=== PATIENT | male | born 1960 | race Caucasian/White ===

== ENCOUNTER → 2019-11-23 10:16 | Outpatient (BNVA) | payer MEDICAID, SELFPAY | PROVIDERS: Family Provider Family Medicine; PCP Family Medicine; Referring Provider Family Medicine; Visit Provider Anesthesiology Pain Medicine | DX: M51.36 Other intervertebral disc degeneration, lumbar region (principal); M47.816 Spondylosis without myelopathy or radiculopathy, lumbar region; M54.16 Radiculopathy, lumbar region; F17.210 Nicotine dependence, cigarettes, uncomplicated | CPT/HCPCS: 99203; 99999 ==

== ENCOUNTER → 2019-12-01 13:32 | Outpatient (BNVA) | payer MEDICAID, SELFPAY | PROVIDERS: Family Provider Family Medicine; PCP Family Medicine; Visit Provider Anesthesiology Pain Medicine | DX: M51.36 Other intervertebral disc degeneration, lumbar region (principal); M54.16 Radiculopathy, lumbar region | CPT/HCPCS: 64483; 64484; J1040; J2001; J3490 ==

== ENCOUNTER → 2020-01-31 10:15 | Outpatient (BNVA) | payer MEDICAID, SELFPAY | PROVIDERS: Family Provider Family Medicine; PCP Family Medicine; Visit Provider Specialist | DX: G40.909 Epilepsy, unspecified, not intractable, without status epilepticus (principal); F25.0 Schizoaffective disorder, bipolar type; F17.210 Nicotine dependence, cigarettes, uncomplicated | CPT/HCPCS: 99204 ==

== ENCOUNTER → 2020-02-03 08:58 | Outpatient (BNVA) | payer MEDICAID, SELFPAY | PROVIDERS: Family Provider Family Medicine; PCP Family Medicine; Visit Provider Anesthesiology Pain Medicine | DX: M47.816 Spondylosis without myelopathy or radiculopathy, lumbar region (principal); M51.36 Other intervertebral disc degeneration, lumbar region; M54.16 Radiculopathy, lumbar region; M54.9 Dorsalgia, unspecified; M62.830 Muscle spasm of back; F17.210 Nicotine dependence, cigarettes, uncomplicated; Z79.891 Long term (current) use of opiate analgesic | CPT/HCPCS: 99213 ==

== ENCOUNTER → 2020-02-08 12:38 | Outpatient (BNVA) | payer MEDICAID, SELFPAY | PROVIDERS: Family Provider Family Medicine; PCP Family Medicine; Visit Provider Specialist | DX: R56.9 Unspecified convulsions (principal); F17.210 Nicotine dependence, cigarettes, uncomplicated | CPT/HCPCS: 95816 ==

== ENCOUNTER → 2020-02-17 07:44 | Outpatient (BNVA) | payer MEDICAID, SELFPAY | PROVIDERS: Family Provider Family Medicine; PCP Family Medicine; Visit Provider Nurse Practitioner Psychiatric/Mental Health | DX: F25.1 Schizoaffective disorder, depressive type (principal); G47.33 Obstructive sleep apnea (adult) (pediatric) | CPT/HCPCS: 99213 ==

== ENCOUNTER → 2020-03-16 13:09 | Outpatient (BNVA) | payer MEDICAID, SELFPAY | PROVIDERS: Family Provider Family Medicine; PCP Family Medicine; Visit Provider Nurse Practitioner Psychiatric/Mental Health | DX: F25.1 Schizoaffective disorder, depressive type (principal); Z79.899 Other long term (current) drug therapy | CPT/HCPCS: 99212 ==

== ENCOUNTER → 2020-04-12 13:56 | Outpatient (BNVA) | payer OTHER, SELFPAY | PROVIDERS: Family Provider Family Medicine; PCP Family Medicine; Visit Provider Dermatology | DX: F25.0 Schizoaffective disorder, bipolar type (principal); Z79.899 Other long term (current) drug therapy | CPT/HCPCS: 80061; 83036 ==

== ENCOUNTER 2020-04-17 11:03 | Inpatient (IN) | payer MEDICAID, SELFPAY ==
[2020-04-13 10:55] VITALS: BP 156/100; BMI 27.5
[2020-04-17] VITALS (34 sets, daily range): BP systolic 77–193; BP diastolic 49–103; PULSE 75–111; RESP 12–23; TEMP 36.5–36.8; O2SAT 87–99; BMI 25.0
--- NOTE | 2020-04-17 11:18 | ECG_ITS ---
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 Measurements Intervals [place] Rate: 81 P: 68 CA: 169 QRS: 41 QRSD: 94 T: 75 QT: 373 QTc: 435 Interpretive Statements SINUS RHYTHM Compared to ECG 02/20/2019 03:24:19 T-wave abnormality no longer present Electronically Signed On 04-17-2020 21:21:09 CDT by Annia Rolle M.D. [email or web address] | [facility].Gravity/store/OM/[id number]"
[2020-04-17] MEDS: haloperidol inj 5 mg/mL INJ 1 mL IM (11:28)
[2020-04-17 11:58] LABS: Basophils # 0.1 10^3/uL (0.0-0.1); Basophils % 0.7 %; Eosinophils # 0.3 10^3/uL (0.0-0.8); Eosinophils % 3.7 %; Hematocrit 42.3 % (42.0-52.0); Lymphocytes # 2.3 10^3/uL (0.8-4.8); Lymphocytes % 34.1 %; Mean Corpuscular HGB Conc 33.1 g/dL (30.0-36.0); Mean Corpuscular Hemoglobin 31.5 pg (28.0-34.0); Mean Corpuscular Volume 95.1 fL (80-94); Mean Platelet Volume 9.1 fL (7.4-10.4); Monocytes # 0.9 10^3/uL (0.2-0.9); Monocytes % 13.4 %; Neutrophils % 47.8 %; Nucleated Red Blood Cells % 0 %; Platelet Count 344 10^3/cmm (130-400); Red Blood Count 4.45 10^6/uL (4.1-5.3); Red Cell Distribution Width 15.4 % (12.1-15.1); White Blood Count 6.7 10^3/uL (4.0-10.0)
[2020-04-17 12:11] LABS: INR 0.79 (0.8-1.2)
--- NOTE | 2020-04-17 12:21 | W.ED.PSYCH ---
HPI - Psych General: Chief Complaint: Psychiatric Symptoms Stated Complaint: ANXIETY/etoh Time Seen by Provider: 04/17/20 11:09 Source: patient and EMS Mode of arrival: EMS Limitations: altered mental status History of Present Illness: HPI Narrative: Costa is a 59-year-old male who comes in hallucinating. He appears to have been drinking today as well. He is having what appears to be auditory and visual hallucinations. The patient is cooperative at times that also becomes agitated and combative that necessitates redirection but he is easily redirected. Patient states he is depressed and wants to get help. He acknowledges his hallucinations. Per review of the chart the patient has schizoaffective disorder but sounds like he is noncompliant. Further history cannot be obtained psych to the patient's uncooperation. Review of Systems General: Reports: Other (Patient will not cooperate for review of systems.) [facility] ED PFSH: Medical History Alcohol use disorder See subjective information below. 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 Sleep apnea, obstructive Urinary urgency Vitamin B12 deficiency Surgical History No pertinent past surgical history Family History Other Cancer Diabetes Hypertension Social History Smoking and tobacco status: current every day smoker cigarettes Packs smoked per day: 2 Years cigarettes smoked: 40 Second hand smoke exposure: No Alcohol intake: current Alcohol intake frequency: 3 or more drinks per day Alcohol type: beer Desire information about alcohol rehabilitation?: No Desire information about substance/drug rehabilitation?: No Adopted: No Caregiver/support person: No Lives independently: Yes Household members: none Housing: House Marital status: Number of children: 2 Number of grandchildren: 6 Highest education level completed: 11th Grade service: No Current occupational status: disabled Current occupational exposures/hazards: No Pets and animals: Yes Pets & animals: dog(s) History of recent travel: No Current gender identity: Male Maricarmen/Confucianist: Orthodoxy Special maricarmen needs: No Agree to transfusion: Yes Financial difficulty paying for basics: Hard Physical Exam Const: COMMON NORMALS: no acute distress, patient oriented x3, no limitations, healthy appearing and well nourished GENERAL APPEARANCE: cooperative, well kempt and well developed HENMT: COMMON NORMALS: normocephalic, atraumatic, external ears normal, EAC's normal and Normal external nose present HEAD & SCALP: normal to inspection, normocephalic and atraumatic FACE & SINUS: normal facial exam and face symmetric NOSE: Normal external nose present and Normal nares present EXTERNAL EAR: Yes external ears normal EXTERNAL AUDITORY CANAL: EAC's normal MOUTH: Normal oral and palatal mucosa present, lip normal and tongue normal Eye: COMMON NORMALS: Equal, round and reactive pupils present and conjunctivae normal GENERAL EYE: appearance normal, both eyes and all related structures ALIGNMENT: Yes alignment normal PERIORBITAL: periorbital findings normal EYELID: eyelids normal CONJUNCTIVA: Yes conjunctivae normal SCLERA: sclerae normal PUPIL: Yes Equal, round and reactive pupils present Neck/C-Spine: COMMON NORMALS: full ROM, no lymphadenopathy, supple, no meningeal signs and no JVD GENERAL: Yes normal visual inspection and Yes trachea midline Chest: COMMONS NORMALS: normal inspection of the chest and normal palpation of entire chest wall Resp: COMMON NORMALS: normal respiratory effort, No retractions and No use of accessory muscles EFFORT & INSPECTION: Yes able to speak in complete sentences and Yes symmetric chest movement AUSCULTATION: no crackles, no rales, no rhonchi and no wheezes Cardio: COMMON NORMALS: no JVD, regular rate, regular rhythm, S1 normal heart sound present and S2 normal heart sound present RATE: regular rate RHYTHM: regular rhythm HEART SOUNDS: S1 normal heart sound present, S2 normal heart sound present, no click, no gallops, no murmurs, no rubs and abnormal split S2 GI: COMMON NORMALS: Soft to palpation and No hepatosplenomegaly present PALPATION: Yes Soft to palpation, No Tenderness to palpation present (GI), No Guarding due to palpation present (GI), No Rigid due to palpation, Yes No hepatosplenomegaly present, No Hernia present, No Palpable mass present and No Pulsatile mass present : COMMON NORMALS: Yes no CVA tenderness BLADDER/KIDNEY EXAM: Yes no CVA tenderness Back/Pelvis: COMMON NORMALS: no CVA tenderness, thoracic and lumbar spine normal to inspection, no thoracic nor lumbar tenderness and thoraco-lumbar ROM normal Extremity: COMMON NORMALS: normal to inspection, full ROM, capillary refill normal, no joint enlargement, no clubbing, cyanosis or edema and no calf tenderness Neuro: COMMON NORMALS: patient oriented x3, CN's II-XII intact bilaterally, moves all extremities, no focal motor deficits and no sensory deficits noted MENINGEAL SIGNS: Yes no meningeal signs SPEECH: speech normal Psych: APPEARANCE: Yes well kempt Skin: COMMON NORMALS: no rashes or lesions noted, turgor normal, no jaundice, no petechiae and no mottling GENERAL SKIN EXAM: no rashes or lesions noted and turgor normal MDM - Psych MDM Narrative: Medical decision making narrative: The case was reviewed with Dr. Costello, he agrees to go ahead and admit the patient for acute psychosis. Lab Data: Attestation: I reviewed the patient's lab results. Labs: Lab Results 04/17/20 04/17/20 04/17/20 Range/Units 11:35 11:50 11:50 WBC 6.7 (4.0-10.0) 10^3/ uL RBC 4.45 (4.1-5.3) 10^6/u L Hgb 14.0 (11.7-16.6) g/dL Hct 42.3 (42.0-52.0) % MCV 95.1 H (80-94) fL MCH 31.5 (28.0-34.0) pg MCHC 33.1 (30.0-36.0) g/dL RDW 15.4 H (12.1-15.1) % Plt Count 344 (130-400) 10^3/c mm MPV 9.1 (7.4-10.4) fL Neut % (Auto) 47.8 % Lymph % (Auto) 34.1 % [place] % (Auto) 13.4 % Eos % (Auto) 3.7 % Baso % (Auto) 0.7 % Neut # (Auto) 3.20 (1.8-7.7) 10^3/u L Lymph # (Auto) 2.3 (0.8-4.8) 10^3/u L [place] # (Auto) 0.9 (0.2-0.9) 10^3/u L Eos # (Auto) 0.3 (0.0-0.8) 10^3/u L Baso # (Auto) 0.1 (0.0-0.1) 10^3/u L Nucleated RBC % (a uto) 0 % Nucleated RBCs # 0.0 /100WBC PT 11.20 (10.5-13.3) SECO NDS INR 0.79 L (0.8-1.2) Sodium (136-145) mmol/L Potassium (3.5-5.1) mmol/L Chloride (98-107) mmol/L Carbon Dioxide (22-29) mmol/L Anion Gap (5-19) BUN (6-20) mg/dL Creatinine (0.7-1.2) mg/dL GFR Calculation (90-130) mL/min Glucose (65-115) mg/dL Calculated Osmolal ity (285-295) mOsm/k g Calcium (8.5-10.5) mg/dL Total Bilirubin (0.15-1.2) mg/dL AST (0-40) U/L ALT (0-41) U/L Alkaline Phosphata se (40-130) IU/L Total Protein (6.6-8.7) g/dL Albumin (3.5-5.2) g/dL Globulin (1.3-4.6) g/dL TSH (0.27-4.20) uIU/ mL Salicylates (3-10) mg/dL Urine Opiates Scre en Negative (Negative) ng/mL Acetaminophen (10-30) ug/mL Ur Barbiturates Sc reen Negative (Negative) ng/mL Phenytoin (10-20) ug/mL Valproic Acid (50-100) ug/mL Carbamazepine (4.0-12.0) ug/mL Ur Phencyclidine S crn Negative (Negative) ng/mL Ur Amphetamines Sc reen Negative (Negative) ng/mL U Benzodiazepines Scrn Negative (Negative) ng/mL Nordic (0.6-1.2) mmol/L Urine Cocaine Scre en Negative (Negative) ng/mL U Marijuana (THC) Screen Negative (Negative) ng/mL Ethyl Alcohol (0-10) mg/dL 04/17/20 04/17/20 Range/Units 11:50 11:50 WBC (4.0-10.0) 10^3/ uL RBC (4.1-5.3) 10^6/u L Hgb (11.7-16.6) g/dL Hct (42.0-52.0) % MCV (80-94) fL MCH (28.0-34.0) pg MCHC (30.0-36.0) g/dL RDW (12.1-15.1) % Plt Count (130-400) 10^3/c mm MPV (7.4-10.4) fL Neut % (Auto) % Lymph % (Auto) % [place] % (Auto) % Eos % (Auto) % Baso % (Auto) % Neut # (Auto) (1.8-7.7) 10^3/u L Lymph # (Auto) (0.8-4.8) 10^3/u L [place] # (Auto) (0.2-0.9) 10^3/u L Eos # (Auto) (0.0-0.8) 10^3/u L Baso # (Auto) (0.0-0.1) 10^3/u L Nucleated RBC % (a uto) % Nucleated RBCs # /100WBC PT (10.5-13.3) SECO NDS INR (0.8-1.2) Sodium 140 (136-145) mmol/L Potassium 4.6 (3.5-5.1) mmol/L Chloride 105 (98-107) mmol/L Carbon Dioxide 24 (22-29) mmol/L Anion Gap 15.6 (5-19) BUN 10 (6-20) mg/dL Creatinine 0.7 (0.7-1.2) mg/dL GFR Calculation 115.4 (90-130) mL/min Glucose 90 (65-115) mg/dL Calculated Osmolal ity 286 (285-295) mOsm/k g Calcium 8.2 L (8.5-10.5) mg/dL Total Bilirubin 0.2 (0.15-1.2) mg/dL AST 26 (0-40) U/L ALT 34 (0-41) U/L Alkaline Phosphata se 57 (40-130) IU/L Total Protein 6.8 (6.6-8.7) g/dL Albumin 4.6 (3.5-5.2) g/dL Globulin 2.2 (1.3-4.6) g/dL TSH 1.03 (0.27-4.20) uIU/ mL Salicylates < 0.3 L (3-10) mg/dL Urine Opiates Scre en (Negative) ng/mL Acetaminophen < 5.0 L (10-30) ug/mL Ur Barbiturates Sc reen (Negative) ng/mL Phenytoin 0.8 L (10-20) ug/mL Valproic Acid 2.8 L (50-100) ug/mL Carbamazepine 2.0 L (4.0-12.0) ug/mL Ur Phencyclidine S crn (Negative) ng/mL Ur Amphetamines Sc reen (Negative) ng/mL U Benzodiazepines Scrn (Negative) ng/mL Nordic 0.1 L (0.6-1.2) mmol/L Urine Cocaine Scre en (Negative) ng/mL U Marijuana (THC) Screen (Negative) ng/mL Ethyl Alcohol 297 H (0-10) mg/dL EKG Data^: EKG 1: Attestation: I personally reviewed and interpreted this EKG as follows: EKG interpretation date: 04/17/20 EKG interpretation time: 12:37 Interpretation: Normal sinus rhythm at 81 beats a minute, no acute ST or T wave changes. No blocks, normal intervals. Discharge Plan Discharge Patient Disposition: Placed in Observation Admit Provider: Diogenes Costello Clinical Impression: Acute psychosis Discharge Date/Time: 04/17/20 15:13 Coding Level of Care Code ED Pattern Room Attendant for Chg Fwd Exam Comprehensive
[2020-04-17 12:25] LABS: Amphetamines Screen Urine Negative (Negative); Barbiturates Screen Urine Negative (Negative); Benzodiazepines Screen Urine Negative (Negative); Cocaine Screen Urine Negative (Negative); Opiate Screen Urine Negative (Negative); PCP Screen Urine Negative (Negative); THC Screen Urine Negative (Negative)
[2020-04-17 12:26] LABS: Alanine Aminotransferase 34 U/L (0-41); Albumin Level 4.6 g/dL (3.5-5.2); Alcohol Level 297 mg/dL (0-10); Alkaline Phosphatase 57 IU/L (40-130); Anion Gap 15.6 (5-19); Aspartate Amino Transferase 26 U/L (0-40); Blood Urea Nitrogen 10 mg/dL (6-20); Calcium 8.2 mg/dL (8.5-10.5); Carbon Dioxide 24 mmol/L (22-29); Chloride 105 mmol/L (98-107); Globulin 2.2 g/dL (1.3-4.6); Glomerular Filtration Rate 115.4 mL/min (90-130); Glucose 90 mg/dL (65-115); Osmolality Calculated 286 mOsm/kg (285-295); Potassium 4.6 mmol/L (3.5-5.1); Sodium 140 mmol/L (136-145); Thyroid Stimulating Hormone 1.03 uIU/mL (0.27-4.20); Total Bilirubin 0.2 mg/dL (0.15-1.2); Total Protein 6.8 g/dL (6.6-8.7)
[2020-04-17 12:31] LABS: Acetaminophen < 5.0 ug/mL (10-30); Salicylate < 0.3 mg/dL (3-10)
[2020-04-17 13:13] LABS: Phenytoin Dilantin 0.8 ug/mL (10-20); Valproic Acid Level 2.8 ug/mL (50-100)
[2020-04-17 13:33] LABS: Lithium 0.1 mmol/L (0.6-1.2)
--- NOTE | 2020-04-17 14:42 | PC.NURSE ---
Patient unable to ambulate with normal gait
--- NOTE | 2020-04-17 15:15 | PC.NURSE ---
Ambulation trial perform by digital camera technician. I repeated the ambulation trial. The patient was able to ambulate with a steady gait. He requested a sandwich.
--- NOTE | 2020-04-17 16:04 | CTR_ITS ---
PROCEDURE INFORMATION: Exam: CT Head Without Contrast Exam date and time: 04/17/2020 4:05 PM Age: 59 years old Clinical indication: Pain; Headache; Additional info: Severe head pain sudden onset, S/P multi seizures TECHNIQUE: Imaging protocol: Computed tomography of the head without contrast. Radiation optimization: All CT scans at this facility use at least one of these dose optimization techniques: automated exposure control; mA and/or kV adjustment per patient size (includes targeted exams where dose is matched to clinical indication); or iterative reconstruction. COMPARISON: CT head wo con* [id number] 02/20/2019 3:29 AM RADIATION DOSE METRICS: Total DLP (mGy-cm): 669.41 FINDINGS: Brain: There is volume loss and periventricular low density compatible with chronic small vessel disease changes. There is no acute hemorrhage, edema or mass effect. Ventricles: Normal. No ventriculomegaly. Bones/joints: Unremarkable. No acute fracture. Sinuses: There is trace mucosal thickening in the sinuses. No air-fluid levels. Mastoid air cells: Visualized mastoid air cells are well aerated. Soft tissues: Unremarkable. CT/CT head wo con* [id number] IMPRESSION: No acute intracranial abnormality. Radiation Dose CTDIVOL = (mGy): DLP = 669.41 (mGy-cm)
[2020-04-17] MEDS: LORazepam 2 mg/mL INJ 1 mL IM ×2 (16:06→16:09)
--- NOTE | 2020-04-17 16:06 | PC.NURSE ---
Addendum entered by Damaris Montero 04/17/20 16:21: 'at this time' being 1517. Original Note: after several successful ambulations, pt transported to NPU at this time.pt awake, alert, and oriented; pt walked self to wheelchair. Viktor Rosario, along with this tech, took paper work and pt to unit. Pt was alert, awake, and oriented to person, place, and activity. Pt. was placed on NPU intake bench. at this time pt yawned,and then asked this tech for the 'sandwich he never got'. this tech stated he would receive his food shortly once they got him to a room, and his intake was done. this tech apologized for the sandwich never coming. pt stated 'thank you' this tech left pt at this time.
--- NOTE | 2020-04-17 16:20 | PC.NURSE ---
Pt arrives to ICU from CT and NPU. Pt very drowsy, able to follow commands. IV noted in right AC. Seizure and aspiration precautions started. Awaiting orders.
--- NOTE | 2020-04-17 16:40 | PC.NURSE ---
Awaiting orders, NPU and Dr Costello notified that orders are needed.
--- NOTE | 2020-04-17 17:38 | XRR_ITS ---
PROCEDURE INFORMATION: Exam: XR Chest, 1 View Exam date and time: 04/17/2020 6:57 PM Age: 59 years old Clinical indication: Other: altered mental status; Anxiety, hypoxia; Patient HX: AMS, hypoxia, anxiety TECHNIQUE: Imaging protocol: XR of the chest Views: Frontal portable semiupright view of the chest. COMPARISON: CR Chest 2 views* [id number] 04/29/2018 10:09 AM FINDINGS: Lungs: Mild left basilar pulmonary subsegmental atelectasis. The pulmonary vasculature is normal. Pleural space: No pleural effusion. No pneumothorax. Heart/Mediastinum: The heart is normal in size and contour. Mediastinum: Stable. Bones/joints: Healed right posterior 8th and 9th rib fractures redemonstrated. XR/XR chest 1V portable [id number] IMPRESSION: Mild left basilar pulmonary subsegmental atelectasis.
--- NOTE | 2020-04-17 17:38 | PM.HP ---
Providers/Chief Complaint Admitting Physician: Diogenes Costello MD Primary Care Provider: Silvia Wilson DO Chief Complaint: ANXIETY History of Present Illness Costa Alba is a 59 year old gentleman with history of schizoaffective disorder, COPD, CVA, PUD, KIEL, other medical conditions, was transferred to intensive care unit after several episodes of apparent seizure, witnessed on neuropsychiatric unit where he was admitted earlier today due to presenting with visual and auditory seizures, found with positive blood alcohol level. First episode was witnessed after he walks to the bathroom, and return to sit down on a bench. He was noted tensing up, and with some shaking movements, and after the episode lay down on the bench. Reportedly when asked him he fingers he was seeing and shown to replied 8. Subsequently had another episode lasting less than a minute witnessed by the rep response team. He first received 2 mg IM and later 2mg IV. Subsequent he was complaining of severe headache. Plain CT was obtained. He was transferred to intensive care unit for additional evaluation. Denies chest pain or pressure. Initial blood pressure noted decreased from nearly 193/103, down to 97/60 after doses of Ativan. To the nurse will be earlier still reporting hallucinations. Currently he is somnolent, but does wake up if she can shoulder, but briefly, and falls back to sleep. Currently denies headache. Review of Systems General: Reports: ROS unobtainable due to medical condition Medications/Allergies Home Medications Medication Instructions Recorded Confirmed Last Taken Type budesonide-formoterol HFA 160 1 puff INHALATION BID 10/08/19 04/17/20 Unknown History mcg-4.5 mcg/actuation aerosol inhaler tiotropium bromide 18 mcg capsule 1 cap INHALATION DAILY 10/08/19 04/17/20 Unknown History with inhalation device cyanocobalamin (vitamin B-12) 1,000 mcg IM Q30D ml 10/12/19 04/17/20 Unknown History 1,000 mcg/mL injection solution albuterol sulfate 90 mcg/actuation 2 puff INHALATION Q6H PRN 11/23/19 04/17/20 Unknown History aerosol inhaler primidone 50 mg tablet 25 mg PO BID #30 tab 01/31/20 04/17/20 Unknown Rx baclofen 10 mg tablet 10 mg PO BID #60 tab 05/14/20 07/27/20 Unknown Rx citalopram 20 mg tablet 20 mg PO QAM #30 tab 02/17/20 04/17/20 Unknown Rx losartan 25 mg tablet 50 mg PO DAILY #60 tab 03/14/20 04/17/20 Unknown Rx fesoterodine 8 mg tablet,extended 8 mg PO QDAY #30 tab 03/17/20 04/17/20 Unknown Rx release 24 hr omeprazole 40 mg capsule,delayed 40 mg PO BID #60 cap 03/27/20 04/17/20 Unknown Rx release Zocor 20 mg PO BEDTIME 04/17/20 04/17/20 Unknown History Allergies Allergy/AdvReac Type Severity Reaction Status Date / Time No Known Allergies Allergy Verified 02/08/20 12:49 PFSH Acute PFSH: Medical History Alcohol use disorder See subjective information below. 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 Sleep apnea, obstructive Urinary urgency Vitamin B12 deficiency Surgical History No pertinent past surgical history Family History Other Cancer Diabetes Hypertension Social History Smoking and tobacco status: current every day smoker cigarettes Packs smoked per day: 2 Years cigarettes smoked: 40 Second hand smoke exposure: No Alcohol intake: current Alcohol intake frequency: 3 or more drinks per day Alcohol type: beer Desire information about alcohol rehabilitation?: No Desire information about substance/drug rehabilitation?: No Adopted: No Caregiver/support person: No Lives independently: Yes Household members: none Housing: House Marital status: Number of children: 2 Number of grandchildren: 6 Highest education level completed: 11th Grade service: No Current occupational status: disabled Current occupational exposures/hazards: No Pets and animals: Yes Pets & animals: dog(s) History of recent travel: No Current gender identity: Male Maricarmen/Muslim: Hoahaoism Special maricarmen needs: No Agree to transfusion: Yes Financial difficulty paying for basics: Hard Vitals/I&O/Wt Last Vital Signs Temp 97.7 F 04/17/20 16:45 Pulse 82 04/17/20 17:00 Resp 18 04/17/20 17:00 BP 77/50 04/17/20 17:00 Pulse Ox 89 L 04/17/20 17:00 Weight last 48 hrs Weight 90.718 kg Physical Exam Const: COMMON NORMALS: no acute distress; negative for patient oriented x3 HENMT: COMMON NORMALS: oropharynx normal Neck/C-Spine: COMMON NORMALS: no JVD Resp: COMMON NORMALS: normal respiratory effort and clear to auscultation bilaterally AUSCULTATION: clear to auscultation bilaterally Cardio: COMMON NORMALS: no JVD, regular rhythm, S1 normal heart sound present, S2 normal heart sound present and No murmurs present (Cardio) RHYTHM: regular rhythm HEART SOUNDS: S1 normal heart sound present and S2 normal heart sound present GI: COMMON NORMALS: Normal to inspection, nondistended, normoactive bowel sounds present, Soft to palpation and non-tender PALPATION: Yes Soft to palpation Extremity: COMMON NORMALS: no joint enlargement and no pedal edema Neuro: COMMON NORMALS: moves all extremities SENSORIUM/ORIENTATION: Yes lethargic OTHER: Appears to be moving all extremities, however, difficult to examine due to mental status. Does not appear to have rigidity or clonus. Skin: OTHER: Few scattered excoriations noted on lower extremities. No rash noted. Data : 04/17/20 11:50 04/17/20 11:50 A&P Assessment and plan (1) Seizure: Several episodes of seizure-like activity noticed in MPU. Received 4 mg total of Ativan. Blood alcohol level very elevated at 300. Suspected alcohol withdrawal seizure. Unknown is has prior history. He cannot provide much history currently, does answer a few basic questions, but is very lethargic. Reportedly has been hallucinating previously, and reporting loose Nations to the nurse as well. At this time given alcohol intoxication, withdrawal, will continue Ativan per [facility] protocol. CT of the head without contrast is unremarkable. EEG Status: Acute (2) Acute psychosis: This may be secondary to delirium tremens, although does have history of schizoaffective disorder. Currently is under 96-hour hold. Continue supportive care for severe alcohol drawl, delirium tremens, with additional psychiatric assessment will be needed once his mental status/condition improved somewhat. Status: Acute (3) Alcohol use disorder: Unknown how much he drinks at baseline. Blood alcohol level 300 noted in ER. Acutely delirious on presentation with visual and auditory hallucinations. Currently with local withdrawal seizure as well. Supportive care through alcohol withdrawal with Ativan per [facility] protocol. Thiamine, folic acid. One-to-one sitter. Symptomatic management of episodes of agitation. Status: Chronic Additional A&P Information Hypotension: Blood pressure decreased after seizure, and after receiving Ativan, initially hypertensive, at this time appears stabilized, 111/68. Will hold antihypertensives for now. Monitor blood pressures. Smoking addiction: Encouraged smoking cessation. History of CVA reported History of COPD, denies using oxygen at baseline, continue home medicines. Saturations 89%, unclear baseline. Otherwise at this time does not have wheezing. Does not appear to be in exacerbation. Will check chest x-ray given altered mental status, seizure. Monitor oxygenation and for signs of aspiration. PUD: PPI Schizoaffective disorder Reported right kidney mass KIEL Attestations Medical Necessity Statement*: Admission of over 2 midnights is going to needed for assessment management of severe alcohol withdrawal, withdrawal seizure, acute encephalopathy, acute psychosis. Coding Level of Care Code Acute Forestry Adviser for Ayana Bustillos Diagnoses Seizure R56.9 Acute psychosis F23 Alcohol use disorder
[2020-04-17] MEDS: primidone 50 mg Tablet 25 MG PO (19:03)
[2020-04-17] MEDS: pantoprazole DR 40 mg Tablet PO (19:03)
[2020-04-17] MEDS: baclofen 10 mg Tablet PO (19:03)
--- NOTE | 2020-04-17 19:17 | PC.NURSE ---
Report given to CHELSI Thomason. He is from NPU today, witnessed seizures. Pt has been drowsy since coming to ICU around 1630. Pt stated he hears people and them tell him he can't run. He had a head CT, no acute findings. Chest xray ordered to check for aspiratin. Pt does follow commands. O2 sats dropped a little to 87% while pt sleeping, Nasal cannula applied at 3lpm. Pt has not urinated yet.
[2020-04-17] MEDS: atorvastatin 40 mg Tablet 20 MG PO (20:31)
[2020-04-17] MEDS: LORazepam 2 mg/mL INJ 1 mL IVP (20:58)
[2020-04-18] VITALS (45 sets, daily range): BP systolic 115–159; BP diastolic 78–110; PULSE 69–104; RESP 8–28; TEMP 36.7–37.1; O2SAT 84–98
[2020-04-18] MEDS: LORazepam 2 mg/mL INJ 1 mL IVP ×9 (00:51→20:22)
[2020-04-18 04:42] LABS: Basophils # 0.1 10^3/uL (0.0-0.1); Basophils % 0.8 %; Eosinophils # 0.2 10^3/uL (0.0-0.8); Eosinophils % 2.9 %; Hematocrit 40.6 % (42.0-52.0); Hemoglobin 13.2 g/dL (11.7-16.6); Lymphocytes # 1.6 10^3/uL (0.8-4.8); Lymphocytes % 22.2 %; Mean Corpuscular HGB Conc 32.5 g/dL (30.0-36.0); Mean Corpuscular Hemoglobin 31.1 pg (28.0-34.0); Mean Corpuscular Volume 95.8 fL (80-94); Mean Platelet Volume 9.8 fL (7.4-10.4); Monocytes # 0.7 10^3/uL (0.2-0.9); Monocytes % 9.6 %; Neutrophils # 4.66 10^3/uL (1.8-7.7); Neutrophils % 64.2 %; Nucleated Red Blood Cells % 0 %; Platelet Count 353 10^3/cmm (130-400); Red Blood Count 4.24 10^6/uL (4.1-5.3); Red Cell Distribution Width 15.4 % (12.1-15.1); White Blood Count 7.3 10^3/uL (4.0-10.0)
[2020-04-18 04:48] LABS: INR 0.88 (0.8-1.2)
[2020-04-18 05:02] LABS: Alanine Aminotransferase 30 U/L (0-41); Alkaline Phosphatase 53 IU/L (40-130); Anion Gap 13.4 (5-19); Aspartate Amino Transferase 30 U/L (0-40); Blood Urea Nitrogen 14 mg/dL (6-20); Calcium 8.6 mg/dL (8.5-10.5); Carbon Dioxide 25 mmol/L (22-29); Chloride 103 mmol/L (98-107); Globulin 2.7 g/dL (1.3-4.6); Glomerular Filtration Rate 115.4 mL/min (90-130); Glucose 86 mg/dL (65-115); Magnesium 1.9 mg/dL (1.7-2.3); Osmolality Calculated 280 mOsm/kg (285-295); Potassium 4.4 mmol/L (3.5-5.1); Sodium 137 mmol/L (136-145); Total Bilirubin 0.5 mg/dL (0.15-1.2); Total Protein 6.7 g/dL (6.6-8.7)
--- NOTE | 2020-04-18 08:10 | P.PN_ITS ---
Subjective Subjective: Interval history: Discussion with his nurse he is still reported overnight with tremors, anxious, restless. He himself is more alert today. Knows he is in the hospital. Reports his breathing currently is comfortable. Reports feeling achy all over. Reports that he has had recurrent withdrawal episodes over the last year. Says that he drinks alcohol, sometimes uses marijuana to help him come down . Denies other drug use. Says is drinking 8-9 beers per day. Vitals/I&O/Wt Last Vital Signs Temp 97.7 F 04/17/20 16:45 Pulse 76 04/18/20 06:00 Resp 16 04/18/20 06:00 BP 145/85 04/18/20 06:00 Pulse Ox 96 04/18/20 06:00 04/17/20 04/18/20 04/18/20 22:59 06:59 14:59 Intake Total 250 / 250 Output Total 250 / 250 0 / 250 Balance 0 / 0 0 / 0 Weight last 48 hrs Weight 90.718 kg Physical Exam Const: COMMON NORMALS: no acute distress and patient oriented x3 GENERAL APPEARANCE: cooperative OTHER: He is somnolent/groggy, but wakes up much more easily than yesterday. HENMT: COMMON NORMALS: oropharynx normal Neck/C-Spine: COMMON NORMALS: no JVD Resp: COMMON NORMALS: normal respiratory effort and clear to auscultation bilaterally AUSCULTATION: clear to auscultation bilaterally Cardio: COMMON NORMALS: no JVD, regular rhythm, S1 normal heart sound present, S2 normal heart sound present and No murmurs present (Cardio) RHYTHM: regular rhythm HEART SOUNDS: S1 normal heart sound present and S2 normal heart sound present GI: COMMON NORMALS: Normal to inspection, nondistended, normoactive bowel sounds present, Soft to palpation and non-tender PALPATION: Yes Soft to palpation Extremity: COMMON NORMALS: no joint enlargement and no pedal edema OTHER: Tremor Neuro: COMMON NORMALS: patient oriented x3 and moves all extremities OTHER: Moving all extremities. No rigidity or clonus. Skin: COMMON NORMALS: no rashes or lesions noted GENERAL SKIN EXAM: no rashes or lesions noted OTHER: Few scattered excoriations noted on lower extremities. No rash noted. Data : 04/18/20 03:42 04/18/20 03:42 A&P Assessment and plan (1) Seizure: No recurrence overnight. Several episodes of seizure-like activity noticed in NPU. Received 4 mg total of Ativan. BAL 300 on admit. Suspected alcohol withdrawal seizure. At this time given alcohol intoxication, withdrawal, will continue Ativan per [facility] protocol. CT of the head without contrast is unremarkable. EEG Status: Acute (2) Acute psychosis: This may be secondary to delirium tremens, although does have history of schizoaffective disorder. Currently is under 96-hour hold. Continue supportive care for severe alcohol drawl, delirium tremens, with a dditional psychiatric assessment will be needed once his mental status/condition improved somewhat. Status: Acute (3) Alcohol use disorder: Tremor this morning. Overnight CIWA still elevated. Will add low dose librium. Reports drinks 8-9 beers. Occasional marijuana use. Denies other drug use. Blood alcohol level 300 noted in ER. On presentation with visual and auditory hallucinations. 2 episodes of seizure on 11/18. Supportive care through alcohol withdrawal with Ativan per [facility] protocol. Thiamine, folic acid. One-to-one sitter. Symptomatic management of episodes of agitation. Status: Chronic Additional A&P Information Hypotension: Resolved. Hold antihypertensives for now. Monitor blood pressures. Smoking addiction: Encourage smoking cessation. History of CVA reported History of COPD, denies using oxygen at baseline, continue home medicines. Saturations in low 90s on 2L, unclear baseline. Otherwise at this time does not have wheezing. Does not appear to be in exacerbation. CXR appears similar to prior per my read. Pending official interpretation. Monitor oxygenation and for signs of aspiration. Afebrile. PUD: PPI Schizoaffective disorder Reported right kidney mass KIEL Attestations Medical Necessity Statement*: Continue assessment and management of severe alcohol withdrawal. Critical Care Time: 35 minutes spent on addressing life-threatening conditions with severe alcohol withdrawal. Coding Level of Care Code Acute Reporting Coordinator for Ayana Bustillos Diagnoses Seizure R56.9 Acute psychosis F23 Alcohol use disorder
[2020-04-18] MEDS: primidone 50 mg Tablet 25 MG PO ×2 (08:32→18:00)
[2020-04-18] MEDS: baclofen 10 mg Tablet PO ×2 (08:33→17:59)
[2020-04-18] MEDS: thiamine 100 mg Tablet PO (08:33)
[2020-04-18] MEDS: pantoprazole DR 40 mg Tablet PO ×2 (08:33→18:00)
[2020-04-18] MEDS: folic acid 1 mg Tablet PO (08:33)
[2020-04-18] MEDS: multivitamin therapeutic Tablet 1 TAB PO (08:33)
[2020-04-18] MEDS: chlordiazePOXIDE 25 mg Capsule PO (08:33)
[2020-04-18] MEDS: citalopram 20 mg Tablet PO (08:35)
[2020-04-18] MEDS: LORazepam 2 mg/mL INJ 1 mL IM (09:39)
[2020-04-18] MEDS: chlordiazePOXIDE 25 mg Capsule 50 MG PO ×2 (11:54→17:59)
[2020-04-18] MEDS: LORazepam 2 mg Tablet PO (13:22)
--- NOTE | 2020-04-18 13:40 | PC.NURSE ---
Pt aspirated on coffee. He has a strong cough reflex. He coughed until he was able to clear. He had been sipping the coffee with difficulty earlier.
[2020-04-18] MEDS: OLANZapine 5 mg ODT PO (14:06)
--- NOTE | 2020-04-18 14:30 | PC.NURSE ---
Dr Morley notified of pt's progress. CIWA scores consistently over 15. Pt has had at least 12mg of Ativan in addition to to Librium. He started getting agitated, he received Zyprexa and Haldol , and Vistiril. He has ambulated twice around the unit. His heart rate had decreased, his in now is sinus rhythm. He has held conversations now. He did choked on coffee earlier, but he coughed severally enough to turn red and get it back up.
[2020-04-18] MEDS: nicotine 21 mg Patch 1 PATCH TRANSDERMA (14:45)
[2020-04-18] MEDS: hyDROXYzine 25 mg Capsule 50 MG PO (14:54)
[2020-04-18] MEDS: haloperidol 5 mg Tablet PO (14:55)
--- NOTE | 2020-04-18 18:53 | PC.NURSE ---
Shift summary: Beatriz improving, last scored 14 at 1600. Pt has required Haldol, Zyprexa, Vistaril and several doses of Ativan to reduce withdrawal symptoms plus the scheduled Librium. He has a good appetite and ate most of every meal. He uses urinal, he needs to stand, to pee. He needs stand-by assist as he is a little unsteady. He walked 2 times around the unit with a walker. His hallucinations consist of Scott , he's bad. He is trying to kill her He does say he sees shadow people.
[2020-04-18] MEDS: atorvastatin 40 mg Tablet 20 MG PO (20:22)
[2020-04-19] VITALS (14 sets, daily range): BP systolic 124–166; BP diastolic 80–111; PULSE 63–105; RESP 15–22; TEMP 36.4–36.5; O2SAT 92–98; BMI 25.0
[2020-04-19] MEDS: chlordiazePOXIDE 25 mg Capsule 50 MG PO ×5 (00:49→21:45)
[2020-04-19] MEDS: LORazepam 2 mg/mL INJ 1 mL IVP (00:49)
[2020-04-19 04:27] LABS: Basophils % 0.6 %; Eosinophils # 0.2 10^3/uL (0.0-0.8); Eosinophils % 3.2 %; Hematocrit 39.6 % (42.0-52.0); Hemoglobin 12.8 g/dL (11.7-16.6); Lymphocytes # 1.8 10^3/uL (0.8-4.8); Lymphocytes % 27.2 %; Mean Corpuscular HGB Conc 32.3 g/dL (30.0-36.0); Mean Corpuscular Hemoglobin 30.8 pg (28.0-34.0); Mean Corpuscular Volume 95.2 fL (80-94); Mean Platelet Volume 9.9 fL (7.4-10.4); Monocytes # 0.6 10^3/uL (0.2-0.9); Monocytes % 8.8 %; Neutrophils # 3.88 10^3/uL (1.8-7.7); Neutrophils % 59.9 %; Nucleated Red Blood Cells % 0 %; Platelet Count 311 10^3/cmm (130-400); Red Blood Count 4.16 10^6/uL (4.1-5.3); Red Cell Distribution Width 14.8 % (12.1-15.1); White Blood Count 6.5 10^3/uL (4.0-10.0)
[2020-04-19 04:44] LABS: Magnesium 1.9 mg/dL (1.7-2.3)
[2020-04-19 04:52] LABS: Alanine Aminotransferase 28 U/L (0-41); Albumin Level 4.1 g/dL (3.5-5.2); Alkaline Phosphatase 55 IU/L (40-130); Anion Gap 13.8 (5-19); Aspartate Amino Transferase 31 U/L (0-40); Blood Urea Nitrogen 12 mg/dL (6-20); Calcium 9.2 mg/dL (8.5-10.5); Carbon Dioxide 26 mmol/L (22-29); Chloride 103 mmol/L (98-107); Globulin 2.2 g/dL (1.3-4.6); Glomerular Filtration Rate 98.9 mL/min (90-130); Glucose 91 mg/dL (65-115); Osmolality Calculated 284 mOsm/kg (285-295); Potassium 3.8 mmol/L (3.5-5.1); Sodium 139 mmol/L (136-145); Total Bilirubin 0.6 mg/dL (0.15-1.2); Total Protein 6.3 g/dL (6.6-8.7)
[2020-04-19] MEDS: citalopram 20 mg Tablet PO (06:11)
--- NOTE | 2020-04-19 07:40 | PC.NURSE ---
states he is hearing voices. states noemi is in trouble . states she is in [place].
[2020-04-19] MEDS: primidone 50 mg Tablet 25 MG PO ×2 (08:17→17:15)
[2020-04-19] MEDS: multivitamin therapeutic Tablet 1 TAB PO (08:17)
[2020-04-19] MEDS: baclofen 10 mg Tablet PO ×2 (08:17→17:15)
[2020-04-19] MEDS: thiamine 100 mg Tablet PO (08:17)
[2020-04-19] MEDS: folic acid 1 mg Tablet PO (08:18)
[2020-04-19] MEDS: pantoprazole DR 40 mg Tablet PO ×2 (08:18→17:15)
--- NOTE | 2020-04-19 08:46 | P.PN_ITS ---
Subjective Subjective: Interval history: States today look familiar , does not remember events of last several days. When asked if he remembers anything that is been happening, reports just that Scott has been looking for Martha . Does seem to be aware that he has had a seizure while in the hospital. Reported still hallucinating as well as by his nurse. He himself somewhat dismisses this with brushing away motion with his hand, and says it is been going on since have been 5 years old . Discussed with him that he has been confused last several days, has been going through withdrawal. He states he drinks about a sixpack before going to sleep. Says occasionally smokes marijuana. States I am just about ready to get out of here . Vitals/I&O/Wt Last Vital Signs Temp 97.7 F 04/19/20 04:00 Pulse 81 04/19/20 07:49 Resp 20 H 04/19/20 07:49 BP 135/90 04/19/20 06:00 Pulse Ox 95 04/19/20 07:49 04/18/20 04/19/20 04/19/20 22:59 06:59 14:59 Intake Total 850 / 1550 Output Total 1250 / 2050 1150 / 3200 Balance -400 / -500 -1150 / -1650 Weight last 48 hrs Weight 90.718 kg Physical Exam Const: COMMON NORMALS: no acute distress and patient oriented x3 GENERAL APPEARANCE: cooperative OTHER: He is more awake, and able to provide some historical information about his PMH, although not entirely clear how reliable that information is. HENMT: COMMON NORMALS: oropharynx normal Neck/C-Spine: COMMON NORMALS: no JVD Resp: COMMON NORMALS: normal respiratory effort and clear to auscultation bilaterally (Minimal wheeze) AUSCULTATION: clear to auscultation bilaterally (Minimal wheeze) Cardio: COMMON NORMALS: no JVD, regular rhythm, S1 normal heart sound present, S2 normal heart sound present and No murmurs present (Cardio) RHYTHM: regular rhythm HEART SOUNDS: S1 normal heart sound present and S2 normal heart sound present GI: COMMON NORMALS: Normal to inspection, nondistended, normoactive bowel sounds present, Soft to palpation and non-tender PALPATION: Yes Soft to palpation Extremity: COMMON NORMALS: no joint enlargement and no pedal edema OTHER: Tremor Neuro: COMMON NORMALS: patient oriented x3 and moves all extremities OTHER: Moving all extremities. No rigidity or clonus. Skin: COMMON NORMALS: no rashes or lesions noted GENERAL SKIN EXAM: no rashes or lesions noted OTHER: Few scattered excoriations noted on lower extremities. No rash noted. Data : 04/19/20 03:55 04/19/20 03:55 A&P Assessment and plan (1) Seizure: No recurrence. Several episodes of seizure-like activity noticed in NPU. Received 4 mg total of Ativan. BAL 300 on admit. Suspected alcohol withdrawal seizure. Reports has had some episodes of falls, possible seizures in the past, for which he had seen a neurologist, but has never had a confirmed seizure. CT of the head without contrast is unremarkable. EEG not available. Ongoing seizure not suspected at this time. Will need additional outpatient follow-up with neurology. Seizure during this hospitalization most likely secondary to alcohol withdrawal given his clinical condition, otherwise not much information is available about his prior episodes which he reports were more like falls. Brain MRI from March 06 with central and peripheral vein parenchymal volume loss minimal degree of chronic small vessel ischemic changes. Status: Acute (2) Acute psychosis: He is DT/severe alcohol withdrawal appears to be resolving. CIWA score down to 6. Still hallucinating, and this appears to be more related psych to schizoaffective disorder. He requires additional psychiatric evaluation. At this time we are not have a one-to-one sitter available to monitoring ICU, and as he has had no recurrent seizure, with stable vital signs, and other medical condition, per discussion with psychiatry attending will transfer over to neuropsychiatric unit for additional assessment and care. Secondary to severe alcohol withdrawal, schizoaffective disorder. Currently is under 96-hour hold. Status: Acute (3) Alcohol use disorder: Tremor this morning. He is more alert. Provides more details about his past medical history, although not clear how reliable this is. He has no recollection from the past several days, and does not yet have very good insight into what has caused his condition/confusion the last several days. When asked about his recollection retired stating that Scott has been looking for Martha . Discussed with him the risks of continued alcohol consumption including withdraw all, and would benefit from cessation. He verbalized understanding. At this time he still continues on scheduled Librium which may need to be tapered down. Continue to monitor CIWA scale, with Ativan available as needed. Reports drinks 8-9 beers, today states 6-pack. Occasional marijuana use. Denies other drug use. Blood alcohol level 300 noted in ER. On presentation with visual and auditory hallucinations. 2 episodes of seizure on 11/18. Supportive care through alcohol withdrawal with Ativan per CIWA protocol. Thiamine, folic acid. One-to-one sitter currently unavailable. Continue care on NPU given severe withdrawal is resolving. Symptomatic management of episodes of agitation. Status: Chronic Additional A&P Information Hypotension: Resolved. Monitor blood pressures. Smoking addiction: Encourage smoking cessation. History of CVA reported History of COPD, with mild wheeze. Not SOB. Doing well on room air. Continue inhalers. Will add neb treatments as needed. PUD: PPI Schizoaffective disorder Reported right kidney mass KIEL Attestations Medical Necessity Statement*: Continue admission for assessment and management of episode of acute psychosis, alcohol withdrawal. Coding Level of Care Code Acute Milk Delivery Driver for Ayana Bustillos Diagnoses Seizure R56.9 Acute psychosis F23 Alcohol use disorder
[2020-04-19] MEDS: nicotine 21 mg Patch 1 PATCH TRANSDERMA (08:55)
--- NOTE | 2020-04-19 09:04 | PC.NURSE ---
no seizure activity noted. wanting to go outside and smoke. new patch applied. old one removed
--- NOTE | 2020-04-19 09:54 | PC.NURSE ---
transferred to npu with secutity assist. 2 bags clothing transferred with pt.
[2020-04-19] MEDS: LORazepam 2 mg Tablet PO (10:22)
--- NOTE | 2020-04-19 10:23 | PC.NURSE ---
Addendum entered by Vanesa Yarbrough LPN 04/19/20 10:56: CIWA SCORE NOW A 6, PT ESCORTED TO BED BY TWO STAFF MEMBERS, RESTING QUIETLY AT CURRENT TIME. Original Note: CIWA SCORE 16--ATIVAN 2 MG GIVEN PO PER PROTOCOL. SEVERE TREMORS NOTED TO BILATERAL UPPER EXTREMITIES, MODERATELY ANXIOUS. TOOK MED WITHOUT INCIDENT.
--- NOTE | 2020-04-19 10:23 | PC.NURSE ---
piid removed from right ac prior to transfer to npu.
--- NOTE | 2020-04-19 12:45 | PC.NURSE ---
Addendum entered by Vanesa Yarbrough LPN 04/19/20 13:30: CIWA SCORE NOW A 6 Original Note: CIWA SCORE 14--ATIVAN 2 MG GIVEN PO PER PROTOCOL
--- NOTE | 2020-04-19 14:06 | P.CONIM_ITS ---
Providers/Reason for Consult Consulting Physican/Specialty*: Diogenes Costello MD, Psychiatry. Reason for Consult*: Evaluation for ongoin psychiatric care. Attending Physician: Jensen Morley Primary Care Provider: Silvia Wilson, Psych Consult HPI History of Present Illness Costa Alba is a 59 year old male who Costa presented to the emergency room hallucinating and having been drinking, having notable hallucinations, cooperative at times, agitated and combative at others, needing significant redirection, but was reportedly easily redirected. He endorsed depression and wanting to get help. He has a history reportedly of schizoaffective disorder, but reportedly non-compliant with medications and no further history was obtained. After allowing his blood alcohol level to drop, he was transferred to the neuropsychiatric unit for definitive treatment of those issues. On the unit however, he was very unstable and ultimately had a seizure in view of this narrative writer and ultimately a rapid response team was called, he was given 2 mg IM of Ativan along with an IV being started and 2 mg of Ativan was started. He then abruptly started complaining of intense pain in his head which prompted an emergent non-contrast CT which was unremarkable for an acute bleed, but notable for atrophy but is far more prominent than his age would portend and not a good sign, but not a sign of any acute bleed. He was transferred to the ICU where he has been managed for a day and a half or so. I see on the consult that he is still fairly out of it, could not answer questions that were not so dysarthric that they were not understandable but as he was on the unit a couple days ago, he continued to want to get up even though he was very unstable. The employee in the ICU and myself worked fairly hard to get him to not stand up and just use a urinal. He was very shaky and not responsive to any questions in a way that advanced our understanding of his circumstance. He is being seen by mental health, pain management and neurology, all with notes in the system. He has been seen at [facility] for inpatient hospitalization mostly for suicidal ideation, depression and issues surrounding his alcohol use dating back to 2013 that I can see in the system may predate that. An excerpt from the most recent inpatient hospitalization was included given his limited assistance in the interview and the presentation was fairly reflective of this presentation, only he was more cogent at that time. Per last [facility] evaluation March 10, 2019: Date of service: March 10, 2019 CHIEF COMPLAINT: ?I don?t know why I came in. My friends were over last night having fun and I walked across the street and just got real. If you could find the right antidepressant for me, I could stop drinking.? The patient is a 58 year old male with a history of schizoaffective disorder, post-traumatic stress disorder, traumatic brain injury, and alcohol dependence who was admitted on a 96-hour hold reporting suicidal ideation. He does not report that today. However, he reports that he has heard auditory hallucinations since he was a child. He says there is no medication given to him to help with the hallucinations. He states the hallucinations is why he is here. He denies command nature to the hallucinations. He admits that he was drinking last night. His blood alcohol level on admission was 230. No urine drug screen was performed. The patient is not a reliable informant with regard to discussing his current problems or the problems which lead to his hospitalization. He perseverates on medications that he has been given in the past and his anger towards doctors who have not gwen able to fix his problem. He says that he has been on quite a number of antidepressants but cannot spontaneously call one. He says he has been on a number of medications for hallucinations. None have provided benefit. The only thing that he can remember is the two which made him so confused that he ended up in the hospital and he did not know what he was doing. He states that he has no active intent to suicide now because he has hope that he will find the medication that will relieve him of depression, and he will stop drinking. He has been through residential rehabilitation programs before. He does not feel th at one is needed at this point and does not want to rehabilitate. He has gone to the local AA group, but no longer attends because it is not his idea of what an AA group should be. He plans on participating in no treatment program for his alcohol dependence. He will not estimate how much he has been drinking lately, but just says that he has been doing well up until yesterday. He does report increasing depression over the past several months and a long history of nightmares. He reports persistent passive suicidal ideation without intent or plan at this time. He confirms that he feels helpless, fatigue, and anhedonia. PAST PSYCHIATRIC HISTORY: The patient sees Dr. 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 The patient?s outpatient diagnosis of schizoaffective disorder, depressed type, chronic post- traumatic stress disorder, antisocial personality disorder, major neurocognitive disorder due to traumatic brain injury, obstructive sleep apnea with noncompliance of CPAP. His medication history continues to be confusing because he cannot seem to remember the names of any medications he has been on. PAST MEDICAL HISTORY: Chronic obstructive pulmonary disease, chronic pain, obstructive sleep apnea, noncompliant with CPAP, chronic tremor, traumatic brain injury with memory loss, history of chronically broken ribs, chronic neck, back, hip pain, arthritis, hypothyroidism, GRED, hypertension and dyslipidemia. FAMILY HISTORY: None reported. Meds Current Medications: Current Medications Generic Name Dose Route Start Last Admin Trade Name Freq PRN Reason Stop Dose Admin PFSH NPU PFSH: Medical History Alcohol use disorder See subjective information below. 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 Sleep apnea, obstructive Urinary urgency Vitamin B12 deficiency Surgical History No pertinent past surgical history Family History Other Cancer Diabetes Hypertension Social History Smoking and tobacco status: current every day smoker cigarettes Packs smoked per day: 2 Years cigarettes smoked: 40 Second hand smoke exposure: No Alcohol intake: current Alcohol intake frequency: 3 or more drinks per day Alcohol type: beer Desire information about alcohol rehabilitation?: No Desire information about substance/drug rehabilitation?: No Adopted: No Caregiver/support person: No Lives independently: Yes Household members: none Housing: House Marital status: Number of children: 2 Number of grandchildren: 6 Highest education level completed: 11th Grade service: No Current occupational status: disabled Current occupational exposures/hazards: No Pets and animals: Yes Pets & animals: dog(s) History of recent travel: No Current gender identity: Male Maricarmen/Amish: Rastafarian Special maricarmen needs: No Agree to transfusion: Yes Financial difficulty paying for basics: Hard Mental Status Exam MSE Comments: This is a well-nourished, well-developed, white male, in a hospital gown, with limited grooming and eye contact, looking rather disheveled, with no abnormal movements except for clear tremor and tremulousness as he attempts to walk; semi-cooperative with exam, in mild distress. Speech was dysarthric and limited rate, and volume. Mood described as depressed, affect subdued. Thought process linear; thought content ? patient denied suicidal or homicidal ideation, there were no delusions reported however he did have confusion about this narrative writer that we knew each other before and this could reflect some Wernicke kind of presentation. He continues to have reported hallucinations of auditory and visual type. Attention and concentration are impaired. Memory is unreliable bit none were formally tested. He is semi-alert and oriented to self, even at one time asking me if we were in the hospital which he has been in the hospital for three or four days. Insight and judgment a re impaired. Impulse control is impaired. Vitals/I&O/Wt Last Vital Signs Temp 97.7 F 04/19/20 14:00 Pulse 75 04/20/20 01:41 Resp 22 H 04/20/20 01:41 BP 134/87 04/20/20 01:41 Pulse Ox 90 04/20/20 01:41 Intake Total Output Total Balance Weight last 48 hrs Weight 90.718 kg A&P Assessment and plan (1) Seizure: Status: Acute (2) Acute psychosis: Status: Acute (3) Alcohol use disorder: Status: Chronic (4) Schizoaffective disorder, depressive type: Status: Chronic Additional A&P Information This is a 59 year old, white male, with reported history of post-traumatic stress disorder and schizoaffective disorder, but active alcohol use disorder, severe, with question of a Wernicke-Korsakoff type syndrome, who is unable to really give a clear history and clearly the drinking has greatly impaired his functioning and he is struggling with basic functioning. Continue current medication. We will try to find from his notes the appropriate antipsychotic to start but will continue Thiamine and folic acid and hopefully figure out how to help him stop drinking, because if he does not stop drinking, issues of any other mental health are going to be rendered irrelevant. Encourage individual, group, and milieu therapy. Continue q 15-mintue checks for safety. Recommend sober living treatment at the highest level of care, to which the patient is willing to commit. Involuntary Hold Information 96 Hour Hold: 96 Hour Involuntary Admission: Yes 96 Hour Hold Ending Date: 04/21/20 96 Hour Hold Ending Time: 12:15 Attestations NPU Medical Necessity Statement*: Inpatient hospitalization is medically necessary and the clinically appropriate intervention at this time. We will monitor medication and make adjustment as indicated. He will be in the hospital for over two midnights. Likely length of stay five to seven days. Coding Level of Care Code Acute Operations Vocational Instructor for Ayana Bustillos Diagnoses Seizure R56.9 Acute psychosis F23 Alcohol use disorder Schizoaffective disorder, depressive type F25.1
[2020-04-19] MEDS: metoprolol tartrate 25 mg Tablet PO (16:01)
[2020-04-19] MEDS: LORazepam 2 mg/mL INJ 1 mL IM (18:01)
[2020-04-19] MEDS: haloperidol inj 5 mg/mL INJ 1 mL IM (18:01)
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
--- NOTE | 2020-04-19 19:30 | PC.NURSE ---
moisés 20mg given per RN request.
--- NOTE | 2020-04-19 19:30 | PC.NURSE ---
The patient has been agitated and combative. The patient had Haldol 5 mg IM at 1800. Called Dr. Costello to ask if patient can have Geodon IM at this time, within 1 1/2 hour of receiving the Haldol. Dr. Costello said the patient can have the Geodom IM now. Dr. Costello said the Haldol IM can be given again later, if needed. The IM Geodon was given to right deltoid. The patient was cooperative with the injection.
[2020-04-19] MEDS: atorvastatin 40 mg Tablet 20 MG PO (21:45)
--- NOTE | 2020-04-19 23:53 | PC.NURSE ---
pt given scheduled lipitor and librium at HS without difficulty.
[2020-04-19] MEDS: ziprasidone 20 mg/mL SDV (23:55)
[2020-04-20] MEDS: LORazepam 2 mg/mL INJ 1 mL IM (01:08)
[2020-04-20] MEDS: haloperidol inj 5 mg/mL INJ 1 mL IM (01:09)
[2020-04-20] MEDS: diphenhydrAMINE 50 mg/mL SDV 1mL IM (01:09)
--- NOTE | 2020-04-20 01:13 | PC.NURSE ---
The following medications given to pt at this time per RN request, diphenhydramine 50mg IM, ativan 2mg IM, and haldol 5mg IM.
--- NOTE | 2020-04-20 01:34 | PC.NURSE ---
The patient was given Haldol 5 mg IM, Benadryl 50 mg IM, and Ativan 2 mg IM at 0110. The patient was agitated and not following instructions. After the IM meds the patient drank 6 ounces water. He was up to the bathroom with assist of 2 staff members. The patient voided yellow urine. The patient returned to the bed with standby assist of 2 staff members. The patient continued to be restless. He had mucous in his throat which he cleared with a cough. Somewhat calmer at this time. BP 134/87, pulse 75, respirations 20, oximetry 90% on room air.
[2020-04-20 01:41] VITALS: BP 134/87; PULSE 75; RESP 22; O2SAT 90
[2020-04-20 06:00] VITALS: RESP 19
[2020-04-20 07:45] LABS: Basophils # 0.1 10^3/uL (0.0-0.1); Basophils % 0.5 %; Eosinophils # 0.2 10^3/uL (0.0-0.8); Eosinophils % 1.9 %; Hematocrit 43.3 % (42.0-52.0); Hemoglobin 13.7 g/dL (11.7-16.6); Lymphocytes # 1.7 10^3/uL (0.8-4.8); Lymphocytes % 15.6 %; Mean Corpuscular HGB Conc 31.6 g/dL (30.0-36.0); Mean Corpuscular Hemoglobin 31.2 pg (28.0-34.0); Mean Corpuscular Volume 98.6 fL (80-94); Mean Platelet Volume 9.4 fL (7.4-10.4); Monocytes # 0.8 10^3/uL (0.2-0.9); Monocytes % 7.7 %; Neutrophils # 7.88 10^3/uL (1.8-7.7); Neutrophils % 73.9 %; Nucleated Red Blood Cells % 0 %; Platelet Count 335 10^3/cmm (130-400); Red Blood Count 4.39 10^6/uL (4.1-5.3); Red Cell Distribution Width 14.7 % (12.1-15.1); White Blood Count 10.7 10^3/uL (4.0-10.0)
[2020-04-20 07:54] LABS: Alanine Aminotransferase 35 U/L (0-41); Albumin Level 4.3 g/dL (3.5-5.2); Alkaline Phosphatase 58 IU/L (40-130); Anion Gap 16.3 (5-19); Aspartate Amino Transferase 33 U/L (0-40); Blood Urea Nitrogen 12 mg/dL (6-20); Calcium 8.7 mg/dL (8.5-10.5); Carbon Dioxide 24 mmol/L (22-29); Chloride 101 mmol/L (98-107); Globulin 2.9 g/dL (1.3-4.6); Glomerular Filtration Rate 98.9 mL/min (90-130); Glucose 100 mg/dL (65-115); Osmolality Calculated 280 mOsm/kg (285-295); Potassium 4.3 mmol/L (3.5-5.1); Sodium 137 mmol/L (136-145); Total Bilirubin 0.6 mg/dL (0.15-1.2); Total Protein 7.2 g/dL (6.6-8.7)
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
[2020-04-20] MEDS: chlordiazePOXIDE 25 mg Capsule 50 MG PO ×2 (12:23→17:22)
--- NOTE | 2020-04-20 12:23 | PC.RESP ---
SMOKING CESSATION AND PULMONARY REHAB INFORMATION SENT TO PATIENT.
[2020-04-20 14:00] VITALS: BP 127/87; PULSE 82; RESP 20; TEMP 37.1; O2SAT 95
[2020-04-20] MEDS: pantoprazole DR 40 mg Tablet PO (17:20)
[2020-04-20] MEDS: primidone 50 mg Tablet 25 MG PO (17:20)
[2020-04-20] MEDS: baclofen 10 mg Tablet PO (17:20)
[2020-04-20] MEDS: metoprolol tartrate 25 mg Tablet PO (17:20)
[2020-04-20] MEDS: atorvastatin 40 mg Tablet 20 MG PO (20:21)
[2020-04-20 22:00] VITALS: RESP 18
[2020-04-20] MEDS: LORazepam 2 mg Tablet PO (22:30)
[2020-04-20] MEDS: acetaminophen 325 mg Tablet 650 MG PO (22:30)
--- NOTE | 2020-04-20 22:34 | PC.NURSE ---
PRN ATIVAN ATIVAN 2 MG PO GIVEN PER CIWA PROTOCOL. WILL MONITOR FOR MEDICATION EFFECTIVENESS.
[2020-04-21] MEDS: chlordiazePOXIDE 25 mg Capsule 50 MG PO ×4 (00:56→16:56)
--- NOTE | 2020-04-21 05:35 | P.PN_ITS ---
Vitals/I&O/Wt Last Vital Signs Temp 98.8 F 04/20/20 14:00 Pulse 82 04/20/20 14:00 Resp 18 04/20/20 22:00 BP 127/87 04/20/20 14:00 Pulse Ox 95 04/20/20 14:00 Weight last 48 hrs Weight 90.718 kg Data NPU : 04/20/20 07:31 04/20/20 07:31 Involuntary Hold Information 96 Hour Hold: 96 Hour Involuntary Admission: Yes 96 Hour Hold Ending Date: 04/21/20 96 Hour Hold Ending Time: 12:15 Coding Level of Care Code Acute Chairman & Chief Executive Officer for Ayana Bustillos
[2020-04-21 06:00] VITALS: BP 140/104; PULSE 72; RESP 18; TEMP 36.5; O2SAT 95
[2020-04-21] MEDS: citalopram 20 mg Tablet PO (06:07)
[2020-04-21 06:32] LABS: Basophils # 0.1 10^3/uL (0.0-0.1); Basophils % 0.9 %; Eosinophils # 0.3 10^3/uL (0.0-0.8); Eosinophils % 4.6 %; Hematocrit 43.1 % (42.0-52.0); Hemoglobin 13.8 g/dL (11.7-16.6); Lymphocytes # 2.1 10^3/uL (0.8-4.8); Lymphocytes % 33.2 %; Mean Platelet Volume 9.6 fL (7.4-10.4); Monocytes # 0.5 10^3/uL (0.2-0.9); Monocytes % 7.3 %; Neutrophils # 3.36 10^3/uL (1.8-7.7); Neutrophils % 53.2 %; Nucleated Red Blood Cells % 0 %; Platelet Count 319 10^3/cmm (130-400); Red Blood Count 4.31 10^6/uL (4.1-5.3); Red Cell Distribution Width 14.5 % (12.1-15.1); White Blood Count 6.3 10^3/uL (4.0-10.0)
[2020-04-21 06:46] LABS: Alanine Aminotransferase 33 U/L (0-41); Alkaline Phosphatase 62 IU/L (40-130); Blood Urea Nitrogen 14 mg/dL (6-20); Calcium 9.4 mg/dL (8.5-10.5); Carbon Dioxide 21 mmol/L (22-29); Chloride 105 mmol/L (98-107); Globulin 2.7 g/dL (1.3-4.6); Glomerular Filtration Rate 98.9 mL/min (90-130); Glucose 99 mg/dL (65-115); Osmolality Calculated 280 mOsm/kg (285-295); Sodium 137 mmol/L (136-145); Total Bilirubin 0.4 mg/dL (0.15-1.2); Total Protein 6.7 g/dL (6.6-8.7)
[2020-04-21 07:00] LABS: Anion Gap 15.2 (5-19); Aspartate Amino Transferase 29 U/L (0-40); Potassium 4.2 mmol/L (3.5-5.1)
[2020-04-21] MEDS: multivitamin therapeutic Tablet 1 TAB PO (07:54)
[2020-04-21] MEDS: thiamine 100 mg Tablet PO (07:54)
[2020-04-21] MEDS: folic acid 1 mg Tablet PO (07:54)
[2020-04-21] MEDS: pantoprazole DR 40 mg Tablet PO ×2 (07:54→16:57)
[2020-04-21] MEDS: metoprolol tartrate 25 mg Tablet PO ×2 (07:55→16:57)
[2020-04-21] MEDS: baclofen 10 mg Tablet PO ×2 (07:55→16:56)
[2020-04-21] MEDS: primidone 50 mg Tablet 25 MG PO ×2 (07:55→16:57)
--- NOTE | 2020-04-21 08:01 | P.PN_ITS ---
Subjective Subjective: Interval history: Seen and examined on 04/20. He had a rough morning, with multiple behavioral issues, agitation, requiring calling of code 10, medical sedation. She subsequently woke up with better disposition. During my visit she was calm, comfortable. Wakes up easily. Denies pain or discomfort. Denies any trouble breathing. Denies cough. No chest pain or pressure. Allows himself to be examined. Vitals/I&O/Wt Last Vital Signs Temp 97.7 F 04/21/20 06:00 Pulse 72 04/21/20 06:00 Resp 18 04/21/20 06:00 BP 140/104 04/21/20 06:00 Pulse Ox 95 04/21/20 06:00 Weight last 48 hrs Weight 90.718 kg Physical Exam Const: COMMON NORMALS: no acute distress GENERAL APPEARANCE: cooperative and lethargic ORIENTATION/CONSCIOUSNESS: Yes lethargic HENMT: COMMON NORMALS: oropharynx normal Neck/C-Spine: COMMON NORMALS: no JVD Resp: COMMON NORMALS: normal respiratory effort and clear to auscultation b ilaterally AUSCULTATION: clear to auscultation bilaterally Cardio: COMMON NORMALS: no JVD, regular rhythm, S1 normal heart sound present, S2 normal heart sound present and No murmurs present (Cardio) RHYTHM: regular rhythm HEART SOUNDS: S1 normal heart sound present and S2 normal heart sound present GI: COMMON NORMALS: Normal to inspection, nondistended, normoactive bowel sounds present, Soft to palpation and non-tender PALPATION: Yes Soft to palpation Extremity: COMMON NORMALS: no joint enlargement and no pedal edema OTHER: Tremor Neuro: COMMON NORMALS: moves all extremities SENSORIUM/ORIENTATION: Yes lethargic OTHER: Moving all extremities. No rigidity or clonus. Skin: COMMON NORMALS: no rashes or lesions noted GENERAL SKIN EXAM: no rashes or lesions noted OTHER: Few scattered excoriations noted on lower extremities. No rash noted. Data : 04/21/20 06:22 04/21/20 06:22 A&P Assessment and plan (1) COPD (chronic obstructive pulmonary disease): Mild wheeze he had previously had completely resolved. He denies any trouble breathing. Denies any cough. He is saturating well on room air. Previously was some concern perhaps for some aspiration, however, respiratory status remained stable, and so if any aspiration was present likely resolved. At this time will sign off, if there are any further questions, do not hesitate to contact. He should continue follow-up with his primary care provider after discharge. Continue to encourage smoking cessation. Status: Acute (2) Seizure: There has been so far no recurrence. He should follow-up again with Dr. Rascon who he appears as seen previously in office with regards to some falls/possibly syncopal episodes, which previously were considered whether or not may be seizure activity. May consider EEG after discharge. Continue to encourage alcohol cessation is during this admission seizures were most likely related to alcohol withdrawal. BAL 300 on admit. Reports has had some episodes of falls, possible seizures in the past, for which he had seen a neurologist, but has never had a confirmed seizure. CT of the head without contrast is unremarkable. Brain MRI from March 06 with central and peripheral vein parenchymal volume loss minimal degree of chronic small vessel ischemic changes. Status: Acute (3) Acute psychosis: With behavioral disturbances. Continue assessment of management on neuropsychiatric unit. Status: Acute (4) Alcohol use disorder: Continue to encourage cessation. Encourage rehabilitation if he is willing/able. Status: Chronic Additional A&P Information Hypotension: Resolved. Smoking addiction: Encourage smoking cessation. History of CVA reported PUD: PPI Schizoaffective disorder Reported right kidney mass: Continue follow-up with PCP when acute issues resolve. KIEL Attestations Medical Necessity Statement*: Continue admission on neuropsychiatric unit for assessment management of psychosis. Coding Level of Care Code Acute Compliance Technician for [facility] Fwd Diagnoses COPD (chronic obstructive pulmonary disease) J44.9 Seizure R56.9 Acute psychosis F23 Alcohol use disorder
[2020-04-21 09:10] VITALS: BP 119/78; PULSE 69; RESP 20; O2SAT 97
--- NOTE | 2020-04-21 09:20 | PC.NURSE ---
Addendum entered by Vanesa Yarbrough LPN 04/21/20 10:19: ciwa score now 5, pt took shower, is currently sitting on bed in room, no s/s of anxiety noted. minimal tremors noted to bilateral upper extremities when arms extended. Addendum entered by Lili Dumont RN 04/21/20 09:24: aided to new room placement by Nurse Vanesa, and GAMAL dougherty. Original Note: CIWA Ativan Pt received Ativan 2 mg PO per CIWA score of 11. Vital signs obtained BP 119/78, RR 20, HR 68, 97%on RA. Observed near fainting behavior. Changed patient room to [facility] for observation because he became increasingly weak while ambulating with his walker in the hallway near the nursing station.
[2020-04-21] MEDS: LORazepam 2 mg Tablet PO ×2 (09:22→21:27)
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
--- NOTE | 2020-04-21 10:53 | PC.NURSE ---
Patient is sitting up on his bed. He is no longer visibly shaking. States that he feels better now that the medication (Ativan) has started working for him.
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
[2020-04-21 11:13] LABS: Glucose Point of Care 100 mg/dL (70-110)
[2020-04-21 14:19] VITALS: BP 121/79; PULSE 66; RESP 18; TEMP 36.4; O2SAT 96
[2020-04-21] MEDS: cetylpyridinium Lozenge 1 EACH PO ×2 (18:34→21:28)
--- NOTE | 2020-04-21 18:34 | PC.NURSE ---
prn CEPACOL LOZENGE 1 GIVEN PO PER PT C/O COUGH
[2020-04-21] MEDS: atorvastatin 40 mg Tablet 20 MG PO (21:27)
--- NOTE | 2020-04-21 21:29 | PC.NURSE ---
PRN ATIVAN ATIVAN 2 MG PO GIVEN PER CIWA PROTOCOL. WILL MONITOR FOR MEDICATION EFFECTIVENESS.
[2020-04-21 21:51] VITALS: BP 123/84; PULSE 64; RESP 19; TEMP 36.9; O2SAT 98
[2020-04-22] VITALS (11 sets, daily range): BP systolic 108–162; BP diastolic 74–107; PULSE 61–75; RESP 16–23; TEMP 36.5–37; O2SAT 95–100
--- NOTE | 2020-04-22 00:14 | PC.NURSE ---
Addendum entered by Manoj Trevizo LPN 04/22/20 01:58: PT REQUESTED SCHEDULED LIBRIUM. Original Note: LIBRIUM PT REFUSED 0000 LIBRIUM. PT STATED HE WAS SLEEPING AND WANTED TO LEFT ALONE.
[2020-04-22] MEDS: chlordiazePOXIDE 25 mg Capsule 50 MG PO ×5 (01:56→23:09)
[2020-04-22] MEDS: cetylpyridinium Lozenge 1 EACH PO (01:56)
[2020-04-22 02:39] LABS: Glucose Point of Care 94 mg/dL (70-110)
--- NOTE | 2020-04-22 02:50 | CTR_ITS ---
PROCEDURE INFORMATION: Exam: CT Head Without Contrast Exam date and time: 04/22/2020 2:56 AM Age: 59 years old Clinical indication: Injury or trauma; Fall; Initial encounter; Blunt trauma (contusions or hematomas); Consciousness not specified TECHNIQUE: Imaging protocol: Computed tomography of the head without contrast. Radiation optimization: All CT scans at this facility use at least one of these dose optimization techniques: automated exposure control; mA and/or kV adjustment per patient size (includes targeted exams where dose is matched to clinical indication); or iterative reconstruction. COMPARISON: CT head wo con* [id number] 04/17/2020 4:08 PM RADIATION DOSE METRICS: Total DLP (mGy-cm): 883.75 FINDINGS: Brain: No acute intracranial hemorrhage or mass effect. There is very mild decreased attenuation in the periventricular white matter, likely from microvascular disease. No definite acute infarct by CT. Ventricles: Ventricle size is normal for age. Bones/joints: No definite acute skull fracture. Old nasal bone fractures. Sinuses: Mild mucosal thickening/fluid in the ethmoid sinuses. Included paranasal sinuses otherwise appear essentially clear. Mastoid air cells: No significant acute finding. CT/CT head wo con* [id number] IMPRESSION: 1. No acute intracranial hemorrhage or mass effect. 2. Other findings discussed above. Radiation Dose CTDIVOL = (mGy): DLP = 883.75 (mGy-cm)
--- NOTE | 2020-04-22 02:50 | CTR_ITS ---
PROCEDURE INFORMATION: Exam: CT Chest Without Contrast Exam date and time: 04/22/2020 2:56 AM Age: 59 years old Clinical indication: Injury or trauma; Fall; Initial encounter; Blunt trauma (contusions or hematomas); Additional info: Fall and right sided pain TECHNIQUE: Imaging protocol: Computed tomography of the chest without contrast. Radiation optimization: All CT scans at this facility use at least one of these dose optimization techniques: automated exposure control; mA and/or kV adjustment per patient size (includes targeted exams where dose is matched to clinical indication); or iterative reconstruction. COMPARISON: CT chest con [id number] 09/10/2016 12:39 PM RADIATION DOSE METRICS: Total DLP (mGy-cm): 994.61 FINDINGS: Lungs: Stable minimal paraseptal blebs in the lung apices. Still no consolidation. Calcified granuloma in the lingula again evident. Pleural space: Still no pleural fluid or pneumothorax. Heart: Still no cardiomegaly or pericardial effusion. Aorta: Still no aortic aneurysm. Lymph nodes: Stable slight enlargement of an AP window node. Two calcified nodes in the left hilum again evident. Interval decrease in size of a slightly prominent periportal node. Bones/joints: Old right clavicle fracture again evident. Interval appearance of 2 old nonunited right rib fractures and a healed right rib fracture. Old mild compression fractures again evident. Soft tissues: Interval haziness in the left upper mesentery. CT/CT chest [facility] [id number] IMPRESSION: 1. No acute injury. Interval appearance of 2 nonunited right rib fractures and a healed right rib fracture. 2. Interval left upper mesenteric haziness, significance unclear. 3. Minimal emphysematous blebs in the lung apices again evident. Other findings detailed above. Radiation Dose CTDIVOL = (mGy): DLP = 994.61 (mGy-cm)
--- NOTE | 2020-04-22 03:05 | PC.NURSE ---
Addendum entered by Manoj Trevizo LPN 04/22/20 04:54: PT SEEMS TO BE DOING MUCH BETTER. HE IS SITTING UP IN BED LAUGHING AND JOKING WITH THIS NURSE AND 1:1 SITTER. PT STATES HE IS FEELING MUCH BETTER. WILL CONTINUE TO MONITOR. Original Note: FALL AT APPROX 0220 WE HEARD A LOUD BANG AND FOUND PATIENT LYING FACE DOWN ON THE FLOOR. PT STATED HE STOOD UP AND FELL. PT WAS DISORIENTED. LEGAL CLERK DEEPAK WAS CALLED. PT WAS UNABLE TO VERIFY FULL AND THOUGHT HE WAS AT HOME. PT WAS THEN ROLLED OVER ON HIS LEFT SIDE AND BEGAN COMPLAINING OF HEAD AND RIGHT SIDED RIB PAIN. PT'S PUPILS WERE PINPOINT. AT APPROX. 0234 DEEPAK WILLIAMLEGAL CLERK REQUESTED A RAPID RESPONSE BE CALLED. DR. PERKINS ORDERED A HEAD & CHEST CT. AT APPROX 0255 PT WAS ESCORTED TO CT BY DEEPAK WILLIAMLEGAL CLERK AND NAZANIN GAGNON. PT RETURNED TO FLOOR AT APPROX 0318. ADMINISTERED MORPHINE 15 MG [address] PAIN [address] PERKINS. PT WAS PLACED ON 1:1 SUPERVISION BY DEEPAK LINTONOR. WILL CONTINUE TO MONITOR PATIENT.
--- NOTE | 2020-04-22 03:06 | PC.NURSE ---
AT APPROXIMATELY 0220 STAFF HEARD THE PATIENT FALL, STAFF RAN TO THE PATIENTS ROOM WHERE HE LAID FACE DOWN. HANDS TREMBLING. PATIENT STATED HE GOT UP FROM BED AND FELL. PATIENT ROLLED OVER AND VITALS TAKEN. BP 148/92, HR 64, RR 21, SPO2 96. RECORD CENTER SPECIALIST, DEEPAK CALLED. PT GROANING THAT HIS HEAD WELL HIS RIBS ON HIS RIGHT SIDE HURT. PT HAD PINPOINT PUPILS. THIS RN CALLED DR. WINDY TO WHO GAVE ORDERS FOR A HEAD CT AND X-RAY AND STATED WE COULD DO A RAPID RESPONSE. PATIENT DISORIENTED THINKING HE IS AT HOME AND NOT ABLE TO RECALL HIS . DEEPAK REQUESTED A RAPID RESPONSE AT APPROX 0234. DR. PERKINS CHECKED PATIENT OVER, PATIENT'S ORIENTATION HAS IMPROVED. ORTHO VITALS WERE TAKEN, LAYING BP 155/96, 99 SPO2, 65 HR, SITTING BP 162/107, STANDING BP 158/107 AND PATIENT WAS TAKEN FOR CT AND X-RAY AT 0255. PATIENT RETURNED AT 0318, RECIEVED MORPHINE PO, RESTING IN BED. PT HAS A SITTER. THIS RN ATTEMPTED TO NOTIFY PT SISTER TO INFORM HER OF THE FALL, PER MONTEZUMA SUP. PT DID NOT ANSWER THIS RN WILL CONTINUE TO ATTEMPT TO MAKE CONTACT.
[2020-04-22] MEDS: morphine IR 15 mg Tablet PO (03:25)
[2020-04-22 03:29] LABS: Alanine Aminotransferase 33 U/L (0-41); Albumin Level 4.3 g/dL (3.5-5.2); Alkaline Phosphatase 69 IU/L (40-130); Anion Gap 14.6 (5-19); Aspartate Amino Transferase 26 U/L (0-40); Blood Urea Nitrogen 17 mg/dL (6-20); Calcium 9.3 mg/dL (8.5-10.5); Carbon Dioxide 26 mmol/L (22-29); Chloride 103 mmol/L (98-107); Globulin 2.3 g/dL (1.3-4.6); Glomerular Filtration Rate 76.5 mL/min (90-130); Glucose 92 mg/dL (65-115); Magnesium 1.8 mg/dL (1.7-2.3); Osmolality Calculated 284 mOsm/kg (285-295); Potassium 4.6 mmol/L (3.5-5.1); Sodium 139 mmol/L (136-145); Total Bilirubin 0.2 mg/dL (0.15-1.2); Total Protein 6.6 g/dL (6.6-8.7)
[2020-04-22 03:31] LABS: Troponin T (5th) Once 20 ng/L (0-15)
--- NOTE | 2020-04-22 03:49 | PM.EVENT ---
Event Note Event Note: Rapid response was called Report was given to me that patient has required Ativan for his CIWA today and was confused, nurse heard the noise and when checked he was laying on the floor Patient was laying on his left side, When I entered the room blood sugar was being taken which was 94, Alert oriented x3 GCS 15, bilateral pupils symmetrical, reactive to light Neurologically nonfocal exam Was able to follow commands appropriately, Coarse tremors noticed S1, S2 No signs of orthostasis Abdomen distended bowel sound present Bilateral breath sounds Assessment and plan I believe patient had somnolent episode after he woke up and fell on the ground without any seizure or syncopal event For his low normal sugar he was given orange juice, Requested CMP, troponin and magnesium level, CT head and chest CIWA score 2-4
[2020-04-22] MEDS: citalopram 20 mg Tablet PO (06:17)
[2020-04-22 06:35] LABS: Basophils # 0.1 10^3/uL (0.0-0.1); Eosinophils # 0.3 10^3/uL (0.0-0.8); Hematocrit 42.5 % (42.0-52.0); Hemoglobin 13.6 g/dL (11.7-16.6); Lymphocytes # 1.9 10^3/uL (0.8-4.8); Lymphocytes % 30.6 %; Mean Corpuscular Hemoglobin 30.8 pg (28.0-34.0); Mean Corpuscular Volume 96.4 fL (80-94); Mean Platelet Volume 9.2 fL (7.4-10.4); Monocytes # 0.4 10^3/uL (0.2-0.9); Monocytes % 5.8 %; Neutrophils # 3.52 10^3/uL (1.8-7.7); Neutrophils % 56.2 %; Nucleated Red Blood Cells % 0 %; Platelet Count 338 10^3/cmm (130-400); Red Blood Count 4.41 10^6/uL (4.1-5.3); Red Cell Distribution Width 14.4 % (12.1-15.1); White Blood Count 6.3 10^3/uL (4.0-10.0)
[2020-04-22 06:56] LABS: Alanine Aminotransferase 33 U/L (0-41); Albumin Level 4.5 g/dL (3.5-5.2); Alkaline Phosphatase 65 IU/L (40-130); Aspartate Amino Transferase 24 U/L (0-40); Blood Urea Nitrogen 16 mg/dL (6-20); Calcium 9.7 mg/dL (8.5-10.5); Carbon Dioxide 27 mmol/L (22-29); Chloride 103 mmol/L (98-107); Globulin 2.6 g/dL (1.3-4.6); Glomerular Filtration Rate 86.4 mL/min (90-130); Glucose 104 mg/dL (65-115); Osmolality Calculated 283 mOsm/kg (285-295); Sodium 138 mmol/L (136-145); Total Bilirubin 0.3 mg/dL (0.15-1.2); Total Protein 7.1 g/dL (6.6-8.7)
[2020-04-22] MEDS: albuterol 8 gm MDI 2 PUFF INHALATION ×2 (09:01→20:51)
[2020-04-22] MEDS: thiamine 100 mg Tablet PO (09:11)
[2020-04-22] MEDS: multivitamin therapeutic Tablet 1 TAB PO (09:11)
[2020-04-22] MEDS: baclofen 10 mg Tablet PO ×2 (09:11→17:29)
[2020-04-22] MEDS: metoprolol tartrate 25 mg Tablet PO ×2 (09:11→17:28)
[2020-04-22] MEDS: folic acid 1 mg Tablet PO (09:11)
[2020-04-22] MEDS: pantoprazole DR 40 mg Tablet PO ×2 (09:12→17:29)
[2020-04-22] MEDS: nicotine 21 mg Patch 1 PATCH TRANSDERMA (09:50)
[2020-04-22] MEDS: primidone 50 mg Tablet 25 MG PO ×2 (10:03→17:29)
--- NOTE | 2020-04-22 13:40 | P.PN_ITS ---
Subjective NPU Subjective: Interval history: Costa presented today having fell last night . However a conversation about him falling and how that is an argument for needing him to be here longer and making sure that there is a stable plan for discharge. That ensures his safety and oversight based on how he's currently functioning. He disagrees. He did not even recall that he was on a 96 hour hold with a 21 day filing. I reviewed when his hearing would be in that he has the right to attend and argue against this entry writer and the hospital?s opinion.He was resistant to conversation about medications. Mental Status Exam MSE Comments: This is a well-nourished, well-developed, white male, in a hospital gown, with limited grooming and eye contact, looking rather disheveled, with no abnormal movements except for clear tremor and tremulousness as he attempts to walk; semi-cooperative with exam, in mild distress. Speech was dysarthric and limited rate, and volume. Mood described as I'm ready to go, I can come back, affect subdued. Thought process linear; thought content ? patient denied suicidal or homicidal ideation, there were no delusions reported or noted. He continues to have reported hallucinations of auditory and visual type. Attention and concentration are impaired. Memory is unreliable but none were formally tested. He is semi-alert and oriented to self. Insight and judgment are impaired. Impulse control is impaired. Vitals/I&O/Wt Last Vital Signs Temp 97.7 F 04/22/20 14:00 Pulse 61 04/22/20 14:00 Resp 18 04/22/20 14:00 BP 108/74 04/22/20 14:00 Pulse Ox 97 04/22/20 09:07 Weight last 48 hrs Weight 101.605 kg Data NPU : 04/23/20 07:07 04/23/20 07:07 A&P Additional A&P Information (1) Seizure: (2) Acute psychosis: (3) Alcohol use disorder: (4) Schizoaffective disorder, depressive type: This is a 59 year old, white male, with reported history of post-traumatic stress disorder and schizoaffective disorder, but active alcohol use disorder, severe, with question of a Wernicke-Korsakoff type syndrome, who is unable to really give a clear history and clearly the drinking has greatly impaired his functioning and he is struggling with basic functioning and he fell last night with no notable sequelae.. Continue current medication. We will try to find from his notes the appropriate antipsychotic to start but will continue Thiamine and folic acid and hopefully figure out how to help him stop drinking, because if he does not stop drinking, issues of any other mental health are going to be rendered irrelevant. Encourage individual, group, and milieu therapy. Continue q 15-mintue checks for safety. Recommend sober living treatment at the highest level of care, to which the patient is willing to commit. Filed 21 day hold paperwork. Involuntary Hold Information 96 Hour Hold: 96 Hour Involuntary Admission: Yes 96 Hour Hold Ending Date: 04/21/20 96 Hour Hold Ending Time: 12:15 Attestations NPU Medical Necessity Statement*: Inpatient hospitalization is medically necessary and the clinically appropriate intervention at this time. We will monitor medication and make adjustment as indicated. Likely length of stay 6-8 days. 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
[2020-04-22] MEDS: atorvastatin 40 mg Tablet 20 MG PO (20:40)
[2020-04-22] MEDS: trazodone 50 mg Tablet PO ×2 (22:24→23:17)
--- NOTE | 2020-04-22 22:24 | PC.NURSE ---
Addendum entered by Manoj Trevizo LPN 04/22/20 23:19: PRN TRAZODONE TRAZODONE NOT EFFECTIVE. PT REQUESTING ADDITIONAL DOSE FOR INSOMNIA. ADMINISTERED TRAZODONE 50 MG PO. WILL MONITOR FOR MEDICATION EFFECTIVENESS. Original Note: PRN TRAZODONE PT REQUESTING SLEEP AID. ADMINISTERED TRAZODONE 50 MG PO. WILL MONITOR FOR MEDICATION EFFECTIVENESS.
--- NOTE | 2020-04-23 00:07 | PC.NURSE ---
BEHAVIOR AFTER GIVING PT SCHEDULED LIBRIUM PT STATED HE WAS NOT FEELING WELL AND HIS WORDS BECAME SLURRED. PT'S TREMORS SEEM TO BECOME WORSE. BP 147/95 RR 21 PULSE 61 02 100% THIS NURSE WALKED WITH PT SEVERAL TIMES DOWN THE BADILLO WHILE PUSHING HIM IN HIS WHEELCHAIR. PT CONTINUED TO HAVE SLURRED SPEECH AND STATES HE WAS SEEING COLORFUL SNAKES AND SAEED. AFTER SEVERAL ATTEMPTS PT AGREED TO GO TO BED. 1:1 SITTER AT BEDSIDE. WILL CONTINUE TO MONITOR PT.
[2020-04-23] MEDS: acetaminophen 325 mg Tablet 650 MG PO ×4 (00:37→23:17)
[2020-04-23 06:00] VITALS: BP 119/77; PULSE 60; RESP 17; TEMP 36.7; O2SAT 97
[2020-04-23] MEDS: citalopram 20 mg Tablet PO (06:08)
[2020-04-23] MEDS: chlordiazePOXIDE 25 mg Capsule 50 MG PO ×4 (06:08→20:12)
[2020-04-23 07:23] LABS: Basophils # 0.1 10^3/uL (0.0-0.1); Basophils % 1.2 %; Eosinophils # 0.3 10^3/uL (0.0-0.8); Eosinophils % 4.4 %; Hematocrit 42.5 % (42.0-52.0); Hemoglobin 13.6 g/dL (11.7-16.6); Lymphocytes # 2.4 10^3/uL (0.8-4.8); Lymphocytes % 39.8 %; Mean Corpuscular Hemoglobin 31.3 pg (28.0-34.0); Mean Corpuscular Volume 97.9 fL (80-94); Mean Platelet Volume 9.8 fL (7.4-10.4); Monocytes # 0.5 10^3/uL (0.2-0.9); Monocytes % 8.5 %; Neutrophils # 2.59 10^3/uL (1.8-7.7); Neutrophils % 43.7 %; Nucleated Red Blood Cells % 0 %; Platelet Count 359 10^3/cmm (130-400); Red Blood Count 4.34 10^6/uL (4.1-5.3); Red Cell Distribution Width 14.4 % (12.1-15.1); White Blood Count 5.9 10^3/uL (4.0-10.0)
[2020-04-23 07:40] LABS: Alanine Aminotransferase 34 U/L (0-41); Albumin Level 4.4 g/dL (3.5-5.2); Alkaline Phosphatase 59 IU/L (40-130); Anion Gap 13.4 (5-19); Aspartate Amino Transferase 22 U/L (0-40); Blood Urea Nitrogen 15 mg/dL (6-20); Calcium 9.8 mg/dL (8.5-10.5); Carbon Dioxide 27 mmol/L (22-29); Chloride 103 mmol/L (98-107); Globulin 2.6 g/dL (1.3-4.6); Glomerular Filtration Rate 76.5 mL/min (90-130); Glucose 100 mg/dL (65-115); Osmolality Calculated 284 mOsm/kg (285-295); Potassium 4.4 mmol/L (3.5-5.1); Sodium 139 mmol/L (136-145); Total Bilirubin 0.2 mg/dL (0.15-1.2)
[2020-04-23] MEDS: multivitamin therapeutic Tablet 1 TAB PO (07:50)
[2020-04-23] MEDS: metoprolol tartrate 25 mg Tablet PO ×2 (07:50→17:01)
[2020-04-23] MEDS: folic acid 1 mg Tablet PO (07:50)
[2020-04-23] MEDS: thiamine 100 mg Tablet PO (07:50)
[2020-04-23] MEDS: pantoprazole DR 40 mg Tablet PO ×2 (07:51→17:01)
[2020-04-23] MEDS: primidone 50 mg Tablet 25 MG PO ×2 (07:51→17:01)
[2020-04-23] MEDS: baclofen 10 mg Tablet PO ×2 (07:51→17:01)
[2020-04-23 10:20] VITALS: PULSE 76; RESP 17; O2SAT 97
[2020-04-23] MEDS: albuterol 8 gm MDI 2 PUFF INHALATION ×2 (10:30→21:02)
[2020-04-23 14:00] VITALS: BP 113/78; PULSE 64; RESP 20; TEMP 37; O2SAT 98
[2020-04-23] MEDS: LORazepam 2 mg/mL INJ 1 mL IM (14:32)
--- NOTE | 2020-04-23 14:32 | PC.NURSE ---
PT SEIZURE ACTIVITY; CLIENT HAD A WITNESSED SEIZURE WHILE SITTING IN HIS WHEELCHAIR IN FRONT OD THE NURSES STATION. CLIENT WAS ASSISTED BACK INTO HIS ROOM. CLIENTS SEIZURE LASTED 3 MINUTES WITH CLONIC TONIC MOVEMENTS IN BOTH ARMS. STAFF ADMINISTERED 2MG OF ATIVAN IM AND STAYED WITH CLIENT UNTIL SEIZURE ACTIVITY SUBSIDED. CLIENT REMAINS ON 1;[address] ROOM[address] TO WAS NOTIFIED OF CLIENTS SEIZURE ACTIVITY.
--- NOTE | 2020-04-23 16:41 | P.PN_ITS ---
Subjective NPU Subjective: Interval history: Costa presented today having reportedly had a seizure last night. He was much more contrite in our conversation and was endorsing and acceptance that we need to fully identify what is driving his current dysfunctional circumstances to ensure his safety. He reports that he doesn?t want to go home but wants to work with his doctor and other doctors here to figure out how to best serve him.We discussed the possibility of getting a hospitalist to oversee the situation As it does not appear that dot doctor Abiodun is available currently. Otherwise he reports that he is hopeful that we can figure this situation out. Mental Status Exam MSE Comments: This is a well-nourished, well-developed, white male, in a hospital gown, with limited grooming and eye contact, looking disheveled, with no abnormal movements except for clear tremor and tremulousness as he attempts to walk; semi-cooperative with exam, in mild distress. Speech was dysarthric and limited rate, and volume. Mood described as shaky, affect subdued. Thought process linear; thought content ? patient denied suicidal or homicidal ideation, there were no delusions reported or noted. He continues to have reported hallucinations of auditory and visual type. Attention and concentration are impaired. Memory is unreliable but none were formally tested. He is semi-alert and oriented to self. Insight and judgment are impaired. Impulse control is impaired. Vitals/I&O/Wt Last Vital Signs Temp 98.6 F 04/23/20 14:00 Pulse 64 04/23/20 14:00 Resp 20 H 04/23/20 14:00 BP 113/78 04/23/20 14:00 Pulse Ox 98 04/23/20 14:00 Weight last 48 hrs Weight 101.605 kg Data NPU : 04/23/20 07:07 04/23/20 07:07 A&P Additional A&P Information (1) Seizure: (2) Acute psychosis: (3) Alcohol use disorder: (4) Schizoaffective disorder, depressive type: This is a 59 year old, white male, with reported history of post-traumatic stress disorder and schizoaffective disorder, but active alcohol use disorder, severe, with question of a Wernicke-Korsakoff type syndrome, who is unable to really give a clear history and clearly the drinking has greatly impaired his functioning and he is struggling with basic functioning and he fell two nights ago with no notable sequelae, ant reportedly had a seizure last nigh. Continue current medication. Encourage individual, group, and milieu therapy. Continue q 15-mintue checks for safety. Recommend sober living treatment at the highest level of care, to which the patient is willing to commit. Involuntary Hold Information 96 Hour Hold: 96 Hour Involuntary Admission: Yes 96 Hour Hold Ending Date: 04/21/20 96 Hour Hold Ending Time: 12:15 Attestations NPU Medical Necessity Statement*: Inpatient hospitalization is medically necessary and the clinically appropriate intervention at this time. We will monitor medi cation and make adjustment as indicated. Likely length of stay 5-7 days. 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
[2020-04-23] MEDS: atorvastatin 40 mg Tablet 20 MG PO (20:11)
[2020-04-23] MEDS: hyDROXYzine 25 mg Capsule 50 MG PO (20:12)
[2020-04-23] MEDS: trazodone 50 mg Tablet PO (20:13)
--- NOTE | 2020-04-23 20:45 | PC.NURSE ---
pt given scheduled HS meds and PRN trazodone and vistaril per request.
[2020-04-23 21:00] VITALS: PULSE 63; RESP 16; O2SAT 97
[2020-04-23 21:54] VITALS: BP 121/79; PULSE 59; RESP 17; TEMP 36.8; O2SAT 99
[2020-04-23] MEDS: nicotine 2 mg Gum BUCCAL (22:21)
[2020-04-23] MEDS: haloperidol 5 mg Tablet PO (23:17)
[2020-04-24 06:00] VITALS: BP 124/76; PULSE 67; RESP 17; TEMP 36.9; O2SAT 97
[2020-04-24] MEDS: chlordiazePOXIDE 25 mg Capsule 50 MG PO (06:24)
[2020-04-24] MEDS: citalopram 20 mg Tablet PO (06:24)
[2020-04-24] MEDS: nicotine 2 mg Gum BUCCAL (06:47)
[2020-04-24] MEDS: metoprolol tartrate 25 mg Tablet PO (11:02)
[2020-04-24] MEDS: primidone 50 mg Tablet 25 MG PO ×2 (11:03→17:29)
[2020-04-24] MEDS: folic acid 1 mg Tablet PO (11:03)
[2020-04-24] MEDS: pantoprazole DR 40 mg Tablet PO ×2 (11:03→17:29)
[2020-04-24] MEDS: baclofen 10 mg Tablet PO ×2 (11:03→17:29)
[2020-04-24] MEDS: multivitamin therapeutic Tablet 1 TAB PO (11:03)
[2020-04-24] MEDS: thiamine 100 mg Tablet PO (11:03)
[2020-04-24] MEDS: chlordiazePOXIDE 25 mg Capsule PO ×3 (11:52→20:50)
[2020-04-24] MEDS: acetaminophen 325 mg Tablet 650 MG PO ×2 (11:53→17:31)
[2020-04-24 12:45] VITALS: BP 106/70; PULSE 63; RESP 20; TEMP 36.4; O2SAT 93
--- NOTE | 2020-04-24 16:25 | PM.NPN ---
Subjective NPU Subjective: Interval history: Patient voices frustration that he feels as though he is doing poorly. He acknowledges that he cannot get around without a wheelchair. He has difficulty standing up. Prior to us coming to the hospital he had been walking with a cane. He claims that that typically he will drink about 8 beers per day but if somebody comes over to visit, they will drink some of his beers as well. He cannot estimate how much beer he drinks in a week. When his recent alcohol history is explored, he is quite vague. He is aware that drinking is a problem for him and causes him difficulty. He claims that he has been told that it is destroying his liver. In fact, his liver enzymes are within normal limits and would be an argument against excessive chronic alcohol use. He complains that he is feeling weak and occasionally when he stands up he feels dizzy. He reports that neither of these were present prior to hospitalization. He states that he was not having auditory or visual hallucinations prior to the night that he presented to the hospital. He cannot explain their occurrence. He reports having had seizures since the age of 10. However they have not been frequent or severe. He has never been on medication for seizures. He cannot say specifically what doctor made a diagnosis of seizures. They tell me I have seizures. He cannot describe what of his seizures. Mental Status Exam MSE Comments: Mental Status Exam: The patient is wheeled into the interview room in a wheelchair. He appears sedated. Information he provides is loosely consistent with that in his chart but there are many notable contradictions and he is quite guarded regarding his actual degree of alcohol use. He is not felt to be a reliable informant. Appearance: hygiene is fair; no gross neurological deficits., AIMS=0 Speech: Speech is of slow rate and rhythm and slurred but easily understood. Thought processes: Thought processes are abstract. Judgment is not adequate for safety. His attention is impaired as he has difficulty giving significant consideration to questions that are asked of him. Psychotic processes: There is no indication of guarding or paranoia. There is no attention to the internal stimuli. Auditory and visual hallucinations are denied. Judgment: Insight is fair. Problem solving skills are not adequate for safety. Orientation: The patient is oriented to person, place time and situation. Memory: no deficits noted in immediate, intermediate, or remote spheres. Attention: The patient is alert and interpersonally engaged. Language: Verbalizations are coherent. Fund of knowledge: Fund of knowledge is poor Affect/Mood: Affect is consistent with a depressed mood. He denied suicidal ideation Affective range is flat Psychosis: perception impaired primarily through inattention; reality testing intact. Cognition: Patient Appearance: Appears Older than Age Level of Consciousness: Awake Patient Cognition Impaired: Yes Ability to Follow Directions: Excellent Patient Orientation (long list): Person Comprehension Ability: Mild Impairment Hallucination Type: None Delusion Description: Not Present Thought Process: Confused and Disorganized Vitals/I&O/Wt Last Vital Signs Temp 97.6 F 04/24/20 12:45 Pulse 63 04/24/20 12:45 Resp 20 H 04/24/20 12:45 BP 106/70 04/24/20 12:45 Pulse Ox 93 04/24/20 12:45 Weight last 48 hrs Weight 101.605 kg Data NPU : 04/23/20 07:07 04/23/20 07:07 A&P Assessment and plan (1) Seizure: The presence of a seizure disorder continues to be in question. To his knowledge she has never been treated with medication for seizures. Though the episodes that were witnessed in the hospital last week have been deemed seizures, he is not on medication for seizures at this time. He was seen by Dr. Rascon prior to admission. A summary of her assessment follows:02/08/2020 Assessment & Plan (1) Seizure disorder: Assessment & Plan - Rosy Rascon MD: ORDERING PHYSICIAN: Dr. Rascon. REASON FOR STUDY: Frequent falls consider seizures. IMPRESSION: This was a normal routine EEG, awake and drowsy, with no behavioral or electrographic epileptiform activity. Diffuse low voltage seen in this tracing can be a consequence of alcohol use, previous head trauma or a nonspecific variant. A sleep deprived tracing is recommended if seizures are strongly suspected. Home Medications Home Medications - Last Reconciled 02/08/20 by Elise Anderson, MARYSOL albuterol sulfate 90 mcg/actuation 2 puffs inhalation Q6H PRN baclofen 10 mg PO BID budesonide-formoterol 160-4.5 mcg/actuation (Symbicort) 2 puffs inhalation BID cyanocobalamin (vitamin B-12) 1,000 mcg IM .ONCE MONTHLY fesoterodine ER (Toviaz) 8 mg PO QDAY losartan 50 mg (2 x 25 mg) PO DAILY omeprazole 40 mg PO BID primidone 25 mg (1/2 x 50 mg) PO BID simvastatin (Zocor) 20 mg PO .at bedtime tiotropium bromide (Spiriva with HandiHaler) 1 cap inhalation QDAY Status: Acute (2) Acute psychosis: Status: Resolved (3) Alcohol use disorder: Status: Chronic (4) Schizoaffective disorder, depressive type: Though the patient has a historic diagnosis of schizoaffective disorder, there is no place in his chart where he is recorded as being psychotic other than secondary to alcohol withdrawal. He has not tolerated treatment with antipsychotic medication. He has not remained on it long enough to assess efficacy. Review of his records indicates that the presence of auditory hallucinations is not a prominent or consistent problem. It is possible that this diagnosis is an accurate. Status: Chronic Additional A&P Information (1) Seizure: Most likely due to alcohol withdrawal and a premorbid predisposition to such (2) Acute psychosis: Most likely due to delirium tremens (3) Alcohol use disorder: (4) Schizoaffective disorder, depressive type: Diagnosis unconfirmed The patient currently appears quite sedated from his administration of 200 mg of Librium per day. There are no signs of alcohol withdrawal on the [facility] protocol. The dosage of librium can probably be reduced as tolerated. If her remains free of seizures and is less sedated, he mental status is expected to imrove. Will defer initiation of seizure medication to his neurologist with an outpatient appointment pending on 05/10/2020. New medication regimen for Librium will be 25 mg twice daily and 50 mg at bedtime. There is also concern regarding his complaint of weakness and a history of falls. It is noted that his blood pressures are significantly reduced from that of his baseline since admission. Even though these are considered within normal limits, reduction from baseline in the initial. May result in hypoperfusion and orthostatic dizziness. Metoprolol tartrate will be reduced from 50 mg daily to 25 mg extended release and will continue to monitor. Will continue Thiamine and folic acid and hopefully figure out how to help him stop drinking, because if he does not stop drinking, issues of any other mental health are going to be rendered irrelevant. Encourage individual, group, and milieu therapy. Continue q 15-mintue checks for safety. Recommend sober living treatment at the highest level of care, to which the patient is willing to commit. Filed 21 day hold pending Involuntary Hold Information 96 Hour Hold: 96 Hour Involuntary Admission: Yes 96 Hour Hold Ending Date: 04/21/20 96 Hour Hold Ending Time: 12:15 Attestations NPU Medical Necessity Statement*: Patient will remain in the hospital another 4-5 nights for establishment of medication efficacy and tolerance. Coding Level of Care Code Acute Operator Vacuum for Ayana Bustillos Diagnoses Seizure R56.9 Acute psychosis F23 Alcohol use disorder Schizoaffective disorder, depressive type F25.1
[2020-04-24 20:07] VITALS: PULSE 65; RESP 18; O2SAT 97
[2020-04-24] MEDS: albuterol 8 gm MDI 2 PUFF INHALATION (20:07)
[2020-04-24] MEDS: trazodone 50 mg Tablet PO (20:49)
[2020-04-24] MEDS: hyDROXYzine 25 mg Capsule 50 MG PO (20:49)
[2020-04-24] MEDS: haloperidol 5 mg Tablet PO (20:49)
[2020-04-24] MEDS: atorvastatin 40 mg Tablet 20 MG PO (20:49)
[2020-04-24 22:00] VITALS: BP 133/89; PULSE 59; RESP 17; TEMP 36.7; O2SAT 97
--- NOTE | 2020-04-24 23:57 | PC.NURSE ---
pt given scheduled lipitor and librium, as well as prn haldol, vistaril and trazodone per request.
[2020-04-25] MEDS: citalopram 20 mg Tablet PO (05:47)
[2020-04-25] MEDS: chlordiazePOXIDE 25 mg Capsule PO ×3 (05:47→20:15)
[2020-04-25 06:00] VITALS: BP 114/75; PULSE 73; RESP 18; TEMP 36.6; O2SAT 93
[2020-04-25] MEDS: acetaminophen 325 mg Tablet 650 MG PO ×4 (06:08→20:51)
--- NOTE | 2020-04-25 08:09 | PM.NPN ---
Subjective NPU Subjective: Interval history: He reports that he slept very well last night. He is very happy about that. Nursing notes confirm that. It is unclear why he was given Haldol and Vistaril on request last night. He was much more forthcoming with regard to his experience of auditory hallucinations today. He states that he hears to specific people. Both of them were murdered in the past. He did not know them personally. The woman tells him to come save her. The man tells him that he is going to come and get him. He says this is a persistent problem both at night and during the day. He says that he is experienced auditory hallucinations off and on since he was a child. We discussed the fact that he has never remained on medication for hallucinations and he states that he cannot recall any medication that was effective for that. It is encouraging that he took the Haldol last night with positive benefit. He also reports that he is more alert today. His greatest concern is his fatigue and tiredness. However these predate his recent hospitalization and says that they go back for 2 years. Mental Status Exam MSE Comments: Mental Status Exam: The patient is now ambulating with a walker and is steady without ambulation. He still appears somewhat sedated. Information he provides is firmly consistent with that in his chart. His historic information is internally consistent and consistent with his old records. He is now believed to be a reliable informant. Appearance: hygiene is fair; no gross neurological deficits., AIMS=0 Speech: Speech is of slow rate and rhythm and slurred but easily understood. Thought processes: Thought processes are abstract. Judgment is adequate for safety. His attention is improved. Psychotic processes: There is no indication of guarding or paranoia. There is no attention to the internal stimuli. Auditory hallucinations are reported as above. There is no command nature. However they are ego dystonic and disturbing. visual hallucinations are denied. Judgment: Insight is fair. Problem solving skills are for safety. Orientation: The patient is oriented to person, place time and situation. Memory: no deficits noted in immediate, intermediate, or remote spheres. Attention: The patient is alert and interpersonally engaged. Language: Verbalizations are coherent. Fund of knowledge: Fund of knowledge is poor Affect/Mood: Affect is consistent with a depressed mood. He denied suicidal ideation Affective range is flat Psychosis: perception is improved; reality testing intact. Cognition: Patient Appearance: Appears Older than Age Level of Consciousness: Awake Patient Cognition Impaired: Yes Ability to Follow Directions: Excellent Patient Orientation (long list): Person Comprehension Ability: Mild Impairment Hallucination Type: None Delusion Description: Not Present Thought Process: Disorganized, Flight of Ideas and Indecisive Affect: Affect Description: Calm Behavior: Patient Behavior: Cooperative Speech Pattern: Clear Vitals/I&O/Wt Last Vital Signs Temp 97.9 F 04/25/20 06:00 Pulse 73 04/25/20 06:00 Resp 18 04/25/20 06:00 BP 114/75 04/25/20 06:00 Pulse Ox 93 04/25/20 06:00 Data NPU : 04/23/20 07:07 04/23/20 07:07 A&P Assessment and plan (1) Seizure: The presence of a seizure disorder continues to be in question. To his knowledge she has never been treated with medication for seizures. Though the episodes that were witnessed in the hospital last week have been deemed seizures, he is not on medication for seizures at this time. He was seen by Dr. Rascon prior to admission. A summary of her assessment follows:02/08/2020 Assessment & Plan (1) Seizure disorder: Assessment & Plan - Rosy Rascon MD: ORDERING PHYSICIAN: Dr. Rascon. REASON FOR STUDY: Frequent falls consider seizures. IMPRESSION: This was a normal routine EEG, awake and drowsy, with no behavioral or electrographic epileptiform activity. Diffuse low voltage seen in this tracing can be a consequence of alcohol use, previous head trauma or a nonspecific variant. A sleep deprived tracing is recommended if seizures are strongly suspected. Home Medications Home Medications - Last Reconciled 02/08/20 by MARYSOL Bear albuterol sulfate 90 mcg/actuation 2 puffs inhalation Q6H PRN baclofen 10 mg PO BID budesonide-formoterol 160-4.5 mcg/actuation (Symbicort) 2 puffs inhalation BID cyanocobalamin (vitamin B-12) 1,000 mcg IM .ONCE MONTHLY fesoterodine ER (Toviaz) 8 mg PO QDAY losartan 50 mg (2 x 25 mg) PO DAILY omeprazole 40 mg PO BID primidone 25 mg (1/2 x 50 mg) PO BID simvastatin (Zocor) 20 mg PO .at bedtime tiotropium bromide (Spiriva with HandiHaler) 1 cap inhalation QDAY Status: Acute (2) Acute psychosis: Status: Resolved (3) Alcohol use disorder: Status: Chronic (4) Schizoaffective disorder, depressive type: Though the patient has a historic diagnosis of schizoaffective disorder, there is no place in his chart where he is recorded as being psychotic other than secondary to alcohol withdrawal. He has not tolerated treatment with antipsychotic medication. He has not remained on it long enough to assess efficacy. Review of his records indicates that the presence of auditory hallucinations is not a prominent or consistent problem. It is possible that this diagnosis is an accurate. Status: Chronic Additional A&P Information (1) Seizure: (2) Acute psychosis: (3) Alcohol use disorder: (4) Schizoaffective disorder, depressive type: Hospital day #8:Interval history: Patient voices frustration that he feels as though he is doing poorly. He acknowledges that he cannot get around without a wheelchair. He has difficulty standing up. Prior to us coming to the hospital he had been walking with a cane. He claims that that typically he will drink about 8 beers per day but if somebody comes over to visit, they will drink some of his beers as well. He cannot estimate how much beer he drinks in a week. When his recent alcohol history is explored, he is quite vague. He is aware that drinking is a problem for him and causes him difficulty. He claims that he has been told that it is destroying his liver. In fact, his liver enzymes are within normal limits and would be an argument against excessive chronic alcohol use. He complains that he is feeling weak and occasionally when he stands up he feels dizzy. He reports that neither of these were present prior to hospitalization. He states that he was not having auditory or visual hallucinations prior to the night that he presented to the hospital. He cannot explain their occurrence. He reports having had seizures since the age of 10. However they have not been frequent or severe. He has never been on medication for seizures. He cannot say specifically what doctor made a diagnosis of seizures. They tell me I have seizures. He cannot describe what of his seizures. The patient currently appears quite sedated from his administration of 200 mg of Librium per day. There are no signs of alcohol withdrawal on the [facility] protocol. The dosage of librium can probably be reduced as tolerated. If her remains free of seizures and is less sedated, he mental status is expected to imrove. Will defer initiation of seizure medication to his neurologist with an outpatient appointment pending on 05/10/2020/. New medication regimen for Librium will be 25 mg twice daily and 50 mg at bedtime. There is also concern regarding his complaint of weakness and a history of falls. It is noted that his blood pressures are significantly reduced from that of his baseline since admission. Even though these are considered within normal limits, reduction from baseline in the initial. May result in hypoperfusion and orthostatic dizziness. Metoprolol tartrate will be reduced from 50 mg daily to 25 mg extended release and will continue to monitor. Hospital day #9:He reports that he slept very well last night. He is very happy about that. Nursing notes confirm that. It is unclear why he was given Haldol and Vistaril on request last night. He was much more forthcoming with regard to his experience of auditory hallucinations today. He states that he hears to specific people. Both of them were murdered in the past. He did not know them personally. The woman tells him to come save her. The man tells him that he is going to come and get him. He says this is a persistent problem both at night and during the day. He says that he is experienced auditory hallucinations off and on since he was a child. We discussed the fact that he has never remained on medication for hallucinations and he states that he cannot recall any medication that was effective for that. It is encouraging that he took the Haldol last night with positive benefit. He also reports that he is more alert today. His greatest concern is his fatigue and tiredness. However these predate his recent hospitalization and says that they go back for 2 years. Plan: We will reduce the total Librium dosage to 75 mg daily. Patient agrees to sign in and 21-day commitment has been discontinued. We will schedule Haldol 5 mg at bedtime. He seems to be tolerating this medication and if it provides him good sleep, may be a reasonable initiation for medication for his complaint of auditory hallucinations. It does appear that he needs the criteria for schizophrenia after all. We will continue to assess the diagnosis of schizoaffective disorder. Continue current medication. Encourage individual, group, and milieu therapy. Continue q 15-mintue checks for safety. Recommend sober living treatment at the highest level of care, to which the patient is willing to commit. Involuntary Hold Information 96 Hour Hold: 96 Hour Involuntary Admission: Yes 96 Hour Hold Ending Date: 04/21/20 96 Hour Hold Ending Time: 12:15 Attestations NPU Medical Necessity Statement*: Patient remained in the hospital another 4-5 nights to assess efficacy and tolerance of the current medication regimen. Coding Level of Care Code Acute Credit Control Manager for Ayana Bustillos Diagnoses Seizure R56.9 Acute psychosis F23 Alcohol use disorder Schizoaffective disorder, depressive type F25.1
[2020-04-25 08:40] VITALS: PULSE 66; RESP 18; O2SAT 96
[2020-04-25] MEDS: albuterol 8 gm MDI 2 PUFF INHALATION (08:42)
[2020-04-25 08:47] VITALS: PULSE 68
[2020-04-25] MEDS: thiamine 100 mg Tablet PO (08:47)
[2020-04-25] MEDS: metoprolol succinate ER (24 HR) 25 mg Tablet PO (08:47)
[2020-04-25] MEDS: pantoprazole DR 40 mg Tablet PO ×2 (08:47→17:43)
[2020-04-25] MEDS: folic acid 1 mg Tablet PO (08:47)
[2020-04-25] MEDS: baclofen 10 mg Tablet PO ×2 (08:47→17:43)
[2020-04-25] MEDS: primidone 50 mg Tablet 25 MG PO ×2 (08:47→17:43)
[2020-04-25] MEDS: multivitamin therapeutic Tablet 1 TAB PO (08:47)
[2020-04-25] MEDS: nicotine 21 mg Patch 1 PATCH TRANSDERMA (10:00)
[2020-04-25 14:00] VITALS: BP 146/88; PULSE 74; RESP 20; TEMP 37; O2SAT 96
[2020-04-25 20:13] VITALS: BP 109/71; PULSE 70; RESP 16; TEMP 36.5; O2SAT 100
[2020-04-25] MEDS: hyDROXYzine 25 mg Capsule 50 MG PO (20:15)
[2020-04-25] MEDS: atorvastatin 40 mg Tablet 20 MG PO (20:15)
[2020-04-25] MEDS: haloperidol 5 mg Tablet PO (20:15)
[2020-04-25] MEDS: trazodone 50 mg Tablet PO (20:15)
[2020-04-25 21:51] VITALS: PULSE 68; RESP 18; O2SAT 97
--- NOTE | 2020-04-25 21:53 | PC.NURSE ---
PT WAS GIVEN SCHEDULED MEDS LIPITOR,LIBRIUM AND HALDOL AT HS. PT WAS OFFERED PRN SLEEP AND ANXIETY MEDS, PT ACCEPTED.
--- NOTE | 2020-04-25 21:55 | PC.NURSE ---
PT REQUESTED PAIN MED WHEN IT WAS AVAILABLE. TYLENOL GIVEN FOR COMPLAINT OF BACK PAIN.
[2020-04-26] MEDS: acetaminophen 325 mg Tablet 650 MG PO ×3 (04:49→17:46)
[2020-04-26] MEDS: citalopram 20 mg Tablet PO (04:49)
[2020-04-26] MEDS: chlordiazePOXIDE 25 mg Capsule PO ×2 (04:59→20:44)
--- NOTE | 2020-04-26 05:30 | PC.NURSE ---
The patient was up at 4 am. He is reporting having double vision. Fairly steady on his feet. Stated he refuses to use the walker. Took a shower this morning. Some difficulty with swallowing. He was drinking tea and evidently aspirated a small amount. Coughed vigorously several times.
[2020-04-26 06:00] VITALS: BP 91/63; PULSE 79; RESP 15; TEMP 36.4; O2SAT 95
[2020-04-26] MEDS: nicotine 21 mg Patch 1 PATCH TRANSDERMA (06:29)
[2020-04-26] MEDS: multivitamin therapeutic Tablet 1 TAB PO (08:49)
[2020-04-26] MEDS: folic acid 1 mg Tablet PO (08:49)
[2020-04-26] MEDS: baclofen 10 mg Tablet PO ×2 (08:50→17:46)
[2020-04-26] MEDS: metoprolol succinate ER (24 HR) 25 mg Tablet PO (08:50)
[2020-04-26] MEDS: primidone 50 mg Tablet 25 MG PO ×2 (08:51→17:48)
[2020-04-26] MEDS: pantoprazole DR 40 mg Tablet PO ×2 (08:51→17:46)
[2020-04-26] MEDS: thiamine 100 mg Tablet PO (08:52)
--- NOTE | 2020-04-26 09:41 | PM.NPN ---
Subjective NPU Subjective: Interval history: He reports that he slept very well last night. He is very happy about that. Nursing notes confirm that. I think I am ready to go home. I want to go home. Mental Status Exam MSE Comments: Mental Status Exam: The patient is now ambulating without a walker and is steady . He still appears mildly sedated but much less so. Appearance: hygiene is fair; no gross neurological deficits., AIMS=0 Speech: Speech is of slow rate and rhythm and slurred but easily understood. Thought processes: Thought processes are abstract. Judgment is adequate for safety. His attention is improved. Psychotic processes: There is no indication of guarding or paranoia. There is no attention to the internal stimuli. Auditory hallucinations are reported as above. There is no command nature. However they are ego dystonic and disturbing. visual hallucinations are denied. Judgment: Insight is fair. Problem solving skills are for safety. Orientation: The patient is oriented to person, place time and situation. Memory: no deficits noted in immediate, intermediate, or remote spheres. Attention: The patient is alert and interpersonally engaged. Language: Verbalizations are coherent. Fund of knowledge: Fund of knowledge is poor Affect/Mood: Affect is consistent with a euthymic mood. He denied suicidal ideation Affective range is good Psychosis: perception is improved; reality testing intact. Vitals/I&O/Wt Last Vital Signs Temp 97.5 F L 04/26/20 06:00 Pulse 79 04/26/20 06:00 Resp 15 04/26/20 06:00 BP 91/63 04/26/20 06:00 Pulse Ox 95 04/26/20 06:00 Data NPU : 04/23/20 07:07 04/23/20 07:07 A&P Assessment and plan (1) Seizure: The presence of a seizure disorder continues to be in question. To his knowledge she has never been treated with medication for seizures. Though the episodes that were witnessed in the hospital last week have been deemed seizures, he is not on medication for seizures at this time. He was seen by Dr. Rascon prior to admission. A summary of her assessment follows:02/08/2020 Assessment & Plan (1) Seizure disorder: Assessment & Plan - Rosy Rascon MD: ORDERING PHYSICIAN: Dr. Rascon. REASON FOR STUDY: Frequent falls consider seizures. IMPRESSION: This was a normal routine EEG, awake and drowsy, with no behavioral or electrographic epileptiform activity. Diffuse low voltage seen in this tracing can be a consequence of alcohol use, previous head trauma or a nonspecific variant. A sleep deprived tracing is recommended if seizures are strongly suspected. Home Medications Home Medications - Last Reconciled 02/08/20 by MARYSOL Bear albuterol sulfate 90 mcg/actuation 2 puffs inhalation Q6H PRN baclofen 10 mg PO BID budesonide-formoterol 160-4.5 mcg/actuation (Symbicort) 2 puffs inhalation BID cyanocobalamin (vitamin B-12) 1,000 mcg IM .ONCE MONTHLY fesoterodine ER (Toviaz) 8 mg PO QDAY losartan 50 mg (2 x 25 mg) PO DAILY omeprazole 40 mg PO BID primidone 25 mg (1/2 x 50 mg) PO BID simvastatin (Zocor) 20 mg PO .at bedtime tiotropium bromide (Spiriva with HandiHaler) 1 cap inhalation QDAY Status: Acute (2) Acute psychosis: Status: Resolved (3) Alcohol use disorder: Status: Chronic (4) Schizoaffective disorder, depressive type: Though the patient has a historic diagnosis of schizoaffective disorder, there is no place in his chart where he is recorded as being psychotic other than secondary to alcohol withdrawal. He has not tolerated treatment with antipsychotic medication. He has not remained on it long enough to assess efficacy. Review of his records indicates that the presence of auditory hallucinations is not a prominent or consistent problem. It is possible that this diagnosis is an accurate. Status: Chronic Additional A&P Information (1) Seizure: (2) Acute psychosis: (3) Alcohol use disorder: (4) Schizoaffective disorder, depressive type: Hospital day #8:Interval history: Patient voices frustration that he feels as though he is doing poorly. He acknowledges that he cannot get around without a wheelchair. He has difficulty standing up. Prior to us coming to the hospital he had been walking with a cane. He claims that that typically he will drink about 8 beers per day but if somebody comes over to visit, they will drink some of his beers as well. He cannot estimate how much beer he drinks in a week. When his recent alcohol history is explored, he is quite vague. He is aware that drinking is a problem for him and causes him difficulty. He claims that he has been told that it is destroying his liver. In fact, his liver enzymes are within normal limits and would be an argument against excessive chronic alcohol use. He complains that he is feeling weak and occasionally when he stands up he feels dizzy. He reports that neither of these were present prior to hospitalization. He states that he was not having auditory or visual hallucinations prior to the night that he presented to the hospital. He cannot explain their occurrence. He reports having had seizures since the age of 10. However they have not been frequent or severe. He has never been on medication for seizures. He cannot say specifically what doctor made a diagnosis of seizures. They tell me I have seizures. He cannot describe what of his seizures. The patient currently appears quite sedated from his administration of 200 mg of Librium per day. There are no signs of alcohol withdrawal on the [facility] protocol. The dosage of librium can probably be reduced as tolerated. If her remains free of seizures and is less sedated, he mental status is expected to imrove. Will defer initiation of seizure medication to his neurologist with an outpatient appointment pending on 05/10/2020. New medication regimen for Librium will be 25 mg twice daily and 50 mg at bedtime. There is also concern regarding his complaint of weakness and a history of falls. It is noted that his blood pressures are significantly reduced from that of his baseline since admission. Even though these are considered within normal limits, reduction from baseline in the initial. May result in hypoperfusion and orthostatic dizziness. Metoprolol tartrate will be reduced from 50 mg daily to 25 mg extended release and will continue to monitor. Hospital day #9:He reports that he slept very well last night. He is very happy about that. Nursing notes confirm that. It is unclear why he was given Haldol and Vistaril on request last night. He was much more forthcoming with regard to his experience of auditory hallucinations today. He states that he hears to specific people. Both of them were murdered in the past. He did not know them personally. The woman tells him to come save her. The man tells him that he is going to come and get him. He says this is a persistent problem both at night and during the day. He says that he is experienced auditory hallucinations off and on since he was a child. We discussed the fact that he has never remained on medication for hallucinations and he states that he cannot recall any medication that was effective for that. It is encouraging that he took the Haldol last night with positive benefit. He also reports that he is more alert today. His greatest concern is his fatigue and tiredness. However these predate his recent hospitalization and says that they go back for 2 years. Plan: We will reduce the total Librium dosage to 75 mg daily. Patient agrees to sign in and 21-day commitment has been discontinued. We will schedule Haldol 5 mg at bedtime. He seems to be tolerating this medication and if it provides him good sleep, may be a reasonable initiation for medication for his complaint of auditory hallucinations. It does appear that he needs the criteria for schizophrenia after all. We will continue to assess the diagnosis of schizoaffective disorder. Hospital day #10: Patient is ambulating without difficulty. He continues to complain of some mild weakness and feeling tired. However he denies any symptoms of depression. He feels cognitively he is ready to go home and is engaged and planning his discharge with assistance from his friends. He denied the presence of auditory and visual hallucinations after the initiation of Haldol. He was strongly advised not to sign out AGAINST MEDICAL ADVICE due to concerns about the rapid withdrawal of Librium. He was agreeable to stay 1 or 2 more days to try and get Librium down into a more reasonable level and then discharge to home with a short trial of Librium for continued weaning there. Plan: Decrease Librium to 25 mg twice daily. Encourage individual, group, and milieu therapy. Continue q 15-mintue checks for safety. Recommend sober living treatment at the highest level of care, to which the patient is willing to commit. However he states he has no intention of complying with that recommendation and will return home to be supported by friends. Involuntary Hold Information 96 Hour Hold: 96 Hour Involuntary Admission: Yes 96 Hour Hold Ending Date: 04/21/20 96 Hour Hold Ending Time: 12:15 Attestations NPU Medical Necessity Statement*: Patient will remain in the hospital another 1-2 nights to titrate his seizure medication. Coding Level of Care Code Acute [employer] for Ayana Bustillos Diagnoses Seizure R56.9 Acute psychosis F23 Alcohol use disorder Schizoaffective disorder, depressive type F25.1
[2020-04-26 09:46] VITALS: PULSE 72; RESP 18; O2SAT 98
[2020-04-26] MEDS: albuterol 8 gm MDI 2 PUFF INHALATION ×2 (09:49→20:50)
[2020-04-26 13:27] VITALS: BP 117/82; PULSE 72; RESP 18; TEMP 36.4; O2SAT 96
[2020-04-26] MEDS: haloperidol 5 mg Tablet PO (20:45)
[2020-04-26] MEDS: hyDROXYzine 25 mg Capsule 50 MG PO (20:45)
[2020-04-26] MEDS: atorvastatin 40 mg Tablet 20 MG PO (20:45)
[2020-04-26 20:52] VITALS: PULSE 78; RESP 18; O2SAT 96
[2020-04-26 20:54] VITALS: BP 121/91; PULSE 69; RESP 16; TEMP 36.4; O2SAT 98
[2020-04-27] MEDS: citalopram 20 mg Tablet PO (05:33)
[2020-04-27] MEDS: chlordiazePOXIDE 25 mg Capsule PO (05:33)
[2020-04-27 06:00] VITALS: BP 104/72; PULSE 62; RESP 18; TEMP 36.4; O2SAT 95
[2020-04-27] MEDS: multivitamin therapeutic Tablet 1 TAB PO (09:26)
[2020-04-27] MEDS: baclofen 10 mg Tablet PO (09:26)
[2020-04-27] MEDS: folic acid 1 mg Tablet PO (09:26)
[2020-04-27] MEDS: pantoprazole DR 40 mg Tablet PO (09:26)
[2020-04-27] MEDS: metoprolol succinate ER (24 HR) 25 mg Tablet PO (09:26)
[2020-04-27] MEDS: thiamine 100 mg Tablet PO (09:26)
[2020-04-27] MEDS: primidone 50 mg Tablet 25 MG PO (09:26)
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
[2020-04-27 09:50] VITALS: BP 104/72; PULSE 62; RESP 18; TEMP 36.4; O2SAT 95
[2020-04-27 09:51] VITALS: PULSE 74; RESP 18; O2SAT 96
--- NOTE | 2020-04-27 10:01 | PC.SOCIAL ---
Medicaid ride called, trip ID#[id number]. Should arrive between [id number]
== END 2020-04-27 10:21 | disposition home or self-care (01) | DRG 885 ==
LOC: ER 12:36 → NP 12:40 → ICU 16:22 → NP 04-19 09:46
PROVIDERS: Emergency Medicine; Internal Medicine; Admitting Provider Psychiatry & Neurology Psychiatry; Family Provider Family Medicine; PCP Family Medicine; Visit Provider Psychiatry & Neurology Psychiatry
DX: F23 Brief psychotic disorder (principal); R56.9 Unspecified convulsions; F25.1 Schizoaffective disorder, depressive type; F10.20 Alcohol dependence, uncomplicated; J44.9 Chronic obstructive pulmonary disease, unspecified; G47.33 Obstructive sleep apnea (adult) (pediatric); Z87.11 Personal history of peptic ulcer disease; Z86.73 Personal history of transient ischemic attack (TIA), and cerebral infarction without residual deficits; G89.29 Other chronic pain; Z87.820 Personal history of traumatic brain injury; K21.9 Gastro-esophageal reflux disease without esophagitis; E03.9 Hypothyroidism, unspecified; E78.5 Hyperlipidemia, unspecified; F17.210 Nicotine dependence, cigarettes, uncomplicated
CPT/HCPCS: 12345; 36415; 36416; 70450; 71045; 71250; 80053; 80156; 80164; 80178; 80185; 80306; 80307; 82962; 83735; 84443; 84484; 85025; 85610; 93005; 94640; 96372; 96375; 97110; 97161; 99284; 99285; J1200; J1630; J2060; J3411; J3486; J3535

== ENCOUNTER 2020-05-01 15:14 | Inpatient (IN) | payer MEDICAID, SELFPAY ==
[2020-04-13 10:55] VITALS: BP 156/100; BMI 27.5
[2020-05-01] VITALS (13 sets, daily range): BP systolic 85–131; BP diastolic 47–95; PULSE 87–95; RESP 14–42; TEMP 36.6–37.1; O2SAT 91–99; BMI 28.2
--- NOTE | 2020-05-01 15:35 | W.ED.PSYCH ---
HPI - Psych General: Chief Complaint: Psychiatric Symptoms Stated Complaint: VISUAL AND AUDITORY HALLUCINATIONS Time Seen by Provider: 05/01/20 15:16 Source: patient and EMS Mode of arrival: EMS Limitations: no limitations History of Present Illness: HPI Narrative: 59-year-old male who was admitted our psych unit week ago and was released 4 days ago. Patient states that he has not filled his medicines and has been self-medicating with alcohol all weekend. Patient is quite intoxicated and states he is drank 40 beers in the last 24 hours. He states he is still depressed. He is unsure if he is suicidal or homicidal at this time. Hard to get many answers from him due to his level of intoxication. Associated symptoms: Reports depression Review of Systems Const: Denies: fever(s), chills, body aches or change in appetite Eyes: Denies: blurry vision or eye discomfort ENMT: Denies: throat pain or dental pain Card: Denies: chest pain Resp: Denies: dyspnea GI: Denies: abdominal pain, nausea, vomiting or diarrhea : Denies: dysuria Musc: Denies: neck pain or back pain Skin/Breast: Denies: rash Neuro: Denies: headache(s) Psych: Reports: depression Shaun/Lymph: Denies: easy bruising All/Imm: Denies: urticaria PFSH ED PFSH: Medical History Alcohol use disorder Alcohol use disorder continues to be the primary clinical problem. If in fact he was using alcohol on a greater volume than indicated prior to coming to the hospital, both seizures and his psychosis may be attributed to results of alcohol withdrawal. Records indicate a prior history of delirium tremens in the presence of auditory hallucinations in the alcohol withdrawal period. 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 Sleep apnea, obstructive Urinary urgency Vitamin B12 deficiency Surgical History No pertinent past surgical history Family History Other Cancer Diabetes Hypertension Social History Smoking and tobacco status: current every day smoker cigarettes Packs smoked per day: 2 Years cigarettes smoked: 40 Second hand smoke exposure: No Alcohol intake: current Alcohol intake frequency: 3 or more drinks per day Alcohol type: beer Desire information about alcohol rehabilitation?: No Desire information about substance/drug rehabilitation?: No Adopted: No Caregiver/support person: No Lives independently: Yes Household members: none Housing: House Marital status: Number of children: 2 Number of grandchildren: 6 Highest education level completed: 11th Grade service: No Current occupational status: disabled Current occupational exposures/hazards: No Pets and animals: Yes Pets & animals: dog(s) History of recent travel: No Current gender identity: Male Maricarmen/Samaritan: Quaker Special maricarmen needs: No Agree to transfusion: Yes Financial difficulty paying for basics: Hard Physical Exam Const: COMMON NORMALS: patient oriented x3 OTHER: intoxicated HENMT: COMMON NORMALS: normocephalic and atraumatic HEAD & SCALP: normocephalic and atraumatic Eye: COMMON NORMALS: Equal, round and reactive pupils present and EOMs intact bilaterally PUPIL: Yes Equal, round and reactive pupils present Neck/C-Spine: COMMON NORMALS: full ROM and supple Chest: COMMONS NORMALS: normal inspection of the chest and normal palpation of entire chest wall Resp: COMMON NORMALS: normal respiratory effort, No retractions, No use of accessory muscles and clear to auscultation bilaterally AUSCULTATION: clear to auscultation bilaterally Cardio: COMMON NORMALS: regular rate, regular rhythm and No murmurs present (Cardio) RATE: regular rate RHYTHM: regular rhythm GI: COMMON NORMALS: Normal to inspection, nondistended, normoactive bowel sounds present, Soft to palpation, non-tender and no masses PALPATION: Yes Soft to palpation Extremity: COMMON NORMALS: normal to inspection and full ROM Neuro: COMMON NORMALS: patient oriented x3, moves all extremities and no focal motor deficits Psych: APPEARANCE: Yes unkempt and Yes disheveled ATTENTION/CONCENTRATION: Yes attention grossly impaired Skin: COMMON NORMALS: no rashes or lesions noted and no wounds GENERAL SKIN EXAM: no rashes or lesions noted MDM - Psych MDM Narrative: Medical decision making narrative: Patient presents here with alcohol intoxication along with suicidal ideation. Patient's alcohol level now to 220 I feel he is stable for admission to the psychiatric unit. Patient is well-appearing here. Spoke to psychiatrist will admit for observation for his depression. Lab Data: Labs: Lab Results 05/01/20 05/01/20 05/01/20 Range/Units 15:50 15:50 16:31 WBC 6.3 (4.0-10.0) 10^3/ uL RBC 4.55 (4.1-5.3) 10^6/u L Hgb 14.4 (11.7-16.6) g/dL Hct 43.6 (42.0-52.0) % MCV 95.8 H (80-94) fL MCH 31.6 (28.0-34.0) pg MCHC 33.0 (30.0-36.0) g/dL RDW 14.6 (12.1-15.1) % Plt Count 484 H (130-400) 10^3/c mm MPV 8.9 (7.4-10.4) fL Neut % (Auto) 45.5 % Lymph % (Auto) 41.1 % Cataño % (Auto) 6.3 % Eos % (Auto) 4.9 % Baso % (Auto) 1.6 % Neut # (Auto) 2.88 (1.8-7.7) 10^3/u L Lymph # (Auto) 2.6 (0.8-4.8) 10^3/u L Cataño # (Auto) 0.4 (0.2-0.9) 10^3/u L Eos # (Auto) 0.3 (0.0-0.8) 10^3/u L Baso # (Auto) 0.1 (0.0-0.1) 10^3/u L Nucleated RBC % (a uto) 0 % Nucleated RBCs # 0.0 /100WBC Sodium 140 (136-145) mmol/L Potassium 4.3 (3.5-5.1) mmol/L Chloride 105 (98-107) mmol/L Carbon Dioxide 25 (22-29) mmol/L Anion Gap 14.3 (5-19) BUN 11 (6-20) mg/dL Creatinine 1.0 (0.7-1.2) mg/dL GFR Calculation 76.5 L (90-130) mL/min Glucose 95 (65-115) mg/dL Calculated Osmolal ity 286 (285-295) mOsm/k g Calcium 8.9 (8.5-10.5) mg/dL Total Bilirubin 0.2 (0.15-1.2) mg/dL AST 43 H (0-40) U/L ALT 88 H (0-41) U/L Alkaline Phosphata se 74 (40-130) IU/L Total Protein 7.2 (6.6-8.7) g/dL Albumin 4.9 (3.5-5.2) g/dL Globulin 2.3 (1.3-4.6) g/dL Salicylates 0.8 L (3-10) mg/dL Urine Opiates Scre en Negative (Negative) ng/mL Acetaminophen < 5.0 L (10-30) ug/mL Ur Barbiturates Sc reen Negative (Negative) ng/mL Ur Phencyclidine S crn Negative (Negative) ng/mL Ur Amphetamines Sc reen Negative (Negative) ng/mL U Benzodiazepines Scrn Positive H (Negative) ng/mL Urine Cocaine Scre en Negative (Negative) ng/mL U Marijuana (THC) Screen Positive H (Negative) ng/mL Ethyl Alcohol 292 H (0-10) mg/dL Discharge Plan Discharge Patient Disposition: Admitted As Inpatient Admit Provider: Chaz Ware Clinical Impression: Alcohol use disorder, Suicidal ideation Condition: Stable Coding Level of Care Code ED Machine Operator Slitter Technician for Aimeg Fwd Exam Comprehensive
[2020-05-01 16:10] LABS: Basophils # 0.1 10^3/uL (0.0-0.1); Basophils % 1.6 %; Eosinophils # 0.3 10^3/uL (0.0-0.8); Eosinophils % 4.9 %; Hematocrit 43.6 % (42.0-52.0); Hemoglobin 14.4 g/dL (11.7-16.6); Lymphocytes # 2.6 10^3/uL (0.8-4.8); Lymphocytes % 41.1 %; Mean Corpuscular Hemoglobin 31.6 pg (28.0-34.0); Mean Corpuscular Volume 95.8 fL (80-94); Mean Platelet Volume 8.9 fL (7.4-10.4); Monocytes # 0.4 10^3/uL (0.2-0.9); Monocytes % 6.3 %; Neutrophils # 2.88 10^3/uL (1.8-7.7); Neutrophils % 45.5 %; Nucleated Red Blood Cells % 0 %; Platelet Count 484 10^3/cmm (130-400); Red Blood Count 4.55 10^6/uL (4.1-5.3); Red Cell Distribution Width 14.6 % (12.1-15.1); White Blood Count 6.3 10^3/uL (4.0-10.0)
[2020-05-01 16:27] LABS: Alanine Aminotransferase 88 U/L (0-41); Albumin Level 4.9 g/dL (3.5-5.2); Alcohol Level 292 mg/dL (0-10); Alkaline Phosphatase 74 IU/L (40-130); Anion Gap 14.3 (5-19); Aspartate Amino Transferase 43 U/L (0-40); Blood Urea Nitrogen 11 mg/dL (6-20); Calcium 8.9 mg/dL (8.5-10.5); Carbon Dioxide 25 mmol/L (22-29); Chloride 105 mmol/L (98-107); Creatinine Clr Calc Pharmacy 100.3905; Globulin 2.3 g/dL (1.3-4.6); Glomerular Filtration Rate 76.5 mL/min (90-130); Glucose 95 mg/dL (65-115); Osmolality Calculated 286 mOsm/kg (285-295); Potassium 4.3 mmol/L (3.5-5.1); Salicylate 0.8 mg/dL (3-10); Sodium 140 mmol/L (136-145); Total Bilirubin 0.2 mg/dL (0.15-1.2); Total Protein 7.2 g/dL (6.6-8.7)
[2020-05-01 16:51] LABS: Acetaminophen < 5.0 ug/mL (10-30)
[2020-05-01 17:15] LABS: Amphetamines Screen Urine Negative (Negative); Barbiturates Screen Urine Negative (Negative); Benzodiazepines Screen Urine Positive (Negative); Cocaine Screen Urine Negative (Negative); Opiate Screen Urine Negative (Negative); PCP Screen Urine Negative (Negative); THC Screen Urine Positive (Negative)
[2020-05-01 17:58] LABS: Alcohol Level 223 mg/dL (0-10)
--- NOTE | 2020-05-01 19:00 | PC.NURSE ---
report received from Kassie, Boardmarker and care transferred to CHELSI Woods
--- NOTE | 2020-05-01 20:28 | PC.NURSE ---
called ICU for report, ICU will call back when able to take report on patient.
[2020-05-01] MEDS: LORazepam 2 mg/mL INJ 1 mL IM (21:13)
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
[2020-05-02] VITALS (26 sets, daily range): BP systolic 111–161; BP diastolic 59–115; PULSE 59–94; RESP 13–24; TEMP 36.6–36.9; O2SAT 94–99
[2020-05-02] MEDS: LORazepam 2 mg/mL INJ 1 mL IVP ×3 (00:52→20:35)
[2020-05-02] MEDS: D5-NS 0.45% + KCL 20 mEq 20 MEQ/1,000 ML BAG 100 MEQ IV ×2 (00:54→09:58)
[2020-05-02] MEDS: enoxaparin 40 mg/0.4 mL Syringe SUBCUT (00:54)
[2020-05-02 05:34] LABS: Alanine Aminotransferase 72 U/L (0-41); Albumin Level 3.7 g/dL (3.5-5.2); Alkaline Phosphatase 70 IU/L (40-130); Anion Gap 12.1 (5-19); Aspartate Amino Transferase 37 U/L (0-40); Blood Urea Nitrogen 15 mg/dL (6-20); Calcium 8.3 mg/dL (8.5-10.5); Carbon Dioxide 24 mmol/L (22-29); Chloride 106 mmol/L (98-107); Globulin 2.3 g/dL (1.3-4.6); Glomerular Filtration Rate 98.9 mL/min (90-130); Glucose 98 mg/dL (65-115); Magnesium 1.7 mg/dL (1.7-2.3); Osmolality Calculated 282 mOsm/kg (285-295); Potassium 4.1 mmol/L (3.5-5.1); Sodium 138 mmol/L (136-145); Total Bilirubin 0.2 mg/dL (0.15-1.2)
--- NOTE | 2020-05-02 06:00 | ECG_ITS ---
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 Measurements Intervals [place] Rate: 61 P: 56 HI: 168 QRS: 48 QRSD: 97 T: 74 QT: 411 QTc: 415 Interpretive Statements SINUS RHYTHM WARNING: DATA QUALITY MAY AFFECT INTERPRETATION INTERPRETATION BASED ON A DEFAULT AGE OF 40 YEARS Compared to ECG 04/17/2020 12:37:52 No significant changes Electronically Signed On 05-03-2020 0:34:03 CDT by Louie Garcia M.D. [id number]
[2020-05-02] MEDS: multivitamin therapeutic Tablet 1 TAB PO (08:19)
[2020-05-02] MEDS: folic acid 1 mg Tablet PO (08:19)
[2020-05-02] MEDS: thiamine 100 mg Tablet PO (08:19)
[2020-05-02] MEDS: magnesium oxide 400 mg tablet PO ×2 (08:19→17:14)
[2020-05-02] MEDS: acetaminophen 325 mg Tablet 650 MG PO (08:23)
--- NOTE | 2020-05-02 09:13 | P.CONIM_ITS ---
Providers/Reason for Consult Consulting Physican/Specialty*: Chaz Ware M.D./Psychiatry Reason for Consult*: Delirium tremens Attending Physician: Camden Anderson MD Primary Care Provider: Silvia Wilson DO Psych Consult HPI History of Present Illness Costa Alba is a 59 year old gentleman with history of schizoaffective disorder, COPD, CVA, PUD, KIEL, other medical conditions, was transferred to intensive care unit after consultation with the ED physician, who had originally proposed to send him to us directly. His original alcohol blood level was 292 and had dropped to 223 at the time of our conversation. When the nurses got wind of this they came to me and indicated that the last time he had been admitted with a BAL of 297 he was sent to the NPU and entered into status epilepticus. I called Dr. Alston and reviewed the case with him. He agreed that the patient should first be treated in the intensive care unit, where I visited him today. The patient is barely arousable for about 30 seconds, during which time he opined, I left too soon. Dr. Barr dictated his discharge summary from his last admission on the sixth of this month. Review of Systems Narrative: Unavailable at this time due to patient's obtunded state. Dr. Doris Brennan's ROS is included herein: Const: Reports: chills, change in appetite, fatigue, malaise, night sweats and change in sleep pattern; Denies: fever(s) Eyes: Reports: change in vision ENMT: Reports: dry mouth, disequilibrium and nasal congestion; Denies: throat pain or oral sores Card: Reports: chest pain, palpitations and edema Resp: Reports: dyspnea; Denies: productive cough, non-productive cough or hemoptysis GI: Reports: abdominal pain, nausea, diarrhea and constipation; Denies: vomiting : Reports: difficulty urinating, urinary frequency and urinary hesitancy Musc: Reports: neck pain, back pain, extremity pain, joint pain, muscle cramps and muscle weakness Skin/Breast: Reports: rash and pruritus Neuro: Reports: headache(s), numbness in extremities, weakness in extremities, lack of coordination, difficulty walking, frequent falls, dizziness, confusion, difficulty communicating thoughts, seizure-like activity and involuntary movements Psych: Reports: anxiety, depression, sleeping less, hopelessness, change in appetite, paranoia, visual hallucinations, auditory hallucinations and suicidal ideation Shaun/Lymph: Denies: easy bruising or easy bleeding Meds Current Medications: Current Medications Generic Name Dose Route Start Last Admin Trade Name Freq PRN Reason Stop Dose Admin Acetaminophen 650 mg 05/01/20 20:55 05/02/20 08:23 Tylenol PO 650 mg Q4H PRN Administration MILD PAIN Enoxaparin Sodium 40 mg 05/01/20 23:30 05/02/20 00:54 Lovenox SUBCUT 40 mg Q24H FARAZ Administration Folic Acid 1 mg 05/02/20 09:00 05/02/20 08:19 Folic Acid PO 1 mg DAILY FARAZ Administration Potassium Chloride /Dextrose/Sod Cl 20 meq in 1,000 m ls @ 100 mls/hr 05/01/20 23:30 05/02/20 05:21 D5-Ns 0.45% + Sandoval l 20 Meq IV 05/02/20 19:29 100 mls/hr .Q10H FARAZ Infusion Lorazepam 2 mg 05/01/20 23:22 05/02/20 00:52 Ativan IVP 2 mg PRN PRN Administration WITHDRAWAL Protocol Magnesium Oxide 400 mg 05/02/20 09:00 05/02/20 08:19 Magox PO 400 mg BID FARAZ Administration Multivitamins Ther apeutic 1 tab 05/02/20 09:00 05/02/20 08:19 Multivitamin Tab PO 1 tab DAILY FARAZ Administration Thiamine Mononitra te 100 mg 05/02/20 09:00 05/02/20 08:19 Vitamin B-1 PO 100 mg DAILY FARAZ Administration PFSH NPU PFSH: Medical History (Updated 05/02/20 @ 00:26 by Doris Brennan MD) Alcohol use disorder Alcohol use disorder continues to be the primary clinical problem. If in fact he was using alcohol on a greater volume than indicated prior to coming to the hospital, both seizures and his psychosis may be attributed to results of alcohol withdrawal. Records indicate a prior history of delirium tremens in the presence of auditory hallucinations in the alcohol withdrawal period. 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 Sleep apnea, obstructive Vitamin B12 deficiency Surgical History No pertinent past surgical history Family History Other Cancer Diabetes Hypertension Social History Smoking and tobacco status: current every day smoker cigarettes Packs smoked per day: 2 Years cigarettes smoked: 40 Second hand smoke exposure: No Alcohol intake: current Alcohol intake frequency: 3 or more drinks per day Alcohol type: beer Desire information about alcohol rehabilitation?: No Desire information about substance/drug rehabilitation?: No Adopted: No Caregiver/support person: No Lives independently: Yes Household members: none Housing: House Marital status: Number of children: 2 Number of grandchildren: 6 Highest education level completed: 11th Grade service: No Current occupational status: disabled Current occupational exposures/hazards: No Pets and animals: Yes Pets & animals: dog(s) History of recent travel: No Current gender identity: Male Maricarmen/Lutheran: Jain Special maricarmen needs: No Agree to transfusion: Yes Financial difficulty paying for basics: Hard Other Psychiatric History: Other Psychiatric History: The patient sees Dr. 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 The patient?s outpatient diagnosis of schizoaffective disorder, depressed type, chronic post-traumatic stress disorder, antisocial personality disorder, major neurocognitive disorder due to traumatic brain injury, obstructive sleep apnea with noncompliance of CPAP. His medication history continues to be confusing because he cannot seem to remember the names of any medications he has been on. Mental Status Exam MSE Comments: The patient is a 59-year-old male who was found in ICU 11. He is difficult to arouse and lapses into obtundation and about 30 seconds. He understands who I am and where he is. More definitive assessment of other parameters will have to await his recovery. Vitals/I&O/Wt Last Vital Signs Temp 97.9 F 05/02/20 04:00 Pulse 75 05/02/20 09:02 Resp 18 05/02/20 09:02 BP 157/115 05/02/20 08:00 Pulse Ox 98 05/02/20 09:02 05/01/20 05/02/20 05/02/20 23:59 07:59 15:59 Intake Total 240 445 360 Output Total 450 500 Balance 240 -5 -140 Weight last 48 hrs Weight 220 lb Physical Exam Narrative: EXAM NARRATIVE: From Doctor Gretchense: Const: OTHER: Asleep, easily aroused, oriented to person place and situation, cooperative HENMT: OTHER: Patient with a 1 cm healing laceration with dried blood over the lateral supraorbital area on the right but otherwise normocephalic. Nasopharynx with some clear rhinorrhea, he smells of alcohol quite significantly, has a bulbous nose, mucous membranes are moist Eye: OTHER: Pupils equally round and reactive to light, lateral nystagmus noted, mild conjunctival injection Neck/C-Spine: Supple Resp: OTHER: Clear to auscultation bilaterally no rales rhonchi or wheezes noted, no accessory muscle use noted Cardio: OTHER: Regular rate and rhythm, no murmurs gallops or rubs. Pulses 2+ and equal at both feet. GI: OTHER: Abdomen soft, nontender, nondistended, positive bowel sounds : OTHER: Normal external genitalia Extremity: NARRATIVE EXTREMITY EXAM: Patient with some puffy upper and lower extremities but no pitting edema noted Neuro: OTHER: Face symmetric, speech clear, handgrip equal, strength equal both feet. When I first walked in the room he had no obvious tremor noted. As I grabbed his right arm to palpate his pulse, he developed a significant shaking in that arm but it was not noted at the same time in the left arm. The more he talked to me the less the tremor was noted. Skin: NARRATIVE SKIN EXAM: Patient with various abrasions and ecchymoses. No acute rashes are noted. He does have a general redness to him however. A&P Assessment and plan (1) Tetrahydrocannabinol (THC) use disorder, mild, abuse: Patient education and counseling. Status: Chronic (2) Schizoaffective disorder, depressive type: Pharmacotherapy and referral back to behavioral health care. Status: Chronic (3) Acute alcohol intoxication: Currently in ICU on CIWA Status: Acute Qualifiers: Complication of substance-induced condition: with delirium Qualified Code(s): F10.921 - Alcohol use, unspecified with intoxication delirium (4) Suicidal ideation: Status: Acute (5) Alcohol use disorder: Patient has stated to Dr. Barr that he is not interested in sobriety. Status: Chronic (6) Seizure disorder: Very possibly, as posited above, driven by alcohol withdrawal Status: Chronic (7) Vitamin B12 deficiency: Patient education regarding supplementation. Status: Chronic Involuntary Hold Information 96 Hour Hold: 96 Hour Involuntary Admission: Yes 96 Hour Hold Ending Date: 04/21/20 96 Hour Hold Ending Time: 12:15 Attestations NPU Medical Necessity Statement*: I anticipate 10-12 midnights Time Spent in Patient Care: Greater than 35 minutes Coding Level of Care Code Acute Last Sorter for [facility] Fwd Diagnoses Tetrahydrocannabinol (THC) use disorder, mild, abuse F12.10 Schizoaffective disorder, depressive type F25.1 Acute alcohol intoxication F10.921 Complication of substance-induced condition: with delirium Suicidal ideation R45.851 Alcohol use disorder Seizure disorder G40.909 Vitamin B12 deficiency E53.8
[2020-05-02] MEDS: pantoprazole DR 40 mg Tablet PO (09:57)
--- NOTE | 2020-05-02 14:09 | P.PN_ITS ---
Subjective Subjective: Interval history: This morning patient was examined in the ICU, states that his last drink was a few days ago, had 8-9 beers, states that he has been having tremors, seeing and hearing things that are not there, no nausea, no vomiting, no abdominal pain, no headache, no blurry vision no nausea, no vomiting Patient tells me that he lives here [place], he is , he has 2 children [place], no local family members, he has friends that check up on him Vitals/I&O/Wt Last Vital Signs Temp 97.9 F 05/02/20 04:00 Pulse 59 L 05/02/20 12:00 Resp 17 05/02/20 12:00 BP 136/82 05/02/20 12:00 Pulse Ox 94 05/02/20 12:00 05/01/20 05/02/20 05/02/20 22:59 06:59 14:59 Intake Total 240 / 240 445 / 685 821.667 / 821.667 Output Total 450 / 450 1500 / 1500 Balance 240 / 240 -5 / 235 -678.333 / -678.333 Weight last 48 hrs Weight 99.79 kg Physical Exam Narrative: EXAM NARRATIVE: Has bilateral tremors present, poor eye contact, Const: COMMON NORMALS: patient oriented x3 HENMT: COMMON NORMALS: normocephalic HEAD & SCALP: normocephalic Neck/C-Spine: COMMON NORMALS: no JVD Resp: COMMON NORMALS: normal respiratory effort, No retractions, No use of accessory muscles and clear to auscultation bilaterally AUSCULTATION: clear to auscultation bilaterally Cardio: COMMON NORMALS: no JVD, regular rate, regular rhythm, S1 normal heart sound present and S2 normal heart sound present RATE: regular rate RHYTHM: regular rhythm HEART SOUNDS: S1 normal heart sound present and S2 normal heart sound present GI: COMMON NORMALS: Normal to inspection, nondistended, normoactive bowel sounds present, Soft to palpation, non-tender, No hepatosplenomegaly present, no masses and no bruits PALPATION: Yes Soft to palpation and Yes No hepatospl enomegaly present Extremity: COMMON NORMALS: capillary refill normal, no clubbing, cyanosis or edema, no calf tenderness and no pedal edema Neuro: COMMON NORMALS: patient oriented x3 Data : 05/01/20 15:50 05/02/20 04:32 A&P Assessment and plan (1) Acute alcohol intoxication: -ciwa protocol, B12, thiamine seizure precautions, continue IV fluids Status: Acute Qualifiers: Complication of substance-induced condition: with delirium Qualified Code(s): F10.921 - Alcohol use, unspecified with intoxication delirium (2) Suicidal ideation: With 96-hour hold paperwork completed in the emergency room, psychiatry has been consulted Status: Acute (3) Alcohol use disorder: With a history of what sounds like alcohol withdrawal seizures Status: Chronic (4) Schizoaffective disorder, depressive type: Status: Chronic (5) Benign essential hypertension: Status: Chronic (6) COPD (chronic obstructive pulmonary disease): Status: Chronic Qualifiers: COPD type: unspecified COPD Qualified Code(s): J44.9 - Chronic obstructive pulmonary disease, unspecified (7) Hyperlipidemia: Status: Chronic Qualifiers: Hyperlipidemia type: unspecified Qualified Code(s): E78.5 - Hyperlipidemia, unspecified (8) Nicotine dependence, cigarettes, with unspecified nicotine-induced disorders: Status: Chronic (9) Tetrahydrocannabinol (THC) use disorder, mild, abuse: Status: Chronic Additional A&P Information Trazodone for sleep if needed Breathing treatments if needed Nicotine patch if needed Lovenox for DVT prophylaxis Plans were discussed with patient Full code Attestations Medical Necessity Statement*: Patient requires hospitalization, ICU admission, for suicidal ideation 96-hour hold, alcohol withdrawal Coding Level of Care Code Acute Director Of Volunteer Services for [facility] Fwd Diagnoses Acute alcohol intoxication F10.921 Complication of substance-induced condition: with delirium Suicidal ideation R45.851 Alcohol use disorder Schizoaffective disorder, depressive type F25.1 Benign essential hypertension I10 COPD (chronic obstructive pulmonary disease) J44.9 COPD type: unspecified COPD Hyperlipidemia E78.5 Hyperlipidemia type: unspecified Nicotine dependence, cigarettes, with unspecified nicotine-induced disorders F17.219 Tetrahydrocannabinol (THC) use disorder, mild, abuse F12.10
[2020-05-02] MEDS: LORazepam 2 mg Tablet PO (15:53)
[2020-05-02] MEDS: atorvastatin 40 mg Tablet 20 MG PO (20:35)
[2020-05-02] MEDS: trazodone 50 mg Tablet PO (20:35)
[2020-05-03] VITALS (25 sets, daily range): BP systolic 111–157; BP diastolic 62–112; PULSE 57–97; RESP 12–24; TEMP 36.5–37; O2SAT 89–98
[2020-05-03] MEDS: enoxaparin 40 mg/0.4 mL Syringe SUBCUT ×2 (01:30→23:22)
[2020-05-03] MEDS: nicotine 21 mg Patch 1 PATCH TRANSDERMA (03:48)
[2020-05-03 05:27] LABS: Basophils # 0.1 10^3/uL (0.0-0.1); Basophils % 0.9 %; Eosinophils # 0.3 10^3/uL (0.0-0.8); Eosinophils % 4.8 %; Hematocrit 37.7 % (42.0-52.0); Hemoglobin 12.4 g/dL (11.7-16.6); Lymphocytes # 2.5 10^3/uL (0.8-4.8); Lymphocytes % 44.3 %; Mean Corpuscular HGB Conc 32.9 g/dL (30.0-36.0); Mean Corpuscular Volume 97.2 fL (80-94); Mean Platelet Volume 9.8 fL (7.4-10.4); Monocytes # 0.4 10^3/uL (0.2-0.9); Monocytes % 6.2 %; Neutrophils # 2.46 10^3/uL (1.8-7.7); Neutrophils % 43.3 %; Nucleated Red Blood Cells % 0 %; Platelet Count 384 10^3/cmm (130-400); Red Blood Count 3.88 10^6/uL (4.1-5.3); Red Cell Distribution Width 14.5 % (12.1-15.1); White Blood Count 5.7 10^3/uL (4.0-10.0)
[2020-05-03 05:49] LABS: Alanine Aminotransferase 78 U/L (0-41); Albumin Level 3.8 g/dL (3.5-5.2); Alkaline Phosphatase 63 IU/L (40-130); Aspartate Amino Transferase 44 U/L (0-40); Blood Urea Nitrogen 9 mg/dL (6-20); Calcium 8.7 mg/dL (8.5-10.5); Carbon Dioxide 25 mmol/L (22-29); Chloride 104 mmol/L (98-107); Globulin 2.5 g/dL (1.3-4.6); Glomerular Filtration Rate 98.9 mL/min (90-130); Glucose 142 mg/dL (65-115); Magnesium 1.7 mg/dL (1.7-2.3); Osmolality Calculated 282 mOsm/kg (285-295); Sodium 137 mmol/L (136-145); Total Bilirubin 0.3 mg/dL (0.15-1.2); Total Protein 6.3 g/dL (6.6-8.7)
--- NOTE | 2020-05-03 06:20 | PC.NURSE ---
Shift Summary Patient received 1 dose of Ativan 2 mg IVP for a >10 CIWA score at 1999. Patient did not require Ativan the rest of the night. Patient was calm and cooperative. Oriented x4 and no anxiety/agitation. Output was 3000ml. Standby assist with urinal.
[2020-05-03] MEDS: thiamine 100 mg Tablet PO (08:13)
[2020-05-03] MEDS: magnesium oxide 400 mg tablet PO ×2 (08:13→17:24)
[2020-05-03] MEDS: pantoprazole DR 40 mg Tablet PO (08:13)
[2020-05-03] MEDS: folic acid 1 mg Tablet PO (08:13)
[2020-05-03] MEDS: multivitamin therapeutic Tablet 1 TAB PO (08:13)
[2020-05-03] MEDS: acetaminophen 325 mg Tablet 650 MG PO ×3 (08:13→20:06)
[2020-05-03] MEDS: LORazepam 2 mg/mL INJ 1 mL IVP ×2 (08:14→11:55)
--- NOTE | 2020-05-03 08:16 | P.PN_ITS ---
Subjective NPU Subjective: Interval history: I visited the patient in the ICU today. He is now able to sit up and has completely conscious and oriented. He is still physically impaired and at risk of falls. That the latter risk may not recede. In any case, when considered medically clear I have informed the staff that we will accept him for continuing psychiatric care. Medications: Reviewed: Yes Medication Review Details: Current Medications Acetaminophen (Tylenol) 650 mg PO Q4H PRN PRN Reason: MILD PAIN Last Admin: 05/03/20 08:13 Dose: 650 mg Documented by: Albuterol/Ipratropium (Duoneb) 3 ml INHALATION Q6H PRN PRN Reason: SHORTNESS OF BREATH Atorvastatin Calcium (Lipitor) 20 mg PO BEDTIME [facility] Last Admin: 05/02/20 20:35 Dose: 20 mg Documented by: Enoxaparin Sodium (Lovenox) 40 mg SUBCUT Q24H [facility] Last Admin: 05/03/20 01:30 Dose: 40 mg Documented by: Folic Acid (Folic Acid) 1 mg PO DAILY [facility] Last Admin: 05/03/20 08:13 Dose: 1 mg Documented by: Lorazepam (Ativan) 2 mg IM Q4H PRN; Protocol PRN Reason: ALCOWD Lorazepam (Ativan) 2 mg IVP PRN PRN; Protocol PRN Reason: WITHDRAWAL Last Admin: 05/03/20 08:14 Dose: 2 mg Documented by: Lorazepam (Ativan) 2 mg PO Q4H PRN; Protocol PRN Reason: WITHDRAWAL Last Admin: 05/02/20 15:53 Dose: 2 mg Documented by: Magnesium Oxide (Magox) 400 mg PO BID [facility] Last Admin: 05/03/20 08:13 Dose: 400 mg Documented by: Multivitamins Therapeutic (Multivitamin Tab) 1 tab PO DAILY [facility] Last Admin: 05/03/20 08:13 Dose: 1 tab Documented by: Nicotine (Nicoderm 21 Mg Patch) 1 patch TRANSDERMA DAILY PRN PRN Reason: NICOTINE WITHDRAWAL Last Admin: 05/03/20 03:48 Dose: 1 patch Documented by: Nicotine Polacrilex (Nicorette) 2 mg BUCCAL Q2H PRN PRN Reason: NICOTINE WITHDRAWAL Ondansetron HCl (Zofran) 4 mg PO Q6H PRN PRN Reason: NAUSEA AND VOMITING Pantoprazole Sodium (Protonix) 40 mg PO DAILY [facility] Last Admin: 05/03/20 08:13 Dose: 40 mg Documented by: Thiamine Mononitrate (Vitamin B-1) 100 mg PO DAILY [facility] Last Admin: 05/03/20 08:13 Dose: 100 mg Documented by: Trazodone HCl (Desyrel) 50 mg PO BEDTIME PRN PRN Reason: SLEEP Last Admin: 05/02/20 20:35 Dose: 50 mg Documented by: Mental Status Exam MSE Comments: The patient is a 59-year-old male in ICU 11. He is now fully oriented and mood is dysphoric but affect is appropriate. Thought processes are integrated and free of any racing, blocking or looseness of association. There is no evidence of psychosis, such as (psychotic) hallucinations, delusions or ideas of reference. He does have some evidence of delirium, with well-formed delusions and sensitivity to the noises of the ICU. Even so we are able to hold a rational conversation. He denies suicidal or homicidal ideation, plan or intent. I have told him we will bring him back for treatment when he has sufficiently improved. Likewise to the nursing staff. Vitals/I&O/Wt Last Vital Signs Temp 98.3 F 05/03/20 04:00 Pulse 63 05/03/20 06:00 Resp 16 05/03/20 06:00 BP 132/90 05/03/20 06:00 Pulse Ox 98 05/03/20 06:00 05/02/20 05/03/20 05/03/20 23:59 07:59 15:59 Intake Total 840 Output Total 2950 1999 Balance -2109 Weight last 48 hrs Weight 220 lb Physical Exam Narrative: EXAM NARRATIVE: See hospitalist progress note, which I have review ed. Data NPU : 05/03/20 04:38 05/03/20 04:38 A&P Assessment and plan (1) Schizoaffective disorder, depressive type: Status: Chronic (2) Acute alcohol intoxication: Status: Acute Qualifiers: Complication of substance-induced condition: with delirium Qualified Code(s): F10.921 - Alcohol use, unspecified with intoxication delirium (3) Alcohol use disorder: Status: Chronic (4) Seizure disorder: Status: Chronic Involuntary Hold Information 96 Hour Hold: 96 Hour Involuntary Admission: Yes 96 Hour Hold Start Date: 05/01/20 96 Hour Hold Start Time: 19:00 96 Hour Hold Ending Date: 05/05/20 96 Hour Hold Ending Time: 19:00 Attestations NPU Medical Necessity Statement*: The patient is not currently in the NPU. However, I anticipate 5 to 7 additional midnights once he gets here. Time Spent in Patient Care: 16 - 35 minutes 30 minutes Coding Level of Care Code Acute Chef French for [facility] Diagnoses Schizoaffective disorder, depressive type F25.1 Acute alcohol intoxication F10.921 Complication of substance-induced condition: with delirium Alcohol use disorder Seizure disorder G40.909
--- NOTE | 2020-05-03 13:03 | PM.PN ---
Subjective Subjective: Interval history: This morning, patient sitting up at the edge of the bed, states that his visual hallucinations stopped last night, last night, would like some coffee this morning, unfortunately patient was not able to sleep last nightdenies chest pain, shortness of breath, nausea, vomiting, still has tremors bilaterally Medications: Reviewed: Yes Vitals/I&O/Wt Last Vital Signs Temp 97.7 F 05/03/20 08:00 Pulse 85 05/03/20 13:00 Resp 22 H 05/03/20 13:00 BP 145/98 05/03/20 13:00 Pulse Ox 95 05/03/20 13:00 05/02/20 05/03/20 05/03/20 22:59 06:59 14:59 Intake Total 840 / 1661.667 720 / 720 Output Total 2950 / 4450 1999 / 6450 1350 / 1350 Balance -2110 / -2788.333 -2000 / -4788.333 -630 / -630 Weight last 48 hrs Weight 99.79 kg Physical Exam Narrative: EXAM NARRATIVE: Bilateral tremors present, patient seems anxious Const: COMMON NORMALS: no acute distress and patient oriented x3 HENMT: COMMON NORMALS: normocephalic HEAD & SCALP: normocephalic Neck/C-Spine: COMMON NORMALS: no JVD Resp: COMMON NORMALS: normal respiratory effort, No retractions, No use of accessory muscles and clear to auscultation bilaterally AUSCULTATION: clear to auscultation bilaterally Cardio: COMMON NORMALS: no JVD, regular rate, regular rhythm, S1 normal heart sound present and S2 normal heart sound present RATE: regular rate RHYTHM: regular rhythm HEART SOUNDS: S1 normal heart sound present and S2 normal heart sound present GI: COMMON NORMALS: Normal to inspection, nondistended, normoactive bowel sounds present, Soft to palpation, non-tender, No hepatosplenomegaly present, no masses and no bruits PALPATION: Yes Soft to palpation and Yes No hepatosplenomegaly present Extremity: COMMON NORMALS: capillary refill normal, no clubbing, cyanosis or edema, no calf tenderness and no pedal edema Neuro: COMMON NORMALS: patient oriented x3 Data : 05/03/20 04:38 05/03/20 04:38 A&P Assessment and plan (1) Acute alcohol intoxication: -ciwa protocol, B12, thiamine seizure precaution Status: Acute Qualifiers: Complication of substance-induced condition: with delirium Qualified Code(s): F10.921 - Alcohol use, unspecified with intoxication delirium (2) Suicidal ideation: With 96-hour hold paperwork completed in the emergency room, psychiatry has been consulted Status: Acute (3) Alcohol use disorder: With a history of what sounds like alcohol withdrawal seizures Status: Chronic (4) Schizoaffective disorder, depressive type: Status: Chronic (5) Benign essential hypertension: Status: Chronic (6) COPD (chronic obstructive pulmonary disease): Status: Chronic Qualifiers: COPD type: unspecified COPD Qualified Code(s): J44.9 - Chronic obstructive pulmonary disease, unspecified (7) Hyperlipidemia: Status: Chronic Qualifiers: Hyperlipidemia type: unspecified Qualified Code(s): E78.5 - Hyperlipidemia, unspecified (8) Nicotine dependence, cigarettes, with unspecified nicotine-induced disorders: Status: Chronic (9) Tetrahydrocannabinol (THC) use disorder, mild, abuse: Status: Chronic Additional A&P Information Trazodone for sleep if needed Breathing treatments if needed Nicotine patch if needed Lovenox for DVT prophylaxis Plans were discussed with patient Full code Attestations Medical Necessity Statement*: Patient requires acute hospitalization due to alcohol withdrawal Coding Level of Care Code Acute Coding Validator for [facility] Diagnoses Acute alcohol intoxication F10.921 Complication of substance-induced condition: with delirium Suicidal ideation R45.851 Alcohol use disorder Schizoaffective disorder, depressive type F25.1 Benign essential hypertension I10 COPD (chronic obstructive pulmonary disease) J44.9 COPD type: unspecified COPD Hyperlipidemia E78.5 Hyperlipidemia type: unspecified Nicotine dependence, cigarettes, with unspecified nicotine-induced disorders F17.219 Tetrahydrocannabinol (THC) use disorder, mild, abuse F12.10
--- NOTE | 2020-05-03 14:15 | PC.RESP ---
Smoking Cessation and Pulmonary Rehab information sent to patient.
[2020-05-03] MEDS: TRAMadol 50 mg Tablet 25 MG PO ×2 (17:24→23:21)
[2020-05-03] MEDS: atorvastatin 40 mg Tablet 20 MG PO (20:05)
[2020-05-03] MEDS: trazodone 50 mg Tablet PO (22:47)
[2020-05-04] VITALS (16 sets, daily range): BP systolic 126–162; BP diastolic 83–112; PULSE 61–101; RESP 5–22; TEMP 36.3–36.9; O2SAT 95–99
[2020-05-04] MEDS: acetaminophen 325 mg Tablet 650 MG PO ×2 (03:19→14:28)
[2020-05-04 04:54] LABS: Basophils # 0.1 10^3/uL (0.0-0.1); Basophils % 1.2 %; Eosinophils # 0.3 10^3/uL (0.0-0.8); Eosinophils % 5.3 %; Hematocrit 39.3 % (42.0-52.0); Hemoglobin 12.8 g/dL (11.7-16.6); Lymphocytes # 2.7 10^3/uL (0.8-4.8); Lymphocytes % 45.8 %; Mean Corpuscular HGB Conc 32.6 g/dL (30.0-36.0); Mean Corpuscular Hemoglobin 31.3 pg (28.0-34.0); Mean Corpuscular Volume 96.1 fL (80-94); Mean Platelet Volume 9.4 fL (7.4-10.4); Monocytes # 0.5 10^3/uL (0.2-0.9); Neutrophils # 2.32 10^3/uL (1.8-7.7); Neutrophils % 39.4 %; Nucleated Red Blood Cells % 0 %; Platelet Count 363 10^3/cmm (130-400); Red Blood Count 4.09 10^6/uL (4.1-5.3); Red Cell Distribution Width 14.2 % (12.1-15.1); White Blood Count 5.9 10^3/uL (4.0-10.0)
[2020-05-04 05:24] LABS: Alanine Aminotransferase 77 U/L (0-41); Albumin Level 4.5 g/dL (3.5-5.2); Alkaline Phosphatase 64 IU/L (40-130); Anion Gap 11.9 (5-19); Aspartate Amino Transferase 41 U/L (0-40); Blood Urea Nitrogen 10 mg/dL (6-20); Calcium 9.6 mg/dL (8.5-10.5); Carbon Dioxide 26 mmol/L (22-29); Chloride 102 mmol/L (98-107); Globulin 2.3 g/dL (1.3-4.6); Glomerular Filtration Rate 86.4 mL/min (90-130); Glucose 100 mg/dL (65-115); Magnesium 1.8 mg/dL (1.7-2.3); Osmolality Calculated 278 mOsm/kg (285-295); Potassium 3.9 mmol/L (3.5-5.1); Sodium 136 mmol/L (136-145); Total Bilirubin 0.4 mg/dL (0.15-1.2); Total Protein 6.8 g/dL (6.6-8.7)
[2020-05-04] MEDS: TRAMadol 50 mg Tablet 25 MG PO (05:30)
--- NOTE | 2020-05-04 06:55 | PC.NURSE ---
Report given to day shift RN.
[2020-05-04] MEDS: folic acid 1 mg Tablet PO (08:50)
[2020-05-04] MEDS: magnesium oxide 400 mg tablet PO ×2 (08:50→17:10)
[2020-05-04] MEDS: multivitamin therapeutic Tablet 1 TAB PO (08:50)
[2020-05-04] MEDS: LORazepam 2 mg Tablet PO ×3 (08:51→14:45)
[2020-05-04] MEDS: pantoprazole DR 40 mg Tablet PO (08:51)
[2020-05-04] MEDS: thiamine 100 mg Tablet PO (08:51)
--- NOTE | 2020-05-04 11:07 | PM.PN ---
Subjective Subjective: Interval history: Overnight patient states that he was not able to get any sleep, which is nothing new for him, CIWA scores have been minimal, has not required any Ativan, minimal tremor this morning, no nausea, no vomiting, no chest pain, denies hearing or seeing things that are not there, no chest pain, no palpitations, no lightheadedness, no dizziness Vitals/I&O/Wt Last Vital Signs Temp 97.4 F L 05/04/20 08:54 Pulse 87 05/04/20 08:54 Resp 18 05/04/20 08:54 BP 131/90 05/04/20 08:54 Pulse Ox 97 05/04/20 08:00 05/03/20 05/04/20 05/04/20 22:59 06:59 14:59 Intake Total 1840 / 2560 2400 / 4960 Output Total 2770 / 5120 2350 / 7470 Balance -930 / -2560 50 / -2510 Physical Exam Narrative: EXAM NARRATIVE: Good eye contact, minimal tremor Const: COMMON NORMALS: no acute distress and patient oriented x3 HENMT: COMMON NORMALS: normocephalic HEAD & SCALP: normocephalic Neck/C-Spine: COMMON NORMALS: no JVD Resp: COMMON NORMALS: normal respiratory effort, No retractions, No use of accessory muscles and clear to auscultation bilaterally AUSCULTATION: clear to auscultation bilaterally Cardio: COMMON NORMALS: no JVD, regular rate, regular rhythm, S1 normal heart sound present and S2 normal heart sound present RATE: regular rate RHYTHM: regular rhythm HEART SOUNDS: S1 normal heart sound present and S2 normal heart sound present GI: COMMON NORMALS: Normal to inspection, nondistended, normoactive bowel sounds present, Soft to palpation, non-tender, No hepatosplenomegaly present, no masses and no bruits PALPATION: Yes Soft to palpation and Yes No hepatosplenomegaly present Extremity: COMMON NORMALS: capillary refill normal, no clubbing, cyanosis or edema, no calf tenderness and no pedal edema Neuro: COMMON NORMALS: patient oriented x3 Psych: COMMON NORMALS: mental status grossly normal Data : 05/04/20 04:38 05/04/20 04:38 A&P Assessment and plan (1) Acute alcohol intoxication: -Out of 72-hour window -Okay to move to neuropsychiatric unit -Continue B12, folate, thiamine -We will continue to peripherally follow Status: Acute Qualifiers: Complication of substance-induced condition: with delirium Qualified Code(s): F10.921 - Alcohol use, unspecified with intoxication delirium (2) Suicidal ideation: With 96-hour hold paperwork completed in the emergency room, psychiatry has been consulted, okay to move to the neuropsychiatric unit today Status: Acute (3) Alcohol use disorder: With a history of what sounds like alcohol withdrawal seizures Status: Chronic (4) Schizoaffective disorder, depressive type: Status: Chronic (5) Benign essential hypertension: Status: Chronic (6) COPD (chronic obstructive pulmonary disease): Status: Chronic Qualifiers: COPD type: unspecified COPD Qualified Code(s): J44.9 - Chronic obstructive pulmonary disease, unspecified (7) Hyperlipidemia: Status: Chronic Qualifiers: Hyperlipidemia type: unspecified Qualified Code(s): E78.5 - Hyperlipidemia, unspecified (8) Nicotine dependence, cigarettes, with unspecified nicotine-induced disorders: Status: Chronic (9) Tetrahydrocannabinol (THC) use disorder, mild, abuse: Status: Chronic Additional A&P Information Trazodone for sleep if needed Breathing treatments if needed Nicotine patch if needed Lovenox for DVT prophylaxis Plans were discussed with patient Full code Attestations Medical Necessity Statement*: Patient will be transferred to the neuropsychiatric unit for suicidal ideation, he is out of the window for alcohol withdrawal Coding Level of Care Code Acute Cracking Unit Operator for [facility] Diagnoses Acute alcohol intoxication F10.921 Complication of substance-induced condition: with delirium Suicidal ideation R45.851 Alcohol use disorder Schizoaffective disorder, depressive type F25.1 Benign essential hypertension I10 COPD (chronic obstructive pulmonary disease) J44.9 COPD type: unspecified COPD Hyperlipidemia E78.5 Hyperlipidemia type: unspecified Nicotine dependence, cigarettes, with unspecified nicotine-induced disorders F17.219 Tetrahydrocannabinol (THC) use disorder, mild, abuse F12.10
[2020-05-04] MEDS: diphenhydrAMINE 50 mg Capsule PO (14:45)
--- NOTE | 2020-05-04 14:51 | PC.NURSE ---
PRN'S GIVEN BENEDRYL 50 MG PO FOR ITCHING D/T REACTION ATIVAN 2MG PO GIVEN FOR WITHDRAWL AND ANXIETY.
[2020-05-04] MEDS: hyDROXYzine 25 mg Capsule 50 MG PO (21:17)
[2020-05-04] MEDS: atorvastatin 40 mg Tablet 20 MG PO (21:18)
[2020-05-04] MEDS: trazodone 50 mg Tablet PO (21:18)
[2020-05-05] VITALS (10 sets, daily range): BP systolic 107–143; BP diastolic 56–97; PULSE 75–101; RESP 18–22; TEMP 36.6–37; O2SAT 95–100
[2020-05-05] MEDS: multivitamin therapeutic Tablet 1 TAB PO (08:54)
[2020-05-05] MEDS: pantoprazole DR 40 mg Tablet PO (08:54)
[2020-05-05] MEDS: magnesium oxide 400 mg tablet PO ×2 (08:54→17:22)
[2020-05-05] MEDS: folic acid 1 mg Tablet PO (08:54)
[2020-05-05] MEDS: losartan 50 mg Tablet PO (08:54)
[2020-05-05] MEDS: thiamine 100 mg Tablet PO (08:54)
[2020-05-05] MEDS: albuterol 8 gm MDI 2 PUFF INHALATION (10:42)
[2020-05-05] MEDS: acetaminophen 325 mg Tablet 650 MG PO ×3 (11:48→21:02)
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
--- NOTE | 2020-05-05 13:10 | NPU.GN ---
Costa presents with a friendly mood, although expresses negative emotion about having to be back in here . He shares his desire to work on myself . He offers support to other group members but identifies he may have done too much of this his last hospitalization and needs to focus on his health as priority.
[2020-05-05] MEDS: TRAMadol 50 mg Tablet 25 MG PO (14:03)
[2020-05-05] MEDS: atorvastatin 40 mg Tablet 20 MG PO (21:01)
[2020-05-06] MEDS: TRAMadol 50 mg Tablet 25 MG PO ×3 (02:55→21:08)
[2020-05-06] MEDS: acetaminophen 325 mg Tablet 650 MG PO ×4 (05:14→22:05)
[2020-05-06 06:00] VITALS: BP 134/86; PULSE 92; RESP 21; TEMP 37.1; O2SAT 96
[2020-05-06 08:32] VITALS: BP 134/86
[2020-05-06] MEDS: losartan 50 mg Tablet PO (08:32)
[2020-05-06] MEDS: folic acid 1 mg Tablet PO (08:32)
[2020-05-06] MEDS: pantoprazole DR 40 mg Tablet PO (08:32)
[2020-05-06] MEDS: thiamine 100 mg Tablet PO (08:32)
[2020-05-06] MEDS: magnesium oxide 400 mg tablet PO ×2 (08:33→17:27)
[2020-05-06] MEDS: multivitamin therapeutic Tablet 1 TAB PO (08:33)
[2020-05-06 09:09] VITALS: PULSE 86; RESP 18; O2SAT 96
--- NOTE | 2020-05-06 12:28 | P.PN_ITS ---
Subjective NPU Subjective: Interval history: Costa presents today appearing as interactive and communicative as I have personally seen him. He presents reporting that outside of pain he feels significantly better. The feels some cognitive clarity that he hasn't felt in some time. I advised him that we do not manages pain in general outside of the recommendations from hospitalist then treated individuals or other outpatient provider. We discussed the fact that we don't initiate treatments without guidance from people with expertise given concerns for addiction in general. We agreed to review medication allergies made it through the withdrawal that he had been in again. We discussed the risks benefits and alternatives of restarting those once we get them appropriately vetted, and he understood and agreed to proceed as documented in his note. Mental Status Exam MSE Comments: This is a overweight white male with limited progress, grooming and eye contact. No abnormal movements except for mild psychomotor retardation and limited gait instability. Cooperative with exam in no acute distress. Speech was less dysarthric, more appropriate rate and volume. Mood described as a little better, affect congruent. Thought process organized. Thought content: Patient denied any suicidal or homicidal ideations, there are no delusions reported noted, he denied any auditory or visual hallucinations. Attention and concentration are improving, and memory is still unreliable but improving but none were formally tested. He is alert and oriented ?3. Insight and judgment improving. Impulse control is impaired. Vitals/I&O/Wt Last Vital Signs Temp 98.7 F 05/06/20 06:00 Pulse 86 05/06/20 09:09 Resp 18 05/06/20 09:09 BP 134/86 05/06/20 08:32 Pulse Ox 96 05/06/20 09:09 Data NPU : 05/04/20 04:38 05/04/20 04:38 A&P Additional A&P Information (1) Tetrahydrocannabinol (THC) use disorder, mild, abuse: (2) Schizoaffective disorder, depressive type: (3) Alcohol use disorder: (4) Cognitive dysfunction, alcohol-related: (5) Seizure disorder: (6) Nicotine dependence, cigarettes, with unspecified nicotine-induced diso rders: This is a 59-year-old white male with a long history of alcohol use disorder and other cognitive difficulties as well as limited supports presents from the ICU after his second or third ICU visit in the past few weeks who had presented in the past with significant resistance to treatment who reports that he is open to figuring out what is going on and how to make some real changes. 1. Continue current medications including the CIWA protocol. Restart Celexa. 2. Encourage individual, group and milieu therapy. 3. Continue every 15 minute checks for safety. 4. Encourage sober living treatments after discharge at the highest level of care to which he is willing to commit. Involuntary Hold Information 96 Hour Hold: 96 Hour Involuntary Admission: No 96 Hour Hold Start Date: 05/01/20 96 Hour Hold Start Time: 19:00 96 Hour Hold Ending Date: 05/05/20 96 Hour Hold Ending Time: 19:00 Attestations NPU Medical Necessity Statement*: Inpatient hospitalization is medically necessary and the clinically appropriate intervention at this time. Will monitor medications and make changes as indicated. We will work to obtain a safe option for discharge. Likely length of stay 4-6 days. 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
[2020-05-06] MEDS: citalopram 20 mg Tablet PO (13:19)
[2020-05-06 14:00] VITALS: BP 148/82; PULSE 86; RESP 18; TEMP 36.6; O2SAT 97
[2020-05-06 19:41] VITALS: PULSE 80; RESP 16; O2SAT 98
[2020-05-06] MEDS: albuterol 8 gm MDI 2 PUFF INHALATION (19:41)
[2020-05-06 19:46] VITALS: BP 123/83; PULSE 72; RESP 16; TEMP 36.8; O2SAT 98
[2020-05-06] MEDS: atorvastatin 40 mg Tablet 20 MG PO (21:07)
[2020-05-06] MEDS: trazodone 50 mg Tablet PO (21:08)
[2020-05-06] MEDS: OLANZapine 5 mg ODT PO (22:06)
--- NOTE | 2020-05-06 22:07 | PC.NURSE ---
PRN ZYPREXA ZYDIS PT REQUESTING SOMETHING TO HELP THE VOICES IN HIS HEAD. ADMINISTERED ZYPREXA ZYDIS 5MG SUBLINGUAL. WILL MONITOR FOR MEDICATION EFFECTIVENESS.
[2020-05-07] MEDS: TRAMadol 50 mg Tablet 25 MG PO ×3 (05:17→20:59)
[2020-05-07 06:00] VITALS: BP 124/88; PULSE 81; RESP 18; TEMP 36.6; O2SAT 98
[2020-05-07] MEDS: pantoprazole DR 40 mg Tablet PO (08:39)
[2020-05-07] MEDS: citalopram 20 mg Tablet PO (08:39)
[2020-05-07] MEDS: thiamine 100 mg Tablet PO (08:39)
[2020-05-07] MEDS: losartan 50 mg Tablet PO (08:39)
[2020-05-07] MEDS: magnesium oxide 400 mg tablet PO ×2 (08:39→17:32)
[2020-05-07] MEDS: multivitamin therapeutic Tablet 1 TAB PO (08:39)
[2020-05-07] MEDS: folic acid 1 mg Tablet PO (08:39)
[2020-05-07] MEDS: acetaminophen 325 mg Tablet 650 MG PO (08:48)
[2020-05-07 09:30] VITALS: PULSE 75; RESP 18; O2SAT 97
[2020-05-07] MEDS: albuterol 8 gm MDI 2 PUFF INHALATION ×2 (09:55→19:36)
--- NOTE | 2020-05-07 13:36 | P.PN_ITS ---
Subjective NPU Subjective: Interval history: Costa presents today reporting that he is feeling a little foggy compared to yesterday. The only difference was the addition of the Celexa, which we agreed was certainly possible. Otherwise, there were no other changes. We discussed that if it was the Celexa it would likely just take two or three days before he would reacclimate to it. We also discussed the hearing for his hold, and he continues to report that his plan is to stick around and allow us to figure out how to avoid this rut that he has gotten into, with frequent hospitalizations and discharges without outpatient success. He reports that he is eating okay and sleeping fine, in general, but last night he did not sleep that well. Mental Status Exam MSE Comments: This is a overweight white male with limited progress, grooming and eye contact. No abnormal movements except for mild psychomotor retardation and limited gait instability. Cooperative with exam in no acute distress. Spe ech wasdysarthric, more appropriate rate and volume. Mood described as a little foggy, affect congruent. Thought process organized. Thought content: Patient denied any suicidal or homicidal ideations, there are no delusions reported noted, he denied any auditory or visual hallucinations. Attention and concentration are improving, and memory is still unreliable but improving but none were formally tested. He is alert and oriented ?3. Insight and judgment improving. Impulse control is impaired. Vitals/I&O/Wt Last Vital Signs Temp 97.8 F 05/07/20 06:00 Pulse 75 05/07/20 09:30 Resp 18 05/07/20 09:30 BP 124/88 05/07/20 06:00 Pulse Ox 97 05/07/20 09:30 05/06/20 05/07/20 05/07/20 22:59 06:59 14:59 Intake Total 720 / 720 Balance 720 / 720 Data NPU : 05/04/20 04:38 05/04/20 04:38 A&P Additional A&P Information (1) Tetrahydrocannabinol (THC) use disorder, mild, abuse: (2) Schizoaffective disorder, depressive type: (3) Alcohol use disorder: (4) Cognitive dysfunction, alcohol-related: (5) Seizure disorder: (6) Nicotine dependence, cigarettes, with unspecified nicotine-induced disorders: This is a 59-year-old white male with a long history of alcohol use disorder and other cognitive difficulties as well as limited supports presents from the ICU after his second or third ICU visit in the past few weeks who had presented in the past with significant resistance to treatment who reports that he is open to figuring out what is going on and how to make some real changes. 1. Continue current medications. 2. Encourage individual, group and milieu therapy. 3. Continue every 15 minute checks for safety. 4. Encourage sober living treatments after discharge at the highest level of care to which he is willing to commit. 5. Hearing on Friday. Involuntary Hold Information 96 Hour Hold: 96 Hour Involuntary Admission: No 96 Hour Hold Start Date: 05/01/20 96 Hour Hold Start Time: 19:00 96 Hour Hold Ending Date: 05/05/20 96 Hour Hold Ending Time: 19:00 Attestations NPU Medical Necessity Statement*: Inpatient hospitalization is medically necessary and the clinically appropriate intervention at this time. Will monitor medications and make changes as indicated. We will work to obtain a safe option for discharge. Likely length of stay 4-6 days. Coding Level of Care Code Acute Field Administrative Assistant for Ayana Bustillos
[2020-05-07 14:00] VITALS: BP 120/80; PULSE 99; RESP 17; TEMP 36.9; O2SAT 98
[2020-05-07] MEDS: LORazepam 2 mg Tablet PO (18:31)
--- NOTE | 2020-05-07 18:31 | PC.NURSE ---
CIWA SCORE 10--ATIVAN 2 MG GIVEN PO PER PROTOCOL. PT C/O FEELING LIKE HE'S ABOUT TO HAVE A SEIZURE. VS OBTAINED, BP ELEVATED TO 169/102. WILL CONT TO MONITOR
[2020-05-07 19:37] VITALS: PULSE 80; RESP 16; O2SAT 97
[2020-05-07] MEDS: atorvastatin 40 mg Tablet 20 MG PO (20:57)
[2020-05-07] MEDS: hyDROXYzine 25 mg Capsule 50 MG PO (21:01)
[2020-05-07 21:27] VITALS: BP 169/101; PULSE 66; RESP 21; TEMP 36.7; O2SAT 96
[2020-05-08] MEDS: TRAMadol 50 mg Tablet 25 MG PO ×3 (04:50→20:33)
[2020-05-08 06:00] VITALS: BP 138/92; PULSE 96; RESP 18; TEMP 36.6; O2SAT 100
[2020-05-08] MEDS: albuterol 8 gm MDI 2 PUFF INHALATION ×2 (07:49→20:32)
[2020-05-08 07:51] VITALS: PULSE 87; RESP 18; O2SAT 99
[2020-05-08] MEDS: multivitamin therapeutic Tablet 1 TAB PO (08:10)
[2020-05-08] MEDS: magnesium oxide 400 mg tablet PO ×2 (08:11→17:13)
[2020-05-08] MEDS: pantoprazole DR 40 mg Tablet PO (08:11)
[2020-05-08] MEDS: folic acid 1 mg Tablet PO (08:11)
[2020-05-08] MEDS: losartan 50 mg Tablet PO (08:11)
[2020-05-08] MEDS: thiamine 100 mg Tablet PO (08:11)
[2020-05-08] MEDS: citalopram 20 mg Tablet PO (08:11)
[2020-05-08 14:00] VITALS: BP 120/82; PULSE 97; RESP 20; TEMP 37.1; O2SAT 98
--- NOTE | 2020-05-08 14:32 | P.PN_ITS ---
Subjective NPU Subjective: Interval history: Costa presented today accepting of the 21-day hold that was instituted, but frustrated with management of his pain, etc. He was asking for his pain medication to be increased and we discussed the fact that that is not what we do here, and that we would get him to his pain management appointment to consult with his pain management doctors and if they discuss some kind of increase we would be open to supporting that and bridging him to getting back to his appointment with them, but as far as us changing something that is outside of our expertise like that, given his concerns for addiction would not happen. He was very frustrated with that but did not go back on his position that he would stay here and allow the team to be helpful. He is endorsing that he slept a little better last night and is eating fine, but reports that he is very focused on someone finding out what is really wrong with him, which was fairly vague and he was somewhat irritable in this pattern chart writer?s attempt to get at what he was meaning or expecting. Mental Status Exam MSE Comments: This is a overweight white male with limited progress, grooming and eye contact. No abnormal movements except for mild psychomotor retardation and limited gait instability. Cooperative with exam in no acute distress. Speech slightly decreased rate and volume. Mood described as a okay, affect congruent. Thought process a little more organized. Thought content: Patient denied any suicidal or homicidal ideations, there are no delusions reported noted, he denied any auditory or visual hallucinations. Attention and concentration are improving, and memory is still unreliable but improving but none were formally tested. He is alert and oriented ?3. Insight and judgment improving. Impulse control is impaired, but improving. Vitals/I&O/Wt Last Vital Signs Temp 98.2 F 05/08/20 20:14 Pulse 84 05/08/20 20:33 Resp 16 05/08/20 20:33 BP 142/81 05/08/20 20:14 Pulse Ox 99 05/08/20 20:33 Data NPU : 05/04/20 04:38 05/04/20 04:38 A&P Additional A&P Information (1) Tetrahydrocannabinol (THC) use disorder, mild, abuse: (2) Schizoaffective disorder, depressive type: (3) Alcohol use disorder: (4) Cognitive dysfunction, alcohol-related: (5) Seizure disorder: (6) Nicotine dependence, cigarettes, with unspecified nicotine-induced disorders: This is a 59-year-old white male with a long history of alcohol use disorder and other cognitive difficulties as well as limited supports presents from the ICU after his second or third ICU visit in the past few weeks who had presented in the past with significant resistance to treatment who reports that he is open to figuring out what is going on and how to make some real changes. 1. Continue current medications. 2. Encourage individual, group and milieu therapy. 3. Continue every 15 minute checks for safety. 4. Encourage sober living treatments after discharge at the highest level of care to which he is willing to commit. 5. 21-day-old granted. Involuntary Hold Information 96 Hour Hold: 96 Hour Involuntary Admission: No 96 Hour Hold Start Date: 05/01/20 96 Hour Hold Start Time: 19:00 96 Hour Hold Ending Date: 05/05/20 96 Hour Hold Ending Time: 19:00 Attestations NPU Medical Necessity Statement*: Inpatient hospitalization is medically necessary and the clinically appropriate intervention at this time. Will monitor medications and make changes as indicated. We will work to obtain a safe option for discharge. Likely length of stay 4-6 days. Coding Level of Care Code Acute Protection Analyst for Ayana Bustillos
[2020-05-08 20:14] VITALS: BP 142/81; PULSE 80; RESP 17; TEMP 36.8; O2SAT 97
[2020-05-08] MEDS: OLANZapine 5 mg ODT PO (20:32)
[2020-05-08] MEDS: hyDROXYzine 25 mg Capsule 50 MG PO (20:32)
[2020-05-08 20:33] VITALS: PULSE 84; RESP 16; O2SAT 99
[2020-05-08] MEDS: atorvastatin 40 mg Tablet 20 MG PO (20:34)
[2020-05-09] MEDS: TRAMadol 50 mg Tablet 25 MG PO ×3 (05:26→20:37)
[2020-05-09 06:00] VITALS: BP 119/73; PULSE 79; RESP 14; TEMP 36.3; O2SAT 95
[2020-05-09] MEDS: magnesium oxide 400 mg tablet PO ×2 (07:57→16:55)
[2020-05-09] MEDS: multivitamin therapeutic Tablet 1 TAB PO (07:58)
[2020-05-09] MEDS: losartan 50 mg Tablet PO (07:58)
[2020-05-09] MEDS: pantoprazole DR 40 mg Tablet PO (07:58)
[2020-05-09] MEDS: citalopram 20 mg Tablet PO (07:58)
[2020-05-09] MEDS: folic acid 1 mg Tablet PO (07:58)
[2020-05-09] MEDS: thiamine 100 mg Tablet PO (07:59)
[2020-05-09] MEDS: albuterol 8 gm MDI 2 PUFF INHALATION ×2 (09:16→22:45)
[2020-05-09 09:28] VITALS: PULSE 92; RESP 18; O2SAT 99
[2020-05-09 13:42] VITALS: BP 101/58; PULSE 96; RESP 18; TEMP 37.1; O2SAT 97
--- NOTE | 2020-05-09 15:54 | PM.NPN ---
Subjective NPU Subjective: Interval history: The patient presents today reporting that he is focused on a neurology appointment that is scheduled for tomorrow; however, I explained to him that I had a fairly robust conversation with Dr. Rascon who has seen him before and was seeing him again for this appointment. In reviewing her charts, she reports that the EEG she obtained had no signs of epileptiform discharges and her suspicion of seizure is low to non-existent. She reports that in reviewing his information that she did not see any critical interventions or evaluations to take place in the appointment tomorrow like Costa?s expectation for some block buster reveal. She reported that with changes in her office, she is able to get people in a lot sooner and that the social work team could just reschedule him and she did not see any medical concerns that would arise from that. Costa was very angry when he heard this and basically reported that nobody is doing anything for him. He reports that for nine or ten years he has been trying to figure out what is wrong with him and no one wants to give him an answer, and the doctors have all been evasive and kind of against him. He argued that the pain medicine doctors do not respect how serious his pain is and no longer give him medication and that he was on all these intensive medications, Oxycontin, etc. and that he never abused it. When we discussed the fact that there are concerns secondary to the alcohol use or abuse, he very angrily replied that he only drinks to ?self-medicate.? I acknowledged to him that I have seen seizures with him, but those have all been against the backdrop of significant alcohol intake in the process of withdrawal and that made him very angry because he was very clear that he knows that it is not the alcohol that is causing problems because he reports that there were problems that he has had when he was not drinking. He ended the interview abruptly with expletives and angry statements towards this content writer. Mental Status Exam MSE Comments: This is a overweight white male with limited progress, grooming and eye contact. No abnormal movements except for mild psychomotor agitation and some improvement in gait instability. Cooperative with exam in moderate to severe distress. Speech increased rate and volume. Mood described as pissed, affect angry and irritable. Thought process a little more organized. Thought content: Patient denied any suicidal or homicidal ideations, there are no delusions reported noted, he denied any auditory or visual hallucinations. Attention and concentration are improving, and memory is still unreliable, but none were formally tested. He is alert and oriented ?3. Insight and judgment limited. Impulse control is impaired, but improving. Vitals/I&O/Wt Last Vital Signs Temp 98.8 F 05/09/20 21:18 Pulse 84 05/09/20 22:50 Resp 17 05/09/20 22:45 BP 114/75 05/09/20 21:18 Pulse Ox 98 05/09/20 22:45 Data NPU : 05/04/20 04:38 05/04/20 04:38 A&P Additional A&P Information (1) Tetrahydrocannabinol (THC) use disorder, mild, abuse: (2) Schizoaffective disorder, depressive type: (3) Alcohol use disorder: (4) Cognitive dysfunction, alcohol-related: (5) Seizure disorder: (6) Nicotine dependence, cigarettes, with unspecified nicotine-induced disorders: This is a 59-year-old white male with a long history of alcohol use disorder and other cognitive difficulties as well as limited supports presents from the ICU after his second or third ICU visit in the past few weeks who had presented in the past with significant resistance to treatment who reports that he is open to figuring out what is going on and how to make some real changes, currently struggling with frustration about his overall health. 1. Continue current medications. 2. Encourage individual, group and milieu therapy. 3. Continue every 15 minute checks for safety. 4. Encourage sober living treatments after discharge at the highest level of care to which he is willing to commit. Involuntary Hold Information 96 Hour Hold: 96 Hour Involuntary Admission: No 96 Hour Hold Start Date: 05/01/20 96 Hour Hold Start Time: 19:00 96 Hour Hold Ending Date: 05/05/20 96 Hour Hold Ending Time: 19:00 Attestations NPU Medical Necessity Statement*: Inpatient hospitalization is medically necessary and the clinically appropriate intervention at this time. Will monitor medications and make changes as indicated. We will work to obtain a safe option for discharge. Likely length of stay 4-6 days. Coding Level of Care Code Acute Hydrodynamics Teacher for Ayana Bustillos
[2020-05-09] MEDS: hyDROXYzine 25 mg Capsule 50 MG PO (20:37)
[2020-05-09] MEDS: OLANZapine 5 mg ODT PO (20:39)
[2020-05-09] MEDS: atorvastatin 40 mg Tablet 20 MG PO (20:39)
[2020-05-09 21:18] VITALS: BP 114/75; PULSE 71; RESP 15; TEMP 37.1; O2SAT 96
[2020-05-09 22:45] VITALS: PULSE 86; RESP 17; O2SAT 98
[2020-05-09 22:50] VITALS: PULSE 84
[2020-05-10] VITALS (8 sets, daily range): BP systolic 125–146; BP diastolic 81–95; PULSE 68–119; RESP 16–20; TEMP 36.5–37.1; O2SAT 94–100
[2020-05-10] MEDS: TRAMadol 50 mg Tablet 25 MG PO ×3 (05:56→19:36)
[2020-05-10] MEDS: losartan 50 mg Tablet PO (08:50)
[2020-05-10] MEDS: pantoprazole DR 40 mg Tablet PO (08:50)
[2020-05-10] MEDS: magnesium oxide 400 mg tablet PO ×2 (08:50→16:53)
[2020-05-10] MEDS: folic acid 1 mg Tablet PO (08:51)
[2020-05-10] MEDS: multivitamin therapeutic Tablet 1 TAB PO (08:52)
[2020-05-10] MEDS: thiamine 100 mg Tablet PO (08:52)
[2020-05-10] MEDS: citalopram 20 mg Tablet PO (08:52)
[2020-05-10] MEDS: albuterol 8 gm MDI 2 PUFF INHALATION ×2 (09:00→20:00)
--- NOTE | 2020-05-10 14:42 | PM.NPN ---
Subjective NPU Subjective: Interval history: Costa presents today again very frustrated. He said that no one has ever done anything for him. He confronted this financial writer saying that I did not do any of the things that he requested that I do. When I asked what he was speaking of, he started talking about x-rays of his back and things of that nature. We discussed the fact that is not what we do here, that he has had multiple consults and has had actual MRI?s and things of that nature, and none of the treatment team recommendations involved the x-rays and such that he is speaking of. He had been going to pain management at a pain management doctor and they have not or were not discussing these types of things and so we discussed the fact that this is something he needs to take up with those specialists. Then he went on to say that I had not increased his pain medication, which again we discussed the fact that it was not my area of expertise. Given his addiction maintaining what has been prescribed for him would be reasonable, but making adjustments higher in the face of the addiction as well as the fact that he already has someone who has determined that this is the appropriate level of medication would be problematic. Additionally, he continued to be angry about the fact that alcohol use is even being considered in the equation reporting that alcohol has nothing to do with this. He once again ended the interview abruptly. Mental Status Exam MSE Comments: This is a overweight white male with limited progress, grooming and eye contact. No abnormal movements except for mild psychomotor agitation and some improvement in gait instability. Cooperative with exam in moderate to severe distress. Speech increased rate and volume. Mood described as done with you guys, affect angry and irritable. Thought process a little more organized. Thought content: Patient denied any suicidal or homicidal ideations, there are no delusions reported noted, he denied any auditory or visual hallucinations. Attention and concentration are improving, and memory is still unreliable, but none were formally tested. He is alert and oriented ?3. Insight and judgment limited. Impulse control is impaired. Vitals/I&O/Wt Last Vital Signs Temp 97.6 F 05/10/20 06:00 Pulse 81 05/10/20 06:00 Resp 18 05/10/20 06:00 BP 143/90 05/10/20 06:00 Pulse Ox 96 05/10/20 06:00 Data NPU : 05/04/20 04:38 05/04/20 04:38 A&P Additional A&P Information (1) Tetrahydrocannabinol (THC) use disorder, mild, abuse: (2) Schizoaffective disorder, depressive type: (3) Alcohol use disorder: (4) Cognitive dysfunction, alcohol-related: (5) Seizure disorder: (6) Nicotine dependence, cigarettes, with unspecified nicotine-induced disorders: This is a 59-year-old white male with a long history of alcohol use disorder and other cognitive difficulties as well as limited supports presents from the ICU after his second or third ICU visit in the past few weeks who had presented in the past with significant resistance to treatment who reports that he is open to figuring out what is going on and how to make some real changes, currently struggling with frustration about his overall health. 1. Continue current medications. 2. Encourage individual, group and milieu therapy. 3. Continue every 15 minute checks for safety. 4. Encourage sober living treatments after discharge at the highest level of care to which he is willing to commit. Involuntary Hold Information 96 Hour Hold: 96 Hour Involuntary Admission: No 96 Hour Hold Start Date: 05/01/20 96 Hour Hold Start Time: 19:00 96 Hour Hold Ending Date: 05/05/20 96 Hour Hold Ending Time: 19:00 Attestations NPU Medical Necessity Statement*: Inpatient hospitalization is medically necessary and the clinically appropriate intervention at this time. Will monitor medications and make changes as indicated. We will work to obtain a safe option for discharge. Likely length of stay 3-5 days. Coding Level of Care Code Acute Bobbin Coil Winder for Ayana Bustillos
[2020-05-10] MEDS: hyDROXYzine 25 mg Capsule 50 MG PO (20:06)
[2020-05-10] MEDS: OLANZapine 5 mg ODT PO (20:06)
[2020-05-10] MEDS: atorvastatin 40 mg Tablet 20 MG PO (20:07)
--- NOTE | 2020-05-10 21:28 | PC.NURSE ---
During HS med pass I had a conversation with the patient. The patient reported he is angry with his psychiatrist, saying, he had me overmedicated when I was here a few weeks ago. Another doctor took me off all those meds. I would like to wrap him up in barbed wire and drag him behind my motorcycle for about 10 miles.
[2020-05-10] MEDS: haloperidol 5 mg Tablet PO (22:53)
--- NOTE | 2020-05-10 22:54 | PC.NURSE ---
The patient came to the desk to report he has not been able to sleep. He said, I need something to calm me down. Haldol 5 mg po given. Also provided the patient with a snack.
[2020-05-11] VITALS (7 sets, daily range): BP systolic 142–145; BP diastolic 90–93; PULSE 75–97; RESP 18–20; TEMP 36.4–36.7; O2SAT 96–99
[2020-05-11] MEDS: TRAMadol 50 mg Tablet 25 MG PO ×3 (04:54→20:35)
[2020-05-11] MEDS: folic acid 1 mg Tablet PO (08:55)
[2020-05-11] MEDS: magnesium oxide 400 mg tablet PO ×2 (08:55→17:31)
[2020-05-11] MEDS: pantoprazole DR 40 mg Tablet PO (08:55)
[2020-05-11] MEDS: citalopram 20 mg Tablet PO (08:55)
[2020-05-11] MEDS: multivitamin therapeutic Tablet 1 TAB PO (08:55)
[2020-05-11] MEDS: losartan 50 mg Tablet PO (08:55)
[2020-05-11] MEDS: thiamine 100 mg Tablet PO (08:55)
--- NOTE | 2020-05-11 09:37 | PC.NURSE ---
At 0700 this morning patient experienced a nose bleed. His blood pressure was 149/97 at that time. He stated that this has happened the last couple of days. He said the 1/2 pain pill that he is taking is only helping for a couple of hours. States if I had pain relief, I wouldn't want to drink as much. He is very upset with Dr. Costello today. He feels that his needs are not being met. He reports, losing time and has memory gaps.
[2020-05-11] MEDS: albuterol 8 gm MDI 2 PUFF INHALATION ×2 (09:49→20:02)
--- NOTE | 2020-05-11 13:38 | P.PN_ITS ---
Subjective NPU Subjective: Interval history: Costa presents today having had some nose bleeds and having struggles with his blood pressure being elevated. We discussed the risks, benefits, and alternatives of getting a hospitalist in to evaluate, although he does report that he has had some issues with dryness and things of that nature. However, he is not one to get nosebleeds and he can not remember that last time he had one. He was a little less irritable today, and it was the first day, in a few days, that he did not curse at this typewriter assembly and parts inspector and get up and storm out of the room. He denied any major issues but continues to focus on his back pain, and his pain in general, and wanting to essentially have a significant work up for different issues that he has had. We continued to discuss the more appropriate way to do this is with the providers he has, as an outpatient, and not in the neuropsychiatric unit. He reports that he is eating okay, and sleep can be tough with his back pain. Mental Status Exam MSE Comments: This is a overweight white male with limited progress, grooming and eye contact. No abnormal movements. Cooperative with exam in no acute distress. Speech more normal rate and volume. Mood described as okay, affect on her. Thought process a little more organized. Thought content: Patient denied any suicidal or homicidal ideations, there are no delusions reported n oted, he denied any auditory or visual hallucinations. Attention and concentration are improving, and memory is still unreliable, but none were formally tested. He is alert and oriented ?3. Insight and judgment limited, but improving. Impulse control is impaired. Vitals/I&O/Wt Last Vital Signs Temp 97.9 F 05/11/20 20:51 Pulse 81 05/11/20 20:51 Resp 20 H 05/11/20 20:51 BP 142/93 05/11/20 20:51 Pulse Ox 96 05/11/20 20:51 05/11/20 05/11/20 05/12/20 14:59 22:59 06:59 Intake Total 240 / 240 Output Total 500 / 500 Balance -260 / -260 Data NPU : 05/04/20 04:38 05/04/20 04:38 A&P Additional A&P Information (1) Tetrahydrocannabinol (THC) use disorder, mild, abuse: (2) Schizoaffective disorder, depressive type: (3) Alcohol use disorder: (4) Cognitive dysfunction, alcohol-related: (5) Seizure disorder: (6) Nicotine dependence, cigarettes, with unspecified nicotine-induced disorders: This is a 59-year-old white male with a long history of alcohol use disorder and other cognitive difficulties as well as limited supports presents from the ICU after his second or third ICU visit in the past few weeks who had presented in the past with significant resistance to treatment who reports that he is open to figuring out what is going on and how to make some real changes, currently struggling with frustration about his overall health. 1. Continue current medications. 2. Encourage individual, group and milieu therapy. 3. Continue every 15 minute checks for safety. 4. Encourage sober living treatments after discharge at the highest level of care to which he is willing to commit. 5. Will get hospitalist consult for nosebleeds and increased blood pressure. Involuntary Hold Information 96 Hour Hold: 96 Hour Involuntary Admission: No 96 Hour Hold Start Date: 05/01/20 96 Hour Hold Start Time: 19:00 96 Hour Hold Ending Date: 05/05/20 96 Hour Hold Ending Time: 19:00 Attestations NPU Medical Necessity Statement*: Inpatient hospitalization is medically necessary and the clinically appropriate intervention at this time. Will monitor medications and make changes as indicated. We will work to obtain a safe option for discharge. Likely length of stay 2-4 days. Coding Level of Care Code Acute Client Customer Manager for Ayana Bustillos
--- NOTE | 2020-05-11 18:12 | PC.NURSE ---
pATIENT WANTED IT NOTED IN HIS RECORD THAT HE DOES NOT CONSUME 30 bEERS A DAY. ON DAYS THAT IS HIS BEST AND HE IS PAIN FREE HE ONLY DRINKS 4 BEERS AND ON HIS WORST DAY THE MAX HE DRINKS WILL BE 15 BEERS (ONLY FIDELINA BEER).
[2020-05-11] MEDS: atorvastatin 40 mg Tablet 20 MG PO (20:32)
[2020-05-11] MEDS: hyDROXYzine 25 mg Capsule 50 MG PO (20:33)
[2020-05-11] MEDS: OLANZapine 5 mg ODT PO (20:33)
[2020-05-12] MEDS: TRAMadol 50 mg Tablet 25 MG PO ×2 (05:26→11:09)
[2020-05-12 06:00] VITALS: BP 123/85; PULSE 77; RESP 19; TEMP 37; O2SAT 99
[2020-05-12 08:12] VITALS: BP 123/85
[2020-05-12] MEDS: multivitamin therapeutic Tablet 1 TAB PO (08:12)
[2020-05-12] MEDS: thiamine 100 mg Tablet PO (08:12)
[2020-05-12] MEDS: pantoprazole DR 40 mg Tablet PO ×2 (08:12→17:14)
[2020-05-12] MEDS: losartan 50 mg Tablet PO (08:12)
[2020-05-12] MEDS: magnesium oxide 400 mg tablet PO ×2 (08:12→17:14)
[2020-05-12] MEDS: citalopram 20 mg Tablet PO (08:12)
[2020-05-12] MEDS: folic acid 1 mg Tablet PO (08:12)
[2020-05-12 09:00] VITALS: PULSE 86; RESP 18; O2SAT 98
[2020-05-12] MEDS: albuterol 8 gm MDI 2 PUFF INHALATION (09:00)
--- NOTE | 2020-05-12 09:25 | PC.NURSE ---
Spoke with the patient this morning and he reports that he is sleeping better. He estimated about 6 hours of sleep last night. His mood is better today. He expressed the need for a consult regarding his back pain. He went on to say that if his pain was managed and he could see someone that cared that he would not drink as much.
[2020-05-12 14:00] VITALS: BP 124/82; PULSE 90; RESP 18; TEMP 36.6; O2SAT 97
--- NOTE | 2020-05-12 16:10 | PM.CONSULT ---
Providers/Reason For Consult Consulting Physican/Specialty*: Dr. Costello, psychiatry Reason for Consult*: Epistaxis Attending Physician: Diogenes Costello MD Primary Care Provider: Silvia Wilson DO History of Present Illness History of Present Illness Costa Alba is a 59 year old male is being treated at neuropsychiatric unit for alcohol use disorder and schizoaffective disorder. Hospitalist team was consulted for epistaxis and hypertension. Patient reports that he has been having epistaxis off and on since his childhood but somewhat worsened in the last 2 months. Reports that applying pressure to nasal ala for 10 to 15 minutes stops the bleeding. Reports that he never been seen by ENT physician. Reports that he has been previously on [place], muscle relaxant and gabapentin which was discontinued by his pain clinic because of alcohol use and being high risk . Reports that he developed GI bleed and after he discontinued gabapentin his bleeding resolved. Reports that gabapentin was the only thing that really helping his pain but when told that we may restart since gabapentin is unlikely to be the cause of his GI bleed he was not very enthusiastic to start it back. Reports that he drinks because his pain is not under control. Reports that his friend recommended him not to have surgery. During my evaluation patient had no epistaxis. Had multiple complaints including burning sensation in his chest for long period of time off-and-on. Reports epigastric area discomfort. Reports that he had EGD previously and had some scarring . Reports that he had colonoscopy within the last year and had some polypectomies. He was drinking 5-15 beers per day prior to admission to self medicate for severe low back pain which she had at least 9 years . Patient denies previous history of diabetes, heart disease or stroke. Review of Systems Const: Denies: fever(s) or chills Eyes: Denies: change in vision ENMT: Denies: throat pain or change in hearing Card: Denies: chest pain (Except as mentioned), edema or lightheadedness Resp: Denies: dyspnea or productive cough GI: Denies: abdominal pain (Except as mentioned), nausea, vomiting, dysphagia, diarrhea, constipation, hematochezia or melena Musc: Denies: joint pain or joint swelling Skin/Breast: Denies: rash or erythema Neuro: Reports: headache(s) (All his life, shooting sensation all over his head that he learned how to live with); Denies: weakness in extremities Endo: Denies: excessive sweating Shaun/Lymph: Reports: easy bleeding; Denies: tender lymph nodes All/Imm: Denies: throat swelling Meds/Allergies Home Medications and Allergies Home Medications Medication Instructions Recorded Confirmed Last Taken Type budesonide-formoterol HFA 160 1 puff INHALATION BID 10/08/19 05/01/20 Unknown History mcg-4.5 mcg/actuation aerosol inhaler Toviaz 8 mg PO QDAY #30 tab 04/27/20 05/01/20 Unknown Rx albuterol sulfate 2 puff INHALATION Q6H PRN #3 g 04/27/20 05/01/20 Unknown Rx baclofen 10 mg PO BID #60 tab 04/27/20 05/01/20 Unknown Rx losartan 50 mg PO DAILY #60 tab 04/27/20 05/01/20 Unknown Rx omeprazole 40 mg PO BID #60 cap 04/27/20 05/01/20 Unknown Rx primidone 25 mg PO BID #30 tab 04/27/20 05/01/20 Unknown Rx simvastatin [Zocor] 20 mg PO BEDTIME #0 tab 04/27/20 05/01/20 Unknown Rx citalopram 20 mg tablet 20 mg PO DAILY #30 tab 05/01/20 05/01/20 Unknown Rx Allergies Allergy/AdvReac Type Severity Reaction Status Date / Time No Known Allergies Allergy Verified 05/02/20 02:18 Current Medications Current Medications Generic Name Dose Route Start Last Admin Trade Name Freq PRN Reason Stop Dose Admin Acetaminophen 650 mg 05/04/20 13:56 05/07/20 08:48 Tylenol PO 650 mg Q4H PRN Administration MILD PAIN Albuterol Sulfate 2 puff 05/04/20 15:00 05/12/20 09:00 Ventolin INHALATION 2 puff Q6H.RESPIRATORY PRN Administration Shortness Of Breath Atorvastatin Calcium 20 mg 05/02/20 21:00 05/11/20 20:32 Lipitor PO 20 mg BEDTIME FARAZ Administration Citalopram Hydrobromide 20 mg 05/06/20 12:35 05/12/20 08:12 Celexa PO 20 mg DAILY FARAZ Administration Folic Acid 1 mg 05/02/20 09:00 05/12/20 08:12 Folic Acid PO 1 mg DAILY FARAZ Administration Haloperidol 5 mg 05/04/20 13:56 05/10/20 22:53 Haldol PO 5 mg Q4H PRN Administration AGITATION Hydroxyzine Pamoate 50 mg 05/04/20 13:56 05/11/20 20:33 Vistaril PO 50 mg Q6H PRN Administration ANXIETY Losartan Potassium 50 mg 05/05/20 09:00 05/12/20 08:12 Cozaar PO 50 mg DAILY FARAZ Administration Magnesium Oxide 400 mg 05/02/20 09:00 05/12/20 08:12 Magox PO 400 mg BID FARAZ Administration Multivitamins Therapeutic 1 tab 05/02/20 09:00 05/12/20 08:12 Multivitamin Tab PO 1 tab DAILY FARAZ Administration Olanzapine 5 mg 05/04/20 13:56 05/11/20 20:33 Zyprexa Zydis PO 5 mg Q4H PRN Administration Agitation/Psychosis Pantoprazole Sodium 40 mg 05/02/20 09:00 05/12/20 08:12 Protonix PO 40 mg DAILY FARAZ Administration Fluticasone/Salmeterol 1 puff 05/04/20 20:00 05/12/20 09:00 Advair Diskus 250-50 INHALATION 1 puff BID.RESPIRATORY FARAZ Administration Thiamine Mononitrate 100 mg 05/02/20 09:00 05/12/20 08:12 Vitamin B-1 PO 100 mg DAILY FARAZ Administration Tramadol HCl 25 mg 05/03/20 17:05 05/12/20 11:09 Ultram PO 25 mg Q6H PRN Administration MODERATE PAIN PFSH Acute PFSH: Medical History Alcohol use disorder Alcohol use disorder continues to be the primary clinical problem. If in fact he was using alcohol on a greater volume than indicated prior to coming to the hospital, both seizures and his psychosis may be attributed to results of alcohol withdrawal. Records indicate a prior history of delirium tremens in the presence of auditory hallucinations in the alcohol withdrawal period. 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 Sleep apnea, obstructive Vitamin B12 deficiency Surgical History No pertinent past surgical history Family History Other Cancer Diabetes Hypertension Social History Smoking and tobacco status: current every day smoker cigarettes Packs smoked per day: 2 Years cigarettes smoked: 40 Second hand smoke exposure: No Alcohol intake: current Alcohol intake frequency: 3 or more drinks per day Alcohol type: beer Desire information about alcohol rehabilitation?: No Desire information about substance/drug rehabilitation?: No Adopted: No Caregiver/support person: No Lives independently: Yes Household members: none Housing: House Marital status: Number of children: 2 Number of grandchildren: 6 Highest education level completed: 11th Grade service: No Current occupational status: disabled Current occupational exposures/hazards: No Pets and animals: Yes Pets & animals: dog(s) History of recent travel: No Current gender identity: Male Maricarmen/Mormon: Zoroastrianism Special maricarmen needs: No Agree to transfusion: Yes Financial difficulty paying for basics: Hard Vitals/I&O/Wt Last Vital Signs Temp 97.8 F 05/12/20 14:00 Pulse 90 05/12/20 14:00 Resp 18 05/12/20 14:00 BP 124/82 05/12/20 14:00 Pulse Ox 97 05/12/20 14:00 Physical Exam Const: COMMON NORMALS: no acute distress, patient oriented x3 and alert HENMT: COMMON NORMALS: normocephalic and atraumatic HEAD & SCALP: normocephalic and atraumatic Eye: COMMON NORMALS: EOMs intact bilaterally, conjunctivae normal and no scleral icterus CONJUNCTIVA: Yes conjunctivae normal Neck/C-Spine: COMMON NORMALS: no lymphadenopathy and no meningeal signs Lymph: LYMPHATIC: no lymphadenopathy noted Chest: COMMONS NORMALS: normal palpation of entire chest wall Resp: COMMON NORMALS: No use of accessory muscles and clear to auscultation bilaterally AUSCULTATION: clear to auscultation bilaterally Cardio: COMMON NORMALS: regular rate, regular rhythm and No murmurs present (Cardio) RATE: regular rate RHYTHM: regular rhythm OTHER: No lower extremity edema GI: COMMON NORMALS: Soft to palpation and non-tender PALPATION: Yes Soft to palpation RECTAL EXAM: Yes deferred Extremity: COMMON NORMALS: normal to inspection and capillary refill normal Neuro: COMMON NORMALS: patient oriented x3 and no focal motor deficits SENSORIUM/ORIENTATION: Yes alert MENINGEAL SIGNS: Yes no meningeal signs Psych: COMMON NORMALS: mental status grossly normal and cooperative Skin: COMMON NORMALS: no rashes or lesions noted GENERAL SKIN EXAM: no rashes or lesions noted A&P Assessment and plan (1) Epistaxis, recurrent: Status: Acute (2) Schizoaffective disorder, depressive type: Status: Chronic (3) Acute alcohol intoxication: Status: Acute Qualifiers: Complication of substance-induced condition: with delirium Qualified Code(s): F10.921 - Alcohol use, unspecified with intoxication delirium (4) GERD (gastroesophageal reflux disease): Status: Acute (5) Hypertension: Status: Acute (6) Vitamin B12 deficiency: Status: Chronic Additional A&P Information PLAN: Please apply pressure with next episode of epistaxis and if bleeding is significant and if bleeding is significant please apply Rhino Rocket. Recommended patient to follow-up with ENT physician for formal exam. This appears to be anterior epistaxis which can be easily controlled with applying pressure or packing. Will start patient on low-dose amlodipine but not sure if patient will comply. Increase Protonix to twice daily for a month or 2 due to highly suspected alcohol induced gastritis. Avoid NSAIDs. Continue with thiamine, folic acid and multivitamins. Start patient on B12 shots daily for 7 days while hospitalized given significant deficiency last year. I will sign off at this point. Please call with any questions. I will be available by the end of next week and after that any other hospitals can be contacted. Consult Attestations Medical Necessity Statement: As per psychiatry service Time Spent in Patient Care: Greater than 35 minutes Coding Level of Care Code Acute Portfolio Mgr for [facility] Diagnoses Epistaxis, recurrent R04.0 Schizoaffective disorder, depressive type F25.1 Acute alcohol intoxication F10.921 Complication of substance-induced condition: with delirium GERD (gastroesophageal reflux disease) K21.9 Hypertension I10 Vitamin B12 deficiency E53.8
--- NOTE | 2020-05-12 16:55 | PM.NPN ---
Subjective NPU Subjective: Interval history: Costa presents today reporting that he was glad that the hospitalist came by to see him. He felt optimistic about some of the recommendations that he made, specifically about his nose and the nosebleeds because that has been a problem for some time. Additionally, a long awaited recommendation on what to do with his back pain; however, he is not sure what to do. He reports that his recommendation is that he get another back surgery and Costa reported that he wants the pain to go away, but that is a big decision. He was reporting feeling less irritable and less angry. He was more open to conversations about his future and we discussed a plan of starting to look towards discharge in the beginning of the week. Mental Status Exam MSE Comments: This is a overweight white male with hospitsl scrubs, limited grooming and eye contact. No abnormal movements except for slight ataxia with walking and unsteady rising. Cooperative with exam in no acute distress. Speech more normal rate and volume. Mood described as a little better, affect less irritable. Thought process a little more organized. Thought content: Patient denied any suicidal or homicidal ideations, there are no delusions reported noted, he denied any auditory or visual hallucinations. Attention and concentration are improving, and memory is more reliable, but none were formally tested. He is alert and oriented ?3. Insight and judgment limited, but improving. Impulse control is limited but improving. Vitals/I&O/Wt Last Vital Signs Temp 97.8 F 05/12/20 22:00 Pulse 113 H 05/12/20 22:00 Resp 18 05/12/20 22:00 BP 144/90 05/12/20 22:00 Pulse Ox 98 05/12/20 22:00 Data NPU : 05/04/20 04:38 05/04/20 04:38 A&P Additional A&P Information (1) Tetrahydrocannabinol (THC) use disorder, mild, abuse: (2) Schizoaffective disorder, depressive type: (3) Alcohol use disorder: (4) Cognitive dysfunction, alcohol-related: (5) Seizure disorder: (6) Nicotine dependence, cigarettes, with unspecified nicotine-induced disorders: This is a 59-year-old white male with a long history of alcohol use disorder and other cognitive difficulties as well as limited supports presents from the ICU after his second or third ICU visit in the past few weeks who had presented in the past with significant resistance to treatment who reports that he is open to figuring out what is going on and how to make some real changes, currently struggling with frustration about his overall health. 1. Continue current medications. 2. Encourage individual, group and milieu therapy. 3. Continue every 15 minute checks for safety. 4. Encourage sober living treatments after discharge at the highest level of care to which he is willing to commit. 5. Will follow hospitalist recommendations. Involuntary Hold Information 96 Hour Hold: 96 Hour Involuntary Admission: No 96 Hour Hold Start Date: 05/01/20 96 Hour Hold Start Time: 19:00 96 Hour Hold Ending Date: 05/05/20 96 Hour Hold Ending Time: 19:00 Attestations NPU Medical Necessity Statement*: Inpatient hospitalization is medically necessary and the clinically appropriate intervention at this time. Will monitor medications and make changes as indicated. We will work to obtain a safe option for discharge. Likely length of stay 2-4 days. 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
[2020-05-12] MEDS: atorvastatin 40 mg Tablet 20 MG PO (20:38)
[2020-05-12] MEDS: hyDROXYzine 25 mg Capsule 50 MG PO (20:39)
[2020-05-12 22:00] VITALS: BP 144/90; PULSE 113; RESP 18; TEMP 36.6; O2SAT 98
[2020-05-13] MEDS: TRAMadol 50 mg Tablet 25 MG PO ×4 (02:02→20:48)
[2020-05-13 06:00] VITALS: BP 149/87; PULSE 88; RESP 18; TEMP 36.8; O2SAT 98
[2020-05-13 08:13] VITALS: BP 149/87
[2020-05-13] MEDS: losartan 50 mg Tablet PO (08:13)
[2020-05-13] MEDS: thiamine 100 mg Tablet PO (08:14)
[2020-05-13] MEDS: amlodipine 5 mg Tablet PO (08:14)
[2020-05-13] MEDS: pantoprazole DR 40 mg Tablet PO ×2 (08:15→17:05)
[2020-05-13] MEDS: multivitamin therapeutic Tablet 1 TAB PO (08:15)
[2020-05-13] MEDS: folic acid 1 mg Tablet PO (08:15)
[2020-05-13] MEDS: magnesium oxide 400 mg tablet PO ×2 (08:15→17:05)
[2020-05-13] MEDS: citalopram 20 mg Tablet PO (08:15)
[2020-05-13] MEDS: albuterol 8 gm MDI 2 PUFF INHALATION (09:15)
[2020-05-13] MEDS: cyanocobalamin 1,000 mcg/mL SDV 1000 MCG IM (09:35)
[2020-05-13 09:39] VITALS: PULSE 86; RESP 17; O2SAT 98
--- NOTE | 2020-05-13 13:27 | PM.NPN ---
Subjective NPU Subjective: Interval history: Costa presents today reporting that he is feeling a little better. We discussed the fact that in the past his pain had been managed by Neurontin, however he and his doctors discovered that the Neurontin was causing him some bleeding and so they had to stop it. He reports that he just recently has not had benefit from other medications like Oxycontin and things of that nature, even though he said previously that he did okay on those doses. He said it still was not really fixing the problem, whereas the Neurontin seemed to really help. Additionally, he did say that he feels like the Ultram is helping, but just not at the dose that it is at. We had a discussion, about how Ultram works, and how it falls prey to many of the similar issues that the opiates do. We talked about the dangers of back surgery and he ultimately apologized for his behavior for the last three or four days, just saying that things just felt like they got to a head and he was really frustrated, feeling like he was not being helped. We continued a discussion about working with the treatment team to make sure we have everything in place for a possible discharge at the beginning of the week. Mental Status Exam MSE Comments: This is a overweight white male with hospital scrubs, adequate grooming and eye contact. No abnormal movements except for slight ataxia with walking and unsteady rising. Cooperative with exam in no acute distress. Speech more normal rate and volume. Mood described as getting better, affect congruent. Thought process a little more organized. Thought content: Patient denied any suicidal or homicidal ideations, there are no delusions reported noted, he denied any auditory or visual hallucinations. Attention and concentration are improving, and memory is more reliable, but none were formally tested. He is alert and oriented ?3. Insight and judgment improving. Impulse control is limited but improving. Vitals/I&O/Wt Last Vital Signs Temp 98.4 F 05/13/20 13:44 Pulse 99 05/13/20 13:44 Resp 18 05/13/20 13:44 BP 124/82 05/13/20 13:44 Pulse Ox 98 05/13/20 13:44 Data NPU : 05/04/20 04:38 05/04/20 04:38 A&P Additional A&P Information (1) Tetrahydrocannabinol (THC) use disorder, mild, abuse: (2) Schizoaffective disorder, depressive type: (3) Alcohol use disorder: (4) Cognitive dysfunction, alcohol-related: (5) Seizure disorder: (6) Nicotine dependence, cigarettes, with unspecified nicotine-induced disorders: This is a 59-year-old white male with a long history of alcohol use disorder and other cognitive difficulties as well as limited supports presents from the ICU after his second or third ICU visit in the past few weeks who had presented in the past with significant resistance to treatment who reports that he is open to figuring out what is going on and how to make some real changes, currently struggling with frustration about his overall health. 1. Continue current medications. 2. Encourage individual, group and milieu therapy. 3. Continue every 15 minute checks for safety. 4. Encourage sober living treatments after discharge at the highest level of care to which he is willing to commit. 5. Will follow hospitalist recommendations. Involuntary Hold Information 96 Hour Hold: 96 Hour Involuntary Admission: No 96 Hour Hold Start Date: 05/01/20 96 Hour Hold Start Time: 19:00 96 Hour Hold Ending Date: 05/05/20 96 Hour Hold Ending Time: 19:00 Attestations NPU Medical Necessity Statement*: Inpatient hospitalization is medically necessary and the clinically appropriate intervention at this time. Will monitor medications and make changes as indicated. We will work to obtain a safe option for discharge. Likely length of stay 2-4 days. 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
[2020-05-13 13:44] VITALS: BP 124/82; PULSE 99; RESP 18; TEMP 36.9; O2SAT 98
[2020-05-13 16:13] LABS: Glucose Point of Care 214 mg/dL (70-110)
[2020-05-13] MEDS: hyDROXYzine 25 mg Capsule 50 MG PO (20:48)
[2020-05-13] MEDS: atorvastatin 40 mg Tablet 20 MG PO (20:48)
--- NOTE | 2020-05-13 20:54 | PC.NURSE ---
PRN VISTARIL PT REQUESTING ANXIETY MEDICATION, ADMINISTERED VISTARIL 50 MG PO. WILL MONITOR FOR MEDICATION EFFECTIVENESS.
[2020-05-13 22:00] VITALS: BP 131/85; PULSE 76; RESP 18; TEMP 36.4; O2SAT 96
[2020-05-14] MEDS: TRAMadol 50 mg Tablet 25 MG PO ×2 (03:04→15:38)
[2020-05-14 06:00] VITALS: BP 135/96; PULSE 66; RESP 18; TEMP 36.4; O2SAT 99
[2020-05-14 09:40] VITALS: BP 135/96
[2020-05-14] MEDS: amlodipine 5 mg Tablet PO (09:40)
[2020-05-14] MEDS: citalopram 20 mg Tablet PO (09:40)
[2020-05-14] MEDS: multivitamin therapeutic Tablet 1 TAB PO (09:40)
[2020-05-14] MEDS: folic acid 1 mg Tablet PO (09:40)
[2020-05-14] MEDS: pantoprazole DR 40 mg Tablet PO ×2 (09:40→16:57)
[2020-05-14] MEDS: losartan 50 mg Tablet PO (09:40)
[2020-05-14] MEDS: magnesium oxide 400 mg tablet PO ×2 (09:41→16:57)
[2020-05-14] MEDS: thiamine 100 mg Tablet PO (09:41)
[2020-05-14] MEDS: cyanocobalamin 1,000 mcg/mL SDV 1000 MCG IM (09:42)
--- NOTE | 2020-05-14 10:21 | PM.NPN ---
Subjective NPU Subjective: Interval history: Costa presents today reporting that he is feeling better. He is continuing to be in the state of mind that he was in yesterday, being apologetic and actually being thoughtful about the choices he is making. He reports that he wants to follow up with the recommendations of the hospitalist, but he is really looking forward to the appointment with Dr. Rascon to maybe pick her brain and get her thoughts about some of the neurological symptoms he is having and what part of it might be related to the possible need for repeat back surgery, and what part of it is degenerative disc neuralgias, and things of that nature. We discussed the fact that it does seem like he is having greater insight, and talked about the possibility of discharge in 48 hours or so. He reports that he is eating fine and sleeping better. Pain is still a significant issue for him. Mental Status Exam MSE Comments: This is a overweight white male with hospital scrubs, adequate grooming and eye contact. No abnormal movements except for slight ataxia with walking and unsteady rising. Cooperative with exam in no acute distress. Speech more normal rate and volume. Mood described as better, affect congruent. Thought process more organized. Thought content: Patient denied any suicidal or homicidal ideations, there are no delusions reported noted, he denied any auditory or visual hallucinations. Attention and concentration are improving, and memory is more reliable, but none were formally tested. He is alert and oriented ?3. Insight and judgment improving. Impulse control is improving. Vitals/I&O/Wt Last Vital Signs Temp 97.6 F 05/14/20 06:00 Pulse 66 05/14/20 06:00 Resp 18 05/14/20 06:00 BP 135/96 05/14/20 09:40 Pulse Ox 99 05/14/20 06:00 Weight last 48 hrs Weight 102.739 kg Data NPU : 05/04/20 04:38 05/04/20 04:38 A&P Additional A&P Information (1) Tetrahydrocannabinol (THC) use disorder, mild, abuse: (2) Schizoaffective disorder, depressive type: (3) Alcohol use disorder: (4) Cognitive dysfunction, alcohol-related: (5) Seizure disorder: (6) Nicotine dependence, cigarettes, with unspecified nicotine-induced disorders: This is a 59-year-old white male with a long history of alcohol use disorder and other cognitive difficulties as well as limited supports presents from the ICU after his second or third ICU visit in the past few weeks who had presented in the past with significant resistance to treatment who reports that he is open to figuring out what is going on and how to make some real changes, currently struggling with frustration about his overall health. 1. Continue current medications. 2. Encourage individual, group and milieu therapy. 3. Continue every 15 minute checks for safety. 4. Encourage sober living treatments after discharge at the highest level of care to which he is willing to commit. 5. Will follow hospitalist recommendations. Involuntary Hold Information 96 Hour Hold: 96 Hour Involuntary Admission: No 96 Hour Hold Start Date: 05/01/20 96 Hour Hold Start Time: 19:00 96 Hour Hold Ending Date: 05/05/20 96 Hour Hold Ending Time: 19:00 Attestations NPU Medical Necessity Statement*: Inpatient hospitalization is medically necessary and the clinically appropriate intervention at this time. Will monitor medications and make changes as indicated. We will work to obtain a safe option for discharge. Likely length of stay 1-3 days. Coding Level of Care Code Acute Glycerine Plant Operator for Ayana Bustillos
[2020-05-14 14:00] VITALS: BP 126/85; PULSE 85; RESP 18; TEMP 36.7; O2SAT 95
[2020-05-14 20:04] VITALS: PULSE 83; RESP 18; O2SAT 96
[2020-05-14] MEDS: albuterol 8 gm MDI 2 PUFF INHALATION (20:04)
--- NOTE | 2020-05-14 20:40 | PC.NURSE ---
pt given scheduled HS lipitor and requested zyprexa.
[2020-05-14] MEDS: OLANZapine 5 mg ODT PO (20:41)
[2020-05-14] MEDS: atorvastatin 40 mg Tablet 20 MG PO (20:41)
[2020-05-14 20:44] VITALS: BP 132/77; PULSE 75; RESP 17; TEMP 36.5; O2SAT 98
--- NOTE | 2020-05-15 01:00 | PC.NURSE ---
pt given PRN tramadol for c/o back pain.
[2020-05-15] MEDS: TRAMadol 50 mg Tablet 25 MG PO ×2 (01:03→09:02)
[2020-05-15 06:00] VITALS: BP 124/79; PULSE 74; RESP 15; TEMP 36.1; O2SAT 97
[2020-05-15 09:04] VITALS: BP 124/79
[2020-05-15] MEDS: losartan 50 mg Tablet PO (09:04)
[2020-05-15] MEDS: thiamine 100 mg Tablet PO (09:04)
[2020-05-15] MEDS: amlodipine 5 mg Tablet PO (09:05)
[2020-05-15] MEDS: cyanocobalamin 1,000 mcg/mL SDV 1000 MCG IM (09:05)
[2020-05-15] MEDS: multivitamin therapeutic Tablet 1 TAB PO (09:05)
[2020-05-15] MEDS: citalopram 20 mg Tablet PO (09:05)
[2020-05-15] MEDS: pantoprazole DR 40 mg Tablet PO (09:05)
[2020-05-15] MEDS: magnesium oxide 400 mg tablet PO (09:05)
[2020-05-15] MEDS: folic acid 1 mg Tablet PO (09:05)
[2020-05-15] MEDS: albuterol 8 gm MDI 2 PUFF INHALATION (09:55)
[2020-05-15 09:56] VITALS: PULSE 86; RESP 18; O2SAT 97
[2020-05-15 14:00] VITALS: BP 132/81; PULSE 88; RESP 18; TEMP 36.6; O2SAT 97
--- NOTE | 2020-05-15 15:48 | P.DS_ITS ---
Diagnoses at Discharge Discharge Diagnosis (1) Epistaxis, recurrent: Status: Acute (2) Schizoaffective disorder, depressive type: Status: Chronic Problem details: Patient prefers not to take psychotropic medications at this time due to neurological conditions, including reports of recent falls and seizures. (3) Acute alcohol intoxication: Status: Acute Qualifiers: Complication of substance-induced condition: with delirium Qualified Code(s): F10.921 - Alcohol use, unspecified with intoxication delirium (4) GERD (gastroesophageal reflux disease): Status: Acute (5) Hypertension: Status: Acute (6) Vitamin B12 deficiency: Status: Chronic Reason for Visit Reason for Visit: VISUAL AND AUDITORY HALLUCINATIONS Brief History: History of Present Illness Costa Alba is a 59 year old gentleman with history of schizoaffective disorder, COPD, CVA, PUD, KIEL, other medical conditions, was transferred to intensive care unit after consultation with the ED physician, who had originally proposed to send him to us directly. His original alcohol blood level was 292 and had dropped to 223 at the time of our conversation. When the nurses got wind of this they came to me and indicated that the last time he had been admitted with a BAL of 297 he was sent to the NPU and entered into status epilepticus. I called Dr. Alston and reviewed the case with him. He agreed that the patient should first be treated in the intensive care unit, where I visited him today. The patient is barely arousable for about 30 seconds, during which time he opined, I left too soon. Dr. Barr dictated his discharge summary from his last admission on the sixth of this month. Review of Systems Narrative: Unavailable at this time due to patient's obtunded state. Dr. Doris Brennan's ROS is included herein: Const: Reports: chills, change in appetite, fatigue, malaise, night sweats and change in sleep pattern; Denies: fever(s) Eyes: Reports: change in vision ENMT: Reports: dry mouth, disequilibrium and nasal congestion; Denies: throat pain or oral sores Card: Reports: chest pain, palpitations and edema Resp: Reports: dyspnea; Denies: productive cough, non-productive cough or hemoptysis GI: Reports: abdominal pain, nausea, diarrhea and constipation; Denies: vomiting : Reports: difficulty urinating, urinary frequency and urinary hesitancy Musc: Reports: neck pain, back pain, extremity pain, joint pain, muscle cramps and muscle weakness Skin/Breast: Reports: rash and pruritus Neuro: Reports: headache(s), numbness in extremities, weakness in extremities, lack of coordination, difficulty walking, frequent falls, dizziness, confusion, difficulty communicating thoughts, seizure-like activity and involuntary movements Psych: Reports: anxiety, depression, sleeping less, hopelessness, change in appetite, paranoia, visual hallucinations, auditory hallucinations and suicidal ideation Shaun/Lymph: Denies: easy bruising or easy bleeding Meds Current Medications: Current Medications Generic Name Dose Route Start Last Admin Trade Name Freq PRN Reason Stop Dose Admin Acetaminophen 650 mg 05/01/20 20:55 05/02/20 08:23 Tylenol PO 650 mg Q4H PRN Administration MILD PAIN Enoxaparin Sodium 40 mg 05/01/20 23:30 05/02/20 00:54 Lovenox SUBCUT 40 mg Q24H FARAZ Administration Folic Acid 1 mg 05/02/20 09:00 05/02/20 08:19 Folic Acid PO 1 mg DAILY FARAZ Administration Potassium Chloride /Dextrose/Sod Cl 20 meq in 1,000 m ls @ 100 mls/hr 05/01/20 23:30 05/02/20 05:21 D5-Ns 0.45% + Sandoval l 20 Meq IV 05/02/20 19:29 100 mls/hr .Q10H FARAZ Infusion Lorazepam 2 mg 05/01/20 23:22 05/02/20 00:52 Ativan IVP 2 mg PRN PRN Administration WITHDRAWAL Protocol Magnesium Oxide 400 mg 05/02/20 09:00 05/02/20 08:19 Magox PO 400 mg BID FARAZ Administration Multivitamins Ther apeutic 1 tab 05/02/20 09:00 05/02/20 08:19 Multivitamin Tab PO 1 tab DAILY FARAZ Administration Thiamine Mononitra te 100 mg 05/02/20 09:00 05/02/20 08:19 Vitamin B-1 PO 100 mg DAILY FARAZ Administration PFSH NPU PFSH: Medical History (Updated 05/02/20 @ 00:26 by Doris Brennan MD) Alcohol use disorder Alcohol use disorder continues to be the primary clinical problem. If in fact he was using alcohol on a greater volume than indicated prior to coming to the hospital, both seizures and his psychosis may be attributed to results of alcohol withdrawal. Records indicate a prior history of delirium tremens in the presence of auditory hallucinations in the alcohol withdrawal period. 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 Sleep apnea, obstructive Vitamin B12 deficiency Surgical History No pertinent past surgical history Family History Other Cancer Diabetes Hypertension Social History Smoking and tobacco status: current every day smoker cigarettes Packs smoked per day: 2 Years cigarettes smoked: 40 Second hand smoke exposure: No Alcohol intake: current Alcohol intake frequency: 3 or more drinks per day Alcohol type: beer Desire information about alcohol rehabilitation?: No Desire information about substance/drug rehabilitation?: No Adopted: No Caregiver/support person: No Lives independently: Yes Household members: none Housing: House Marital status: Number of children: 2 Number of grandchildren: 6 Highest education level completed: 11th Grade service: No Current occupational status: disabled Current occupational exposures/hazards: No Pets and animals: Yes Pets & animals: dog(s) History of recent travel: No Current gender identity: Male Maricarmen/Bahai: Yazdanism Special maricarmen needs: No Agree to transfusion: Yes Financial difficulty paying for basics: Hard Other Psychiatric History: Other Psychiatric History: 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 The patient?s outpatient diagnosis of schizoaffective disorder, depressed type, chronic post-traumatic stress disorder, antisocial personality disorder, major neurocognitive disorder due to traumatic brain injury, obstructive sleep apnea with noncompliance of CPAP. His medication history continues to be confusing because he cannot seem to remember the names of any medications he has been on. Hospital Course Hospital Course The patient presented to the emergency room reporting that he had left the hospital the last time too early, was intoxicated and endorsing suicidality. He was admitted to the ICU since the last vist he went straight to the NPU and began seizing. After he was medically cleared, he was admitted to the neuropsychiatric unit for definitive treatment of his issues. On the unit, he noted he left before things has really be treated effectively. He went on a 21 day hold and slowly acclimated to the individual, group and milieu therapies provided. Mutiple medical interventions were directed by the hospitalist and he had significant improvement. During the hospitalization, the patient had routine laboratory studies which were within normal limits, except for a few outliers. Additionally, the patient had a general medical evaluation which was within normal limits and revealed no new acute processes, except for those noted and treated by ICU and Hospitalist. Discharge Summary At the time of discharge the patient denied all lethality, was absent psychosis, and mood and anxiety were well managed. The patient endorsed a plan to avoid all drugs of abuse and to follow-up with outpatient services, as recommended. The patient was evaluated and deemed to be absent credible lethality, and had achieved the maximum benefit from an inpatient hospitalization, and so he was discharged. Involuntary Hold Information 96 Hour Hold: 96 Hour Involuntary Admission: No 96 Hour Hold Start Date: 05/01/20 96 Hour Hold Start Time: 19:00 96 Hour Hold Ending Date: 05/05/20 96 Hour Hold Ending Time: 19:00 Mental Status Exam MSE Comments: This is a overweight white male with hospital scrubs, adequate grooming and eye contact. No abnormal movements except for slight ataxia with walking and unsteady rising. Cooperative with exam in no acute distress. Speech more normal rate and volume. Mood described as pretty good, affect congruent. Thought process more organized. Thought content: Patient denied any suicidal or homicidal ideations, there are no delusions reported or noted, he denied any auditory or visual hallucinations. Attention and concentration are intact, and memory is more reliable, but none were formally tested. He is alert and oriented ?3. Insight and judgment improving. Impulse control is improving. Discharge Data Vitals: Last Vital Signs Temp 97.9 F 05/15/20 14:00 Pulse 88 05/15/20 14:00 Resp 18 05/15/20 14:00 BP 132/81 05/15/20 14:00 Pulse Ox 97 05/15/20 14:00 Discharge Plan Discharge Patient Disposition: Home Condition: Stable Prescriptions: New tramadol 50 mg Tablet 25 mg PO Q6H PRN (Reason: Moderate Pain) 10 Days Qty: 80 RF: 0 Vitamin B-1 (mononitrate) 100 mg Tablet 100 mg PO DAILY 30 Days Qty: 30 RF: 0 amlodipine 5 mg Tablet 5 mg PO DAILY 30 Days Qty: 30 RF: 1 folic acid 1 mg Tablet 1 mg PO DAILY 30 Days Qty: 30 RF: 0 cyanocobalamin (vitamin B-12) 1,000 mcg capsule 1,000 mcg PO DAILY 30 Days Qty: 30 RF: 0 Continued Symbicort 160-4.5 mcg/actuation HFA aerosol inhaler 1 puff INHALATION BID RF: 0 omeprazole 40 mg capsule,delayed release(DR/EC) 40 mg PO BID Qty: 60 RF: 3 simvastatin [Zocor] 20 mg tablet 20 mg PO BEDTIME Qty: 0 RF: 3 losartan 25 mg tablet 50 mg PO DAILY Qty: 60 RF: 3 albuterol sulfate 90 mcg/actuation HFA aerosol inhaler 2 puff INHALATION Q6H PRN (Reason: Shortness Of Breath) Qty: 3 RF: 3 Toviaz 8 mg tablet extended release 24 hr 8 mg PO QDAY Qty: 30 RF: 3 citalopram 20 mg tablet 20 mg PO DAILY 30 Days Qty: 30 RF: 1 Discontinued primidone 50 mg tablet 25 mg PO BID Qty: 30 RF: 3 baclofen 10 mg tablet 10 mg PO BID Qty: 60 RF: 3 Discharge Orders: Discharge Order (Routine); Ordered 05/15/20 Ordered By: Diogenes Costello Referrals: Rosy Rascon MD [Physician] - 05/17/20 8:45 am (A medicaid ride has been called. You need to be ready on FridayMay 17 between 7:45 a.m.-8:15 a.m. The trip number is #[id number]. [phone] Medicaid Transportation. Your medicaid number needs to be available: [id number]. Call them if you have any change, question or problem. ) Shruthi White APRN [Nurse Practitioner] - 05/16/20 1:45 pm (NPU follow up. Appointment will be done over the phone.) Silvia Wilson DO [Primary Care Provider] - (schedule as needed for primary care. ) Martín Merrill MD [Physician] - 05/19/20 8:40 am (medicaid ride has been called. your trip number is #[phone]. 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
[2020-05-15 16:06] VITALS: BP 132/81; PULSE 88; RESP 18; TEMP 36.6; O2SAT 97
== END 2020-05-15 16:45 | disposition home or self-care (01) | DRG 897 ==
LOC: ER 15:57 → NP 18:14 → ICU 22:59 → NP 05-04 13:29
PROVIDERS: Emergency Medicine; Family Medicine; Admitting Provider Hospitalist; PCP Family Medicine; Visit Provider Psychiatry & Neurology Psychiatry
DX: F10.231 Alcohol dependence with withdrawal delirium (principal); R45.851 Suicidal ideations; Y90.7 Blood alcohol level of 200-239 mg/100 ml; F10.229 Alcohol dependence with intoxication, unspecified; G62.1 Alcoholic polyneuropathy; I10 Essential (primary) hypertension; G31.2 Degeneration of nervous system due to alcohol; J44.9 Chronic obstructive pulmonary disease, unspecified; Z86.73 Personal history of transient ischemic attack (TIA), and cerebral infarction without residual deficits; Z87.11 Personal history of peptic ulcer disease; E78.5 Hyperlipidemia, unspecified; F25.1 Schizoaffective disorder, depressive type; G47.33 Obstructive sleep apnea (adult) (pediatric); E53.8 Deficiency of other specified B group vitamins; F17.210 Nicotine dependence, cigarettes, uncomplicated; F12.10 Cannabis abuse, uncomplicated; F43.12 Post-traumatic stress disorder, chronic; F60.2 Antisocial personality disorder; K21.9 Gastro-esophageal reflux disease without esophagitis; R04.0 Epistaxis
CPT/HCPCS: 12345; 36415; 36416; 80053; 80306; 80307; 82962; 83735; 84100; 85025; 93005; 94640; 96372; 96375; 99284; J1650; J2060; J3411; J3420; J3535; Q0163

== ENCOUNTER → 2020-05-16 09:44 | Outpatient (BNVA) | payer MEDICAID, SELFPAY ==
[2020-04-13 10:55] VITALS: BP 156/100; BMI 27.5
== END ==
PROVIDERS: PCP Family Medicine; Visit Provider Nurse Practitioner Psychiatric/Mental Health
DX: F25.1 Schizoaffective disorder, depressive type (principal); R04.0 Epistaxis
CPT/HCPCS: 99212

== ENCOUNTER → 2020-05-17 08:24 | Outpatient (BNVA) | payer MEDICAID, SELFPAY ==
[2020-04-13 10:55] VITALS: BP 156/100; BMI 27.5
== END ==
PROVIDERS: PCP Family Medicine; Visit Provider Specialist
DX: G40.909 Epilepsy, unspecified, not intractable, without status epilepticus (principal); F25.1 Schizoaffective disorder, depressive type; F10.97 Alcohol use, unspecified with alcohol-induced persisting dementia; E53.8 Deficiency of other specified B group vitamins; F17.210 Nicotine dependence, cigarettes, uncomplicated
CPT/HCPCS: 99215

== ENCOUNTER → 2020-05-19 08:33 | Outpatient (BNVA) | payer MEDICAID, SELFPAY ==
[2020-04-13 10:55] VITALS: BP 156/100; BMI 27.5
== END ==
PROVIDERS: PCP Family Medicine; Visit Provider Anesthesiology Pain Medicine
DX: M51.36 Other intervertebral disc degeneration, lumbar region (principal); M47.816 Spondylosis without myelopathy or radiculopathy, lumbar region; M54.16 Radiculopathy, lumbar region; M54.9 Dorsalgia, unspecified; M62.830 Muscle spasm of back; F17.210 Nicotine dependence, cigarettes, uncomplicated
CPT/HCPCS: 99213; 99214

== ENCOUNTER → 2020-05-31 14:12 | Outpatient (BNVA) | payer MEDICAID, SELFPAY ==
[2020-04-13 10:55] VITALS: BP 156/100; BMI 27.5
== END ==
PROVIDERS: PCP Family Medicine; Visit Provider Anesthesiology Pain Medicine
DX: M47.816 Spondylosis without myelopathy or radiculopathy, lumbar region (principal); M54.9 Dorsalgia, unspecified; M54.10 Radiculopathy, site unspecified; F17.210 Nicotine dependence, cigarettes, uncomplicated
CPT/HCPCS: 64493; 64494; 64495; J3490

== ENCOUNTER → 2020-06-05 14:40 | Outpatient (BNVA) | payer MEDICAID, SELFPAY ==
[2020-04-13 10:55] VITALS: BP 156/100; BMI 27.5
== END ==
PROVIDERS: PCP Family Medicine; Visit Provider Specialist
DX: F10.97 Alcohol use, unspecified with alcohol-induced persisting dementia (principal); F25.1 Schizoaffective disorder, depressive type; R56.9 Unspecified convulsions; F17.210 Nicotine dependence, cigarettes, uncomplicated
CPT/HCPCS: 95816

== ENCOUNTER → 2020-06-12 08:06 | Outpatient (BNVA) | payer MEDICAID, SELFPAY ==
[2020-04-13 10:55] VITALS: BP 156/100; BMI 27.5
== END ==
PROVIDERS: PCP Family Medicine; Visit Provider Nurse Practitioner Psychiatric/Mental Health
DX: F25.1 Schizoaffective disorder, depressive type (principal)
CPT/HCPCS: 99212

== ENCOUNTER → 2020-07-04 13:33 | Outpatient (BNVA) | payer MEDICAID, SELFPAY ==
[2020-04-13 10:55] VITALS: BP 156/100; BMI 27.5
== END ==
PROVIDERS: PCP Family Medicine; Visit Provider Anesthesiology Pain Medicine
DX: M51.36 Other intervertebral disc degeneration, lumbar region (principal); M54.16 Radiculopathy, lumbar region; M47.816 Spondylosis without myelopathy or radiculopathy, lumbar region; M54.9 Dorsalgia, unspecified; M54.2 Cervicalgia; M62.830 Muscle spasm of back; F17.210 Nicotine dependence, cigarettes, uncomplicated
CPT/HCPCS: 99213; 99214

== ENCOUNTER → 2020-07-06 15:39 | Outpatient (BNVA) | payer MEDICAID, SELFPAY ==
[2020-04-13 10:55] VITALS: BP 156/100; BMI 27.5
== END ==
PROVIDERS: PCP Family Medicine; Visit Provider Family Medicine
DX: E53.8 Deficiency of other specified B group vitamins (principal)
CPT/HCPCS: 82607; 82746; 85025

== ENCOUNTER → 2020-07-10 08:50 | Outpatient (BNVA) | payer MEDICAID, SELFPAY ==
[2020-04-13 10:55] VITALS: BP 156/100; BMI 27.5
== END ==
PROVIDERS: PCP Family Medicine; Visit Provider Nurse Practitioner Psychiatric/Mental Health
DX: F25.1 Schizoaffective disorder, depressive type (principal)
CPT/HCPCS: 99212

== ENCOUNTER → 2020-08-01 12:40 | Outpatient (BNVA) | payer MEDICAID, SELFPAY ==
[2020-04-13 10:55] VITALS: BP 156/100; BMI 27.5
== END ==
PROVIDERS: PCP Family Medicine; Visit Provider Anesthesiology Pain Medicine
DX: M51.36 Other intervertebral disc degeneration, lumbar region (principal); M54.16 Radiculopathy, lumbar region; M47.816 Spondylosis without myelopathy or radiculopathy, lumbar region; M47.812 Spondylosis without myelopathy or radiculopathy, cervical region; M54.9 Dorsalgia, unspecified; M62.830 Muscle spasm of back; F17.210 Nicotine dependence, cigarettes, uncomplicated
CPT/HCPCS: 99213; 99214

== ENCOUNTER → 2020-08-02 14:39 | Outpatient (BNVA) | payer MEDICAID, SELFPAY ==
[2020-04-13 10:55] VITALS: BP 156/100; BMI 27.5
== END ==
PROVIDERS: PCP Family Medicine; Visit Provider Specialist
DX: R56.9 Unspecified convulsions (principal); F10.97 Alcohol use, unspecified with alcohol-induced persisting dementia; E53.8 Deficiency of other specified B group vitamins; F17.210 Nicotine dependence, cigarettes, uncomplicated
CPT/HCPCS: 99213

== ENCOUNTER → 2020-08-22 10:24 | Outpatient (BNVA) | payer MEDICAID, SELFPAY ==
[2020-04-13 10:55] VITALS: BP 156/100; BMI 27.5
== END ==
PROVIDERS: PCP Family Medicine; Visit Provider Anesthesiology Pain Medicine
DX: G89.29 Other chronic pain (principal); M54.16 Radiculopathy, lumbar region; M47.816 Spondylosis without myelopathy or radiculopathy, lumbar region; M51.36 Other intervertebral disc degeneration, lumbar region; R56.9 Unspecified convulsions; M54.2 Cervicalgia; M54.9 Dorsalgia, unspecified; M62.830 Muscle spasm of back; F17.210 Nicotine dependence, cigarettes, uncomplicated
CPT/HCPCS: 99213; 99214

== ENCOUNTER → 2020-09-11 11:45 | Outpatient (BNVA) | payer MEDICAID, SELFPAY ==
[2020-04-13 10:55] VITALS: BP 156/100; BMI 27.5
== END ==
PROVIDERS: PCP Family Medicine; Visit Provider Family Medicine
DX: I10 Essential (primary) hypertension (principal); E78.5 Hyperlipidemia, unspecified; L30.9 Dermatitis, unspecified
CPT/HCPCS: 80053; 80061

== ENCOUNTER → 2020-09-19 10:58 | Outpatient (BNVA) | payer MEDICAID, SELFPAY ==
[2020-04-13 10:55] VITALS: BP 156/100; BMI 27.5
== END ==
PROVIDERS: PCP Family Medicine; Visit Provider Anesthesiology Pain Medicine
DX: M54.9 Dorsalgia, unspecified (principal); M51.36 Other intervertebral disc degeneration, lumbar region; M47.816 Spondylosis without myelopathy or radiculopathy, lumbar region; M54.16 Radiculopathy, lumbar region; M62.830 Muscle spasm of back; M54.2 Cervicalgia; F17.210 Nicotine dependence, cigarettes, uncomplicated
CPT/HCPCS: 99213

== ENCOUNTER → 2020-11-16 09:50 | Outpatient (BNVA) | payer MEDICAID, SELFPAY ==
[2020-04-13 10:55] VITALS: BP 156/100; BMI 27.5
== END ==
PROVIDERS: PCP Family Medicine; Visit Provider Anesthesiology Pain Medicine
DX: M51.36 Other intervertebral disc degeneration, lumbar region (principal); M54.9 Dorsalgia, unspecified; M47.816 Spondylosis without myelopathy or radiculopathy, lumbar region; M54.16 Radiculopathy, lumbar region; M62.830 Muscle spasm of back; M54.2 Cervicalgia; F17.210 Nicotine dependence, cigarettes, uncomplicated
CPT/HCPCS: 99214

== ENCOUNTER → 2020-12-25 11:18 | Outpatient (BNVA) | payer MEDICAID, SELFPAY ==
[2020-04-13 10:55] VITALS: BP 156/100; BMI 27.5
== END ==
PROVIDERS: PCP Family Medicine; Visit Provider Family Medicine
DX: E53.8 Deficiency of other specified B group vitamins (principal); I10 Essential (primary) hypertension
CPT/HCPCS: 80053; 80061; 82043; 82607; 82746; 85025

== ENCOUNTER → 2021-01-11 10:06 | Outpatient (BNVA) | payer MEDICAID, SELFPAY ==
[2020-04-13 10:55] VITALS: BP 156/100; BMI 27.5
== END ==
PROVIDERS: PCP Family Medicine; Visit Provider Anesthesiology Pain Medicine
DX: M47.812 Spondylosis without myelopathy or radiculopathy, cervical region (principal); M54.9 Dorsalgia, unspecified; M51.36 Other intervertebral disc degeneration, lumbar region; M47.816 Spondylosis without myelopathy or radiculopathy, lumbar region; M54.16 Radiculopathy, lumbar region; M62.830 Muscle spasm of back; F17.210 Nicotine dependence, cigarettes, uncomplicated
CPT/HCPCS: 99214

== ENCOUNTER 2021-06-01 08:04 | Outpatient (CLI) | payer MEDICAID, SELFPAY ==
[2020-04-13 10:55] VITALS: BP 156/100; BMI 27.5
--- NOTE | 2021-06-01 08:22 | MR_ITS ---
WS: [id number] MRI CERVICAL SPINE NONCONTRAST HISTORY: CERVICALGIA COMPARISON: 09/18/2016 Technique: Multiplanar, multisequence noncontrast imaging of the cervical spine. Normal cervical alignment. Disc space narrowing and desiccation most significant at C5-6 and C6-7. Signal within the cervical cord is normal. Visualized posterior fossa is unremarkable. Craniocervical junction, C1 and C2 relationship, odontoid process and soft tissues are normal. C2-C3: Normal. C3-C4: Shallow central disc protrusion with no stenosis. C4-C5: Very small central disc protrusion and mild facet arthritis. No stenosis. C5-C6: Moderate central to LEFT paracentral disc protrusion and osteophytic ridging. Mild bilateral f acet joint arthritis. Very slight encroachment upon the LEFT lateral thecal sac by the disc and osteo phyte with mild LEFT foraminal stenosis. C6-C7: Moderate size central to LEFT paracentral disc protrusion extending into the foramen. Very min imal deformity of the LEFT lateral thecal sac with mild to moderate LEFT foraminal stenosis. C7-T1: Shallow RIGHT paracentral disc protrusion. Paraspinal soft tissue are normal. MR/MR cervical spin wo con* [id number] IMPRESSION: 1. Mild progression of degenerative disc disease since the prior study. 2. Moderate size central to LEFT paracentral disc protrusion at C6-7. Very mil d deformity of the LEFT lateral thecal sac with mild to moderate LEFT foraminal stenosis. Very similar to the prior examination. 3. Central to LEFT paracentral disc protrusion and osteophyte at C5-6 resultin g in mild encroachment upon the LEFT lateral thecal sac and LEFT foraminal sten osis. Mild progression since the prior study. 4. Very small central disc protrusions at C3-4 and C4-5.
== END 2021-06-01 08:05 | disposition home or self-care (01) ==
PROVIDERS: PCP Family Medicine; Visit Provider Nurse Practitioner
DX: M50.21 Other cervical disc displacement, high cervical region (principal)
CPT/HCPCS: 72141

== ENCOUNTER 2021-06-01 08:04 | Outpatient (CLI) | payer MEDICAID, SELFPAY ==
[2020-04-13 10:55] VITALS: BP 156/100; BMI 27.5
--- NOTE | 2021-06-01 08:00 | XR_ITS ---
WS: [id number] CHEST 2 VIEWS HISTORY: PEREZ COMPARISON: 04/17/2020 Lungs: Marked pulmonary hyperexpansion. No pneumonia or nodules. Mild biapical pleural thickening. Cardiac size: Normal. Mediastinum/Aorta: Mild atherosclerosis aorta. Bones: Normal. XR/XR chest 2V* [id number] IMPRESSION: Moderate changes of emphysema. No pneumonia.
--- NOTE | 2021-06-01 08:12 | XR_ITS ---
WS: [id number] LATERAL CERVICAL SPINE: 3 view. Lateral radiographs are performed in upright neutral, flexion and extension to the patient's toleranc e. HISTORY: CERVICALGIA COMPARISON: 03/02/2014 C3 retrolisthesis by 2 mm. During flexion the alignment at C3-4 returns to normal. 2 mm retrolisthesi s on extension. Otherwise the alignment remains normal with no instability. Mild degenerative disc di sease at C5-6. XR/XR cervical spine fl/ex [id number] IMPRESSION: 1. Very mild instability at C3. 2. Mild degenerative disc disease at C5-6.
== END 2021-06-01 08:05 | disposition home or self-care (01) ==
PROVIDERS: PCP Family Medicine; Visit Provider Family Medicine
DX: M53.2X2 Spinal instabilities, cervical region (principal); M50.321 Other cervical disc degeneration at C4-C5 level; R06.09 Other forms of dyspnea; I70.0 Atherosclerosis of aorta; J43.9 Emphysema, unspecified
CPT/HCPCS: 71046; 72040

== ENCOUNTER 2021-06-27 20:00 | Outpatient (CLI) | payer MEDICAID, SELFPAY ==
[2020-04-13 10:55] VITALS: BP 156/100; BMI 27.5
== END 2021-06-27 20:01 | disposition home or self-care (01) ==
LOC: SLEEP 06-28 08:02
PROVIDERS: PCP Family Medicine; Visit Provider Anesthesiology Pain Medicine
DX: G47.33 Obstructive sleep apnea (adult) (pediatric) (principal)
CPT/HCPCS: 95810

== ENCOUNTER → 2021-08-29 00:01 | Outpatient (BNVA) | payer MEDICAID, SELFPAY ==
[2020-04-13 10:55] VITALS: BP 156/100; BMI 27.5
== END ==
PROVIDERS: PCP Physician Assistant; Visit Provider Physician Assistant
DX: Z20.822 Contact with and (suspected) exposure to COVID-19 (principal); M47.22 Other spondylosis with radiculopathy, cervical region
CPT/HCPCS: 80048; 85025; 87635

== ENCOUNTER 2021-09-05 05:22 | Day surgery (SDC) | payer MEDICAID, SELFPAY ==
[2020-04-13 10:55] VITALS: BP 156/100; BMI 27.5
[2021-08-29 11:14] VITALS: BMI 30.1
--- NOTE | 2021-08-29 11:45 | ANES.PREANE2 ---
Pre-Anesthetic Assessment Pre-Anesthetic Assessment: Height/Weight: Height 1.91 m Weight 109.316 kg Preop Diagnosis: neck pain Proposed Procedure: Operation Date: 09/05/21 07:00 Proposed Procedures p Anterior Cervical Discectomy & Fusion C5/6 C6/7 28682(x2) 83583 M47.22(Not Applicable) - Linwood Jiménez DO Familial anesthetic complications: none Social: Social History: Tobacco and No alcohol Exam: Pre-Anes Outpt Exam: alert, oriented x 3, clear to auscultation bilaterally and regular rate & rhythm Airway: MP: 3 Dentition: Other (no teeth) Pulmonary: Pulmonary: COPD, Cough (chronic) and SOB CV/HEM: CV/HEM: HTN GI: GI: GERD Metabolic: Metabolic: Hyperlipidemia Neuropsych: Comments: former ETOH Anesthetic Plan: ASA status: 3 Anesthesia: General Risk of > 500 ml blood loss (7ml/kg in children): No Other Pertinent Information: Patient states he's been having really bad breathing issues, his cough is so bad he nearly blacks out (light headed, metallic taste in mouth, feels like he's suffocating) sometimes after his coughing fits and he's concerned he'll do damage after his neck surgery with how much he coughs, he states he gets short of breath after 2 minutes of any activity and he is complaining about chronic lung pain (L lung) that feels like a nail is stabbing him in front. Unsure how much of this is psychiatric, will refer back to PCP to see if patient needs pulmonary evaluation before surgery. 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, alcohol-related COPD (chronic obstructive pulmonary disease) CVA (cerebral vascular accident) Epistaxis, recurrent GERD (gastroesophageal reflux disease) History of gastric ulcer Hyperlipidemia Peptic ulcer disease Right kidney mass Schizoaffective disorder, depressive type Sleep apnea, obstructive Vitamin B12 deficiency Surgical History No pertinent past surgical history Family History Other Cancer Diabetes Hypertension Social History (Reviewed 07/12/21 @ 12:51 by FRANCO Sherwood Smoking and tobacco status: current every day smoker cigarettes Packs smoked per day: 1 Years cigarettes smoked: 40 Second hand smoke exposure: No Alcohol intake: current Alcohol intake frequency: few times a month Alcohol type: beer Desire information about alcohol rehabilitation?: No Desire information about substance/drug rehabilitation?: No Adopted: No Caregiver/support person: No Lives independently: Yes Household members: none Housing: House Marital status: Number of children: 2 Number of grandchildren: 6 Highest education level completed: 11th Grade service: No Current occupational status: disabled Current occupational exposures/hazards: No Pets and animals: Yes Pets & animals: dog(s) History of recent travel: No Current gender identity: Male Maricarmen/Jain: Yazidism Special maricarmen needs: No Agree to transfusion: Yes Financial difficulty paying for basics: Hard Data Anesthesia Cardiac Studies: No Data to Display
[2021-08-29 11:57] LABS: Basophils # 0.1 10^3/uL (0.0-0.1); Basophils % 0.7 %; Eosinophils # 0.3 10^3/uL (0.0-0.8); Eosinophils % 3.7 %; Hematocrit 47.6 % (42.0-52.0); Hemoglobin 15.5 g/dL (11.7-16.6); Lymphocytes # 1.9 10^3/uL (0.8-4.8); Lymphocytes % 22.9 %; Mean Corpuscular HGB Conc 32.6 g/dL (30.0-36.0); Mean Corpuscular Hemoglobin 30.1 pg (28.0-34.0); Mean Corpuscular Volume 92.4 fl (80-94); Mean Platelet Volume 9.7 fL (7.4-10.4); Monocytes # 0.6 10^3/uL (0.2-0.9); Monocytes % 6.7 %; Neutrophils # 5.54 10^3/uL (1.8-7.7); Neutrophils % 65.5 %; Nucleated Red Blood Cells % 0 %; Platelet Count 347 10^3/cmm (130-400); Red Blood Count 5.15 10^6/uL (4.1-5.3); Red Cell Distribution Width 13.7 % (12.1-15.1); White Blood Count 8.5 10^3/uL (4.0-10.0)
[2021-08-29 12:46] LABS: Anion Gap 19.1 (5-19); Blood Urea Nitrogen 12 mg/dL (8-23); Calcium 8.7 mg/dL (8.5-10.5); Carbon Dioxide 21 mmol/L (22-29); Chloride 101 mmol/L (98-107); Creatinine Clr Calc Pharmacy 149.8832; Glucose 83 mg/dL (65-115); Osmolality Calculated 283 mOsm/kg (285-295); Potassium 4.1 mmol/L (3.5-5.1); Sodium 137 mmol/L (136-145)
[2021-09-05] VITALS (8 sets, daily range): BP systolic 117–158; BP diastolic 83–96; PULSE 70–110; RESP 15–24; TEMP 36.1–36.6; O2SAT 90–98
--- NOTE | 2021-09-05 | SCC_ITS ---
Procedure Done: 1. Anterior diskectomy C5/6 2. Anterior discectomy C6/7 3. corpectomy C6 greater than 50% 4. Insertion of Corpectomy cage C5-C7 5. Instrumentation with anterior plate from C5-C7 6. Use of allograft 7. use of autograft 22.9 seconds of fluoroscopic guidance, for a cumulative dose of 6.79 mGy, was provided to Dr. Jiménez by the radiology department. C-arm images of the cervical spine were saved for the patient's permanent record. YOMAIRA
--- NOTE | 2021-09-05 | XR_ITS ---
WS: [id number] XR cervical spine 3V* [id number] REASON FOR EXAM: Spondylosis, radiculopathy FINDINGS: Anterior plate and screw fixation from C5 to T1. Corpectomy C5-C6 with replacement interbody device. Surgical appliances and cervical spine are in proper position and alignment. XR/XR cervical spine 3V* [id number] IMPRESSION: C6-C7 corpectomy without abnormality.
[2021-09-05] MEDS: sodium chloride 0.9% 1,000 ML 30 ML IV (06:31)
--- NOTE | 2021-09-05 06:34 | P.ANESUD_ITS ---
Pre-Anesthetic Update Pre-Anesthetic Assessment: Date of Surgery/Procedure: 09/05/21 Preop Ariana gnosis: Cervical radiculopathy C6 and C7 Proposed Procedure: Operation Date: 09/05/21 07:00 Proposed Procedures p Anterior Cervical Discectomy & Fusion C5/6 C6/7 99042(x2) 90838 M47.22(Not Applicable) - Linwood Jiménez, DO Any changes to Pre-Anesthetic Assessment?: No Last Intake: Intake Last Liquid Date 09/05/21 Last Liquid Time 04:20 Last Solid Date 09/04/21 Last Solid Time 19:30 Vitals: Temperature 97.9 F 09/05/21 06:09 Temperature Source Temporal Artery S can 09/05/21 06:09 Pulse Rate 70 09/05/21 06:09 Respiratory Rate 16 09/05/21 06:09 Blood Pressure 158/93 09/05/21 06:09 Blood Pressure Criss n 114 09/05/21 06:09 Pulse Oximetry 98 09/05/21 06:09 Oxygen Delivery Me thod 09/05/21 06:09 Exam: Pre-Anes Outpt Exam: alert, oriented x 3, clear to auscultation bilaterally and regular rate & rhythm Cardiac Studies: No Data to Display
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
--- NOTE | 2021-09-05 09:15 | W.PM.OPSUD ---
Surgery/Procedure H&P Update DATE OF PROCEDURE: September 05, 2021 DATE H&P PERFORMED: 07/12/21 H&P UPDATE INFORMATION: I have reviewed H&P completed within last 30 days, I have examined patient prior to procedure and No changes to prior documentation PREOP DIAGNOSIS: Cervical radiculopathy C6 and C7 PLANNED PROCEDURE: Operation Date: 09/05/21 07:00 Proposed Procedures p Anterior Cervical Discectomy & Fusion C5/6 C6/7 75125(o6) 42223 M47.22(Not Applicable) - Linwood Jiménez DO
--- NOTE | 2021-09-05 09:17 | PM.OP ---
Operative Report Date of procedure: September 05, 2021 Pre-op Diagnosis: Cervical radiculopathy C6 and C7 Post-op diagnosis: same Procedure Done: 1. Anterior diskectomy C5/6 2. Anterior discectomy C6/7 3. corpectomy C6 greater than 50% 4. Insertion of Corpectomy cage C5-C7 5. Instrumentation with anterior plate from C5-C7 6. Use of allograft 7. use of autograft Surgeon: Linwood Jiménez Securities Sales Associate: Nino Nickerson Securities Sales Associate: The assistant front office manager, Nino Nickerson, RUTHY was needed for his expertise under the microscope. He was important and necessary throughout the procedure to complete in a safe and timely manner. He assisted with patient positioning prepping and draping tissue retraction suctioning of the operative field protection of the dural sac and tissue closure Anesthesia: General Estimated blood loss (mL): 350 Condition: stable Disposition: PACU Procedure: 1. Anterior diskectomy C5/6 2. Anterior discectomy C6/7 3. corpectomy C6 greater than 50% 4. Insertion of Corpectomy cage C5-C7 5. Instrumentation with anterior plate from C5-C7 6. Use of allograft 7. use of autograft The patient was taken to the operating room, where he underwent general endotracheal anesthesia without complications. He was then positioned supine on the operating table, and all areas of impingement were well padded. The arms were carefully padded and tucked at his sides. A roll was placed between the shoulder blades.. An x-ray was done to determine the appropriate level for the skin incision. The entire neck was then sterilely prepped and draped in the usual fashion. Neuromonitoring was attached prior to prepping. A transverse skin incision was made and carried down to the platysma muscle. This was then split in line with its fibers. Blunt dissection was carried down medial to the carotid sheath and lateral to the trachea and esophagus until the anterior cervical spine was visualized. A needle was placed into a disc and an x-ray was done to determine its location. The longus colli muscles were then elevated bilaterally with the electrocautery unit. Self-retaining retractors were placed deep to the longus colli muscle. Attention was brought to the C5 to C7 level that was confirmed on x-ray. A caspar pin was placed into the C5 vertebrae and the C7 vertebrae. The disk spaces was then distracted. The microscope was then brought in. A radical anterior discectomies were performed at C5/6 and C6/7. This included complete removal of the anterior annulus, nucleus, and posterior annulus. The posterior longitudinal ligament was removed as were the posterior osteophytes. Foraminotomies were then accomplished bilaterally. This was done using a high speed charles, kerrison rongeurs and curretes Once all of this was accomplished, the curved currette was used to check for any residual compression. The central canal was wide open as were the foramen. A high-speed bur was used to remove the cartilaginous endplates C5 inferiorly and superiorly at C7 Bleeding cancellous bone was exposed. The C6 corpectomy was then performed. High speed bur was used to take out the lateral aspect of the C6 vertebrae. The rongeur was used to remove bone. The disc space were identified and curved curette was used to identify the posterior aspect of the vertebrae and then a 2-O Kerrison was used to remove the vertebrae down to the posterior longitudinal ligament. The posterior longitudinal ligament was exposed from the superior aspect of C7 up to the inferior aspect of C5. This was then removed using the Kerrison rongeur dura was exposed from superior aspect of C7 up to the inferior aspect of C5. The space was then irrigated a trial was measured. The appropriate size cage was then inserted the bone graft from the cage was allograft osteoamp as well as some of the bone from the corpectomy. The [place] pins were removed. Bone wax was used to prevent any bleeding from occurring at the pin sites. The appropriate size anterior cervical locking plate was chosen and bent into gentle lordosis. Two screws were then placed into each of the vertebral bodies at C5 and C7. There was excellent purchase. A final x-ray was done confirming good position of the hardware and Cages. The locking screws were then applied, also with excellent purchase. Following a final copious irrigation, there was good hemostasis and no dural leaks. The carotid pulse was strong. The wounds were then closed in layers using 2-0 Vicryl suture for the platysma muscle, 2-0 Vicryl suture for the subcutaneous tissue, and 4-0 monocryl suture in a subcuticular skin closure. Glue was placed followed by application of a sterile dressing. The drain was hooked to bulb suction. A soft collar was applied. The patient was then carefully returned to the supine position on his hospital bed where he was reversed and extubated and taken to the recovery room having tolerated the procedure well.
[2021-09-05] MEDS: oxyCODONE-APAP 10-325 mg Tablet 1 TAB PO (09:47)
--- NOTE | 2021-09-05 14:18 | ANE.PACU2 ---
Inpatient post-anesthesia follow up: Airway intact: Yes Vital signs: Temperature 97.9 F Pulse Rate 94 Respiratory Rate 16 Blood Pressure 134/90 Pulse Oximetry 94 Oxygen Delivery Me thod Room Air Oxygen Flow Rate 8 Fraction of Inspir ed Oxygen Hydration adequate: Yes Nausea and vomiting: No Pain level: 3 Mental status: Baseline
== END 2021-09-05 10:25 | disposition home or self-care (01) ==
PROVIDERS: Anesthesiology; PCP Physician Assistant; Visit Provider Orthopaedic Surgery
PROC: 0RB30ZZ Excision of Cervical Vertebral Disc, Open Approach (ICD-10-PCS; CPT 22551; principal; 2021-09-05 07:00)
PROC: (CPT 20930; 2021-09-05 07:00)
DX: M47.22 Other spondylosis with radiculopathy, cervical region (principal); I10 Essential (primary) hypertension; J44.9 Chronic obstructive pulmonary disease, unspecified; Z86.73 Personal history of transient ischemic attack (TIA), and cerebral infarction without residual deficits; E78.5 Hyperlipidemia, unspecified; Z87.11 Personal history of peptic ulcer disease; F17.210 Nicotine dependence, cigarettes, uncomplicated
CPT/HCPCS: 20930; 20936; 22551; 22552; 22845; 22854 ×3; 63081 ×2; 51702; 72040; 76000; 97760; C1713; C9359; J0330; J0690; J1170; J2704; J3010; J3490; J7030; L0174

== ENCOUNTER → 2021-10-18 14:01 | Outpatient (BNVA) | payer MEDICAID, SELFPAY ==
[2020-04-13 10:55] VITALS: BP 156/100; BMI 27.5
== END ==
PROVIDERS: PCP Physician Assistant; Visit Provider Orthopaedic Surgery
DX: Z48.89 Encounter for other specified surgical aftercare (principal)
CPT/HCPCS: 72040

== ENCOUNTER → 2021-12-06 14:07 | Outpatient (BNVA) | payer MEDICAID, SELFPAY ==
[2020-04-13 10:55] VITALS: BP 156/100; BMI 27.5
== END ==
PROVIDERS: PCP Physician Assistant; Visit Provider Orthopaedic Surgery
DX: Z48.89 Encounter for other specified surgical aftercare (principal); Z47.89 Encounter for other orthopedic aftercare; Z98.890 Other specified postprocedural states; Z98.1 Arthrodesis status
CPT/HCPCS: 72040

== ENCOUNTER 2022-02-05 10:08 | Outpatient (CLI) | payer MEDICAID, SELFPAY ==
[2020-04-13 10:55] VITALS: BP 156/100; BMI 27.5
--- NOTE | 2022-02-05 10:45 | CT_ITS ---
WS: [id number] LDCT LUNG CANCER SCREENING HISTORY: lung screening TECHNIQUE: Axial imaging performed from the apices to 1 cm below the costophrenic angles. Coronal and sagittal reformats are submitted with axial MIP series. All CT scans at [facility] use at least one of these dose optimization techniques: automated exposure control; mA and/or kV adjustment per patient size (includes targeted exams where dose is matched to clinical indication); or iterativ e reconstruction. DLP: 57.6 mg DIvol: 1.6 COMPARISON: 04/22/2020 Diagnostic quality: Satisfactory Lung Nodules: No pulmonary nodules are identified. Benign granuloma at the lingula. Lungs: Hyperinflated lungs from emphysema. Heart: Normal size. Other findings: No adenopathy. Mild atherosclerosis aorta. Normal size pulmonary artery. CT/CT lung screening [id number] IMPRESSION: LUNG-RADS: 1-Negative FOLLOW UP: 12 Month: Continue annual screening with LDCT OTHER FINDINGS (S MODIFIER): None.
== END 2022-02-05 10:09 | disposition home or self-care (01) ==
LOC: RAD 10:13
PROVIDERS: PCP Physician Assistant; Visit Provider Internal Medicine Pulmonary Disease
DX: Z12.2 Encounter for screening for malignant neoplasm of respiratory organs (principal); F17.210 Nicotine dependence, cigarettes, uncomplicated
CPT/HCPCS: 71271

== ENCOUNTER 2022-02-08 08:18 | Outpatient (CLI) | payer MEDICAID, SELFPAY ==
[2020-04-13 10:55] VITALS: BP 156/100; BMI 27.5
--- NOTE | 2022-02-08 | CTR_ITS ---
PROCEDURE INFORMATION: Exam: CT Cervical Spine Without Contrast Exam date and time: 02/08/2022 8:33 AM Age: 61 years old Clinical indication: Pain and injury or trauma; Fall; Blunt trauma; Neck pain; Prior surgery; Surgery type: Cervical; Additional info: Z48.89 - encounter for other specified surgical aftercare TECHNIQUE: Imaging protocol: Computed tomography images of the cervical spine without contrast. Radiation optimization: All CT scans at this facility use at least one of these dose optimization techniques: automated exposure control; mA and/or kV adjustment per patient size (includes targeted exams where dose is matched to clinical indication); or iterative reconstruction. COMPARISON: MR cervical spin wo con* [id number] 06/01/2021 8:29 AM RADIATION DOSE METRICS: Total DLP (mGy-cm): 375.67 FINDINGS: Bones/joints: Corpectomy of the C6 vertebral body and superior aspect of C7, with cage placement, and ACDF hardware overlying the C5-C7 segment. Hardware is intact and in expected alignment. No acute fracture. No malalignment of the spine. Discs/Spinal canal/Neural foramina: No significant disc protrusion. No severe spinal canal stenosis. No significant neural foraminal narrowing. Lungs: Lung apices are normal. Soft tissues: Unremarkable. CT/CT cervical spin wo con* [id number] IMPRESSION: Intact cervical hardware. No acute findings.
== END 2022-02-08 08:19 | disposition home or self-care (01) ==
LOC: RAD 08:19
PROVIDERS: PCP Physician Assistant; Visit Provider Orthopaedic Surgery
DX: Z48.89 Encounter for other specified surgical aftercare (principal)
CPT/HCPCS: 72125

== ENCOUNTER 2022-02-14 07:48 | Outpatient (CLI) | payer MEDICAID, SELFPAY ==
[2020-04-13 10:55] VITALS: BP 156/100; BMI 27.5
[2022-02-14 08:23] VITALS: BMI 31.7
--- NOTE | 2022-02-14 08:29 | ECG_ITS ---
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 Interpretive Statements NAME OF STUDY: DOBUTAMINE SESTAMIBI STRESS TEST INDICATION: [Chest Pain; Shortness of Breath] Procedure: At the baseline, the blood pressure was 128/79 mmHg with a heart rate of 72 bpm. The electrocardiogram showed normal sinus rhythm, normal axis with normal ST and T's. The dobutamine was infused. Target heart rate was 135 bpm. Patient achieved a heart rate of 144 bpm which was 106% of target heart rate. Maximum blood pressure during dobutamine phase was 131/82 mmHg. The EKG at the peak infusion revealed sinus tachycardia with no significant ST-T wave changes. Blood pressure at end of recovery was 144/72 mmHg with a heart rate of 95 bpm. EKG showed occasional PVCs. Conclusion: 1. Normal EKG response to dobutamine infusion 2. No dobutamine induced chest pain or cardiac arrhythmia. 3. Normal blood pressure and heart rate response. 4. Sestamibi/sestamibi perfusion scan pending; see separate report. Electronically Signed On 03-10-2022 23:22:28 CDT by Khurram Hodge M.D. [id number]
--- NOTE | 2022-02-14 08:30 | NMCV_ITS ---
NM dannie perf SPECT r/s* [id number] Costa Alba Age: 61 Gender: M : 1960 Exam Date: 02/14/2022 09:31 Ordering Phys: Pavel Lira MD Technologist: ROWAN Smith Exam Location: [facility] Indications: CHEST PAIN STRESS TEST Please see separate stress test report in [facility] for full findings IMAGE PROTOCOL Rest/Stress 1 Dobutamine Day Radiopharmaceutical Dose (mCi) Administration Site Administered by Rest: Tc-99m 10.9 IV ROWAN Patel Sestamibi Stress:Tc-99m 33.0 IV ROWAN Patel Sestamibi Rest: 14-Feb-2022 60 Discovery 630 Stress: 14-Feb-2022 30 Discovery 630 Radiopharmaceutical was injected at 85 % maximum heart rate. Supine position only as patient was unable to lay prone. SPECT RESULTS Technical Quality: Excellent Raw Data Analysis: Normal Image Corrections: No attenuation or motion correction applied Summed Stress Score: 3 Summed Rest Score: 1 Summed Difference Score: 3 PERFUSION FINDINGS There is a moderate sized, reversible perfusion defect in the apical wall. This is consistent with small sized area of ischemia in the LAD territory FUNCTIONAL RESULTS (calculated via Gated SPECT) Stress Image LV EF (%): 55 Stress EDV (mL):130 TID: 1.23 Stress ESV (mL):59 FUNCTIONAL FINDINGS: There is normal left ventricular systolic function. Elevated TID ratio at 1.23 IMPRESSIONS 1. Abnormal myocardial perfusion imaging with moderate sized area of ischemia in the LAD territory 2. LV systolic function is normal 3. Elevated TID ratio may indicate multivessel coronary artery disease Khurram Hodge MD (Electronically Signed) Final Date: 17 Feb 2022 21:06 S
[2022-02-14] MEDS: DOBUTtamine 200 MG in sodium chloride 0.9% 34 ML 17 MG IV (10:07)
[2022-02-14] MEDS: atropine 0.1 mg/mL Syr 10 mL 0.5 MG IVP (10:14)
[2022-02-14] MEDS: metoprolol tartrate 1 mg/1 mL SDV 5 mL 5 MG IV (10:20)
[2022-02-14 10:32] VITALS: BP 144/75; PULSE 93
== END 2022-02-14 07:49 | disposition home or self-care (01) ==
LOC: CDL 07:50
PROVIDERS: PCP Physician Assistant; Visit Provider Internal Medicine Pulmonary Disease
DX: R07.9 Chest pain, unspecified (principal); R06.02 Shortness of breath
CPT/HCPCS: 78452; 93017; A9500; J0461; J1250; J3490; J7050

== ENCOUNTER 2022-02-23 18:34 | Observation (INO) | payer MEDICAID, SELFPAY ==
[2020-04-13 10:55] VITALS: BP 156/100; BMI 27.5
[2022-02-23] VITALS (10 sets, daily range): BP systolic 98–135; BP diastolic 52–93; PULSE 63–88; RESP 14–20; TEMP 36.4–36.5; O2SAT 93–96; BMI 31.8; BMI 31.1
--- NOTE | 2022-02-23 19:09 | ECG_ITS ---
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 Measurements Intervals [place] Rate: 92 P: 77 NV: 178 QRS: 69 QRSD: 105 T: 76 QT: 347 QTc: 431 Interpretive Statements SINUS RHYTHM Compared to ECG 05/02/2020 05:57:11 No significant changes Electronically Signed On 02-24-2022 9:21:42 CDT by Jackson Robin M.D. [email or web address]/store/[id number] f
--- NOTE | 2022-02-23 19:09 | XRR_ITS ---
PROCEDURE INFORMATION: Exam: XR Chest Exam date and time: 02/23/2022 7:21 PM Age: 61 years old Clinical indication: Pain; Chest pressure; Additional info: Cp TECHNIQUE: Imaging protocol: XR of the chest. Views: 1 view. COMPARISON: CR XR chest 2V* [id number] 06/01/2021 8:18 AM FINDINGS: Lungs: Unchanged hyperinflation/COPD with linear scar left lung base. The pulmonary vascularity is within normal limits. No consolidation. Pleural spaces: Unremarkable. No pleural effusion. No pneumothorax. Heart/Mediastinum: Unremarkable. No cardiomegaly. Bones/joints: No acute abnormality. Unchanged old right clavicle fracture and postoperative changes in the cervical spine. XR/XR chest 1V portable [id number] IMPRESSION: No acute findings.
[2022-02-23 19:15] LABS: Basophils % 0.4 %; Eosinophils # 0.2 10^3/uL (0.0-0.8); Eosinophils % 2.8 %; Hematocrit 43.8 % (42.0-52.0); Hemoglobin 14.9 g/dL (11.7-16.6); Lymphocytes # 2.4 10^3/uL (0.8-4.8); Mean Corpuscular Hemoglobin 30.4 pg (28.0-34.0); Mean Corpuscular Volume 89.4 fl (80-94); Mean Platelet Volume 9.4 fL (7.4-10.4); Monocytes # 0.7 10^3/uL (0.2-0.9); Monocytes % 9.7 %; Neutrophils # 3.51 10^3/uL (1.8-7.7); Neutrophils % 51.5 %; Nucleated Red Blood Cells % 0 %; Platelet Count 331 10^3/cmm (130-400); Red Cell Distribution Width 13.4 % (12.1-15.1); White Blood Count 6.8 10^3/uL (4.0-10.0)
[2022-02-23 19:35] LABS: Troponin(5th) Baseline 14 ng/L (0-15)
[2022-02-23 19:39] LABS: Alanine Aminotransferase 32 U/L (0-41); Albumin Level 4.8 g/dL (3.5-5.2); Alcohol Level 173 mg/dL (0-10); Alkaline Phosphatase 74 IU/L (40-130); Anion Gap 19.6 (5-19); Aspartate Amino Transferase 21 U/L (0-40); Blood Urea Nitrogen 7 mg/dL (8-23); Calcium 9.3 mg/dL (8.5-10.5); Carbon Dioxide 21 mmol/L (22-29); Chloride 91 mmol/L (98-107); Creatine Phosphokinase 98 U/L (39-308); Globulin 2.4 g/dL (1.3-4.6); Glomerular Filtration Rate 98.3 mL/min (90-130); Glucose 89 mg/dL (65-115); Lipase 29 U/L (13-60); NT Pro B Type Natriuretic Pept 5 pg/mL (0-125); Osmolality Calculated 263 mOsm/kg (285-295); Potassium 3.6 mmol/L (3.5-5.1); Sodium 128 mmol/L (136-145); Total Bilirubin 0.3 mg/dL (0.15-1.2); Total Protein 7.2 g/dL (6.6-8.7)
[2022-02-23] MEDS: sodium chloride 0.9% 1,000 ML 999 ML IV (19:45)
[2022-02-23 19:48] LABS: INR 0.86 (0.8-1.2)
[2022-02-23 19:49] LABS: Partial Thromboplastin Time 29.1 SECONDS (23.9-36.7)
--- NOTE | 2022-02-23 19:56 | PC.NURSE ---
Patient keeps attempting to sit at end of bed. Explained that he could tip the bed. Told him that I would put a bedrail down, but he refused to allow it. Stating he will definitely would fall with the bedrail down. Explained he needed to stay up in the bed then. Found him sitting at end of bed again. Re-educated him not to do that. He verbally stated that he had to change positions.
[2022-02-23] MEDS: morphine 4 mg/mL SDV 1 mL IVP (20:15)
[2022-02-23] MEDS: ondansetron 2 mg/ML SDV 2 mL 4 MG IVP (20:16)
--- NOTE | 2022-02-23 20:26 | PC.NURSE ---
Gave morphine to patient slowly. He started becoming uncomfortable, hollering out God Juanito stating it was causing cramping through out body. Started breating more frequently, got to the end of the bed and curled into a ball. Cursing constantly. Asked him if he wanted to make it an allergy to the medication. He stated no he did not want to.
--- NOTE | 2022-02-23 21:09 | ECG_ITS ---
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 Measurements Intervals [place] Rate: 80 P: 70 DC: 173 QRS: 57 QRSD: 106 T: 73 QT: 385 QTc: 445 Interpretive Statements SINUS RHYTHM SEPTAL MYOCARDIAL INFARCTION , OF INDETERMINATE AGE [40+ ms Q WAVE IN V1/V2] Compared to ECG 02/23/2022 18:45:51 Myocardial infarct finding now present Electronically Signed On 02-24-2022 9:27:26 CDT by Jackson Robin M.D. [id number]
[2022-02-23 21:47] LABS: Troponin 5 2HR 9.56 ng/L (0-15)
[2022-02-23 21:48] LABS: Troponin 5 2HR Delta -4.44 ABS# (0-10)
--- NOTE | 2022-02-23 22:55 | PM.HP ---
Providers/Chief Complaint Admitting Physician: Camden Anderson MD Primary Care Provider: Le Quevedo Chief Complaint: CHEST PAIN/WEAKNESS/SYNCOPE History of Present Illness Costa Alba is a 61 year old male with a past medical history of positive stress test, complaints of chest pain, COPD, cervical disc disease, smoker, who presents to [facility] due to shortness of breath, fatigue, malaise, chest pain. Patient tells me that he recently saw cardiology had a stress test which was positive, since then has been worried. He has been experiencing increased shortness of breath at rest and with exertion. He has been experiencing fatigue, malaise. Also experiencing intermittent chest discomfort. He tells that he want to come the emergency room tonight because he was experiencing increased shortness of breath and chest tightness, and he did not want to be home alone by himself. His blood alcohol level was 173, he admits to drinking 4-5 beers, no history of alcohol withdrawals, no history of blacking out, no history of withdrawal seizures. Currently he is alert to person, place, to time, he frequently falls asleep, is intoxicated arousable but frequently falls asleep Review of Systems Const: Denies: fever(s) Card: Reports: chest pain Resp: Reports: dyspnea Medications/Allergies Home Medications Medication Instructions Recorded Confirmed Last Taken Type albuterol sulfate 90 mcg/actuation 2 puff INHALATION Q6H PRN #3 g 04/26/21 10/01/21 09/04/21 Rx aerosol inhaler tiotropium bromide 18 mcg capsule See Rx Instructions .ROUTE 07/09/21 10/01/21 Unknown Rx with inhalation device (Spiriva .COMPLEX #30 each with HandiHaler) cyanocobalamin (vitamin B-12) See Rx Instructions .ROUTE 09/02/21 10/01/21 Unknown Rx 1,000 mcg/mL injection solution .COMPLEX #1 ml triamcinolone acetonide 0.1 % 1 applic TOPICAL BID 28 Days #30 g 09/03/21 09/05/21 09/01/21 Rx topical cream folic acid 1 mg tablet 1 mg PO DAILY #90 tab 09/04/21 10/01/21 09/04/21 Rx losartan 50 mg tablet 50 mg PO DAILY #90 tab 09/04/21 10/01/21 09/04/21 Rx simvastatin 20 mg tablet (Zocor) 20 mg PO BEDTIME #90 tab 09/04/21 10/01/21 09/04/21 Rx budesonide 160 mcg-glycopyr 9 2 inh INHALATION BID #10.7 g 10/02/21 10/02/21 Unknown Rx mcg-formot 4.8 mcg/actuation HFA inhaler (Breztri Aerosphere) budesonide-formoterol HFA 160 See Rx Instructions .ROUTE 11/27/21 Unknown Rx mcg-4.5 mcg/actuation aerosol .COMPLEX #10.2 each inhaler (Symbicort) amlodipine 10 mg tablet See Rx Instructions .ROUTE 02/04/22 Unknown Rx .COMPLEX #30 tablet omeprazole 40 mg capsule,delayed See Rx Instructions .ROUTE 02/13/22 Unknown Rx release .COMPLEX #60 cap Allergies Allergy/AdvReac Type Severity Reaction Status Date / Time No Known Allergies Allergy Verified 12/06/21 14:07 PFSH Acute PFSH: Medical History (Updated 02/23/22 @ 22:58 by Camden Anderson MD) Alcohol use disorder Alcoholic peripheral neuropathy Benign essential hypertension 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, alcohol-related COPD (chronic obstructive pulmonary disease) CVA (cerebral vascular accident) Epistaxis, recurrent GERD (gastroesophageal reflux disease) History of gastric ulcer Hyperlipidemia Peptic ulcer disease Right kidney mass Schizoaffective disorder, depressive type Sleep apnea, obstructive Vitamin B12 deficiency Surgical History No pertinent past surgical history Family History Other Cancer Diabetes Hypertension Social History Smoking and tobacco status: current every day smoker cigarettes Packs smoked per day: 1 Years cigarettes smoked: 40 Second hand smoke exposure: No Alcohol intake: current Alcohol intake frequency: few times a month Alcohol type: beer Desire information about alcohol rehabilitation?: No Desire information about substance/drug rehabilitation?: No Adopted: No Caregiver/support person: No Lives independently: Yes Household members: none Housing: House Marital status: Number of children: 2 Number of grandchildren: 6 Highest education level completed: 11th Grade service: No Current occupational status: disabled Current occupational exposures/hazards: No Pets and animals: Yes Pets & animals: dog(s) History of recent travel: No Current gender identity: Male Maricarmen/Islam: Gnosticist Special maricarmen needs: No Agree to transfusion: Yes Financial difficulty paying for basics: Hard Vitals/I&O/Wt Last Vital Signs Temp 97.7 F 02/23/22 19:08 Pulse 63 02/23/22 22:30 Resp 14 02/23/22 22:30 BP 100/58 02/23/22 22:30 Pulse Ox 94 02/23/22 22:30 Weight last 48 hrs Weight 112.491 kg Physical Exam Const: COMMON NORMALS: no acute distress and patient oriented x3 OTHER: Intoxicated, falls asleep, HENMT: COMMON NORMALS: normocephalic HEAD & SCALP: normocephalic Resp: COMMON NORMALS: normal respiratory effort, No retractions, No use of accessory muscles and clear to auscultation bilaterally AUSCULTATION: clear to auscultation bilaterally Cardio: COMMON NORMALS: no JVD, regular rate, regular rhythm, S1 normal heart sound present and S2 normal heart sound present RATE: regular rate RHYTHM: regular rhythm HEART SOUNDS: S1 normal heart sound present and S2 normal heart sound present GI: COMMON NORMALS: Normal to inspection, nondistended, normoactive bowel sounds present, Soft to palpation, non-tender, No hepatosplenomegaly present, no masses and no bruits PALPATION: Yes Soft to palpation and Yes No hepatosplenomegaly present Extremity: COMMON NORMALS: capillary refill normal, no clubbing, cyanosis or edema, no calf tenderness and no pedal edema Neuro: COMMON NORMALS: patient oriented x3 OTHER: Difficult to do neurologic testing as patient becomes irritable Data : 02/23/22 19:00 02/23/22 19:00 A&P Assessment and plan (1) Chest pain: Status: Acute (2) Alcohol intoxication: Status: Acute Plan Chest pain -Serial EKGs, serial troponins, telemetry monitoring -Aspirin, statin, Coreg -Monitor for chest pain -Cardiac echo -Cardiac stress test -?1. Abnormal myocardial perfusion imaging with moderate sized area of ischemia ?in the LAD territory ?2. LV systolic function is normal ?3. Elevated TID ratio may indicate? 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
[2022-02-24] VITALS (9 sets, daily range): BP systolic 100–120; BP diastolic 65–80; PULSE 73–82; RESP 12–28; TEMP 36.4–37; O2SAT 93–97
--- NOTE | 2022-02-24 00:12 | PC.NURSE ---
ADMIT NOTE Pt received to floor from ER at 2345. Is anxious. c/o long history of chest pain/pressure, weakness and SOB but says it keeps getting worse all the time lilli since his last stress test. Says he cannot do anything anymore. Reports has been told he needs stents placed but nothing set up yet. Says has numbness in left arm sometimes when he lays on that side. thai masseur applied and is showing SR. Smells of ETOH. Tells me he does not drink everyday and always just drinks beer. Sometimes I go long periods without anything to drink Says is his stress reliever . c/o being hungry and given sandwiches. Waiting meds from pharmacy to start. RN to complete admission assessment
[2022-02-24 00:18] LABS: Estmated Average Glucose 108; Hemoglobin A1C 5.4 % (4.0-6.0)
[2022-02-24 00:20] LABS: Chol HDL Ratio 2.58 mg/dL (1.0-5.00); Cholesterol 62 mg/dL (0-200); HDL Cholesterol 24 mg/dL (60-100); LDL Cholesterol Calculated 27 mg/dL (50-129); LDL HDL Ratio 1.13 RATIO (0.00-3.22); Thyroid Stimulating Hormone 0.68 uIU/mL (0.27-4.20); Triglycerides 54 mg/dL (0-150)
--- NOTE | 2022-02-24 00:22 | USCV_ITS ---
Costa Alba Age: 61 Gender: M : 1960 Exam Date: 02/24/2022 09:28 Ordering Phys: Camden Anderson MD Technologist: Alyssa Arceo Exam Location: [facility] [place] Indication: Chest Pain with SOB and Coughing BP: 119 / 75 HR: 79 Rhythm: Sinus Technical Quality: Adequate MEASUREMENTS (Male / Female) Normal Values 2D ECHO LV Diastolic Diameter PLAX 4.6 cm 4.2 - 5.9 / 3.9 - 5.3 cm LV Systolic Diameter PLAX 3.2 cm LV Chamber Size 3.3 cm IVS Diastolic Thickness 1.2 cm 0.6 - 1.0 / 0.6 - 0.9 cm IVS Systolic Thickness 1.1 cm LVPW Diastolic Thickness 1.4 cm 0.6 - 1.0 / 0.6 - 0.9 cm LVPW Systolic Thickness 1.7 cm RV Chamber Size 2.3 cm LVOT Diameter 2.0 cm LV Ejection Fraction 2D Teich 58.9 % LV Ejection Fraction MOD 2C 70.2 % LV Ejection Fraction 2C AL 69.1 % LA Diameter 3.8 cm LA Width 3.4 cm LA Height 5.2 cm RA Width 3.3 cm RA Height 4.1 cm Aorta at Sinotubular Diameter 2.9 cm IVC Diameter 2.6 cm M-MODE Aortic Annulus Diameter 2.7 cm LA Ao Ratio MM 1.6 MV E Point Septal Separation 0.5 cm DOPPLER AV Peak Velocity 158.0 cm/s LVOT Peak Velocity 108.0 cm/s AV Area Cont Eq vti 2.1 cm squared AV Area Cont Eq pk 2.2 cm squared MV Area PHT 3.9 cm squared Mitral E to A Ratio 1.4 MV E' Velocity 59.0 cm/s Mitral E to MV E' Ratio 9.8 Mitral E to LV E' Lateral Ratio 10.7 Mitral E to LV E' Septal Ratio 9.1 TR Peak Velocity 240.1 cm/s TR Peak Gradient 23.1 mmHg TR Mean Velocity 201.9 cm/s TR Mean Gradient 17.3 mmHg TR Velocity Time Integral 62.3 cm TV Peak E Velocity 79.0 cm/s Right Atrial Pressure 15.0 mmHg Pulmonary Artery Systolic Pressu 38.1 mmHg PV Peak Velocity 81.0 cm/s RV Acceleration Time 0.1 s RV Ejection Time 0.3 s RV AcT/ET 0.5 FINDINGS Left Ventricle Normal left ventricular size, systolic function and wall thickness, with no regional wall motion abnormalities. Normal diastolic function. Left ventricular ejection fraction is estimated at 65 %. Right Ventricle Normal right ventricular size and systolic function. Mild pulmonary hypertension, RVSP 38.1 mmHg. Right Atrium The right atrium is normal in size. Left Atrium The left atrium is normal in size. Mitral Valve Structurally normal mitral valve without significant stenosis or prolapse. There is no mitral regurgitation. Aortic Valve Structurally normal aortic valve without significant sclerosis or stenosis. There is no aortic regurgitation. Tricuspid Valve Structurally normal tricuspid valve. Trace tricuspid valve regurgitation. Pulmonic Valve Pulmonic valve not well visualized. Pericardium Normal pericardium without effusion. Aorta Normal ascending aorta dimension. IVC The inferior vena cava pulmonary and hepatic veins appear normal. CONCLUSIONS Normal left ventricular size, systolic function and wall thickness, with no regional wall motion abnormalities. Normal diastolic function. Left ventricular ejection fraction is estimated at 65 %. Normal right ventricular size and systolic function. Mild pulmonary hypertension, RVSP 38.[address] Jackson Robin MD (Electronically Signed) Final Date: 25 February 2022 09:11 S
[2022-02-24] MEDS: enoxaparin 40 mg/0.4 mL Syringe SUBCUT (00:55)
[2022-02-24] MEDS: aspirin 325 mg EC Tablet PO (00:55)
[2022-02-24] MEDS: pantoprazole 40 mg SDV IVP (00:58)
[2022-02-24] MEDS: folic acid 1 MG, multivitamin inj 10 ML, thiamine 100 MG in sodium chloride 0.9% 1,000 ML 252.8 MG IV (01:00)
--- NOTE | 2022-02-24 01:09 | ECG_ITS ---
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 Measurements Intervals [place] Rate: 75 P: 67 [place]: 170 QRS: 46 QRSD: 102 T: 71 QT: 373 QTc: 419 Interpretive Statements SINUS RHYTHM Compared to ECG 02/23/2022 21:06:52 Myocardial infarct finding no longer present Electronically Signed On 02-24-2022 9:29:17 CDT by Jackson Robin M.D. [id number]
[2022-02-24 01:43] LABS: Basophils % 0.6 %; Eosinophils # 0.2 10^3/uL (0.0-0.8); Eosinophils % 4.3 %; Hematocrit 41.1 % (42.0-52.0); Hemoglobin 13.6 g/dL (11.7-16.6); Lymphocytes # 2.2 10^3/uL (0.8-4.8); Lymphocytes % 41.1 %; Mean Corpuscular HGB Conc 33.1 g/dL (30.0-36.0); Mean Corpuscular Hemoglobin 29.9 pg (28.0-34.0); Mean Corpuscular Volume 90.3 fl (80-94); Mean Platelet Volume 9.4 fL (7.4-10.4); Monocytes # 0.6 10^3/uL (0.2-0.9); Monocytes % 11.1 %; Neutrophils # 2.25 10^3/uL (1.8-7.7); Neutrophils % 42.3 %; Nucleated Red Blood Cells % 0 %; Platelet Count 294 10^3/cmm (130-400); Red Blood Count 4.55 10^6/uL (4.1-5.3); Red Cell Distribution Width 13.7 % (12.1-15.1); White Blood Count 5.3 10^3/uL (4.0-10.0)
[2022-02-24 02:01] LABS: Troponin 5 6HR 15.96 ng/L (0-15)
[2022-02-24 02:03] LABS: Troponin 5 6HR Delta 1.96 ng/L (0-12)
[2022-02-24 02:05] LABS: Alanine Aminotransferase 28 U/L (0-41); Alkaline Phosphatase 68 IU/L (40-130); Anion Gap 16.2 (5-19); Aspartate Amino Transferase 18 U/L (0-40); Blood Urea Nitrogen 6 mg/dL (8-23); Calcium 8.3 mg/dL (8.5-10.5); Carbon Dioxide 21 mmol/L (22-29); Chloride 101 mmol/L (98-107); Globulin 2.2 g/dL (1.3-4.6); Glomerular Filtration Rate 85.8 mL/min (90-130); Glucose 101 mg/dL (65-115); Magnesium 1.7 mg/dL (1.7-2.3); Osmolality Calculated 278 mOsm/kg (285-295); Phosphorus 3.8 mg/dL (2.5-4.5); Potassium 3.2 mmol/L (3.5-5.1); Sodium 135 mmol/L (136-145); Total Bilirubin 0.3 mg/dL (0.15-1.2); Total Protein 6.2 g/dL (6.6-8.7)
[2022-02-24 02:15] LABS: NT Pro B Type Natriuretic Pept 5 pg/mL (0-125)
[2022-02-24] MEDS: amlodipine 10 mg Tablet PO (09:23)
[2022-02-24] MEDS: losartan 50 mg Tablet PO (09:23)
[2022-02-24] MEDS: folic acid 1 mg Tablet PO (09:24)
[2022-02-24] MEDS: aspirin 81 mg EC Tablet PO (09:24)
[2022-02-24] MEDS: thiamine 100 mg Tablet PO (09:24)
[2022-02-24] MEDS: carvedilol 3.125 mg Tablet PO (09:24)
[2022-02-24] MEDS: multivitamin therapeutic Tablet 1 TAB PO (09:24)
--- NOTE | 2022-02-24 12:54 | PM.DCS ---
Discharge Providers Date of Admission: 02/23/22 23:48 Date of Discharge: February 24, 2022 Attending Provider at Admission: Camden Anderson MD Attending Provider at Discharge: Prabhjot Jacobsen MD Primary Care Provider: Le Quevedo Diagnoses at Discharge Discharge Diagnosis (1) Chest pain: Status: Acute (2) Alcohol intoxication: Status: Acute Reason for Visit Reason for Visit: CHEST PAIN/WEAKNESS/SYNCOPE Brief History: History as per HPI: Costa Alba is a 61 year old male with a past medical history of positive stress test, complaints of chest pain, COPD, cervical disc disease, smoker, who presents to [facility] due to shortness of breath, fatigue, malaise, chest pain.? Patient tells me that he recently saw cardiology had a stress test which was positive, since then has been worried.? He has been experiencing increased shortness of breath at rest and with exertion.? He has been experiencing fatigue, malaise.? Also experiencing intermittent chest discomfort.? He tells that he want to come the emergency room tonight because he was experiencing increased shortness of breath and chest tightness, and he did not want to be home alone by himself.? His blood alcohol level was 173, he admits to drinking 4-5 beers, no history of alcohol withdrawals, no history of blacking out, no history of withdrawal seizures. Hospital Course Hospital Course Patient was admitted under observation for further evaluation and management of possible chest pain. Next morning patient did not have any further symptoms. He states he was feeling nervous at home since the results of his stress test. He denies having any nausea vomiting, headache. Patient's troponin cycle during hospitalization remain negative and EKG was negative for any acute ischemia. During hospitalization patient was found to have mildly elevated blood pressure for which his antihypertensives were adjusted. Patient's care were discussed in detail with cardiology on-call. As patient troponin cycled were negative and EKG was negative for acute ischemia without any active chest pain he was advised to follow-up with cardiology as an outpatient for possible cardiac angiography and PCI as needed. Cardiac echocardiogram was done and the results are awaited. He has been discharged hemodynamically stable condition on adjusted cardiac medications with advised to follow-up with cardiology within next 1 week. Physical Exam Const: COMMON NORMALS: no acute distress and patient oriented x3 HENMT: COMMON NORMALS: normocephalic HEAD & SCALP: normocephalic Neck/C-Spine: COMMON NORMALS: no JVD Resp: COMMON NORMALS: normal respiratory effort, No retractions, No use of accessory muscles and clear to auscultation bilaterally AUSCULTATION: clear to auscultation bilaterally Cardio: COMMON NORMALS: no JVD, regular rate, regular rhythm, S1 normal heart sound present and S2 normal heart sound present RATE: regular rate RHYTHM: regular rhythm HEART SOUNDS: S1 normal heart sound present and S2 normal heart sound present GI: COMMON NORMALS: Normal to inspection, nondistended, normoactive bowel sounds present, Soft to palpation, non-tender, No hepatosplenomegaly present, no masses and no bruits PALPATION: Yes Soft to palpation and Yes No hepatosplenomegaly present Extremity: COMMON NORMALS: capillary refill normal, no clubbing, cyanosis or edema, no calf tenderness and no pedal edema Neuro: COMMON NORMALS: patient oriented x3 Discharge Data Studies Completed and Pending Completed Studies During Hospitalization Category Date Time Status XR chest 1V portable [id number] Stat Exams 02/23/22 19:09 Completed Pending at discharge Category Date Time Status Complete Blood Count w/Auto AM LABS Lab 02/25/22 04:00 Ordered Complete Blood Count w/Auto AM LABS Lab 02/26/22 04:00 Ordered Comprehensive Metabolic Panel AM LABS Lab 02/25/22 04:00 Ordered Comprehensive Metabolic Panel AM LABS Lab 02/26/22 04:00 Ordered Magnesium AM LABS Lab 02/25/22 04:00 Ordered Magnesium AM LABS Lab 02/26/22 04:00 Ordered NT Pro B Type Natriuretic Pept QAM Lab 02/25/22 06:00 Ordered NT Pro B Type Natriuretic Pept QAM Lab 02/26/22 06:00 Ordered Phosphorus AM LABS Lab 02/25/22 04:00 Ordered Phosphorus AM LABS Lab 02/26/22 04:00 Ordered CV. echo complete* [id number] Routine Ultrasound 02/24/22 00:22 Taken Radiology Impressions Chest X-Ray 02/23/22 19:09 IMPRESSION: No acute findings. Laboratory Results WBC 5.3 10^3/uL (4.0-10.0) 02/24/22 01:34 RBC 4.55 10^6/uL (4.1-5.3) 02/24/22 01:34 Hgb 13.6 g/dL (11.7-16.6) 02/24/22 01:34 Hct 41.1 % (42.0-52.0) L 02/24/22 01:34 MCV 90.3 fl (80-94) 02/24/22 01:34 MCH 29.9 pg (28.0-34.0) 02/24/22 01:34 MCHC 33.1 g/dL (30.0-36.0) 02/24/22 01:34 RDW 13.7 % (12.1-15.1) 02/24/22 01:34 Plt Count 294 10^3/cmm (130-400) 02/24/22 01:34 MPV 9.4 fL (7.4-10.4) 02/24/22 01:34 Neut % (Auto) 42.3 % 02/24/22 01:34 Lymph % (Auto) 41.1 % 02/24/22 01:34 Brantley % (Auto) 11.1 % 02/24/22 01:34 Eos % (Auto) 4.3 % 02/24/22 01:34 Baso % (Auto) 0.6 % 02/24/22 01:34 Neut # (Auto) 2.25 10^3/uL (1.8-7.7) 02/24/22 01:34 Lymph # (Auto) 2.2 10^3/uL (0.8-4.8) 02/24/22 01:34 Brantley # (Auto) 0.6 10^3/uL (0.2-0.9) 02/24/22 01:34 Eos # (Auto) 0.2 10^3/uL (0.0-0.8) 02/24/22 01:34 Baso # (Auto) 0.0 10^3/uL (0.0-0.1) 02/24/22 01:34 Nucleated RBC % (auto) 0 % 02/24/22 01:34 Nucleated RBCs # 0.0 /100WBC 02/24/22 01:34 PT 12.00 SECONDS (12.1-14.9) L 02/23/22 19:25 INR 0.86 (0.8-1.2) 02/23/22 19:25 APTT 29.1 SECONDS (23.9-36.7) 02/23/22 19:25 Sodium 135 mmol/L (136-145) L 02/24/22 01:34 Potassium 3.2 mmol/L (3.5-5.1) L 02/24/22 01:34 Chloride 101 mmol/L (98-107) 02/24/22 01:34 Carbon Dioxide 21 mmol/L (22-29) L 02/24/22 01:34 Anion Gap 16.2 (5-19) 02/24/22 01:34 BUN 6 mg/dL (8-23) L 02/24/22 01:34 Creatinine 0.9 mg/dL (0.7-1.2) 02/24/22 01:34 GFR Calculation 85.8 mL/min (90-130) L 02/24/22 01:34 Glucose 101 mg/dL (65-115) 02/24/22 01:34 Estimat Average Glucose 108 02/23/22 19:00 Hemoglobin A1c 5.4 % (4.0-6.0) 02/23/22 19:00 Calculated Osmolality 278 mOsm/kg (285-295) L 02/24/22 01:34 Calcium 8.3 mg/dL (8.5-10.5) L 02/24/22 01:34 Phosphorus 3.8 mg/dL (2.5-4.5) 02/24/22 01:34 Magnesium 1.7 mg/dL (1.7-2.3) 02/24/22 01:34 Total Bilirubin 0.3 mg/dL (0.15-1.2) 02/24/22 01:34 AST 18 U/L (0-40) 02/24/22 01:34 ALT 28 U/L (0-41) 02/24/22 01:34 Alkaline Phosphatase 68 IU/L (40-130) 02/24/22 01:34 Creatine Kinase 98 U/L (39-308) 02/23/22 19:00 Troponin T Baseline 14 ng/L (0-15) 02/23/22 19:00 Troponin T 120 Minute 9.56 ng/L (0-15) 02/23/22 21:10 Delta Troponin T -4.44 ABS# (0-10) L 02/23/22 21:10 Troponin T Hi Sens 6Hr 15.96 ng/L (0-15) H 02/24/22 01:34 Troponin T Hi Sens 6Hr Delta 1.96 ng/L (0-12) 02/24/22 01:34 NT-Pro-B Natriuret Pep 5 pg/mL (0-125) 02/24/22 01:34 Total Protein 6.2 g/dL (6.6-8.7) L 02/24/22 01:34 Albumin 4.0 g/dL (3.5-5.2) 02/24/22 01:34 Globulin 2.2 g/dL (1.3-4.6) 02/24/22 01:34 Triglycerides 54 mg/dL (0-150) 02/23/22 21:10 Cholesterol 62 mg/dL (0-200) 02/23/22 21:10 LDL Cholesterol, Calc 27 mg/dL (50-129) L 02/23/22 21:10 HDL Cholesterol 24 mg/dL (60-100) L 02/23/22 21:10 LDL/HDL Ratio 1.13 RATIO (0.00-3.22) 02/23/22 21:10 Cholesterol/HDL Ratio 2.58 mg/dL (1.0-5.00) 02/23/22 21:10 Lipase 29 U/L (13-60) 02/23/22 19:00 TSH 0.68 uIU/mL (0.27-4.20) 02/23/22 21:10 Ethyl Alcohol 173 mg/dL (0-10) H 02/23/22 19:00 Vitals Last Vital Signs Temp 98.0 F 02/24/22 11:55 Pulse 78 02/24/22 11:55 Resp 16 02/24/22 11:55 BP 100/73 02/24/22 11:55 Pulse Ox 97 02/24/22 11:55 Discharge Plan Discharge Patient Disposition: Home Condition: Stable Prescriptions: New aspirin 81 mg Tablet,Delayed Release (Dr/Ec) 81 mg PO DAILY 30 Days 0RF carvedilol 3.125 mg Tablet 3.125 mg PO BID Qty: 60 0RF multivitamin with folic acid [Thera] 400 mcg Tablet 1 tab PO DAILY Qty: 30 0RF Continued Breztri Aerosphere 160-9-4.8 mcg/actuation HFA aerosol inhaler 2 inh inhalation BID Qty: 10.7 3RF albuterol sulfate 90 mcg/actuation HFA aerosol inhaler 2 puff INHALATION Q6H PRN (Reason: Shortness Of Breath) Qty: 3 3RF Spiriva with HandiHaler 18 mcg capsule, w/inhalation device See Rx Instructions .ROUTE .COMPLEX Qty: 30 1RF Dose Instruction: INHALE THE CONTENTS OF 1 CAPSULE BY MOUTH DAILY Rx Instructions: INHALE THE CONTENTS OF 1 CAPSULE BY MOUTH DAILY cyanocobalamin (vitamin B-12) 1,000 mcg/mL solution See Rx Instructions .ROUTE .COMPLEX Qty: 1 0RF Dose Instruction: INJECT 1ML (1,000MG) INTRAMUSCULARLY EVERY MONTH Rx Instructions: INJECT 1ML (1,000MG) INTRAMUSCULARLY EVERY MONTH triamcinolone acetonide 0.1 % cream 1 applic topical BID 28 Days Qty: 30 5RF Rx Instructions: Apply to right hand bid folic acid 1 mg tablet 1 mg PO DAILY Qty: 90 1RF losartan 50 mg tablet 50 mg PO DAILY Qty: 90 1RF simvastatin [Zocor] 20 mg tablet 20 mg PO BEDTIME Qty: 90 1RF budesonide-formoterol [Symbicort] 160-4.5 mcg/actuation HFA aerosol inhaler See Rx Instructions .ROUTE .COMPLEX Qty: 10.2 3RF Dose Instruction: TAKE 1 PUFF BY MOUTH TWICE A DAY Rx Instructions: TAKE 1 PUFF BY MOUTH TWICE A DAY amlodipine 10 mg tablet See Rx Instructions .ROUTE .COMPLEX Qty: 30 0RF Dose Instruction: TAKE 1 TABLET BY MOUTH EVERY DAY Rx Instructions: TAKE 1 TABLET BY MOUTH EVERY DAY omeprazole 40 mg capsule,delayed release(DR/EC) See Rx Instructions .ROUTE .COMPLEX Qty: 60 0RF Dose Instruction: TAKE 1 CAPSULE BY MOUTH TWICE A DAY Rx Instructions: TAKE 1 CAPSULE BY MOUTH TWICE A DAY Discharge Orders: Discharge Order (Routine); Ordered 02/24/22 Ordered By: Prabhjot Jacobsen Referrals: Khurram Hodge M.D [Physician] - 1 week Le Quevedo PA [Primary Care Provider] - 2 weeks Discharge Diet: Cardiac Discharge Activity: Resume usual activity and Increase activity as tolerated Patient Instructions: Opioid Safety Activity Restrictions/Additional Instructions: Please abstain from alcohol use and smoking as possible. Carvedilol is a blood pressure medication which has been added to your medication list. Take 1 tablet morning 1 tablet evening daily. Please take baby aspirin on a daily basis 1 time a day. Please try to make an appointment with Dr. Neri from cardiology within next 1 week. If you are not able to make your appointment by yourself please call back on medical/surgical floor for assistance. You can call on number [phone] Discharge Attestations Time Spent in Discharge Care*: greater than 30 min Specific Discharge Activities: educating patient, discussing with pcp/other providers, discussing with therapeutic case manager/social workers/dc planners, documenting/other paperwork and evaluating patient/reviewing data Time Spent in Smoking Cessation: more than 10 minutes Status at Discharge: Cognitive status at discharge: mildly impaired cognition, Behavioral status at discharge: cooperative, Functional status at discharge: uses cane/walker, Overall status at discharge: patient is back to baseline Quality Metrics Clinical Quality Measures [ No reported AMI, CVA or VTE this stay] Coding Level of Care Code Acute g [facility] note Diagnoses Chest pain R07.9 Alcohol intoxication F10.929
--- NOTE | 2022-02-24 14:08 | PC.NURSE ---
DISCHARGE PAPERWORK GONE OVER WITH PT. ALL QUESTIONS ANSWERED. PT HAD ONE PERSCRIPTION IT WAS GIVEN TO THE PT. THE REST WAS SENT TO THE PHARMACY OF PTS CHOICE. IV WAS REMOVED. PT TOLERATED WELL. CASE MANAGEMENT NOTIFIED. THEY ARE WORKING ON SETTING UP A RIDE. WILL CONTINUE TO MONITOR PT.
--- NOTE | 2022-02-24 17:38 | ED_ITS ---
HPI - Chest Pain General: Chief Complaint: Chest Pain Stated Complaint: CHEST PAIN/WEAKNESS/SYNCOPE Time Seen by Provider: 02/23/22 18:49 Source: patient History of Present Illness: 61-year-old male who had a stress test on 02/14 for chest pain. He says that since then, he has not felt right . He complains of intermittent chest discomfort, worsening today. He has shortness of breath. He is also intoxicated with alcohol. He denies fever. He has chronic cough MD complaint: chest pain Onset (ago): day(s) Onset: during rest Pain location: substernal Pain radiation: none Quality: tightness, heaviness and sharp Exacerbating factors: exertion Associated symptoms: Reports dyspnea, nausea and palpitations; Deny abdominal pain, fever(s), leg edema or vomiting Review of Systems Const: Denies: fever(s) ENMT: Denies: throat pain Card: Reports: chest pain and palpitations Resp: Reports: dyspnea GI: Reports: nausea; Denies: abdominal pain or vomiting Musc: Reports: back pain Psych: Reports: anxiety PFSH ED PFSH: Medical History (Updated 02/24/22 @ 17:43 by Jordan Beck DO) Alcohol use disorder Alcoholic peripheral neuropathy Benign essential hypertension 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, alcohol-related COPD (chronic obstructive pulmonary disease) CVA (cerebral vascular accident) Epistaxis, recurrent GERD (gastroesophageal reflux disease) History of gastric ulcer Hyperlipidemia Peptic ulcer disease Right kidney mass Schizoaffective disorder, depressive type Sleep apnea, obstructive Vitamin B12 deficiency Surgical History No pertinent past surgical history Family History Other Cancer Diabetes Hypertension Social History Smoking and tobacco status: current every day smoker cigarettes Packs smoked per day: 1 Years cigarettes smoked: 40 Second hand smoke exposure: No Alcohol intake: current Alcohol intake frequency: few times a month Alcohol type: beer Desire information about alcohol rehabilitation?: No Desire information about substance/drug rehabilitation?: No Adopted: No Caregiver/support person: No Lives independently: Yes Household members: none Housing: House Marital status: Number of children: 2 Number of grandchildren: 6 Highest education level completed: 11th Grade service: No Current occupational status: disabled Current occupational exposures/hazards: No Pets and animals: Yes Pets & animals: dog(s) History of recent travel: No Current gender identity: Male Maricarmen/[employer]: [employer] Special maricarmen needs: No Agree to transfusion: Yes Financial difficulty paying for basics: Hard Physical Exam Const: GENERAL APPEARANCE: cooperative, lethargic and frail appearing; not well kempt ORIENTATION/CONSCIOUSNESS: Yes lethargic HENMT: COMMON NORMALS: normocephalic, atraumatic and Normal external nose present HEAD & SCALP: normocephalic and atraumatic FACE & SINUS: normal facial exam and face symmetric NOSE: Normal external nose present Eye: COMMON NORMALS: Equal, round and reactive pupils present, EOMs intact bilaterally and no scleral icterus PUPIL: Yes Equal, round and reactive pupils present Neck/C-Spine: GENERAL: Yes trachea midline Chest: CHEST: Yes Symmetrical chest wall rise Resp: COMMON NORMALS: normal respiratory effort, No retractions and No use of accessory muscles AUSCULTATION: wheezes Cardio: COMMON NORMALS: regular rate and regular rhythm RATE: regular rate RHYTHM: regular rhythm Extremity: COMMON NORMALS: no pedal edema Neuro: RUBI COMA SCALE: document GCS findings [place] coma scale eye opening: Spontaneous [place] coma scale verbal response: Orientated [place] coma scale motor response: Obey commands Rubi coma scale total score: 15 SENSORIUM/ORIENTATION: Yes lethargic SPEECH: abnormal speech Details: slurred Psych: APPEARANCE: No well kempt Course Consultations: Consultation #1: susan Vital Signs: Vital signs: Vital Signs Temperature 98.6 F 02/24/22 17:31 Pulse Rate 73 02/24/22 17:31 Respiratory Rate 17 02/24/22 17:31 Blood Pressure 111/70 02/24/22 17:31 Pulse Oximetry 95 02/24/22 17:31 MDM - Chest Pain Medical Decision Making 61-year-old male. He presents with chest discomfort. He had a stress test on 02/14 showing reversible ischemia in the LAD region distally. His EKG did not show any ST elevation. It is a sinus rhythm. At 2 hours, his EKG is completely normal. His CBC is normal. He has mild hypokalemia. His troponin remained normal at 2 hours. However, given his history, and failed stress testing, he will be observed for chest pain. He is intoxicated with alcohol, which complicates the situation. Lab Data : 02/24/22 01:34 02/24/22 01:34 Radiology Impressions Chest X-Ray 02/23/22 19:09 IMPRESSION: No acute findings. Laboratory Results WBC 6.8 10^3/uL (4.0-10.0) 02/23/22 19:00 RBC 4.90 10^6/uL (4.1-5.3) 02/23/22 19:00 Hgb 14.9 g/dL (11.7-16.6) 02/23/22 19:00 Hct 43.8 % (42.0-52.0) 02/23/22 19:00 MCV 89.4 fl (80-94) 02/23/22 19:00 MCH 30.4 pg (28.0-34.0) 02/23/22 19:00 MCHC 34.0 g/dL (30.0-36.0) 02/23/22 19:00 RDW 13.4 % (12.1-15.1) 02/23/22 19:00 Plt Count 331 10^3/cmm (130-400) 02/23/22 19:00 MPV 9.4 fL (7.4-10.4) 02/23/22 19:00 Neut % (Auto) 51.5 % 02/23/22 19:00 Lymph % (Auto) 35.0 % 02/23/22 19:00 [place] % (Auto) 9.7 % 02/23/22 19:00 Eos % (Auto) 2.8 % 02/23/22 19:00 Baso % (Auto) 0.4 % 02/23/22 19:00 Neut # (Auto) 3.51 10^3/uL (1.8-7.7) 02/23/22 19:00 Lymph # (Auto) 2.4 10^3/uL (0.8-4.8) 02/23/22 19:00 [place] # (Auto) 0.7 10^3/uL (0.2-0.9) 02/23/22 19:00 Eos # (Auto) 0.2 10^3/uL (0.0-0.8) 02/23/22 19:00 Baso # (Auto) 0.0 10^3/uL (0.0-0.1) 02/23/22 19:00 Nucleated RBC % (auto) 0 % 02/23/22 19:00 Nucleated RBCs # 0.0 /100WBC 02/23/22 19:00 PT 12.00 SECONDS (12.1-14.9) L 02/23/22 19:25 INR 0.86 (0.8-1.2) 02/23/22 19:25 APTT 29.1 SECONDS (23.9-36.7) 02/23/22 19:25 Sodium 128 mmol/L (136-145) L 02/23/22 19:00 Potassium 3.6 mmol/L (3.5-5.1) 02/23/22 19:00 Chloride 91 mmol/L (98-107) L 02/23/22 19:00 Carbon Dioxide 21 mmol/L (22-29) L 02/23/22 19:00 Anion Gap 19.6 (5-19) H 02/23/22 19:00 BUN 7 mg/dL (8-23) L 02/23/22 19:00 Creatinine 0.8 mg/dL (0.7-1.2) 02/23/22 19:00 GFR Calculation 98.3 mL/min (90-130) 02/23/22 19:00 Glucose 89 mg/dL (65-115) 02/23/22 19:00 Estimat Average Glucose 108 02/23/22 19:00 Hemoglobin A1c 5.4 % (4.0-6.0) 02/23/22 19:00 Calculated Osmolality 263 mOsm/kg (285-295) L 02/23/22 19:00 Calcium 9.3 mg/dL (8.5-10.5) 02/23/22 19:00 Total Bilirubin 0.3 mg/dL (0.15-1.2) 02/23/22 19:00 AST 21 U/L (0-40) 02/23/22 19:00 ALT 32 U/L (0-41) 02/23/22 19:00 Alkaline Phosphatase 74 IU/L (40-130) 02/23/22 19:00 Creatine Kinase 98 U/L (39-308) 02/23/22 19:00 Troponin T Baseline 14 ng/L (0-15) 02/23/22 19:00 Troponin T 120 Minute 9.56 ng/L (0-15) 02/23/22 21:10 Delta Troponin T -4.44 ABS# (0-10) L 02/23/22 21:10 NT-Pro-B Natriuret Pep 5 pg/mL (0-125) 02/23/22 19:00 Total Protein 7.2 g/dL (6.6-8.7) 02/23/22 19:00 Albumin 4.8 g/dL (3.5-5.2) 02/23/22 19:00 Globulin 2.4 g/dL (1.3-4.6) 02/23/22 19:00 Triglycerides 54 mg/dL (0-150) 02/23/22 21:10 Cholesterol 62 mg/dL (0-200) 02/23/22 21:10 LDL Cholesterol, Calc 27 mg/dL (50-129) L 02/23/22 21:10 HDL Cholesterol 24 mg/dL (60-100) L 02/23/22 21:10 LDL/HDL Ratio 1.13 RATIO (0.00-3.22) 02/23/22 21:10 Cholesterol/HDL Ratio 2.58 mg/dL (1.0-5.00) 02/23/22 21:10 Lipase 29 U/L (13-60) 02/23/22 19:00 TSH 0.68 uIU/mL (0.27-4.20) 02/23/22 21:10 Ethyl Alcohol 173 mg/dL (0-10) H 02/23/22 19:00 Discharge Plan Discharge Patient Disposition: Admitted As Inpatient Admit Provider: Camden Anderson Clinical Impression: Alcohol intoxication, Chest pain Condition: Stable Discharge Diet: Cardiac Discharge Activity: Resume usual activity and Increase activity as tolerated Coding Level of Care Code ED Negative Checker for Ayana Bustillos
== END 2022-02-24 17:33 | disposition home or self-care (01) ==
LOC: ER 22:39 → MEDSURG 02-24 06:06
PROVIDERS: Admitting Provider Family Medicine; Emergency Provider Emergency Medicine; PCP Physician Assistant; Visit Provider Student in an Organized Health Care Education/Training Program
DX: R07.9 Chest pain, unspecified (principal); F10.929 Alcohol use, unspecified with intoxication, unspecified; Y90.6 Blood alcohol level of 120-199 mg/100 ml; J44.9 Chronic obstructive pulmonary disease, unspecified; F17.210 Nicotine dependence, cigarettes, uncomplicated; I10 Essential (primary) hypertension; E78.5 Hyperlipidemia, unspecified; Z87.11 Personal history of peptic ulcer disease
CPT/HCPCS: 36415; 71045; 80053; 80061; 80307; 82550; 83036; 83690; 83735; 83880; 84100; 84443; 84484; 85025; 85610; 85730; 93005; 93306; 96361; 96372; 96374; 96375; 99285; C9113; G0378; J1650; J2270; J2405; J3411; J3490; J7030

== ENCOUNTER → 2022-04-16 11:19 | Outpatient (BNVA) | payer MEDICAID, SELFPAY ==
[2020-04-13 10:55] VITALS: BP 156/100; BMI 27.5
== END ==
PROVIDERS: PCP Physician Assistant; Visit Provider Orthopaedic Surgery
DX: M54.2 Cervicalgia (principal); Z98.1 Arthrodesis status
CPT/HCPCS: 72040; 99213; 99214

== ENCOUNTER → 2022-04-23 13:10 | Outpatient (BNVA) | payer MEDICAID, SELFPAY ==
[2020-04-13 10:55] VITALS: BP 156/100; BMI 27.5
== END ==
PROVIDERS: PCP Physician Assistant; Visit Provider Internal Medicine
DX: R06.00 Dyspnea, unspecified (principal); R94.39 Abnormal result of other cardiovascular function study; E78.5 Hyperlipidemia, unspecified
CPT/HCPCS: 99204

== ENCOUNTER 2022-05-01 05:39 | Outpatient (CLI) | payer MEDICAID, SELFPAY ==
[2020-04-13 10:55] VITALS: BP 156/100; BMI 27.5
[2022-05-01] VITALS (26 sets, daily range): BP systolic 107–171; BP diastolic 64–108; PULSE 59–82; RESP 14–23; TEMP 36.1–36.8; O2SAT 86–97; BMI 30.5
--- NOTE | 2022-05-01 06:00 | XACV_ITS ---
Exam Room: 2 Ht: 188 cm Wt: 108 kg BSA: 2.40 m2 Gender: Male : 1960 Exam Priority: Routine Procedure(s): Procedure Description: Diagnostic procedure Procedure Description: Coronary Angiography Procedure Description: Percutaneous coronary intervention Diagnostic Cath Status: Elective Diagnostic Findings * INDICATION: 61-year-old man with past medical history of COPD, hyperlipidemia who was referred by pulmonology secondary to abnormal stress test. Patient had been having dyspnea on exertion and chest pressure. * Left Main has no disease. * Circumflex has no disease. * Right Coronary Artery has no disease. * Mid Left Anterior Descending to Distal Left Anterior Descending: obstructive 70% stenosis, ANDREY: 3 flow. * Third Obtuse Marginal Branch Segment: obstructive 60% stenosis, ANDREY: 3 flow. * Coronary angiography shows left dominance. PCI Status: Elective PCI Indication: Other Interventional Findings * PROCEDURE DETAIL: Left main artery was engaged with XB 3.0 guide catheter. IV heparin was administered to maintain ACT above 250 S. 0.014 run-through guidewire was used to cross mid to distal LAD severe stenosis. It was predilated with 2.25 x 12 mm semicompliant balloon. This was followed by placement of 2.5 x 15 mm resolute [place] drug-eluting stent. We then postdilated with 2.5 x 8 mm NC balloon. At this time final angiogram was performed that showed excellent stent expansion, no residual stenosis and ANDREY-3 flow.. * Mid Left Anterior Descending to Distal Left Anterior Descendin% stenosis treated with a AB TREK 2.25X12 RX BALLOON, MARCIE Burris BHARATHI 2.5X15 FABIAN, and MDT GABRIELLE EUPHORA RX [id number] BALLOON. 0% residual stenosis, ANDREY: 3 flow. Conclusions 1. Severe mid to distal LAD stenosis status post successful revascularization with FABIAN x1.. 2. Mid Left Anterior Descending to Distal Left Anterior Descending was treated with a Balloon, Drug Eluting Stent, and Balloon. Recommendations * Dual antiplatelet therapy with aspirin and Plavix for at least 1 year. * High intensity statin therapy. * Outpatient cardiology follow-up in 4 week. Interventional RX Recommendation: PCI w/o planned CABG Diagnostic RX Recommendation: PCI w/o planned CABG Anticoagulation: Heparin Pressures Phase:Rest AO : 100 / 81 ( 91 ) @ 8:49:00 AM 104 / 83 ( 95 ) @ 8:55:00 AM 112 / 74 ( 93 ) @ 9:11:00 AM 70 / 54 ( 62 ) @ 9:14:00 AM 110 / 78 ( 93 ) @ 9:19:00 AM 105 / 76 ( 90 ) @ 9:24:00 AM Clinical Evaluation EBL: 5mL-10mL Procedural Details Procedure Consent Obtained. Admit Source: Out Patient. Pre-Procedure Time Out. Identified patient by full name and date of as verbalized by the patient/guarantor. Does the consent match the physician's order: Yes. Accurate & Complete Informed Consent: Yes. Inpatient/Outpatient History & Physical on Chart: Yes. If H&P is completed, is and addenduem needed: N/A; If yes, is the addendum complete: N/A. Visualize and Verify Site with Patient/Guarantor: N/A. Relevant Radiology Images available: N/A. Pre-op teaching completed and patient verbalized understanding. The risks, benefits, and alternatives of sedation and/or procedure were discussed by physician. The patient agrees to continue. Procedure started. [facility] Clinical Fraility Score: 3: Managing Well. Gut Snatcher Indications: Suspected CAD, Positive Stress Test. Chest Pain Symptom Assessment: Typical Angina Symptoms. Correct patient, site and procedure confirmed by cath team. Current diagnosis: Chest Pain. PERRLA. Strong, equal hand law reporter bilaterally. Lungs clear x 5 lobes. IV Site on Arrival: 18 gauge in the left anticubital. IV Fluids: 0.9% NaCl at KVO. 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 Pre Procedural Pulses: right radial was 3+. Pre Procedural Pulses: bilateral dorsalis pedis was 3+. Oxygen started at 2liters/min via nasal canula. right groin was prepped with chloroprep then draped in the usual sterile fashion. right radial was prepped with chloroprep then draped in the usual sterile fashion. Baseline sample Acquired. HR: 63 BPM. Physician notified. Physician arrived. Physician scrubbed in. Immediate Pre-Procedure Time Out. Correct Patient: Yes; Correct Procedure: Yes; Correct Site: Yes; Correct Patient Position: Yes; Correct Supplies: Yes; Dried Flammable Prep: Yes; Blood Products Available: N/A;. Lidocaine 1% infiltrated to the right radial. Arterial access obtained. A 5 montserratian TIG catheter in over wire. Multiple views taken of left coronary artery. Catheter redirected to the RCA. Multiple views taken of right coronary artery. Glidewire inserted. Catheter removed over the glide wire. A 5 montserratian JL4 catheter in over wire. Glidewire removed. Multiple views taken of left coronary artery. Catheter removed over the glide wire. 6 montserratian XB 3.5 guide catheter was inserted over the wire. Runthrough guidewire was advanced through the guide catheter to lesion in the mid LAD. Inflation number : 1 A AB TREK 2.25X12 RX BALLOON was prepped and advanced across the Mid LAD , then inflated to 8 MAMI for 0:22 seconds. Balloon out. Results checked. Inflation Number : 2 A MDT R BHARATHI 2.5X15 FABIAN -Lot Number# _[id number] EXP: 01/23/2024 was prepped and advanced across the Mid LAD. The stent was deployed at 12 MAMI for 0:25 seconds. Stent balloon out over wire. Inflation number : 3 A MDT NC EUPHORA RX [id number] BALLOON was prepped and advanced across the Mid LAD , then inflated to 12 MAMI for 0:17 seconds. Inflation number: 4 The MDT NC EUPHORA RX [id number] BALLOON was reinflated across the Mid LAD, to 15 MAMI for 0:23 seconds. Balloon out. Results checked. Wire out. Guide catheter out. ACT drawn. Results 283 seconds. Therapeutic limits - pre-heparin administration 90-150 seconds and monitoring heparin during a vascular procedure >250 seconds. A TR Band was successful obtaining hemostatsis at the Right Radial artery insertion site. Post Procedure: Pulses reassessed and unchanged. PERRLA. Strong, equal hand law reporter bilaterally. No VTE prophylaxis required. Medication's Wasted: Nitro = 49.6 mg. Medication's Wasted: Lidocaine 1% = 2 mL. Total IV fluids: 70 mL. Complications: None. Estimated blood loss: 5mL-10mL. Responsiveness - Normal response to verbal stimuli; alert and oriented, PERRLA. Airway - Unaffected, no intervention required; spontaneous ventilation. Circulation: W/N/L, pulses unchanged. Nausea/Vomiting: No. Procedure completed. Patient transferred by wheelchair to 1st floor. Access Site Site: Right Radial artery Sheath Size: 6 Fr Hemostasis Method: TR Band Hemostasis Success: Successful Procedure Medications Start: 7:43 AM Stop: 7:43 AM Medication: Versed Amount: 1 mg Route: I.V. Start: 7:43 AM Stop: 7:43 AM Medication: Fentanyl Amount: 50 mcg Route: I.V. Start: 7:43 AM Stop: 7:43 AM Medication: 0.9% Saline Amount: 75 ml/hr Route: I.V. drip Start: 7:47 AM Stop: 7:47 AM Medication: Nitrogylcerin Amount: 200 mcg Route: I.A. Start: 7:49 AM Stop: 7:49 AM Medication: Versed Amount: 1 mg Route: I.V. Start: 7:49 AM Stop: 7:49 AM Medication: Heparin Amount: 5000 units Route: I.V. Start: 8:00 AM Stop: 8:00 AM Medication: Heparin Amount: 4000 units Route: I.V. Start: 8:04 AM Stop: 8:04 AM Medication: Fentanyl Amount: 50 mcg Route: I.V. Start: 8:13 AM Stop: 8:13 AM Medication: Heparin Amount: 2000 units Route: I.V. Start: 8:15 AM Stop: 8:15 AM Medication: Versed Amount: 1 mg Route: I.V. Start: 8:25 AM Stop: 8:25 AM Medication: Plavix Amount: 600 mg Route: P.O. I, the attending physician, have reviewed and verified all procedure medications. Yes, all medications given per verbal order History/Risk Factors Hypertension: Yes Dyslipidemia: Yes Peripheral Arterial Disease (PAD): No Myocardial Infarction (WA): No Obesity: No Renal Disease: No Tobacco Use: Current/Recent(w/in 1 year) Prior Interventions PCI: No CABG: No Valve Surgery: No Report Signatures Finalized by Khurram Hodge MD on 05/11/2022 01:50 PM
[2022-05-01 06:07] LABS: Basophils # 0.1 10^3/uL (0.0-0.1); Basophils % 0.9 %; Eosinophils # 0.2 10^3/uL (0.0-0.8); Hematocrit 44.5 % (42.0-52.0); Hemoglobin 14.6 g/dL (11.7-16.6); Lymphocytes # 2.3 10^3/uL (0.8-4.8); Lymphocytes % 39.8 %; Mean Corpuscular HGB Conc 32.8 g/dL (30.0-36.0); Mean Corpuscular Volume 94.5 fl (80-94); Mean Platelet Volume 9.4 fL (7.4-10.4); Monocytes # 0.6 10^3/uL (0.2-0.9); Monocytes % 10.3 %; Neutrophils # 2.56 10^3/uL (1.8-7.7); Neutrophils % 44.1 %; Nucleated Red Blood Cells % 0 %; Platelet Count 308 10^3/cmm (130-400); Red Blood Count 4.71 10^6/uL (4.1-5.3); Red Cell Distribution Width 14.6 % (12.1-15.1); White Blood Count 5.8 10^3/uL (4.0-10.0)
[2022-05-01] MEDS: diphenhydrAMINE 50 mg Capsule PO (06:17)
[2022-05-01 06:28] LABS: Anion Gap 12.2 (5-19); Blood Urea Nitrogen 7 mg/dL (8-23); Calcium 8.7 mg/dL (8.5-10.5); Carbon Dioxide 27 mmol/L (22-29); Chloride 100 mmol/L (98-107); Glomerular Filtration Rate 98.3 mL/min (90-130); Glucose 101 mg/dL (65-115); Osmolality Calculated 278 mOsm/kg (285-295); Potassium 4.2 mmol/L (3.5-5.1); Sodium 135 mmol/L (136-145)
--- NOTE | 2022-05-01 07:24 | P.HPUD_ITS ---
Surgery/Procedure H&P Update DATE OF PROCEDURE: May 01, 2022 DATE H&P PERFORMED: 04/23/22 H&P UPDATE INFORMATION: I have reviewed H&P completed within last 30 days, I have examined patient prior to procedure and No changes to prior documentation PREOP DIAGNOSIS: Abnormal stress test/ chest pressure/ dyspnea on exertion PLANNED PROCEDURE: Operation Date: 05/01/22 07:00 Proposed Procedures p [facility] [id number],R94.39(Left) - Khurram Hodge M.D Possible percutaneous coronary intervention PATIENT REASSESSED PRIOR TO SEDATION, WITH NO CHANGE NOTED: Yes PHYSICAL EXAM: alert, oriented x 3, clear to auscultation bilaterally and regular rate & rhythm AIRWAY EVAL/ANESTHESIA PLAN: ASA III, Local Anesthesia, Risks, benefits & alternatives of sedation and/or procedure discussed and Patient agrees to continue as planned ADDITIONAL INFORMATION: Moderate sedation
[2022-05-01] MEDS: sodium chloride 0.9% 1,000 ML 100 ML IV (10:02)
--- NOTE | 2022-05-01 17:30 | PC.NURSE ---
Received report from [place]. Patient arrived to floor via wheelchair. Alert and Oriented. All belongings brought up with patient. Patient educated regarding activity restrictions.
[2022-05-02 00:32] VITALS: BP 140/83; PULSE 64; RESP 17; TEMP 36.5; O2SAT 94
[2022-05-02 03:11] LABS: Basophils # 0.1 10^3/uL (0.0-0.1); Basophils % 0.8 %; Eosinophils # 0.2 10^3/uL (0.0-0.8); Eosinophils % 3.1 %; Hematocrit 41.3 % (42.0-52.0); Hemoglobin 13.5 g/dL (11.7-16.6); Lymphocytes # 1.9 10^3/uL (0.8-4.8); Lymphocytes % 27.3 %; Mean Corpuscular HGB Conc 32.7 g/dL (30.0-36.0); Mean Corpuscular Hemoglobin 30.9 pg (28.0-34.0); Mean Corpuscular Volume 94.5 fl (80-94); Mean Platelet Volume 9.9 fL (7.4-10.4); Monocytes # 0.8 10^3/uL (0.2-0.9); Monocytes % 11.4 %; Neutrophils # 4.03 10^3/uL (1.8-7.7); Neutrophils % 56.8 %; Nucleated Red Blood Cells % 0 %; Platelet Count 269 10^3/cmm (130-400); Red Blood Count 4.37 10^6/uL (4.1-5.3); Red Cell Distribution Width 14.6 % (12.1-15.1); White Blood Count 7.1 10^3/uL (4.0-10.0)
[2022-05-02 03:49] LABS: Blood Urea Nitrogen 9 mg/dL (8-23); Carbon Dioxide 26 mmol/L (22-29); Chloride 104 mmol/L (98-107); Glomerular Filtration Rate 85.8 mL/min (90-130); Glucose 101 mg/dL (65-115); Osmolality Calculated 287 mOsm/kg (285-295); Sodium 139 mmol/L (136-145)
[2022-05-02 03:50] LABS: Anion Gap 13.4 (5-19); Potassium 4.4 mmol/L (3.5-5.1)
[2022-05-02 05:18] VITALS: PULSE 54
[2022-05-02 07:23] VITALS: BP 162/113; PULSE 72; RESP 16; TEMP 36.8; O2SAT 91
--- NOTE | 2022-05-02 07:23 | PC.NURSE ---
i reported the high bp to the nurse 162/113
--- NOTE | 2022-05-02 08:33 | P.SS_ITS ---
Short Stay Summary Providers Date of Admit/Discharge: 05/01/22 Attending Provider: Khurram Hodge M.D Primary Care Provider: Le Quevedo Chief Complaint: Dyspnea on exertion/ chest pressure HPI History of Present Illness Costa Alba is a 61 year old male with past medical history of COPD, hyperlipidemia who was referred by pulmonology secondary to abnormal stress test. Patient had been having dyspnea on exertion and chest pressure. Review of Systems Const: Reports: fatigue; Denies: fever(s), chills, change in weight or diaphoresis Eyes: Denies: change in vision or eye redness ENMT: Denies: throat pain, odynophagia, mouth pain or epistaxis Card: Reports: swelling of feet/ankles; Denies: chest pain, palpitations, irregular heart rhythm, edema, lightheadedness, syncope, pre-syncope, dyspnea on exertion, orthopnea or leg pain with exertion Resp: Denies: dyspnea, productive cough or wheezing GI: Denies: nausea, vomiting, hematemesis, hematochezia or melena : Denies: hematuria Musc: Reports: neck pain and back pain; Denies: extremity swelling or joint pain Skin/Breast: Denies: rash, pruritus, erythema or new lesions Neuro: Reports: dizziness; Denies: numbness in extremities, weakness in extremities, sensory changes, frequent falls, Slurred speech present or difficulty communicating thoughts Psych: Denies: anxiety, depression, irritability, suicidal ideation or homicidal ideation Endo: Denies: polyuria, polydipsia or excessive sweating Shaun/Lymph: Reports: easy bruising and easy bleeding Home Meds/Allergies Home Medications and Allergies Home Medications Medication Instructions Recorded Confirmed Type oxycodone 10 mg tablet 10 - 20 mg PO Q4H PRN Pain 02/24/22 05/09/22 History omeprazole 40 mg capsule,delayed 40 mg PO BID 04/30/22 05/09/22 History release Allergies Allergy/AdvReac Type Severity Reaction Status Date / Time No Known Allergies Allergy Verified 05/09/22 08:49 PFSH Acute PFSH: Medical History Alcohol use disorder Alcoholic peripheral neuropathy Atherosclerosis of coronary artery Benign essential hypertension 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 Cervical disc disorder at C5-C6 level with radiculopathy Cervical spondylosis with radiculopathy Chronic migraine without aura, intractable, with status migrainosus Cognitive dysfunction, alcohol-related COPD (chronic obstructive pulmonary disease) COPD (chronic obstructive pulmonary disease) CVA (cerebral vascular accident) Degenerative disc disease, cervical Degenerative lumbar disc Disorder of intervertebral disc at C6-C7 level with radiculopathy Eczema of right hand Epistaxis, recurrent Facet arthritis, degenerative, lumbar spine GERD (gastroesophageal reflux disease) History of gastric ulcer Hyperlipidemia Left-sided chest pain Lumbar radiculopathy Nicotine dependence, cigarettes, with unspecified nicotine-induced disorders Peptic ulcer disease Right kidney mass Schizoaffective disorder, depressive type Seizure Sleep apnea, obstructive Smoker Spasm of back muscles Tetrahydrocannabinol (THC) use disorder, mild, abuse Urinary urgency Vitamin B12 deficiency Surgical History No pertinent past surgical history Family History Other Cancer Diabetes Hypertension Social History Smoking and tobacco status: current every day smoker cigarettes Packs smoked per day: 1 Years cigarettes smoked: 40 Second hand smoke exposure: No Alcohol intake: current Alcohol intake frequency: few times a month Alcohol type: beer Desire information about alcohol rehabilitation?: No Desire information about substance/drug rehabilitation?: No Adopted: No Caregiver/support person: No Lives independently: Yes Household members: none Housing: House Marital status: Number of children: 2 Number of grandchildren: 6 Highest education level completed: 11th Grade service: No Current occupational status: disabled Current occupational exposures/hazards: No Pets and animals: Yes Pets & animals: dog(s) History of recent travel: No Current gender identity: Male Maricarmen/Episcopalian: Gnosticism Special maricarmen needs: No Agree to transfusion: Yes Financial difficulty paying for basics: Hard Vitals/I&O/Wt Last Vital Signs Temp 98.3 F 05/02/22 07:23 Pulse 72 05/02/22 07:23 Resp 16 05/02/22 07:23 BP 162/113 05/02/22 07:23 Pulse Ox 91 05/02/22 07:23 O2 Del Method 05/02/22 07:23 05/01/22 05/02/22 05/02/22 22:59 06:59 14:59 Intake Total 1840 / 1840 480 / 2320 Output Total 400 / 400 Balance 1440 / 1440 480 / 1920 Weight last 48 hrs Weight 238 lb Physical Exam Narrative: GENERAL: Patient is alert, awake and oriented x3. [] NECK: No jugular vein distension. [] HEENT: No cyanosis. No icterus. No pallor. [] HEART: Regular S1 and S2. No murmur, rub or gallop. [] LUNGS: Clear to auscultate bilaterally. [] ABDOMEN: Soft, nontender and nondistended. Positive bowel sounds. No guarding, rebound or tenderness. [] CENTRAL NERVOUS SYSTEM: Grossly nonfocal. [] EXTREMITIES: Lower extremities with 1+ edema bilaterally. Pulses palpable in the lower extremities, both dorsalis pedis and posterior tibial. [] Hospital Course Hospital Course 61-year-old man with past medical history of COPD, hyperlipidemia who has been referred by pulmonology and secondary to abnormal stress test.? Patient had been having dyspnea on exertion and chest pressure. Coronary angiogram showed severe mid to distal LAD stenosis. He underwent successful revascularization with FABIAN x1. Patient was observed overnight and was discharged home in a stable condition. He will be continued on aspirin Plavix for at least 1 year. High intensity statin therapy also ordered. 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 request for service Routin e Exams 05/01/22 06:00 Taken Discharge Plan Discharge Patient Disposition: Home Prescriptions: New clopidogrel 75 mg tablet 75 mg PO DAILY Qty: 90 3RF atorvastatin 40 mg tablet 40 mg PO DAILY Qty: 90 3RF lisinopril 10 mg tablet 10 mg PO DAILY Qty: 90 3RF Continued aspirin 81 mg tablet,delayed release (DR/EC) 81 mg PO DAILY Qty: 90 3RF cyanocobalamin (vitamin B-12) 1,000 mcg/mL solution See Rx Instructions .ROUTE .COMPLEX Qty: 1 0RF Dose Instruction: INJECT 1ML (1,000MG) INTRAMUSCULARLY EVERY MONTH Rx Instructions: INJECT 1ML (1,000MG) INTRAMUSCULARLY EVERY MONTH oxycodone 10 mg tablet 10 - 20 mg PO Q4H PRN (Reason: Pain) omeprazole 40 mg capsule,delayed release(DR/EC) 40 mg PO BID No Action carvedilol 6.25 mg tablet 6.25 mg PO BID Qty: 180 2RF Discharge Orders: Discharge Order (Routine); Ordered 05/02/22 Ordered By: Khurram Hodge Referrals: Khurram Hodge M.D [Physician] - 06/19/22 2:30 pm (Please call [phone] if you have any questions or concerns. Thank you.) Rebecca Campo FNP [Nurse Practitioner] - 05/09/22 10:15 am (Please call if you have any questions or concerns. Thank you.) Diet: Cardiac Activity: Increase activity as tolerated Patient Instructions: Lisinopril (By mouth) (Prinivil, Zestril), Atorvastatin (By mouth) (Lipitor), Clopidogrel (By mouth) (Plavix), Coronary Angioplasty (DC), Post Angiogram Home Care Instructions Discharge Date/Time: 05/02/22 09:58 Attestations Medical Necessity Statement*: Care not expected to cross 2 midnights. Patient outpatient PCI yesterday and was observed overnight and will be discharged home today. Time Spent in Patient Care*: less than 30 min Status at Discharge: Cognitive status at discharge: mildly impaired cognition , Behavioral status at discharge: cooperative , Quality Metrics Clinical Quality Measures: [ No reported AMI, CVA or VTE this stay ] Coding Level of Care Code Acute Frame Catcher for Ayana Bustillos
[2022-05-02] MEDS: aspirin 81 mg EC Tablet PO (08:55)
[2022-05-02] MEDS: clopidogrel 75 mg Tablet PO (08:55)
--- NOTE | 2022-05-02 09:56 | PC.NURSE ---
Discharge Note Patient discharged to Home via private vehicle accompanied by family. Discharge instructions reviewed with patient and/or home furnishings sales representative. Mobile pharmacy medications and/or prescriptions provided. Belongings/home medications returned.
== END 2022-05-02 09:58 | disposition home or self-care (01) ==
LOC: CCL 05:43 → CSU 08:41 → MEDSURG 05-02 08:33
PROVIDERS: PCP Physician Assistant; Visit Provider Internal Medicine
DX: I25.10 Atherosclerotic heart disease of native coronary artery without angina pectoris (principal); J44.9 Chronic obstructive pulmonary disease, unspecified; E78.5 Hyperlipidemia, unspecified; I10 Essential (primary) hypertension; Z86.73 Personal history of transient ischemic attack (TIA), and cerebral infarction without residual deficits; K21.9 Gastro-esophageal reflux disease without esophagitis; Z87.11 Personal history of peptic ulcer disease; G47.33 Obstructive sleep apnea (adult) (pediatric); F17.210 Nicotine dependence, cigarettes, uncomplicated
CPT/HCPCS: 36415; 80048; 85025; 85347; 93454; 96360; 99152; 99153; C1725; C1769; C1874; C1887; C1894; C9600; J1644; J2250; J3010; J3490; J7030; Q0163; Q9967

== ENCOUNTER → 2022-05-09 09:55 | Outpatient (BNVA) | payer MEDICAID, SELFPAY ==
[2020-04-13 10:55] VITALS: BP 156/100; BMI 27.5
== END ==
PROVIDERS: PCP Physician Assistant; Visit Provider Nurse Practitioner Family
DX: I25.10 Atherosclerotic heart disease of native coronary artery without angina pectoris (principal); I10 Essential (primary) hypertension; F17.210 Nicotine dependence, cigarettes, uncomplicated; R07.9 Chest pain, unspecified; R00.2 Palpitations
CPT/HCPCS: 36415; 80048; 93270; 99214

== ENCOUNTER → 2022-06-19 13:49 | Outpatient (BNVA) | payer MEDICAID, SELFPAY ==
[2020-04-13 10:55] VITALS: BP 156/100; BMI 27.5
== END ==
PROVIDERS: PCP Physician Assistant; Visit Provider Internal Medicine
DX: I25.10 Atherosclerotic heart disease of native coronary artery without angina pectoris (principal); I10 Essential (primary) hypertension; F17.210 Nicotine dependence, cigarettes, uncomplicated
CPT/HCPCS: 93270; 99214

== ENCOUNTER 2022-09-03 11:38 | Outpatient (CLI) | payer MEDICAID, SELFPAY ==
[2020-04-13 10:55] VITALS: BP 156/100; BMI 27.5
--- NOTE | 2022-09-03 11:45 | CT_ITS ---
WS: [id number] CT HEAD TECHNIQUE: Noncontrast and contrast-enhanced CT of the head. CLINICAL INFORMATION: CLUSTER HEADACHE COMPARISON: None. DLP: 2254.[address] scans at [facility] use at least one of these dose optimization techniques: automated e xposure control; mA and/or kV adjustment per patient size (includes targeted exams where dose is matc hed to clinical indication); or iterative reconstruction. FINDINGS: No evidence of intracranial hemorrhage or mass effect. Ventricular system and basal cisterns are mensah nt. No abnormal intracranial enhancement. Intracranial vascular calcification. Mild mucosal thickenin g in the ethmoid air cells. Mastoid air cells are well aerated. Normal posterior nasopharynx. No abnormal intracranial enhancement. No enhancing intracranial lesions. CT/CT head wo/w con [id number] IMPRESSION: 1. No evidence of intracranial hemorrhage or mass effect. 2. No abnormal intracranial enhancement. 3. Minimal small vessel changes with mild volume loss.
[2022-09-03 12:14] LABS: Blood Urea Nitrogen 12 mg/dL (8-23)
[2022-09-03] MEDS: iohexol 350 mg/mL 500 mL Btl (per mL) IV (12:19)
== END 2022-09-03 11:39 | disposition home or self-care (01) ==
LOC: RAD 11:38
PROVIDERS: PCP Physician Assistant; Visit Provider Physician Assistant
DX: G44.009 Cluster headache syndrome, unspecified, not intractable (principal)
CPT/HCPCS: 70470; 82565; 84520; Q9967

== ENCOUNTER 2022-11-05 12:19 | Inpatient (IN) | payer MEDICAID, SELFPAY ==
[2020-04-13 10:55] VITALS: BP 156/100; BMI 27.5
[2022-11-05] VITALS (37 sets, daily range): BP systolic 94–135; BP diastolic 54–80; PULSE 61–87; RESP 15–20; TEMP 36.3–37.3; O2SAT 91–100
[2022-11-05 12:53] LABS: Basophils % 0.6 %; Eosinophils # 0.1 10^3/uL (0.0-0.8); Eosinophils % 1.9 %; Lymphocytes # 1.5 10^3/uL (0.8-4.8); Lymphocytes % 24.2 %; Mean Corpuscular HGB Conc 27.1 g/dL (30.0-36.0); Mean Corpuscular Hemoglobin 19.9 pg (28.0-34.0); Mean Corpuscular Volume 73.4 fl (80-94); Mean Platelet Volume 9.4 fL (7.4-10.4); Monocytes # 0.7 10^3/uL (0.2-0.9); Neutrophils # 3.87 10^3/uL (1.8-7.7); Neutrophils % 61.8 %; Nucleated Red Blood Cells % 0.3 %; Platelet Count 448 10^3/cmm (130-400); Red Blood Count 2.41 10^6/uL (4.1-5.3); Red Cell Distribution Width 18.7 % (12.1-15.1); White Blood Count 6.3 10^3/uL (4.0-10.0)
--- NOTE | 2022-11-05 12:59 | W.ED.RECABL ---
HPI - Recheck/Abnormal Lab/Rx General: Chief Complaint: Recheck/Abnormal Lab/Rx Stated Complaint: ANEMIA Time Seen by Provider: 11/05/22 12:42 Source: patient and other (clinic called report) Mode of arrival: EMS Limitations: no limitations History of Present Illness: See nursing assessment. Patient reportedly had a hemoglobin around 5 at the clinic today. Patient was sent by ambulance here for evaluation of anemia. Patient reports that he has had about 5-year history of occasional syncope. Patient also complains of generalized fatigue and weakness for the past 4 months. He states he has been passing out more frequently over the last couple weeks. He reports that he is probably passed out 10 times over the past 2 weeks. Denies any injury. States he did have some recent eye surgery. He states he is sensitive to light from that. States his stool has been dark but denies any melena. Denies any abdominal pain. He denies any fever. He has had bilateral chest pain over the last couple months with radiation down both arms. Review of Systems Const: Reports: fatigue and malaise; Denies: fever(s), chills or body aches Eyes: Reports: other (Mild eye pain due to 2 recent eye surgery); Denies: change in vision ENMT: Denies: throat pain Card: Reports: chest pain, lightheadedness and syncope; Denies: palpitations, irregular heart rhythm or edema Resp: Denies: dyspnea, non-productive cough or wheezing GI: Reports: other (Dark stools.); Denies: abdominal pain, nausea, vomiting or hematemesis : Denies: flank pain or dysuria Musc: Denies: neck pain, back pain, extremity pain or extremity swelling Skin/Breast: Reports: other (Pale); Denies: rash or pruritus Neuro: Denies: headache(s) or numbness in extremities Psych: Denies: anxiety Shaun/Lymph: Denies: enlarged lymph nodes PFS ED PFSH: Medical History (Updated 11/05/22 @ 14:10 by Doris Brennan MD) Alcohol use disorder Alcoholic peripheral neuropathy Atherosclerosis of coronary artery Benign essential hypertension 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 Chronic migraine without aura, intractable, with status migrainosus Cognitive dysfunction, alcohol-related COPD (chronic obstructive pulmonary disease) CVA (cerebral vascular accident) Degenerative disc disease, cervical Eczema of right hand Facet arthritis, degenerative, lumbar spine GERD (gastroesophageal reflux disease) History of gastric ulcer Hyperlipidemia Lumbar radiculopathy Peptic ulcer disease Right kidney mass Schizoaffective disorder, depressive type Seizure Sleep apnea, obstructive Tetrahydrocannabinol (THC) use disorder, mild, abuse Urinary urgency Vitamin B12 deficiency Surgical History (Updated 11/05/22 @ 14:10 by Doris Brennan MD) H/O cervical discectomy (08/2021) Dr. Jiménez. Anterior discectomy C5/6, Anterior discectomy C6/7, Corpectomy C6 greater than 50%, Insertion of Corpectomy cage C5-C7, Instrumentation with anterior plate from C5-C7, Use of allograft, Use of autograft. Done for cervical radiculopathy C6 and C7. History of cardiac catheterization 05/01/2022 Left Main no disease, Circumflex no disease, RCA no disease, LAD 70% stenosis with angioplasty/stent performed same date, 3rd OM branch segment 60% stenosis, left dominance History of coronary artery stent placement (04/2022) angioplasty and FABIAN to mid to distal LAD 05/01/2022 Family History Other Cancer Diabetes Hypertension Social History (Updated 11/05/22 @ 14:08 by Doris Brennan MD) Smoking and tobacco status: current every day smoker cigarettes Packs smoked per day: 1 Years cigarettes smoked: 40 Second hand smoke exposure: No Alcohol intake: current Alcohol intake frequency: few times a month Alcohol type: beer Adopted: No Caregiver/support person: No Lives independently: Yes Household members: none Housing: House Marital status: Number of children: 2 Number of grandchildren: 6 Highest education level completed: 11th Grade service: No Current occupational status: disabled Current occupational exposures/hazards: No Pets and animals: Yes Pets & animals: dog(s) Current gender identity: Male Maricarmen/Synagogue: Episcopalian Special maricarmen needs: No Agree to transfusion: Yes Financial difficulty paying for basics: Hard Supplemental PFSH Information: Patient states he smokes cigarettes, patient drinks alcohol frequently but not daily according to him. Physical Exam Const: COMMON NORMALS: no acute distress, patient oriented x3, no limitations and well nourished GENERAL APPEARANCE: cooperative HENMT: COMMON NORMALS: normocephalic and atraumatic HEAD & SCALP: normocephalic and atraumatic FACE & SINUS: normal facial exam Eye: COMMON NORMALS: EOMs intact bilaterally Neck/C-Spine: COMMON NORMALS: full ROM, no lymphadenopathy, supple and no meningeal signs GENERAL: Yes normal visual inspection Lymph: LYMPHATIC: no lymphadenopathy noted Chest: COMMONS NORMALS: normal inspection of the chest and normal palpation of entire chest wall CHEST: No Ecchymosis present and No rash Resp: COMMON NORMALS: normal respiratory effort, No retractions and clear to auscultation bilaterally EFFORT & INSPECTION: No respiratory distress AUSCULTATION: clear to auscultation bilaterally Cardio: COMMON NORMALS: regular rate, regular rhythm and Peripheral pulses 2+ throughout JUGULAR VENOUS DISTENTION: no JVD RATE: regular rate RHYTHM: regular rhythm PERIPHERAL PULSES: Peripheral pulses 2+ throughout GI: COMMON NORMALS: Normal to inspection, nondistended, normoactive bowel sounds present and non-tender OTHER: Rectal exam shows no evidence of hemorrhoids. Stool is brown in color. Stool is Hemoccult positive. : COMMON NORMALS: Yes no CVA tenderness BLADDER/KIDNEY EXAM: Yes no CVA tenderness Back/Pelvis: COMMON NORMALS: no CVA tenderness Extremity: COMMON NORMALS: normal to inspection, full ROM and capillary refill normal Neuro: COMMON NORMALS: patient oriented x3, CN's II-XII intact bilaterally, no focal motor deficits and no sensory deficits noted MENINGEAL SIGNS: Yes no meningeal signs Psych: COMMON NORMALS: mental status grossly normal and Normal thought process present THOUGHT PROCESS: Normal thought process present Skin: COMMON NORMALS: no rashes or lesions noted and no wounds GENERAL SKIN EXAM: no rashes or lesions noted OTHER: Skin is pale Course Vital Signs: Vital signs: Vital Signs Temperature 97.8 F 11/05/22 12:23 Pulse Rate 62 11/05/22 14:54 Respiratory Rate 18 11/05/22 14:54 Blood Pressure 106/57 11/05/22 14:54 Pulse Oximetry 100 11/05/22 14:54 MDM - Recheck/Abnormal Lab/Rx Medical Decision Making Symptomatic anemia. Evidence of gastrointestinal bleeding. 1338: Consulted hospitalist Dr. Brennan. Admit as an inpatient to [facility] floor with telemetry. Hold protonix at this point. Patient not a candidate for aspirin or blood thinners due to his anemia. Lab Data 11/05/22 12:30 11/05/22 12:30 Laboratory Results WBC 6.3 10^3/uL (4.0-10.0) 11/05/22 12:30 RBC 2.41 10^6/uL (4.1-5.3) L 11/05/22 12:30 Hgb 4.8 g/dL (11.7-16.6) L* 11/05/22 12: Hct 17.7 % (42.0-52.0) L* 11/05/22 12: MCV 73.4 fl (80-94) L 11/05/22 12:30 MCH 19.9 pg (28.0-34.0) L 11/05/22 12: MCHC 27.1 g/dL (30.0-36.0) L 11/05/22 12: RDW 18.7 % (12.1-15.1) H 11/05/22 12: Plt Count 448 10^3/cmm (130-400) H 11/05/22 12: MPV 9.4 fL (7.4-10.4) 11/05/22 12:30 Neut % (Auto) 61.8 % 11/05/22 12: Lymph % (Auto) 24.2 % 11/05/22 12: [place] % (Auto) 11.0 % 11/05/22 12:30 Eos % (Auto) 1.9 % 11/05/22 12:30 Baso % (Auto) 0.6 % 11/05/22 12: Neut # (Auto) 3.87 10^3/uL (1.8-7.7) 11/05/22 12: Lymph # (Auto) 1.5 10^3/uL (0.8-4.8) 11/05/22 12:30 [place] # (Auto) 0.7 10^3/uL (0.2-0.9) 11/05/22 12: Eos # (Auto) 0.1 10^3/uL (0.0-0.8) 11/05/22 12:30 Baso # (Auto) 0.0 10^3/uL (0.0-0.1) 11/05/22 12:30 Nucleated RBC % (auto) 0.3 % 11/05/22 12:30 Nucleated RBCs # 0.0 /100WBC 11/05/22 12:30 PT 13.20 SECONDS (12.1-14.9) 11/05/22 12:30 INR 0.98 (0.8-1.2) 11/05/22 12:30 APTT 27.5 SECONDS (23.9-36.7) 11/05/22 12:30 Sodium 134 mmol/L (136-145) L 11/05/22 12:30 Potassium 4.6 mmol/L (3.5-5.1) 11/05/22 12:30 Chloride 100 mmol/L (98-107) 11/05/22 12:30 Carbon Dioxide 23 mmol/L (22-29) 11/05/22 12:30 Anion Gap 15.6 (5-19) 11/05/22 12:30 BUN 11 mg/dL (8-23) 11/05/22 12:30 Creatinine 0.8 mg/dL (0.7-1.2) 11/05/22 12:30 GFR Calculation 98.3 mL/min (90-130) 11/05/22 12:30 Glucose 94 mg/dL (65-115) 11/05/22 12:30 Calculated Osmolality 277 mOsm/kg (285-295) L 11/05/22 12:30 Calcium 8.4 mg/dL (8.5-10.5) L 11/05/22 12:30 Iron 11 ug/dL (59-158) L 11/05/22 12:30 Ferritin 6 ng/mL (30-400) L 11/05/22 12:30 Total Bilirubin 0.3 mg/dL (0.15-1.2) 11/05/22 12:30 AST 16 U/L (0-40) 11/05/22 12:30 ALT 18 U/L (0-41) 11/05/22 12:30 Alkaline Phosphatase 61 U/L (40-130) 11/05/22 12:30 Troponin T Baseline 24 ng/L (0-15) H 11/05/22 12:35 Total Protein 5.6 g/dL (6.6-8.7) L 11/05/22 12:30 Albumin 3.9 g/dL (3.5-5.2) 11/05/22 12:30 Globulin 1.7 g/dL (1.3-4.6) 11/05/22 12:30 Lipase 26 U/L (13-60) 11/05/22 12:30 Blood Type O Positive 11/05/22 12:30 Rho(D) Type Positive 11/05/22 12:30 Antibody Screen Negative 11/05/22 12:30 Crossmatch See Detail 11/05/22 12:30 EKG Data EKG 1: I personally reviewed and interpreted this EKG as follows: EKG interpretation date: 11/05/22 EKG interpretation time: 12:45 Interpretation: Impression normal sinus rhythm with a heart rate of 72. Normal QRS, normal ST segment, normal AL interval, normal QT interval, normal P waves, normal T waves. Normal axis. Impression normal EKG Critical Care Time Critical Care Time: Critical Care Time: Yes Total Critical Care Time: 45 Attestation: See orders. Blood transfusion. Discussion with hospitalist. Discharge Plan Discharge Patient Disposition: Admitted As Inpatient Clinical Impression: Anemia Gastrointestinal bleeding Qualifiers: GI bleed type/associated pathology: unspecified gastrointestinal hemorrhage type Qualified Code(s): K92.2 - Gastrointestinal hemorrhage, unspecified Condition: Stable Coding Level of Care Code ED Operating Engineer Apprentice for Ayana Bustillos
[2022-11-05 13:00] LABS: INR 0.98 (0.8-1.2); Partial Thromboplastin Time 27.5 SECONDS (23.9-36.7)
[2022-11-05 13:11] LABS: Hematocrit 17.7 % (42.0-52.0); Hemoglobin 4.8 g/dL (11.7-16.6)
[2022-11-05 13:16] LABS: Alanine Aminotransferase 18 U/L (0-41); Albumin Level 3.9 g/dL (3.5-5.2); Alkaline Phosphatase 61 U/L (40-130); Anion Gap 15.6 (5-19); Aspartate Amino Transferase 16 U/L (0-40); Blood Urea Nitrogen 11 mg/dL (8-23); Calcium 8.4 mg/dL (8.5-10.5); Carbon Dioxide 23 mmol/L (22-29); Chloride 100 mmol/L (98-107); Ferritin 6 ng/mL (30-400); Globulin 1.7 g/dL (1.3-4.6); Glomerular Filtration Rate 98.3 mL/min (90-130); Glucose 94 mg/dL (65-115); Iron 11 ug/dL (59-158); Lipase 26 U/L (13-60); Osmolality Calculated 277 mOsm/kg (285-295); Potassium 4.6 mmol/L (3.5-5.1); Sodium 134 mmol/L (136-145); Total Bilirubin 0.3 mg/dL (0.15-1.2); Total Protein 5.6 g/dL (6.6-8.7)
--- NOTE | 2022-11-05 13:40 | P.HP_ITS ---
Providers/Chief Complaint Admitting Physician: Doris Brennan MD Primary Care Provider: [facility] Chief Complaint: ANEMIA History of Present Illness Costa Alba is a 61 year old male who presented to the emergency room from [facility] secondary to hemoglobin of 5.7 at their clinic today. He went there complaining of increasing weakness, dizziness, falls, shortness of breath and chest pain over the last 2 months. He has a lot of chronic complaints related to nerve pain , neck and back pain, recurrent falls that have been evaluated by neurology and orthopedics along with chronic cough, shortness of breath including in the supine position among others. Lately he has also been complaining of pain in his left chest radiating to the backs of both of his arms. He has thought that it might be related to chronic neck pain. He has a history of C5/C6/C7 discectomy several years ago. The cage that was placed then had slipped and original plans were for him to undergo a second cervical spine procedure. Back in April of last year however he was found to have significant stenosis of the LAD and had drug-eluting stent placement. He was started on aspirin and Plavix at that time. Back then hemoglobin was normal at 13-14. He reports that he has had a gradual decline since not too long after that. This has been more pronounced over the last 2 months. He has fallen at least 10 times. He describes dizziness with getting up from a seated position. He d escribes getting short of breath and having chest discomfort with fewer steps. Lately it is gotten to the point that he can even go from his chair to the bathroom without having to rest. His friends have also noted that he has been very pale. When specifically asking him he does describe black stools for several months. He has intermittent episodes of what is predominantly posttussive emesis. He denies any coffee-ground emesis or hematemesis. He has frequent reflux disease and has had some upper abdominal discomfort but I do not get a sense that this is necessarily worse than normal. He had an EGD and colonoscopy from what I can gather last in 2018. He had nonspecific gastritis in the antrum at that time as well as some diverticulitis. He was started on proton pump inhibitor around then, possibly prior to that. Maybe 20 years ago he had a peptic ulcer although I do not have any details related to that. Because of his progressive symptoms he decided to go see [facility] today. They evaluated him including blood work. Patient had been discharged with plan for outpatient follow-up but when his hemoglobin came back so low he was called and told to come into the emergency room. Repeat hemoglobin here was 4.8 with a hematocrit of 17. Stool was noted to be occult positive. Patient has been typed and crossed and request was made for admission to the hospitalist service. Initial troponin is 24. Initial EKG shows sinus rhythm without any acute ST segment changes. Patient is currently chest pain-free at rest. He has been having some lower extremity edema. He intermittently has epistaxis for short periods of time. This has not increased lately. His chronic cough is productive of mucus with no blood noted. He did have recent cataract surgery on his right eye with plan to have the left done tomorrow. He denies any problems with bleeding from that. No hematuria or other difficulty urinating. He has been using some Advil the last week or 2 which she picked up because of the increasing episodes of chest and arm pain he was having. He denies chronic NSA ID use beyond known aspirin. As already stated he is on the Plavix. He he does smoke and is up to 3 to 4 packs of cigarettes a day. He also drinks alcohol. He says he can generally only afford to 30 packs of beer per month and the amount he drinks daily varies depending on how much beer he has left. He has no known liver disease or varices. At times off-and-on over the years he has dysphagia for solids but denies any recently. His primary concerns are pain in his back and neck and other nerve pain in his extremities, frequent falls and his chronic cough. Pain clinic physician: Dr. Cabrera Director Of Special Events: Dr. Hodge Personal Banking Advisor: Dr. Lira Spine surgeon: Dr Jiménez Review of Systems General: Reports: Other (ROS as per HPI or as otherwise noted here) Const: Reports: fatigue (Severe) and change in sleep pattern (Not sleeping very much lately); Denies: fever(s) or change in weight Card: Reports: swelling of feet/ankles and dyspnea on exertion Resp: Denies: pain on inspiration or change in phlegm color GI: Reports: melena; Denies: diarrhea, constipation or hematochezia : Denies: difficulty urinating Skin/Breast: Reports: other (Nail fungus fingers and toes); Denies: sores Shaun/Lymph: Denies: easy bruising or easy bleeding Medications/Allergies Home Medications Medication Instructions Recorded Confirmed Last Taken Type cyanocobalamin (vitamin B-12) See Rx Instructions .Route 09/02/21 11/05/22 10/15/22 Rx 1,000 mcg/mL injection solution .COMPLEX #1 mL oxycodone 10 mg tablet 10 - 20 mg PO Q4H PRN Pain 02/24/22 11/05/22 11/04/22 History aspirin 81 mg tablet,delayed 81 mg PO DAILY #90 tabs 04/23/22 11/05/22 05/01/22 02:30 Rx release omeprazole 40 mg capsule,delayed 40 mg PO BID 04/30/22 11/05/22 11/05/22 History release atorvastatin 40 mg tablet 40 mg PO DAILY #90 tabs 05/02/22 11/05/22 11/05/22 Rx clopidogrel 75 mg tablet 75 mg PO DAILY #90 tabs 05/02/22 11/05/22 11/05/22 Rx lisinopril 10 mg tablet 10 mg PO DAILY #90 tabs 05/02/22 11/05/22 11/05/22 Rx carvedilol 6.25 mg tablet 6.25 mg PO BID #180 tabs 05/09/22 11/05/22 11/05/22 Rx albuterol sulfate 90 mcg/actuation 2 puff inhalation Q6H PRN 11/05/22 11/05/22 Unknown History aerosol inhaler (ProAir HFA) Shortness Of Breath Or Wheezing budesonide-formoterol HFA 160 1 puff inhalation BID 11/05/22 11/05/22 11/05/22 History mcg-4.5 mcg/actuation aerosol inhaler (Symbicort) prazosin 2 mg capsule 2 mg PO BEDTIME 11/05/22 11/05/22 Unknown History Allergies Allergy/AdvReac Type Severity Reaction Status Date / Time No Known Allergies Allergy Verified 06/19/22 14:01 PFSH Acute PFSH: Medical History (Updated 11/05/22 @ 16:23 by Doris Brennan MD) Alcohol use disorder Alcoholic peripheral neuropathy Atherosclerosis of coronary artery Benign essential hypertension 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 Chronic migraine without aura, intractable, with status migrainosus Cognitive dysfunction, alcohol-related COPD (chronic obstructive pulmonary disease) CVA (cerebral vascular accident) Degenerative disc disease, cervical Eczema of right hand Facet arthritis, degenerative, lumbar spine GERD (gastroesophageal reflux disease) History of gastric ulcer Hyperlipidemia Lumbar radiculopathy Peptic ulcer disease Right kidney mass Schizoaffective disorder, depressive type Seizure Sleep apnea, obstructive Tetrahydrocannabinol (THC) use disorder, mild, abuse Urinary urgency Vitamin B12 deficiency Surgical History (Updated 11/05/22 @ 15:33 by Doris Brennan MD) H/O cervical discectomy (08/2021) Dr. Jiménez. Anterior discectomy C5/6, Anterior discectomy C6/7, Corpectomy C6 greater than 50%, Insertion of Corpectomy cage C5-C7, Instrumentation with anterior plate from C5-C7, Use of allograft, Use of autograft. Done for cervical radiculopathy C6 and C7. History of cardiac catheterization 05/01/2022 Left Main no disease, Circumflex no disease, RCA no disease, LAD 70% stenosis with angioplasty/stent performed same date, 3rd OM branch segment 60% stenosis, left dominance History of cataract surgery History of coronary artery stent placement (04/2022) angioplasty and FABIAN to mid to distal LAD 05/01/2022 Family History Other Cancer Diabetes Hypertension Social History (Updated 11/05/22 @ 16:36 by Doris Brennan MD) Smoking and tobacco status: current every day smoker cigarettes [ Other cigarette details: 3 to 4 packs a day, approximately 50 years of smoking] Alcohol intake: current Alcohol type: beer Alcohol use comment: Generally gets two 30 packs of beer per month, amount per day varies Substance/Drug Use: current Substance/Drug use frequency: few times a month Substance/Drug use type: Marijuana Other substance/drug use details: For pain control Adopted: No Caregiver/support person: No Lives independently: Yes Household members: none Housing: House Marital status: Number of children: 2 Number of grandchildren: 6 Highest education level completed: 11th Grade service: No Current occupational status: disabled Current gender identity: Male Maricarmen/Protestant: Sikhism Special maricarmen needs: No Agree to transfusion: Yes Financial difficulty paying for basics: Hard Other PFSH information: Supplemental PFSH Information: I was able to eventually find records from EGD and colonoscopy in 2018 by accessing previous EMR. I have incorporated results here to facilitate care during this hospital stay. EGD from 06/2018 Colonoscopy from 06/2018 Vitals/I&O/Wt Last Vital Signs Temp 97.8 F 11/05/22 12:23 Pulse 78 11/05/22 13:00 Resp 18 11/05/22 13:00 BP 131/77 11/05/22 13:00 Pulse Ox 97 11/05/22 13:00 Weight last 48 hrs Weight 111.13 kg Physical Exam Narrative: Awake and alert, able to provide history, oriented x3. Normocephalic. Anicteric. Conjunctive are very pale. Nose is curved. Oral mucosa with moist mucous membranes, pale. Edentulous. Neck is large but supple. Lungs are clear to auscultation bilaterally without any rales rhonchi or wheezes although productive sounding paroxysms of cough noted several times during examination. Cardiovascular exam reveals a regular rhythm. 1+ peripheral pulses. Abdomen is soft, no epigastric or other tenderness, positive bowel sounds. 2+ pretibial edema. No calf tenderness. Skin is pale. Hypertrophic yellowed nails are noted. Speech is clear, nonpressured. Face symmetric. No involuntary movements noted. Handgrip equal. Data 11/05/22 12:30 11/05/22 12:30 Other Labs: Laboratory Results WBC 6.3 10^3/uL (4.0-10.0) 11/05/22 12:30 RBC 2.41 10^6/uL (4.1-5.3) L 11/05/22 12:30 Hgb 4.8 g/dL (11.7-16.6) L* 11/05/22 12:30 Hct 17.7 % (42.0-52.0) L* 11/05/22 12:30 MCV 73.4 fl (80-94) L 11/05/22 12:30 MCH 19.9 pg (28.0-34.0) L 11/05/22 12:30 MCHC 27.1 g/dL (30.0-36.0) L 11/05/22 12:30 RDW 18.7 % (12.1-15.1) H 11/05/22 12:30 Plt Count 448 10^3/cmm (130-400) H 11/05/22 12:30 MPV 9.4 fL (7.4-10.4) 11/05/22 12:30 Neut % (Auto) 61.8 % 11/05/22 12:30 Lymph % (Auto) 24.2 % 11/05/22 12:30 [place] % (Auto) 11.0 % 11/05/22 12:30 Eos % (Auto) 1.9 % 11/05/22 12:30 Baso % (Auto) 0.6 % 11/05/22 12:30 Neut # (Auto) 3.87 10^3/uL (1.8-7.7) 11/05/22 12:30 Lymph # (Auto) 1.5 10^3/uL (0.8-4.8) 11/05/22 12:30 [place] # (Auto) 0.7 10^3/uL (0.2-0.9) 11/05/22 12:30 Eos # (Auto) 0.1 10^3/uL (0.0-0.8) 11/05/22 12:30 Baso # (Auto) 0.0 10^3/uL (0.0-0.1) 11/05/22 12:30 Nucleated RBC % (auto) 0.3 % 11/05/22 12: Nucleated RBCs # 0.0 /100WBC 11/05/22 12:30 PT 13.20 SECONDS (12.1-14.9) 11/05/22 12:30 INR 0.98 (0.8-1.2) 11/05/22 12:30 APTT 27.5 SECONDS (23.9-36.7) 11/05/22 12:30 Sodium 134 mmol/L (136-145) L 11/05/22 12:30 Potassium 4.6 mmol/L (3.5-5.1) 11/05/22 12:30 Chloride 100 mmol/L (98-107) 11/05/22 12:30 Carbon Dioxide 23 mmol/L (22-29) 11/05/22 12:30 Anion Gap 15.6 (5-19) 11/05/22 12:30 BUN 11 mg/dL (8-23) 11/05/22 12:30 Creatinine 0.8 mg/dL (0.7-1.2) 11/05/22 12:30 GFR Calculation 98.3 mL/min (90-130) 11/05/22 12:30 Glucose 94 mg/dL (65-115) 11/05/22 12:30 Calculated Osmolality 277 mOsm/kg (285-295) L 11/05/22 12:30 Calcium 8.4 mg/dL (8.5-10.5) L 11/05/22 12:30 Iron 11 ug/dL (59-158) L 11/05/22 12:30 Ferritin 6 ng/mL (30-400) L 11/05/22 12:30 Total Bilirubin 0.3 mg/dL (0.15-1.2) 11/05/22 12:30 AST 16 U/L (0-40) 11/05/22 12:30 ALT 18 U/L (0-41) 11/05/22 12:30 Alkaline Phosphatase 61 U/L (40-130) 11/05/22 12:30 Troponin T Baseline 24 ng/L (0-15) H 11/05/22 12:35 Total Protein 5.6 g/dL (6.6-8.7) L 11/05/22 12:30 Albumin 3.9 g/dL (3.5-5.2) 11/05/22 12:30 Globulin 1.7 g/dL (1.3-4.6) 11/05/22 12:30 Lipase 26 U/L (13-60) 11/05/22 12:30 Blood Type O Positive 11/05/22 12:30 Rho(D) Type Positive 11/05/22 12:30 Antibody Screen Negative 11/05/22 12:30 Crossmatch See Detail 11/05/22 12:30 A&P Assessment and plan (1) Iron deficiency anemia: Severe, secondary to slow GI losses the setting of dual antiplatelet therapy dating back to April 2022 along with heavy smoking, variable alcohol use and kn own gastroesophageal reflux disease. Has had [id number] NSAID use apart from aspirin therapy for the last week or 2 but denies chronic NSAID use. Has a history of peptic ulcer disease some years ago though details unknown. On chronic proton pump inhibitor. Reports intermittent epistaxis without increase lately. No other gross bleeding noted. Describes melena without hematochezia. No hematemesis or hemoptysis. No known history of varices. Anemia is quite symptomatic exacerbating multiple chronic complaints and also associated with increased chest pain and difficulty breathing along with fatigue lately. (2) Gastrointestinal bleeding: Unspecified upper GI bleeding currently. Has a history of nonspecific gastritis on most recent EGD from 2018 and diverticulitis and noncancerous polyps from colonoscopy the same year. Intermittently has issues with dysphagia for solids but denies recent problems with this. Chronic alcohol use and heavy smoker in a ddition to regular NSAID use with aspirin and recent addition of ibuprofen within the last week or 2. (3) History of coronary artery stent placement: Drug-eluting LAD stent placement in April 2022, on dual antiplatelet therapy with aspirin and Plavix since that time with plan for minimum of 1 year dual therapy, follows with Dr. Hodge outpatient. Also on chronic statin therapy. Having escalating episodes of chest pain over the last 2 months left-sided radiating into both arms. Concern is for demand ischemia in the setting of significantly decreased oxygen carrying capacity. (4) Hypertension: Currently controlled. On chronic carvedilol and lisinopril. (5) COPD (chronic obstructive pulmonary disease): Secondary to longstanding tobacco use, describes chronic bronchitis symptoms with chronic cough that is productive. Previous PFTs indicated significant bronchodilator response. Sleep studies had previously indicated evidence of obstructive sleep apnea. Patient indicates that he no longer has apnea but does state that he has recently been started on home oxygen, primarily with sleep but also as needed during the day. On chronic Symbicort and albuterol. Not currently acute. (6) Recurrent falls: Longstanding issue over the years of variable frequency. Has been clinically felt to be secondary to cerebellar ataxia and peripheral neuropathy related to alcohol use versus seizures versus musculoskeletal abnormalities. Specific etiology or adequate management has not been identified per Mr. Alba. He has noticed an increase over the last 2 months with more than 10 falls likely related to progressively worsening anemia and associated effects. (7) Chronic pain: With known history of cervical and lumbar radiculopathy and peripheral aylin ropathy, chronic headaches. On chronic oxycodone for pain control and has been on several other medications over the years with limited relief. When medically able to come off of antiplatelet therapy consideration may be given to additional spinal surgeries to help with his pain. (8) Nicotine dependence, cigarettes, with other nicotine-induced disorders: Smoking 3 to 4 packs of cigarettes a day. Has smoked up to 6 pack cigarettes a day at 1 point in time and is smoked for close to 50 years. Plan Regular alcohol use Occasional THC use to help control pain Difficulty sleeping lately Vitamin B12 deficiency on chronic B12 injections Chronic prazosin therapy Inpatient admission High-dose IV PPI Blood transfusion has been ordered and already initiated Risk and benefits of blood transfusion were reviewed with patient and he did not have any specific questions Surgery consultation for EGD - discussed with Dr. Ellis, have ordered tranexamic acid as requested Clear liquid, low acid diet now, n.p.o. after midnight Hold aspirin We will continue Plavix given drug-eluting stent approximately 6 months ago unless indicators of ongoing active bleeding Reviewed with patient to avoid NSAIDs for additional [id number]-xgznpts pain relief options (ibuprofen, Advil, Aleve, naproxen and similar medications upon discharge, including aspirin unless otherwise indicated by a physician); also reviewed limiting [id number]-lzu-zmwscmz Tylenol or acetaminophen given regular alcohol consumption Telemetry monitoring Lasix after 2 units of blood as blood pressure will allow Follow serial cardiac enzymes and EKGs If significant indicators of ischemia or if ongoing bleeding necessitating holding of both aspirin and Plavix, will discuss with cardiology further plans We will continue carvedilol at half usual dose and hold lisinopril currently Monitor blood pressures for need for additional changes Continue home statin therapy We will initiate iron replacement after endoscopy Check TIBC Continue home Symbicort or formulary equivalent and albuterol as needed Oxygen therapy particularly with sleep and otherwise as needed Continue home oxycodone Monitor for signs and symptoms of alcohol withdrawal Thiamine and folate Trazodone if needed for sleep Continue home prazosin Nicotine patch if needed SCDs for DVT prophylaxis, no pharmacological prophylaxis secondary to severity of anemia Supportive care otherwise Anticipate discharge home with close outpatient follow-up to primary care provider, cardiology and surgery depending on results of EGD. Patient is already chronically on twice daily PPI so consideration may have to be given to an alternative PPI formulation or additional medications. Hopefully he will be able to maintain Plavix. Findings, concerns and plans were discussed with patient and he was given an opportunity to ask questions. He has a lot of chronic issues that he does not feel have been adequately addressed over time but understands that hospitalization is to address the low blood count, try to identify an area of bleeding and ensure his heart will be okay. Full code Attestations Medical Necessity Statement*: Anticipated stay greater than 2 midnights in a gentleman with severe anemia requiring blood transfusion. He has coronary artery disease with stent placement within the last 6 months for which she has been on dual antiplatelet therapy. He has had increased symptoms as described. Further evaluation, monitoring for ongoing bleeding and adjustments in medication management are warranted as described. At risk of progressive anemia with escalation in symptoms including possibility of acute coronary event from demand ischemia or worsening hypoxemia due to decreased oxygen carrying capacity in the setting of known comorbidities. and High Time for a total of 85 minutes, includes reviewing past or interval history, examining/interviewing patient, placing orders, counseling patient/family/other support, discussing plan of care with staff, communicating with other healthcare providers and documenting encounter Diagnoses Iron deficiency anemia D50.9 Gastrointestinal bleeding K92.2 History of coronary artery stent placement Z95.5 Hypertension I10 COPD (chronic obstructive pulmonary disease) J44.9 Recurrent falls R29.6 Chronic pain G89.29 Nicotine dependence, cigarettes, with other nicotine-induced disorders F17.218
[2022-11-05 13:54] LABS: Troponin(5th) Baseline 24 ng/L (0-15)
[2022-11-05] MEDS: acetaminophen 325 mg Tablet 650 MG PO (14:45)
[2022-11-05] MEDS: diphenhydrAMINE 25 mg Capsule PO (14:45)
--- NOTE | 2022-11-05 14:45 | ECG_ITS ---
[facility] Test Date: 2022-11-05 Pat Name: Costa Alba Department: Room: Gender: Male Faculty Physician: : [id number] Requested By: Doris Brennan Order Number: [id number] Sara MD: Khurram Hodge M.D. Measurements Intervals [place] Rate: 67 P: 68 AL: 167 QRS: 63 QRSD: 89 T: 73 QT: 384 QTc: 407 Interpretive Statements SINUS RHYTHM Compared to ECG 02/24/2022 05:22:24 No significant changes Electronically Signed On 11-05-2022 17:35:51 PLANETARIUM TECHNICIAN by Khurram Hodge M.D. [id number]
[2022-11-05] MEDS: pantoprazole 40 mg SDV 80 MG IVP (14:57)
[2022-11-05 15:29] LABS: Troponin 5 2HR 23.68 ng/L (0-15)
[2022-11-05 15:30] LABS: Troponin 5 2HR Delta -0.32 ABS# (0-10)
[2022-11-05 16:36] LABS: Iron 12 ug/dL (59-158); Percent Saturation 3.2 % (20-50); Total Iron Binding Capacity 374 mcg/dl; Unsaturated Iron Binding 362 ug/dL (112-347)
--- NOTE | 2022-11-05 17:47 | ECG_ITS ---
[facility] Test Date: 2022-11-05 Pat Name: Costa Alba Department: Room: 250 Gender: Male Pharmacy Graduate Intern: : 1960 Requested By: Doris Brennan Order Number: [id number] Sara MD: Khurram Hodge M.D. Measurements Intervals [place] Rate: 69 P: 60 [place]: 168 QRS: 55 QRSD: 94 T: 67 QT: 377 QTc: 406 Interpretive Statements SINUS RHYTHM Compared to ECG 11/05/2022 14:56:09 No significant changes Electronically Signed On 11-05-2022 22:47:15 DRESS CAP MAKER by Khurram Hodge M.D. [id number]
[2022-11-05] MEDS: sodium chloride 0.9% 100 mL Bag 50 ML IV (18:16)
--- NOTE | 2022-11-05 19:28 | PC.NURSE ---
Patient arrived to unit with blood transfusing, patient has soft bp with remaining VS, AAOx4, good UOP, room clean and clutter free with call light within reach and not other needs.
[2022-11-05 19:32] LABS: Troponin 5 6HR 22.53 ng/L (0-15); Troponin 5 6HR Delta -1.47 ng/L (0-12)
--- NOTE | 2022-11-05 20:45 | PM.CONSULT ---
Providers/Reason For Consult Consulting Physician/Specialty*: Dr. Raj Ellis, DO/General surgery Reason for Consult*: Anemia, melena Attending Physician: Doris Brennan MD Primary Care Provider: Le Quevedo History of Present Illness History of Present Illness Costa Alba is a 61 year old male who recently got a drug-eluting stent in his LAD in April 2022, presented to the hospital with recurrent falls. His hemoglobin has been dropping and was found to be below 5 in the ER. He is being transfused blood. Medicine is asked for an EGD. He does report some epigastric pain and heartburn that is the worst its been. The pain does not radiate. Eating makes pain worse. Nothing makes pain better. He has a history of peptic ulcer many years ago. He takes omeprazole twice a day for this. Review of Systems General: Reports: 10 or more systems reviewed and unremarkable except in HPI and below Medications/Allergies Home Medications Medication Instructions Recorded Confirmed Last Taken Type cyanocobalamin (vitamin B-12) See Rx Instructions .Route 09/02/21 11/05/22 10/15/22 Rx 1,000 mcg/mL injection solution .COMPLEX #1 mL oxycodone 10 mg tablet 10 - 20 mg PO Q4H PRN Pain 02/24/22 11/05/22 11/04/22 History aspirin 81 mg tablet,delayed 81 mg PO DAILY #90 tabs 04/23/22 11/05/22 05/01/22 02:30 Rx release omeprazole 40 mg capsule,delayed 40 mg PO BID 04/30/22 11/05/22 11/05/22 History release atorvastatin 40 mg tablet 40 mg PO DAILY #90 tabs 05/02/22 11/05/22 11/05/22 Rx clopidogrel 75 mg tablet 75 mg PO DAILY #90 tabs 05/02/22 11/05/22 11/05/22 Rx lisinopril 10 mg tablet 10 mg PO DAILY #90 tabs 05/02/22 11/05/22 11/05/22 Rx carvedilol 6.25 mg tablet 6.25 mg PO BID #180 tabs 05/09/22 11/05/22 11/05/22 Rx albuterol sulfate 90 mcg/actuation 2 puff inhalation Q6H PRN 11/05/22 11/05/22 Unknown History aerosol inhaler (ProAir HFA) Shortness Of Breath Or Wheezing budesonide-formoterol HFA 160 1 puff inhalation BID 11/05/22 11/05/22 11/05/22 History mcg-4.5 mcg/actuation aerosol inhaler (Symbicort) prazosin 2 mg capsule 2 mg PO BEDTIME 11/05/22 11/05/22 Unknown History Allergies Allergy/AdvReac Type Severity Reaction Status Date / Time No Known Allergies Allergy Verified 06/19/22 14:01 Current Medications Generic Name Dose Route Start Last Admin Trade Name Freq PRN Reason Stop Dose Admin Sodium Chloride 50 ml 11/05/22 13:16 11/05/22 18:16 Sodium Chloride 0.9% 100 Ml Bag IV 11/06/22 13:17 50 ml PRN PRN Administration Blood transfusion prime and flush PFSH Acute PFSH: Medical History Alcohol use disorder Alcoholic peripheral neuropathy Atherosclerosis of coronary artery Benign essential hypertension 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 Chronic migraine without aura, intractable, with status migrainosus Cognitive dysfunction, alcohol-related COPD (chronic obstructive pulmonary disease) CVA (cerebral vascular accident) Degenerative disc disease, cervical Eczema of right hand Facet arthritis, degenerative, lumbar spine GERD (gastroesophageal reflux disease) History of gastric ulcer Hyperlipidemia Lumbar radiculopathy Peptic ulcer disease Right kidney mass Schizoaffective disorder, depressive type Seizure Sleep apnea, obstructive Tetrahydrocannabinol (THC) use disorder, mild, abuse Urinary urgency Vitamin B12 deficiency Surgical History H/O cervical discectomy (08/2021) Dr. Jiménez. Anterior discectomy C5/6, Anterior discectomy C6/7, Corpectomy C6 greater than 50%, Insertion of Corpectomy cage C5-C7, Instrumentation with anterior plate from C5-C7, Use of allograft, Use of autograft. Done for cervical radiculopathy C6 and C7. History of cardiac catheterization 05/01/2022 Left Main no disease, Circumflex no disease, RCA no disease, LAD 70% stenosis with angioplasty/stent performed same date, 3rd OM branch segment 60% stenosis, left dominance History of cataract surgery History of coronary artery stent placement (04/2022) angioplasty and FABIAN to mid to distal LAD 05/01/2022 Family History Other Cancer Diabetes Hypertension Social History Smoking and tobacco status: current every day smoker cigarettes [ Other cigarette details: 3 to 4 packs a day, approximately 50 years of smoking] Alcohol intake: current Alcohol type: beer Alcohol use comment: Generally gets two 30 packs of beer per month, amount per day varies Substance/Drug Use: current Substance/Drug use frequency: few times a month Substance/Drug use type: Marijuana Other substance/drug use details: For pain control Adopted: No Caregiver/support person: No Lives independently: Yes Household members: none Housing: House Marital status: Number of children: 2 Number of grandchildren: 6 Highest education level completed: 11th Grade service: No Current occupational status: disabled Current gender identity: Male Maricarmen/Christian: Restorationism Special maricarmen needs: No Agree to transfusion: Yes Financial difficulty paying for basics: Hard Vitals/I&O/Wt Last Vital Signs Temp 98.5 F 11/05/22 19:52 Pulse 61 11/05/22 19:52 Resp 18 11/05/22 19:52 BP 133/75 11/05/22 19:52 Pulse Ox 95 11/05/22 19:52 O2 Del Method 11/05/22 16:00 11/05/22 11/05/22 11/05/22 06:59 14:59 22:59 Intake Total 0 / 0 1290 / 1290 Output Total 1600 / 1600 Balance 0 / 0 -310 / -310 Weight last 48 hrs Weight 245 lb Physical Exam Narrative: General : Patient is well developed , no acute distress, oriented x3 Head : Normal cephalic, a-traumatic. Ears : Pinnae and external canal are normal. Hearing is normal. Eyes : PERRLA, Sclera and injection are normal. No conjunctival discharge. Nose : Mucous membranes are without erythema. Throat : buccal mucosa is normal, gums are without significant recession or hypertrophy. Lungs : Equal chest rise bilaterally, no use of accessory muscles, trachea is midline. Cor : Rate and rhythm are normal. Abdomen : Soft, ND, NT, no g/r/m Extremities : No edema, no cyanosis or clubbing, dorsalis pedis pulses are present bilaterally, non-tender to palpation of calves. Upper extremities are normal bilaterally. Back : non-tender to palpation, no CVA tenderness. Neuro : CN II - XII intact, Upper and lower extremities have equal and full strength Data 11/05/22 12:30 11/05/22 12:30 A&P Assessment and plan (1) Acute on chronic anemia: (2) Gastrointestinal bleeding: Plan EGD The risks and benefits of the procedure, including bleeding, infection, intestinal perforation requiring surgery, missed lesion were explained to the patient. The patient is understanding of the risks and wishes to proceed. Coding Level of Care Code Acute Code for Chg Fwd Diagnoses Acute on chronic anemia D64.9 Gastrointestinal bleeding K92.2
[2022-11-05] MEDS: prazosin 1 mg Capsule PO (21:03)
[2022-11-05] MEDS: carvedilol 3.125 mg Tablet PO (21:04)
[2022-11-05] MEDS: FUROsemide 10 mg/mL SDV 2mL 20 MG IVP (21:42)
[2022-11-05] MEDS: trazodone 50 mg Tablet PO (23:33)
[2022-11-05] MEDS: benzonatate 100 mg Capsule 200 MG PO (23:33)
[2022-11-05] MEDS: albuterol 2.5 mg/3 mL Neb NEBULIZER (23:43)
[2022-11-05] MEDS: budesonide 0.5 mg/2 mL Neb INHALATION (23:44)
[2022-11-06] VITALS (21 sets, daily range): BP systolic 97–163; BP diastolic 62–97; PULSE 63–111; RESP 15–19; TEMP 36.1–37.1; O2SAT 92–97
[2022-11-06] MEDS: sodium chloride 0.9% 100 mL Bag 50 ML IV (02:38)
[2022-11-06 05:18] LABS: Basophils % 0.7 %; Eosinophils # 0.1 10^3/uL (0.0-0.8); Eosinophils % 1.3 %; Lymphocytes # 1.4 10^3/uL (0.8-4.8); Lymphocytes % 26.5 %; Mean Corpuscular Hemoglobin 22.8 pg (28.0-34.0); Mean Platelet Volume 9.5 fL (7.4-10.4); Monocytes # 0.9 10^3/uL (0.2-0.9); Neutrophils # 2.92 10^3/uL (1.8-7.7); Neutrophils % 54.1 %; Nucleated Red Blood Cells % 0.4 %; Platelet Count 405 10^3/cmm (130-400); Red Cell Distribution Width 19.5 % (12.1-15.1); White Blood Count 5.4 10^3/uL (4.0-10.0)
[2022-11-06 05:20] LABS: Hemoglobin 8.2 g/dL (11.7-16.6); Mean Corpuscular HGB Conc 29.3 g/dL (30.0-36.0); Mean Corpuscular Volume 77.8 fl (80-94)
[2022-11-06] MEDS: pantoprazole 40 mg SDV IVP ×2 (05:33→17:57)
[2022-11-06] MEDS: budesonide 0.5 mg/2 mL Neb INHALATION ×2 (08:23→19:47)
[2022-11-06] MEDS: albuterol 2.5 mg/3 mL Neb NEBULIZER ×3 (08:23→19:47)
--- NOTE | 2022-11-06 09:42 | PC.CHAP ---
Pastoral Care Encounter/Spiritual Assessment Type of Contact [] Declined decision support analyst visit [] Patient/Family/Request visit [] Outpatient visit [] Follow-up visit [] Physician referral [] Code/Alert [x] Routine visit [] Staff referral [] Actively dying [x] Patient sleeping [] Family support [] [] Out of room [] Palliative care [] [] Receiving care in room [] Pre-surgical visit [] Trauma [] Long length of stay [] ICU visit [] Other: Relational/Emotional Strength [] Patient feels connected with others/family/visitors/staff [] Distress [] Loneliness/isolation [] Abandonment Spirituality of Patient [] Person of Maricarmen [] Attends Zoroastrian of their Maricarmen [] Believes in Prayer [] Reads Bible or Mormonism materials [] There are Spiritual issues to be addressed Senior Lead Software Engineer Interventions [] Prayer [] Active listening [] Non-anxious presence [] Spiritual/emotional support [] Crisis/trauma care [] Spiritual counseling [] Bereavement support [] Provided bereavement packet [] Provided Bible/devotional materials [] Provided toy/stuffed animal, coloring book to patient or family member [] Provided Communion [] Anointing/[place] [] Salvation [] Completed spiritual assessment [] Other: Impact on Illness or Injury [] Angry [] Fearful [] Anxious [] Often cries [] Exhaustion [] Unable to work [] Unable to attend advent [] Unable to walk/stand [] Unable to read [] Unable to drive [] Unable to eat/drink [] Unable to sleep [] Unable to be with family [] Patient intubated [] Other: Summary Time spent with patient
[2022-11-06] MEDS: sodium chloride 0.9% 1,000 ML 30 ML IV (10:02)
--- NOTE | 2022-11-06 10:18 | PM.PN ---
Subjective Subjective: Hemoglobin 8.2 Patient abuse a daily basis He drinks 5 to 6 cans of beer every day Currently hemodynamically stable Plan for EGD today White count 5.4 Blood pressure is stable Iron deficiency anemia noted Given 1 dose of iron today Vitals/I&O/Wt Last Vital Signs Temp 97.0 F L 11/06/22 09:52 Pulse 81 11/06/22 09:52 Resp 18 11/06/22 09:52 BP 163/89 11/06/22 09:52 Pulse Ox 94 11/06/22 09:52 O2 Del Method 11/06/22 09:52 11/05/22 11/06/22 11/06/22 22:59 06:59 14:59 Intake Total 3320 / 3320 350 / 3670 Output Total 2175 / 2175 800 / 2975 400 / 400 Balance 1145 / 1145 -450 / 695 -400 / -400 Weight last 48 hrs Weight 111.13 kg Physical Exam Narrative: Patient is awake and alert Euvolemic pleasant cooperative Laying supine Currently on room air Hemodynamically stable S1, S2 Abdomen soft Data 11/06/22 04:39 11/05/22 12:30 A&P Assessment and plan (1) Alcohol use disorder: (2) GERD (gastroesophageal reflux disease): (3) Gastrointestinal bleeding: (4) Iron deficiency anemia: (5) On home oxygen therapy: (6) Chronic cough: (7) Recurrent falls: (8) Acute on chronic anemia: Plan Acute on chronic (anemia Acute GI bleed Blood loss anemia History of gastritis Peptic ulcer disease Alcohol use disorder Continue Protonix and sucralfate EGD today Hemoglobin above 8 Status post 2 units PRBC Alcohol-related disorder continue thiamine and folic acid Recurrent falls likely related to alcohol-related neuropathy Severe iron deficiency anemia give him 1 bag of iron sucrose today Hypertensive: Adjust antihypertensive regimen DVT prophylaxis with SCDs Chronic hypoxia uses CPAP and oxygen on as needed basis at home Currently on room air COPD without acute exacerbation History of coronary disease holding aspirin and Plavix for now, in case of active ulcers would only continue with Plavix Full code Plan to discharge him on Attestations Medical Necessity Statement*: Discharge tomorrow if stable Coding Level of Care Code 97238 Diagnoses Alcohol use disorder F10.90 GERD (gastroesophageal reflux disease) K21.9 Gastrointestinal bleeding K92.2 Iron deficiency anemia D50.9 On home oxygen therapy Z99.81 Chronic cough R05.3 Recurrent falls R29.6 Acute on chronic anemia D64.9
--- NOTE | 2022-11-06 10:29 | ANES.PREANE2 ---
Pre-Anesthetic Assessment Height/Weight: Height 1.88 m Weight 111.13 kg Temp Pulse Resp BP Pulse Ox O2 Del Method 97.0 F L 81 18 163/89 94 11/06/22 09:52 11/06/22 09:52 11/06/22 09:52 11/06/22 09:52 11/06/22 09:52 11/06/22 09:52 Preop Diagnosis: Abnormal stress test/ chest pressure/ dyspnea on exertion Operation Date: 11/06/22 11:00 Proposed Procedures p EGD(Not Applicable) - Raj Ellis, DO Was Beta Omid taken within 24 hours: Yes Was Clonidine taken within 24 hours: Yes Social Alcohol and Tobacco 6 beers a day pack(s) per day 2 pack years cigarette this morning Exam alert, oriented x 3, clear to auscultation bilaterally and regular rate & rhythm Airway Submandibular: within normal limits Cervical ROM: within normal limits Mallampati: Class II Comments: Comments: no teeth History/ROS No significant history except as noted and No significant complaints Pulmonary Chronic Obstructive Pulmonary Disease and Sleep Apnea no longer uses a cpap. does not tolerate laying flat or on side CV/HEM Anemia, Coronary Artery Disease, Hypertension and Myocardial Infarction patient has not seen cardiology since his stent in april. chronic anticoag. reports angina every day for 2 months. None reported Hepatic None reported GI last emesis 2 days ago. difficulty swallowing Metabolic Morbid Obesity Musc/skel Lower Back Pain Neuropsych PTSD Anesthetic Plan ASA status: 4 Anesthesia: Anesthesia Evaluation and MAC Risk of > 500 ml blood loss (7ml/kg in children): Yes, adequate IV access and fluids planned Medications/Allergies Home Medications Medication Instructions Recorded Confirmed Last Taken Type cyanocobalamin (vitamin B-12) See Rx Instructions .Route 09/02/21 11/05/22 10/15/22 Rx 1,000 mcg/mL injection solution .COMPLEX #1 mL oxycodone 10 mg tablet 10 - 20 mg PO Q4H PRN Pain 02/24/22 11/05/22 11/04/22 History aspirin 81 mg tablet,delayed 81 mg PO DAILY #90 tabs 04/23/22 11/05/22 05/01/22 02:30 Rx release omeprazole 40 mg capsule,delayed 40 mg PO BID 04/30/22 11/05/22 11/05/22 History release atorvastatin 40 mg tablet 40 mg PO DAILY #90 tabs 05/02/22 11/05/22 11/05/22 Rx clopidogrel 75 mg tablet 75 mg PO DAILY #90 tabs 05/02/22 11/05/22 11/05/22 Rx lisinopril 10 mg tablet 10 mg PO DAILY #90 tabs 05/02/22 11/05/22 11/05/22 Rx carvedilol 6.25 mg tablet 6.25 mg PO BID #180 tabs 05/09/22 11/05/22 11/05/22 Rx albuterol sulfate 90 mcg/actuation 2 puff inhalation Q6H PRN 11/05/22 11/05/22 Unknown History aerosol inhaler (ProAir HFA) Shortness Of Breath Or Wheezing budesonide-formoterol HFA 160 1 puff inhalation BID 11/05/22 11/05/22 11/05/22 History mcg-4.5 mcg/actuation aerosol inhaler (Symbicort) prazosin 2 mg capsule 2 mg PO BEDTIME 11/05/22 11/05/22 Unknown History Allergies Allergy/AdvReac Type Severity Reaction Status Date / Time No Known Allergies Allergy Verified 06/19/22 14:01 Current Medications Generic Name Dose Route Start Last Admin Trade Name Freq PRN Reason Stop Dose Admin Albuterol Sulfate 2.5 mg 11/05/22 20:00 11/06/22 08:23 Albuterol 2.5 Mg/3 Ml Neb NEBULIZER 2.5 mg QID.RESPIRATORY FARAZ Administration Benzonatate 200 mg 11/05/22 23:27 11/05/22 23:33 Benzonatate 100 Mg Capsule PO 200 mg TID PRN Administration COUGH Budesonide 0.5 mg 11/05/22 20:00 11/06/22 08:23 Budesonide 0.5 Mg/2 Ml Neb INHALATION 0.5 mg BID.RESPIRATORY FARAZ Administration Carvedilol 3.125 mg 11/05/22 18:00 11/05/22 21:04 Carvedilol 3.125 Mg Tablet PO 3.125 mg BID FARAZ Administration Sodium Chloride 1,000 mls @ 30 mls/hr 11/06/22 10:00 11/06/22 10:02 Sodium Chloride 0.9% IV 11/07/22 09:59 30 mls/hr .Q24H FARAZ Administration Pantoprazole Sodium 40 mg 11/06/22 02:00 11/06/22 05:33 Pantoprazole 40 Mg Sdv IVP 40 mg Q12H FARAZ Administration Prazosin HCl 1 mg 11/05/22 18:00 11/05/22 21:03 Prazosin 1 Mg Capsule PO 1 mg BID FARAZ Administration Trazodone HCl 50 mg 11/05/22 16:51 11/05/22 23:33 Trazodone 50 Mg Tablet PO 50 mg BEDTIME PRN Administration INSOMNIA PFSH Anesthesia Medical History (Updated 11/06/22 @ 10:20 by Kapil Lanier MD) Alcohol use disorder Alcoholic peripheral neuropathy Atherosclerosis of coronary artery Benign essential hypertension 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 Chronic migraine without aura, intractable, with status migrainosus Cognitive dysfunction, alcohol-related COPD (chronic obstructive pulmonary disease) CVA (cerebral vascular accident) Degenerative disc disease, cervical Eczema of right hand Facet arthritis, degenerative, lumbar spine GERD (gastroesophageal reflux disease) History of gastric ulcer Hyperlipidemia Lumbar radiculopathy Peptic ulcer disease Right kidney mass Schizoaffective disorder, depressive type Seizure Sleep apnea, obstructive Tetrahydrocannabinol (THC) use disorder, mild, abuse Urinary urgency Vitamin B12 deficiency Surgical History (Updated 11/05/22 @ 15:33 by Doris Brennan MD) H/O cervical discectomy (08/2021) Dr. Jiménez. Anterior discectomy C5/6, Anterior discectomy C6/7, Corpectomy C6 greater than 50%, Insertion of Corpectomy cage C5-C7, Instrumentation with anterior plate from C5-C7, Use of allograft, Use of autograft. Done for cervical radiculopathy C6 and C7. History of cardiac catheterization 05/01/2022 Left Main no disease, Circumflex no disease, RCA no disease, LAD 70% stenosis with angioplasty/stent performed same date, 3rd OM branch segment 60% stenosis, left dominance History of cataract surgery History of coronary artery stent placement (04/2022) angioplasty and FABIAN to mid to distal LAD 05/01/2022 Family History Other Cancer Diabetes Hypertension Social History (Updated 11/05/22 @ 16:36 by Doris Brennan MD) Smoking and tobacco status: current every day smoker cigarettes [ Other cigarette details: 3 to 4 packs a day, approximately 50 years of smoking] Alcohol intake: current Alcohol type: beer Alcohol use comment: Generally gets two 30 packs of beer per month, amount per day varies Substance/Drug Use: current Substance/Drug use frequency: few times a month Substance/Drug use type: Marijuana Other substance/drug use details: For pain control Adopted: No Caregiver/support person: No Lives independently: Yes Household members: none Housing: House Marital status: Number of children: 2 Number of grandchildren: 6 Highest education level completed: 11th Grade service: No Current occupational status: disabled Current gender identity: Male Maricarmen/Worship: Caodaism Special maricarmen needs: No Agree to transfusion: Yes Financial difficulty paying for basics: Hard Supplemental [facility] Information I was able to eventually find records from EGD and colonoscopy in 2018 by accessing previous EMR. I have incorporated results here to facilitate care during this hospital stay. EGD from 06/2018 Colonoscopy from 06/2018 Data Anesthesia 11/06/22 04:39 11/05/22 12:30 Short CBC 11/05/22 11/06/22 Range/Units 12:30 04:39 WBC 6.3 5.4 (4.0-10.0) 10^3/uL Hgb 4.8 L* 8.2 L D (11.7-16.6) g/dL Hct 17.7 L* 28.0 L D (42.0-52.0) % MCV 73.4 L 77.8 L D (80-94) fl Plt Count 448 H 405 H (130-400) 10^3/cmm Neut % (Auto) 61.8 54.1 % Neut # (Auto) 3.87 2.92 (1.8-7.7) 10^3/uL BMP 11/05/22 12:30 Sodium 134 L Potassium 4.6 Chloride 100 Carbon Dioxide 23 BUN 11 Creatinine 0.8 Glucose 94 Calcium 8.4 L Cardiac Enzymes 11/05/22 11/05/22 11/05/22 Range/Units 12:35 14:45 18:50 Troponin T Baseline 24 H (0-15) ng/L Troponin T 120 Minute 23.68 H (0-15) ng/L Delta Troponin T -0.32 L (0-10) ABS# Troponin T Hi Sens 6Hr 22.53 H (0-15) ng/L Troponin T Hi Sens 6Hr Delta -1.47 L (0-12) ng/L Liver Function 11/05/22 Range/Units 12:30 Total Bilirubin 0.3 (0.15-1.2) mg/dL AST 16 (0-40) U/L ALT 18 (0-41) U/L Alkaline Phosphatase 61 (40-130) U/L Albumin 3.9 (3.5-5.2) g/dL Blood Bank 11/05/22 12:30 Blood Type O Positive Rho(D) Type Positive Antibody Screen Negative Coags 11/05/22 12:30 PT 13.20 INR 0.98 APTT 27.5 Cardiac Studies: Echocardiogram 02/24/22 Sestamibi Stress Test (Cardiology) 02/14/22 Cardiac Event Monitor 06/19/22
--- NOTE | 2022-11-06 11:34 | PC.NURSE ---
1114 pt combative, coughing loud, hard, suctioned as needed. calming words to help ease patient. ROLL TABLE OPERATOR Cinthya at bedside 1125 pt able to cough up clear sputum, remains loud and cussing. continue to be calm to patient. Abd soft, nontender, bowel sound active x4. patient denies pain. states he hasn't seen this person in years. states he doesn't sleep because he scared he'll come back and get him. encouraged patient that it's just his nurse and ROLL TABLE OPERATOR at his bedside. 1130 patient in more calm and ready to transfer to room.
[2022-11-06] MEDS: iron sucrose 500 MG in sodium chloride 0.9% 250 ML 68.75 MG IV (12:08)
[2022-11-06] MEDS: clopidogrel 75 mg Tablet PO (12:08)
[2022-11-06] MEDS: carvedilol 3.125 mg Tablet PO ×2 (12:08→17:57)
[2022-11-06] MEDS: thiamine 100 mg Tablet PO (12:08)
[2022-11-06] MEDS: atorvastatin 40 mg Tablet PO (12:08)
[2022-11-06] MEDS: folic acid 1 mg Tablet PO (12:08)
[2022-11-06] MEDS: prazosin 1 mg Capsule PO ×2 (12:10→17:58)
--- NOTE | 2022-11-06 15:49 | ANE.PACU2 ---
Inpatient post-anesthesia follow up: Airway intact: Yes Vital signs: Temperature 97.8 F Pulse Rate 75 Respiratory Rate 16 Blood Pressure 135/62 Pulse Oximetry 95 Oxygen Delivery Me thod Room Air Oxygen Flow Rate 4 Fraction of Inspir ed Oxygen Hydration adequate: Yes Nausea and vomiting: No Pain level: 2 Mental status: Baseline
[2022-11-07] VITALS (7 sets, daily range): BP systolic 125–174; BP diastolic 65–81; PULSE 56–69; RESP 16–18; TEMP 36.6–36.8; O2SAT 93–96
[2022-11-07] MEDS: trazodone 50 mg Tablet PO (02:59)
[2022-11-07] MEDS: pantoprazole 40 mg SDV IVP (05:02)
[2022-11-07 05:15] LABS: Basophils % 0.7 %; Eosinophils # 0.1 10^3/uL (0.0-0.8); Eosinophils % 1.7 %; Hematocrit 26.6 % (42.0-52.0); Hemoglobin 7.8 g/dL (11.7-16.6); Lymphocytes # 1.9 10^3/uL (0.8-4.8); Lymphocytes % 31.9 %; Mean Corpuscular HGB Conc 29.3 g/dL (30.0-36.0); Mean Corpuscular Hemoglobin 23.4 pg (28.0-34.0); Mean Corpuscular Volume 79.6 fl (80-94); Mean Platelet Volume 9.9 fL (7.4-10.4); Monocytes # 0.9 10^3/uL (0.2-0.9); Monocytes % 14.8 %; Neutrophils # 3.03 10^3/uL (1.8-7.7); Neutrophils % 50.2 %; Nucleated Red Blood Cells % 0.7 %; Platelet Count 397 10^3/cmm (130-400); Red Blood Count 3.34 10^6/uL (4.1-5.3); Red Cell Distribution Width 20.2 % (12.1-15.1)
[2022-11-07 05:49] LABS: Blood Urea Nitrogen 12 mg/dL (8-23); Calcium 8.4 mg/dL (8.5-10.5); Carbon Dioxide 23 mmol/L (22-29); Chloride 102 mmol/L (98-107); Glomerular Filtration Rate 85.8 mL/min (90-130); Glucose 127 mg/dL (65-115); Osmolality Calculated 285 mOsm/kg (285-295); Sodium 137 mmol/L (136-145)
[2022-11-07] MEDS: albuterol 2.5 mg/3 mL Neb NEBULIZER (07:45)
[2022-11-07] MEDS: budesonide 0.5 mg/2 mL Neb INHALATION (07:45)
[2022-11-07] MEDS: prazosin 1 mg Capsule PO (10:09)
[2022-11-07] MEDS: carvedilol 3.125 mg Tablet PO (10:09)
[2022-11-07] MEDS: thiamine 100 mg Tablet PO (10:09)
[2022-11-07] MEDS: clopidogrel 75 mg Tablet PO (10:09)
[2022-11-07] MEDS: atorvastatin 40 mg Tablet PO (10:09)
[2022-11-07] MEDS: folic acid 1 mg Tablet PO (10:09)
--- NOTE | 2022-11-07 10:35 | PM.DCS ---
Discharge Providers Date of Admission: 11/05/22 15:10 Date of Discharge: November 07, 2022 Attending Provider at Admission: Doris Brennan MD Attending Provider at Discharge: Kapil Lanier MD Primary Care Provider: Le Quevedo Diagnoses at Discharge Discharge Diagnosis (1) Acute on chronic anemia: Status: Acute (2) Gastrointestinal bleeding: Status: Acute Reason for Visit Reason for Visit: ANEMIA Hospital Course Hospital Course 61-year male who was admitted for management and evaluation of hematemesis and melanotic stools, history of alcohol abuse, EGD was done by Dr. Ellis which showed gastritis, duodenal ulcer, biopsy was taken as well, EGD consistent with moderate gastritis with stigmata of bleeding, will give him 6 weeks of Protonix and 4 weeks of Carafate twice daily Patient tolerating diet, hemodynamic stable, status post 2 unit PRBC hemoglobin 7.8. Iron panel consistent with iron deficiency anemia, patient received a bag of iron during hospitalization, will give him p.o. regimen at discharge Patient will get Plavix at the time of discharge holding aspirin for now Physical Exam Narrative: Awake and alert Nonfocal neuro exam Abdomen soft Pleasant and cooperative No signs of withdrawal GCS 15 S1, S2 Discharge Data Studies Completed and Pending Pending at discharge Category Date Time Status Pathology: Surgical [PTH] Routine Pth 11/06/22 11:12 Received Laboratory Results WBC 6.0 10^3/uL (4.0-10.0) 11/07/22 04:10 RBC 3.34 10^6/uL (4.1-5.3) L 11/07/22 04:10 Hgb 7.8 g/dL (11.7-16.6) L 11/07/22 04:10 Hct 26.6 % (42.0-52.0) L 11/07/22 04:10 MCV 79.6 fl (80-94) L 11/07/22 04:10 MCH 23.4 pg (28.0-34.0) L 11/07/22 04:10 MCHC 29.3 g/dL (30.0-36.0) L 11/07/22 04:10 RDW 20.2 % (12.1-15.1) H 11/07/22 04:10 Plt Count 397 10^3/cmm (130-400) 11/07/22 04:10 MPV 9.9 fL (7.4-10.4) 11/07/22 04:10 Neut % (Auto) 50.2 % 11/07/22 04:10 Lymph % (Auto) 31.9 % 11/07/22 04:10 [place] % (Auto) 14.8 % 11/07/22 04:10 Eos % (Auto) 1.7 % 11/07/22 04:10 Baso % (Auto) 0.7 % 11/07/22 04:10 Reticulocyte % (Auto) 2.0 % (0.5-2.0) 11/05/22 12:30 Neut # (Auto) 3.03 10^3/uL (1.8-7.7) 11/07/22 04:10 Lymph # (Auto) 1.9 10^3/uL (0.8-4.8) 11/07/22 04:10 [place] # (Auto) 0.9 10^3/uL (0.2-0.9) 11/07/22 04:10 Eos # (Auto) 0.1 10^3/uL (0.0-0.8) 11/07/22 04:10 Baso # (Auto) 0.0 10^3/uL (0.0-0.1) 11/07/22 04:10 Nucleated RBC % (auto) 0.7 % 11/07/22 04:10 Nucleated RBCs # 0.0 /100WBC 11/07/22 04:10 PT 13.20 SECONDS (12.1-14.9) 11/05/22 12:30 INR 0.98 (0.8-1.2) 11/05/22 12:30 APTT 27.5 SECONDS (23.9-36.7) 11/05/22 12:30 Sodium 137 mmol/L (136-145) 11/07/22 04:10 Potassium 4.0 mmol/L (3.5-5.1) 11/07/22 04:10 Chloride 102 mmol/L (98-107) 11/07/22 04:10 Carbon Dioxide 23 mmol/L (22-29) 11/07/22 04:10 Anion Gap 16.0 (5-19) 11/07/22 04:10 BUN 12 mg/dL (8-23) 11/07/22 04:10 Creatinine 0.9 mg/dL (0.7-1.2) 11/07/22 04:10 GFR Calculation 85.8 mL/min (90-130) L 11/07/22 04:10 Glucose 127 mg/dL (65-115) H 11/07/22 04:10 Calculated Osmolality 285 mOsm/kg (285-295) 11/07/22 04:10 Calcium 8.4 mg/dL (8.5-10.5) L 11/07/22 04:10 Iron 11 ug/dL (59-158) L 11/05/22 12:30 Iron 12 ug/dL (59-158) L 11/05/22 12:30 TIBC 374 mcg/dl 11/05/22 12:30 % Saturation 3.2 % (20-50) L 11/05/22 12:30 Unsat Iron Binding 362 ug/dL (112-347) H 11/05/22 12:30 Ferritin 6 ng/mL (30-400) L 11/05/22 12:30 Total Bilirubin 0.3 mg/dL (0.15-1.2) 11/05/22 12:30 AST 16 U/L (0-40) 11/05/22 12:30 ALT 18 U/L (0-41) 11/05/22 12:30 Alkaline Phosphatase 61 U/L (40-130) 11/05/22 12:30 Troponin T Baseline 24 ng/L (0-15) H 11/05/22 12:35 Troponin T 120 Minute 23.68 ng/L (0-15) H 11/05/22 14:45 Delta Troponin T -0.32 ABS# (0-10) L 11/05/22 14:45 Troponin T Hi Sens 6Hr 22.53 ng/L (0-15) H 11/05/22 18:50 Troponin T Hi Sens 6Hr Delta -1.47 ng/L (0-12) L 11/05/22 18:50 Total Protein 5.6 g/dL (6.6-8.7) L 11/05/22 12:30 Albumin 3.9 g/dL (3.5-5.2) 11/05/22 12:30 Globulin 1.7 g/dL (1.3-4.6) 11/05/22 12:30 Lipase 26 U/L (13-60) 11/05/22 12:30 Blood Type O Positive 11/05/22 12:30 Rho(D) Type Positive 11/05/22 12:30 Antibody Screen Negative 11/05/22 12:30 Crossmatch See Detail 11/05/22 12:30 Vitals Last Vital Signs Temp 97.9 F 11/07/22 09:46 Pulse 67 11/07/22 09:46 Resp 17 11/07/22 09:46 BP 144/81 11/07/22 09:46 Pulse Ox 93 11/07/22 09:46 O2 Del Method 11/07/22 09:46 O2 Flow Rate 4 11/06/22 20:00 Discharge Plan Discharge Patient Disposition: Home Condition: Stable Prescriptions: New folic acid 1 mg Tablet 1 mg PO DAILY Qty: 60 0RF thiamine mononitrate (vit B1) [Vitamin B-1 (mononitrate)] 100 mg Tablet 100 mg PO DAILY Qty: 60 3RF pantoprazole [Protonix] [address] for susp in packet 40 mg PO BID 56 Days Qty: 30 0RF pantoprazole [Protonix] 20 mg tablet,delayed release (DR/EC) 20 mg PO BID 56 Days Qty: 112 0RF sucralfate 1 gram tablet 1 g PO BID 56 Days Qty: 112 0RF ferrous sulfate [Iron (ferrous sulfate)] 325 mg (65 mg iron) tablet 325 mg PO DAILY Qty: 60 0RF Continued carvedilol 6.25 mg tablet 6.25 mg PO BID Qty: 180 2RF cyanocobalamin (vitamin B-12) 1,000 mcg/mL solution See Rx Instructions .ROUTE .COMPLEX Qty: 1 0RF Dose Instruction: INJECT 1ML (1,000MG) INTRAMUSCULARLY EVERY MONTH Rx Instructions: INJECT 1ML (1,000MG) INTRAMUSCULARLY EVERY MONTH oxycodone 10 mg tablet 10 - 20 mg PO Q4H PRN (Reason: Pain) omeprazole 40 mg capsule,delayed release(DR/EC) 40 mg PO BID clopidogrel 75 mg tablet 75 mg PO DAILY Qty: 90 3RF atorvastatin 40 mg tablet 40 mg PO DAILY Qty: 90 3RF lisinopril 10 mg tablet 10 mg PO DAILY Qty: 90 3RF prazosin 2 mg capsule 2 mg PO BEDTIME ProAir HFA 90 mcg/actuation HFA aerosol inhaler 2 puff INHALATION Q6H PRN (Reason: Shortness Of Breath Or Wheezing) Symbicort 160-4.5 mcg/actuation HFA aerosol inhaler 1 puff INHALATION BID Discontinued aspirin 81 mg tablet,delayed release (DR/EC) 81 mg PO DAILY Qty: 90 3RF Discharge Orders: Discharge Order (Routine); Ordered 11/07/22 Ordered By: Kapil Lanier Referrals: Le Quevedo PA [Primary Care Provider] - 11/12/22 8:30 am Patient Instructions: Gastrointestinal Bleeding (GEN), GI Discharge Instructions, Opioid Safety Discharge Attestations Time Spent in Discharge Care*: less than 30 min Status at Discharge: Cognitive status at discharge: mildly impaired cognition, Behavioral status at discharge: cooperative, Quality Metrics Clinical Quality Measures [ No reported AMI, CVA or VTE this stay] Coding Level of Care Code Acute Code for Chg Fwd Diagnoses Acute on chronic anemia D64.9 Gastrointestinal bleeding K92.2
--- NOTE | 2022-11-07 11:11 | PC.NURSE ---
patient verbalized understanding of discharge instructions, home medications, and follow up appointments.
== END 2022-11-07 11:29 | disposition home or self-care (01) | DRG 378 ==
LOC: ER 14:06 → MEDSURG 15:11
PROVIDERS: Surgery; Admitting Provider Hospitalist; Emergency Provider Family Medicine; PCP Physician Assistant; Visit Provider Internal Medicine
PROC: 0DJ08ZZ Inspection of Upper Intestinal Tract, Via Natural or Artificial Opening Endoscopic (ICD-10-PCS; CPT 43235; principal; 2022-11-06 11:00)
DX: K29.21 Alcoholic gastritis with bleeding (principal); F10.188 Alcohol abuse with other alcohol-induced disorder; Y90.9 Presence of alcohol in blood, level not specified; G62.1 Alcoholic polyneuropathy; K26.9 Duodenal ulcer, unspecified as acute or chronic, without hemorrhage or perforation; F10.10 Alcohol abuse, uncomplicated; G31.2 Degeneration of nervous system due to alcohol; D50.0 Iron deficiency anemia secondary to blood loss (chronic); Z79.891 Long term (current) use of opiate analgesic; Z79.02 Long term (current) use of antithrombotics/antiplatelets; Z79.51 Long term (current) use of inhaled steroids; G89.29 Other chronic pain; M54.2 Cervicalgia; I25.10 Atherosclerotic heart disease of native coronary artery without angina pectoris; Z95.5 Presence of coronary angioplasty implant and graft; Z98.1 Arthrodesis status; R29.6 Repeated falls; F17.210 Nicotine dependence, cigarettes, uncomplicated; I10 Essential (primary) hypertension; J44.9 Chronic obstructive pulmonary disease, unspecified; Z86.73 Personal history of transient ischemic attack (TIA), and cerebral infarction without residual deficits; K21.9 Gastro-esophageal reflux disease without esophagitis; K44.9 Diaphragmatic hernia without obstruction or gangrene; E53.8 Deficiency of other specified B group vitamins; F12.90 Cannabis use, unspecified, uncomplicated; Z87.11 Personal history of peptic ulcer disease; G47.33 Obstructive sleep apnea (adult) (pediatric); F25.1 Schizoaffective disorder, depressive type; E78.5 Hyperlipidemia, unspecified
CPT/HCPCS: 36415; 36430; 43239; 80048; 80053; 82728; 83540; 83550; 83690; 84484; 85025; 85045; 85610; 85730; 86850; 86900; 86920; 88305; 93005; 94640; 96374; 96375; 99285; C9113; J1756; J1940; J2704; J3490; J7030; J7050; J7613; J7626; P9016

== ENCOUNTER 2023-05-16 11:50 | Inpatient (IN) | payer MEDICAID, SELFPAY ==
[2020-04-13 10:55] VITALS: BP 156/100; BMI 27.5
[2023-05-16] VITALS (9 sets, daily range): BP systolic 113–134; BP diastolic 80–103; PULSE 78–142; RESP 14–25; TEMP 36.6–36.8; O2SAT 90–99; BMI 29.5
--- NOTE | 2023-05-16 12:07 | XRR_ITS ---
PROCEDURE INFORMATION: Exam: XR Chest Exam date and time: 05/16/2023 12:47 PM Age: 62 years old Clinical indication: Cough and dyspnea; Additional info: Dyspnea/cough TECHNIQUE: Imaging protocol: Radiologic exam of the chest. Views: 1 view. COMPARISON: CR XR chest 1V portable [id number] 02/23/2022 7:21 PM FINDINGS: Lungs: Unremarkable. No consolidation. Pleural spaces: Unremarkable. No pleural effusion. No pneumothorax. Heart/Mediastinum: Unremarkable. No cardiomegaly. Bones/joints: Prior ACDF. No acute bony abnormalities. XR/XR chest 1V portable [id number] IMPRESSION: Stable chest. No active disease.
[2023-05-16 12:08] LABS: Basophils % 0.6 %; Eosinophils # 0.1 10^3/uL (0.0-0.8); Eosinophils % 0.9 %; Lymphocytes # 1.8 10^3/uL (0.8-4.8); Lymphocytes % 27.5 %; Mean Corpuscular HGB Conc 32.4 g/dL (30-55); Mean Corpuscular Hemoglobin 28.9 pg (27-33); Mean Corpuscular Volume 89.3 fl (82-101); Monocytes # 0.7 10^3/uL (0.2-0.9); Monocytes % 10.5 %; Neutrophils % 59.9 %; Nucleated Red Blood Cells % 0 %; Platelet Count 358 10^3/cmm (157-399); Red Blood Count 5.15 10^6/uL (3.85-5.65); Red Cell Distribution Width 13.5 % (12.1-15.1); White Blood Count 6.36 10^3/uL (3.29-11.43)
--- NOTE | 2023-05-16 12:28 | ED_ITS ---
HPI - Arrhythmia/Palpitations General: Chief Complaint: Arrhythmia/Palpitations Stated Complaint: LIGHTHEADED Time Seen by Provider: 05/16/23 11:51 Source: patient Mode of arrival: EMS History of Present Illness: 62-year-old male presents emergency room via the primary care clinic. Patient has been seen for several years intermittently having fatigue palpitations lightheadedness dizziness and not had any findings during that time today came in to be seen was noted to be in A-fib with RVR mild chest discomfort and shortness of breath with exertion. He does wear oxygen at night however he has not been using regularly since recently. Patient does have a history of coronary disease has stents in place was not been taking his Plavix recently MD complaint: rapid heart beat, heart racing , skipped beats and palpitations Onset (ago): year(s) Duration: intermittent Severity: moderate Context: occurred during rest Associated symptoms: Deny anxiety, cough, diaphoresis, muscle cramps, nausea, paresthesias, pre-syncope, sense of impending doom, short of breath, syncope or vomiting Review of Systems Const: Denies: fever(s), chills or diaphoresis Card: Reports: palpitations and irregular heart rhythm; Denies: chest pain, edema, syncope or pre-syncope Resp: Denies: dyspnea, productive cough or non-productive cough GI: Denies: abdominal pain, nausea or vomiting : Denies: flank pain, dysuria, urinary frequency or urinary urgency Musc: Denies: muscle cramps Skin/Breast: Denies: rash or pruritus Psych: Denies: anxiety PFS ED PFSH: Medical History Acute on chronic anemia Alcohol use disorder Alcoholic peripheral neuropathy Atherosclerosis of coronary artery Benign essential hypertension 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 Chronic cough Chronic migraine without aura, intractable, with status migrainosus Chronic pain Cognitive dysfunction, alcohol-related COPD (chronic obstructive pulmonary disease) CVA (cerebral vascular accident) Degenerative disc disease, cervical Eczema of right hand Facet arthritis, degenerative, lumbar spine Gastrointestinal bleeding GERD (gastroesophageal reflux disease) History of gastric ulcer Hyperlipidemia Hypertension Iron deficiency anemia Lumbar radiculopathy Nicotine dependence, cigarettes, with other nicotine-induced disorders On home oxygen therapy at night and prn during day Peptic ulcer disease Recurrent falls Right kidney mass Schizoaffective disorder, depressive type Seizure Sleep apnea, obstructive Tetrahydrocannabinol (THC) use disorder, mild, abuse Urinary urgency Vitamin B12 deficiency Surgical History H/O cervical discectomy (08/2021) Dr. Jiménez. Anterior discectomy C5/6, Anterior discectomy C6/7, Corpectomy C6 greater than 50%, Insertion of Corpectomy cage C5-C7, Instrumentation with anterior plate from C5-C7, Use of allograft, Use of autograft. Done for cervical radiculopathy C6 and C7. History of cardiac catheterization 05/01/2022 Left Main no disease, Circumflex no disease, RCA no disease, LAD 70% stenosis with angioplasty/stent performed same date, 3rd OM branch segment 60% stenosis, left dominance History of cataract surgery History of coronary artery stent placement (04/2022) angioplasty and FABIAN to mid to distal LAD 05/01/2022 Family History Other Cancer Diabetes Hypertension Social History Smoking and tobacco status: current every day smoker cigarettes [ Other cigar ette details: 3 to 4 packs a day, approximately 50 years of smoking] Alcohol intake: current Alcohol type: beer Substance/Drug Use: current Substance/Drug use frequency: few times a month Other substance/drug use details: For pain control Adopted: No Caregiver/support person: No Lives independently: Yes Household members: none Housing: House Marital status: Number of children: 2 Number of grandchildren: 6 Highest education level completed: 11th Grade service: No Current occupational status: disabled Do you think of yourself as: Straight/Heterosexual Current gender identity: Male Mraicarmen/Quaker: Jew Special maricarmen needs: No Agree to transfusion: Yes Financial difficulty paying for basics: Hard Physical Exam Const: GENERAL APPEARANCE: cooperative and comfortable ORIENTATI ON/CONSCIOUSNESS: Yes awake, Yes oriented to person, Yes oriented to place and Yes oriented to time HENMT: COMMON NORMALS: normocephalic, atraumatic and hearing grossly normal bilaterally HEAD & SCALP: normocephalic and atraumatic Resp: COMMON NORMALS: normal respiratory effort, No retractions, No use of accessory muscles and clear to auscultation bilaterally AUSCULTATION: clear to auscultation bilaterally Cardio: COMMON NORMALS: No murmurs present (Cardio) RATE: tachycardic RHYTHM: abnormal rhythm irregularly irregular GI: COMMON NORMALS: Soft to palpation and No hepatosplenomegaly present AUSCULTATION: Yes normoactive bowel sounds PALPATION: Yes Soft to palpation, No Tenderness to palpation present (GI), No Guarding due to palpation present (GI) and Yes No hepatosplenomegaly present Extremity: COMMON NORMALS: normal to inspection, capillary refill normal, no clubbing, cyanosis or edema, no calf tenderness and no pedal edema Neuro: SENSORIUM/ORIENTATION: Yes oriented to person, Yes oriented to place and Yes oriented to time Skin: COMMON NORMALS: no rashes or lesions noted GENERAL SKIN EXAM: no rashes or lesions noted Course Vital Signs: Vital signs: Vital Signs Temperature 97.9 F 05/16/23 16:00 Pulse Rate 101 H 05/16/23 16:02 Respiratory Rate 15 05/16/23 16:00 Blood Pressure 115/89 05/16/23 16:00 Pulse Oximetry 90 05/16/23 16:00 Oxygen Delivery Me thod Room Air 05/16/23 16:00 MDM - Arrhythmia/Palpitations Medical Decision Making Patient had A-fib with RVR started on Cardizem was given IV push started on a drip and also given oral. He tolerated very well rate came under control. He is feeling somewhat better. Discussed with hospitalist will admit orders written Medical Records I reviewed the patient's medical records. Lab Data I reviewed the patient's lab results. 05/16/23 11:37 05/16/23 11:37 Radiology Impressions Chest X-Ray 05/16/23 12:07 IMPRESSION: Stable chest. No active disease. Laboratory Results WBC 6.36 10^3/uL (3.29-11.43) 05/16/23 11:37 RBC 5.15 10^6/uL (3.85-5.65) 05/16/23 11:37 Hgb 14.90 g/dL (11.27-16.99) 05/16/23 11:37 Hct 46.0 % (37-53) 05/16/23 11:37 MCV 89.3 fl (82-101) 05/16/23 11:37 MCH 28.9 pg (27-33) 05/16/23 11:37 MCHC 32.4 g/dL (30-55) 05/16/23 11:37 RDW 13.5 % (12.1-15.1) 05/16/23 11:37 Plt Count 358 10^3/cmm (157-399) 05/16/23 11:37 MPV 10.0 fL (7.4-10.4) 05/16/23 11:37 Neut % (Auto) 59.9 % 05/16/23 11:37 Lymph % (Auto) 27.5 % 05/16/23 11:37 [place] % (Auto) 10.5 % 05/16/23 11:37 Eos % (Auto) 0.9 % 05/16/23 11:37 Baso % (Auto) 0.6 % 05/16/23 11:37 Neut # (Auto) 3.80 10^3/uL (1.8-7.7) 05/16/23 11:37 Lymph # (Auto) 1.8 10^3/uL (0.8-4.8) 05/16/23 11:37 [place] # (Auto) 0.7 10^3/uL (0.2-0.9) 05/16/23 11:37 Eos # (Auto) 0.1 10^3/uL (0.0-0.8) 05/16/23 11:37 Baso # (Auto) 0.0 10^3/uL (0.0-0.1) 05/16/23 11:37 Nucleated RBC % (auto) 0 % 05/16/23 11:37 Nucleated RBCs # 0.0 /100WBC 05/16/23 11:37 Sodium 133 mmol/L (136-145) L 05/16/23 11:37 Potassium 4.0 mmol/L (3.5-5.1) 05/16/23 11:37 Chloride 99 mmol/L (98-107) 05/16/23 11:37 Carbon Dioxide 20 mmol/L (22-29) L 05/16/23 11:37 Anion Gap 18.0 (5-19) 05/16/23 11:37 BUN 8 mg/dL (8-23) 05/16/23 11:37 Creatinine 0.9 mg/dL (0.7-1.2) 05/16/23 11:37 GFR Calculation 85.5 mL/min (90-130) L 05/16/23 11:37 Glucose 90 mg/dL (65-115) 05/16/23 11:37 Calculated Osmolality 274 mOsm/kg (285-295) L 05/16/23 11:37 Calcium 8.9 mg/dL (8.5-10.5) 05/16/23 11:37 Total Bilirubin 0.6 mg/dL (0.15-1.2) 05/16/23 11:37 AST 50 U/L (0-40) H 05/16/23 11:37 ALT 65 U/L (0-41) H 05/16/23 11:37 Alkaline Phosphatase 88 U/L (40-130) 05/16/23 11:37 Troponin T Baseline 23 ng/L (0-15) H 05/16/23 11:37 NT-Pro-B Natriuret Pep 544 pg/mL (0-125) H 05/16/23 11:37 Total Protein 7.2 g/dL (6.6-8.7) 05/16/23 11:37 Albumin 4.7 g/dL (3.5-5.2) 05/16/23 11:37 Globulin 2.5 g/dL (1.3-4.6) 05/16/23 11:37 TSH 1.34 uIU/mL (0.27-4.20) 05/16/23 11:37 Discharge Plan Discharge Patient Disposition: Admitted As Inpatient Admit Provider: Prabhjot Jacobsen Clinical Impression: Atrial fibrillation with RVR, NYHA Class III cardiovascular function, Atherosclerosis of coronary artery, Hyperlipidemia Condition: Stable Coding Level of Care Code ED Planning Management It Specialist for Ayana Bustillos
[2023-05-16] MEDS: dilTIAZem 5 mg/mL SDV 5 mL 10 MG IVP (12:29)
[2023-05-16] MEDS: dilTIAZem 30 mg Tablet PO (12:29)
[2023-05-16] MEDS: sodium chloride 0.9% 1,000 ML 999 ML IV (12:30)
[2023-05-16 12:38] LABS: Alanine Aminotransferase 65 U/L (0-41); Albumin Level 4.7 g/dL (3.5-5.2); Alkaline Phosphatase 88 U/L (40-130); Aspartate Amino Transferase 50 U/L (0-40); Blood Urea Nitrogen 8 mg/dL (8-23); Calcium 8.9 mg/dL (8.5-10.5); Carbon Dioxide 20 mmol/L (22-29); Chloride 99 mmol/L (98-107); Globulin 2.5 g/dL (1.3-4.6); Glomerular Filtration Rate 85.5 mL/min (90-130); Glucose 90 mg/dL (65-115); Osmolality Calculated 274 mOsm/kg (285-295); Sodium 133 mmol/L (136-145); Total Bilirubin 0.6 mg/dL (0.15-1.2); Total Protein 7.2 g/dL (6.6-8.7)
[2023-05-16] MEDS: dilTIAZem 100 MG in sodium chloride 0.9% (add-van) 100 ML IV (12:40)
[2023-05-16 12:50] LABS: Thyroid Stimulating Hormone 1.34 uIU/mL (0.27-4.20)
--- NOTE | 2023-05-16 13:03 | ECG_ITS ---
[facility] Test Date: 2023-05-16 Pat Name: Costa Alba Department: Room: 112 Gender: Male [employer] Stewardess: : 1960 Requested By: Davian Mead Order Number: [id number] Sara MD: Louie Garcia M.D. Measurements Intervals [place] Rate: 129 P: 0 SC: 0 QRS: 26 QRSD: 94 T: 58 QT: 295 QTc: 433 Interpretive Statements ATRIAL FIBRILLATION WITH RAPID VENTRICULAR RESPONSE ABNORMAL RHYTHM ECG Compared to ECG 11/05/2022 17:47:38 Sinus rhythm no longer present Electronically Signed On 05-16-2023 18:16:47 CDT by Louie Garcia M.D. [id number]
--- NOTE | 2023-05-16 13:04 | PC.PHAR ---
PT STATES HE IS NO LONGER TAKING ANY MEDICATIONS. HE HAS A LIST OF 2 MEDS HIS DOCTOR WANTS HIM TO RESTART: ASPIRIN 81 MG DAILY AND PANTOPRAZOLE 40 MG DAILY. HE DOES NOT HAVE RX ORDERS FOR EITHER ONE. I DID, HOWEVER, ADD THEM TO HIS CHART.
[2023-05-16 13:12] LABS: NT Pro B Type Natriuretic Pept 544 pg/mL (0-125)
[2023-05-16 13:33] LABS: Troponin(5th) Baseline 23 ng/L (0-15)
[2023-05-16 14:13] LABS: Troponin 5 2HR 17.69 ng/L (0-15); Troponin 5 2HR Delta -5.31 ABS# (0-10)
--- NOTE | 2023-05-16 16:05 | PM.HP ---
Providers/Chief Complaint Admitting Physician: Prabhjot Jacobsen MD Primary Care Provider: Le Quevedo Chief Complaint: LIGHTHEADED History of Present Illness Costa Alba is a 62 year old male with past medical history of CAD, post PCI in April 2022, GI bleed leading to anemia in October 2022 requiring blood transfusion, alcohol abuse, schizoaffective disorder was sent into the ER today by his primary care office because he was found to have atrial fibrillation with rapid ventricular response. As per patient for many months he has not been able to walk without difficulty breathing. Currently he feels out of breath on laying down on minimal exertion. Complaining of nausea without episodes of vomiting. Denies any chest pain but does complain of palpitations and dizziness on standing up. He states usually he is only able to sleep in a recliner and is able to go few steps without having any symptoms. Patient has stopped taking all of his medications for last few months because he thinks they do not help him. Patient has not followed up with any of his providers including cardiology and pulmonology. In the ER patient was found to have atrial fibrillation with rapid ventricular response for which he was given 30 mg of oral Cardizem, 10 of IV Cardizem push and started on 5 of IV Cardizem drip. On examination he was on 7.5 of IV Cardizem, heart rate running at 95 to 110 bpm with blood pressure of 135/82 mmHg. Patient was chest pain-free. Denied any difficulty in breathing, saturating well on room air. Review of Systems General: Reports: 10 or more systems reviewed and unremarkable except in HPI and below Const: Denies: fever(s), chills, body aches, change in appetite, change in weight, malaise, night sweats, diaphoresis, change in sleep pattern, daytime sleepiness or snoring Eyes: Denies: change in vision, blurry vision, photophobia, eye discomfort or eye discharge ENMT: Denies: throat pain, enlarged tonsils, hoarseness, mouth pain, oral sores, dry mouth, tinnitus, nasal congestion or post nasal drip Card: Denies: chest pain, palpitations, irregular heart rhythm, edema, swelling of feet/ankles, lightheadedness, syncope, pre-syncope, dyspnea on exertion, orthopnea, leg pain with exertion or acrocyanosis Resp: Denies: dyspnea, productive cough, non-productive cough, wheezing, stridor, pain on inspiration, change in phlegm color, hemoptysis or chest congestion GI: Denies: abdominal pain, nausea, vomiting, hematemesis, coffee ground emesis, dysphagia, heartburn, diarrhea, constipation, bloating, GI cramping, change in bowel habits, pain on defecation, hematochezia or melena : Denies: flank pain, difficulty urinating, dysuria, urinary frequency, urinary urgency, urinary hesitancy, urinary dribbling, difficulty starting urination, change in urine stream, nocturia or hematuria Musc: Denies: neck pain, back pain, extremity pain, joint pain, joint swelling, joint redness, joint stiffness or limited range of motion Neuro: Denies: headache(s), numbness in extremities, weakness in extremities, sensory changes, lack of coordination, difficulty walking, frequent falls, dizziness, vertigo, confusion, Slurred speech present, difficulty communicating thoughts or seizure-like activity Psych: Denies: anxiety, depression, mood swings, panic attacks, hopelessness or irritability Endo: Denies: polyuria, polydipsia, tired all the time, cold intolerance, excessive sweating, flushing or heat intolerance Shaun/Lymph: Denies: easy bruising or easy bleeding All/Imm: Denies: tongue swelling, facial swelling or acute wheezing Medications/Allergies Home Medications Medication Instructions Recorded Confirmed Last Taken Type aspirin 81 mg tablet,delayed 81 mg PO DAILY 05/16/23 05/16/23 Unknown History release atorvastatin 40 mg tablet 40 mg PO DAILY 05/16/23 05/16/23 05/14/23 History 899 carvedilol 6.25 mg tablet 6.25 mg PO DAILY 05/16/23 05/16/23 05/14/23 History 09 clopidogrel 75 mg tablet mg 05/16/23 Unknown History cyanocobalamin (vitamin B-12) mcg 05/16/23 05/14/23 History 1,000 mcg/mL injection solution ferrous sulfate 325 mg (65 mg mg 05/16/23 05/14/23 History iron) tablet lisinopril 10 mg tablet mg 05/16/23 05/14/23 History pantoprazole 40 mg tablet,delayed 40 mg PO DAILY 05/16/23 05/16/23 Unknown History release Allergies Allergy/AdvReac Type Severity Reaction Status Date / Time No Known Allergies Allergy Verified 05/16/23 11:56 PFSH Acute PFSH: Medical History (Updated 05/16/23 @ 16:09 by Prabhjot Jacobsen MD) Acute on chronic anemia Alcohol use disorder Alcoholic peripheral neuropathy Atherosclerosis of coronary artery Benign essential hypertension 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 Chronic cough Chronic migraine without aura, intractable, with status migrainosus Chronic pain Cognitive dysfunction, alcohol-related COPD (chronic obstructive pulmonary disease) CVA (cerebral vascular accident) Degenerative disc disease, cervical Eczema of right hand Facet arthritis, degenerative, lumbar spine Gastrointestinal bleeding GERD (gastroesophageal reflux disease) History of gastric ulcer Hyperlipidemia Hypertension Iron deficiency anemia Lumbar radiculopathy Nicotine dependence, cigarettes, with other nicotine-induced disorders On home oxygen therapy at night and prn during day Peptic ulcer disease Recurrent falls Right kidney mass Schizoaffective disorder, depressive type Seizure Sleep apnea, obstructive Tetrahydrocannabinol (THC) use disorder, mild, abuse Urinary urgency Vitamin B12 deficiency Surgical History (Updated 05/16/23 @ 16:09 by Prabhjot Jacobsen MD) H/O cervical discectomy (08/2021) Dr. Jiménez. Anterior discectomy C5/6, Anterior discectomy C6/7, Corpectomy C6 greater than 50%, Insertion of Corpectomy cage C5-C7, Instrumentation with anterior plate from C5-C7, Use of allograft, Use of autograft. Done for cervical radiculopathy C6 and C7. History of cardiac catheterization 05/01/2022 Left Main no disease, Circumflex no disease, RCA no disease, LAD 70% stenosis with angioplasty/stent performed same date, 3rd OM branch segment 60% stenosis, left dominance History of cataract surgery History of coronary artery stent placement (04/2022) angioplasty and FABIAN to mid to distal LAD 05/01/2022 Family History Other Cancer Diabetes Hypertension Social History Smoking and tobacco status: current every day smoker cigarettes [ Other cigarette details: 3 to 4 packs a day, approximately 50 years of smoking] Alcohol intake: current Alcohol type: beer Substance/Drug Use: current Substance/Drug use frequency: few times a month Other substance/drug use details: For pain control Adopted: No Caregiver/support person: No Lives independently: Yes Household members: none Housing: House Marital status: Number of children: 2 Number of grandchildren: 6 Highest education level completed: 11th Grade service: No Current occupational status: disabled Do you think of yourself as: Straight/Heterosexual Current gender identity: Male Maricarmen/Jehovah'S Witness: Yarsanism Special maricarmen needs: No Agree to transfusion: Yes Financial difficulty paying for basics: Hard Vitals/I&O/Wt Last Vital Signs Temp 98.2 F 05/16/23 11:52 Pulse 101 H 05/16/23 16:02 Resp 25 H 05/16/23 12:33 BP 134/103 05/16/23 12:34 Pulse Ox 96 05/16/23 12:33 O2 Del Method Room Air 05/16/23 14:21 05/16/23 05/16/23 05/16/23 06:59 14:59 22:59 Intake Total 1010.417 / 1010.417 Balance 1010.417 / 1010.417 Weight last 48 hrs Weight 104.326 kg Physical Exam Narrative: General: No acute distress, AO x3, can be verbally abusive HEENT: PERRLA, pupils bilaterally equal and reactive Chest: Normal vesicular breath sounds, no added sounds, equal good air entry bilaterally CVS: S1-S2 irregularly irregular, tachycardia, soft pansystolic murmur, no gallops, no rubs Abdomen: Soft, nontender, no organomegaly, bowel sounds present Neuro: No focal deficits, no facial deformity, AO x3, power 5/5 in all limbs Data 05/16/23 11:37 05/16/23 11:37 A&P Assessment and plan (1) Atrial fibrillation with RVR: With rapid ventricular response. Currently on Cardizem 7.5. Supposed to take carvedilol 6.25 mg twice daily. For now start on oral metoprolol 50 mg twice daily. Will try to wean Cardizem keeping heart rate less than 100. If not able to wean down will add oral Cardizem. Kenny Vasc score: 5. Discussed in detail with patient regarding anticoagulation with merits versus demerits of stroke versus possible catastrophic bleed because of fall. Patient is agreeable for anticoagulation. For now start on Lovenox 1 mg/kg body weight every 12 hourly. Will transition over to Eliquis on discharge. Patient is agreeable. TSH normal. Check alcohol levels, urine drug screen (2) NYHA Class III cardiovascular function: Echocardiogram a year ago showed EF of 65% without regional wall motion abnormality with RVSP of 38 mmHg. Patient is noncompliant to medications. Check echocardiogram. IV Lasix 40 mg one-time. Fluid restriction up to 1500 cc. Strict input output charting, daily weights. (3) Atherosclerosis of coronary artery: Noncompliant to medications. Does not want take Plavix. Continue aspirin, statin. Check A1c, lipid panel. Chest pain-free. If echocardiogram shows regional wall motion abnormality will plan for cardiac stress test. (4) Orthopnea: (5) Noncompliance: (6) Hyperlipidemia: Qualifiers: Hyperlipidemia type: unspecified Qualified Code(s): E78.5 - Hyperlipidemia, unspecified (7) History of coronary artery stent placement: Plan Hypertension: Goal blood pressure less than 140/90 mmHg. He supposed to be on lisinopril and Coreg as an outpatient. Not taking any medications. For now on metoprolol as above. Uptitrate or add as per blood pressure target. Check vitamin B12, folate, iron panel, A1c, lipid panel, urinalysis. Complaining of diarrhea. Check urine studies. Full code Cardiac diet Lovenox will suffice as DVT prophylaxis Protonix for PUD prophylaxis. Attestations Medical Necessity Statement*: Admission for more than 2 midnights for management of atrial fibrillation with rapid ventricular response, NYHA class III congestive heart failure in a patient who is post PCI and noncompliant to medications Diagnoses Atrial fibrillation with RVR I48.91 NYHA Class III cardiovascular function Atherosclerosis of coronary artery I25.10 Orthopnea R06.01 Noncompliance Z91.199 Hyperlipidemia E78.5 Hyperlipidemia type: unspecified History of coronary artery stent placement Z95.5
--- NOTE | 2023-05-16 16:07 | ECG_ITS ---
[facility] Test Date: 2023-05-16 Pat Name: Costa Alba Department: Room: 111 Gender: Male Order Expediter: : 1960 Requested By: Davian Mead Order Number: [id number] Sara MD: Louie Garcia M.D. Measurements Intervals [place] Rate: 78 P: 0 OR: 0 QRS: 23 QRSD: 85 T: 68 QT: 372 QTc: 425 Interpretive Statements ATRIAL FIBRILLATION WITH ABERRANT CONDUCTION OR VENTRICULAR PREMATURE COMPLEXES ABNORMAL RHYTHM ECG Compared to ECG 05/16/2023 11:58:00 Ventricular premature complex(es) now present Aberrant conduction of supraventricular beat(s) now present Electronically Signed On 05-16-2023 18:21:20 CDT by Louie Garcia M.D. [email or web address]
[2023-05-16] MEDS: enoxaparin 100 mg/mL Syringe SUBCUT (16:18)
[2023-05-16] MEDS: FUROsemide 10 mg/mL SDV 4mL 40 MG IVP (16:18)
[2023-05-16] MEDS: metoprolol tartrate 50 mg Tablet PO (16:18)
--- NOTE | 2023-05-16 16:40 | PC.PHAR ---
END OF DAY RECHECK PT'S CHART ON FLOOR HAS BEEN ALDERED BY LOLA STAFFORD AFTER PT CHANGED HIS STORY. 05/16/23
[2023-05-16 16:56] LABS: Add Urine Microscopic? NO; Charge for UA Resulting for Rev
[2023-05-16 17:00] LABS: Amphetamines Screen Urine Negative (Negative); Barbiturates Screen Urine Negative (Negative); Benzodiazepines Screen Urine Negative (Negative); Cocaine Screen Urine Negative (Negative); Opiate Screen Urine Negative (Negative); PCP Screen Urine Negative (Negative); THC Screen Urine Negative (Negative)
[2023-05-16 17:01] LABS: Procalcitonin 0.04 ng/mL (0-0.5)
[2023-05-16 17:09] LABS: Bilirubin Urine Neg (Negative); Blood Urine Neg (Negative); Glucose Urine UA 1+ (Normal); Ketones Urine 1+ (Negative); Leukocyte Esterase Urine Negative (Negative); Nitrate Urine Negative (Negative); Protein Urine Neg (Negative); Specific Gravity, Urine 1.015 (1.005-1.030); Urine Appearance Clear (CLEAR); Urine Color Yellow (Yellow); Urobilinogen Urine Norm (Negative); pH Urine 6 (5-7)
[2023-05-16 17:50] LABS: Vitamin B12 1501 pg/mL (232-1245)
[2023-05-16 18:33] LABS: Troponin 5 6HR 19.61 ng/L (0-15)
[2023-05-16 18:34] LABS: Troponin 5 6HR Delta -3.39 ng/L (0-12)
--- NOTE | 2023-05-16 19:21 | PC.NURSE ---
Patient complained of room being too hot. Wares Sorter offered to change rooms and find a fan for patient. Patient stated I'm already mad I just want to leave. Nurse notified Dr. Anderson who told nurse to explain to the patient that if he leaves, he will . Nurse used those exact words and explained to him that insurance will not pay if patient leaves against medical advice. Patient stated that he didn't care and that he would get a pump machine operator if he had to. Patient stated that the heat of the room is going to kill him before his heart does . Nurse noted cold air coming from AC and had previously pulled down the shade to make the room cooler for patient. A search was also made for a fan but one couldn't be found. Nurse explained to the patient that if she needed to go buy him one she would. Patient again stated that I've been feeling like this for months. And again told nurse he wanted to leave. AMA paperwork signed by both nurse and patient. Cardizen, which had been running at 5 was stopped and IV removed and intact and patient got dressed and left toward the main entrance of the hospital. Nurse overheard patient calling for a ride to an address on [facility] in [place]. Vitals at time of discharge were a heart rate of 68 in atrial fib, last blood pressure was 115/89, 02 was at 91% on room air, respirations at 26. Dr. Jacobsen, who had had the patient during day shift also notified via Voalte.
== END 2023-05-16 19:07 | disposition left against medical advice (07) | DRG 309 ==
LOC: ER 12:31 → CSU 13:59
PROVIDERS: Admitting Provider Student in an Organized Health Care Education/Training Program; Emergency Provider Family Medicine; PCP Physician Assistant; Visit Provider Student in an Organized Health Care Education/Training Program
DX: I48.91 Unspecified atrial fibrillation (principal); F10.188 Alcohol abuse with other alcohol-induced disorder; I25.10 Atherosclerotic heart disease of native coronary artery without angina pectoris; F17.210 Nicotine dependence, cigarettes, uncomplicated; E78.5 Hyperlipidemia, unspecified; Z91.128 Patient's intentional underdosing of medication regimen for other reason; Z95.5 Presence of coronary angioplasty implant and graft; Z53.29 Procedure and treatment not carried out because of patient's decision for other reasons; J44.9 Chronic obstructive pulmonary disease, unspecified; F25.9 Schizoaffective disorder, unspecified; Z79.82 Long term (current) use of aspirin; G62.1 Alcoholic polyneuropathy; G31.2 Degeneration of nervous system due to alcohol; Z99.81 Dependence on supplemental oxygen; G47.33 Obstructive sleep apnea (adult) (pediatric); I11.0 Hypertensive heart disease with heart failure; I50.9 Heart failure, unspecified
CPT/HCPCS: 36415; 71045; 80053; 80306; 81003; 82607; 83880; 84145; 84443; 84484; 85025; 93005; 94664; 96365; 96372; 96375; 99285; J1650; J1940; J3490; J7030

== ENCOUNTER 2024-03-05 13:37 | Outpatient (CLI) | payer MEDICAID, SELFPAY ==
[2020-04-13 10:55] VITALS: BP 156/100; BMI 27.5
--- NOTE | 2024-03-05 14:05 | USCV_ITS ---
Costa Alba Age: 63 Gender: M : 1960 Exam Date: 03/05/2024 14:16 Ordering Phys: Le Quevedo Technologist: Mayco Merrill [place] [facility] [place]: chronic a fib BP: 134 / 103 HR: 102 Rhythm: Sinus Technical Quality: Adequate MEASUREMENTS (Male / Female) Normal Values 2D ECHO LV Diastolic Diameter PLAX 3.3 cm 4.2 - 5.9 / 3.9 - 5.3 cm IVS Diastolic Thickness 1.3 cm 0.6 - 1.0 / 0.6 - 0.9 cm IVS Systolic Thickness 1.5 cm LVPW Diastolic Thickness 1.4 cm 0.6 - 1.0 / 0.6 - 0.9 cm LVPW Systolic Thickness 2.5 cm LVOT Diameter 2.3 cm LV Ejection Fraction 2D Teich 60.6 % LV Ejection Fraction MOD 2C 64.6 % LV Ejection Fraction 2C AL 65.3 % LA Diameter 4.5 cm RA Systolic Volume 4C AL 48.6 ml RA Systolic Volume 4C MOD 48.7 ml LA Sys Volume AL 60.4 cm cubed LA Sys Volume Index AL 25.8 cm cubed/m squared Aorta at Sinotubular Diameter 2.5 cm IVC Diameter 2.0 cm M-MODE LA Ao Ratio MM 1.9 AV Cusp Separation MM 2.4 cm DOPPLER AV Peak Velocity 121.0 cm/s LVOT Peak Velocity 136.0 cm/s AV Area Cont Eq vti 5.0 cm squared AV Area Cont Eq pk 4.5 cm squared MV Peak Velocity 121.0 cm/s TR Peak Velocity 235.0 cm/s TR Peak Gradient 22.1 mmHg TR Mean Velocity 193.0 cm/s TR Mean Gradient 15.7 mmHg TR Velocity Time Integral 54.0 cm PV Peak Velocity 69.0 cm/s RV Ejection Time 0.3 s FINDINGS Left Ventricle Left ventricle is normal in size. LV systolic function is normal with EF of 60-65%. No regional wall motion abnormalities. Right Ventricle Normal in size and function Right Atrium Normal in size Left Atrium Normal in size Mitral Valve Structurally normal mitral valve. Mild mitral regurgitation. Aortic Valve Structurally normal aortic valve. No significant stenosis or regurgitation. Tricuspid Valve Insufficient TR jet to calculate RVSP. Pulmonic Valve Trace pulmonic regurgitation. Pericardium Normal Aorta Normal in size IVC Appears to be normal CONCLUSIONS LV systolic function is normal with EF of 60-65% Mild mitral regurgitation Trace pulmonic regurgitation Compared to prior echocardiogram from 2021, no significant changes are seen. Khurram Hodge MD (Electronically Signed) Final Date: 05 March 2024 18:53 S
== END 2024-03-05 13:38 | disposition home or self-care (01) ==
LOC: RAD 13:37
PROVIDERS: PCP Physician Assistant; Visit Provider Physician Assistant
DX: I48.20 Chronic atrial fibrillation, unspecified (principal)
CPT/HCPCS: 93306

== ENCOUNTER 2024-03-05 14:47 | Emergency (ER) | payer MEDICAID, SELFPAY ==
[2020-04-13 10:55] VITALS: BP 156/100; BMI 27.5
[2024-03-05 14:54] VITALS: BP 143/92; PULSE 96; RESP 16; TEMP 36.7; O2SAT 98
--- NOTE | 2024-03-05 14:58 | ECG_ITS ---
[facility] Test Date: 2024-03-05 Pat Name: Costa Alba Department: Room: Gender: Male Programming Director: : 1960 Requested By: Maryam Mead Order Number: [id number] Sara MD: Louie Garcia M.D. Measurements Intervals [place] Rate: 95 P: 0 ID: 0 QRS: 49 QRSD: 86 T: 63 QT: 348 QTc: 439 Interpretive Statements ATRIAL FIBRILLATION POSSIBLE RIGHT VENTRICULAR CONDUCTION DELAY [RSR (QR) IN V1/V2] SEPTAL MYOCARDIAL INFARCTION , OF INDETERMINATE AGE [40+ ms Q WAVE IN V1/V2] Compared to ECG 05/16/2023 16:07:46 Myocardial infarct finding now present Ventricular premature complex(es) no longer present Aberrant conduction of supraventricular beat(s) no longer present Electronically Signed On 03-05-2024 19:11:41 CDT by Louie Garcia M.D. [email or web address]
--- NOTE | 2024-03-05 15:06 | XRR_ITS ---
PROCEDURE INFORMATION: Exam: XR Chest Exam date and time: 03/05/2024 3:23 PM Age: 63 years old Clinical indication: Shortness of breath TECHNIQUE: Imaging protocol: Radiologic exam of the chest. Views: 1 view. COMPARISON: CR XR chest 1V portable [id number] 05/16/2023 12:47 PM FINDINGS: Lungs: Unremarkable. No consolidation. Pleural spaces: Unremarkable. No pleural effusion. No pneumothorax. Heart/Mediastinum: Unremarkable. No cardiomegaly. Bones/joints: There are postsurgical changes of cervical spine fusion. XR/XR chest 1V portable [id number] IMPRESSION: No acute abnormality
[2024-03-05 15:38] LABS: Basophils # 0.1 10^3/uL (0.0-0.1); Basophils % 0.8 %; Eosinophils # 0.1 10^3/uL (0.0-0.8); Eosinophils % 1.8 %; Hematocrit 45.5 % (37-53); Lymphocytes # 1.1 10^3/uL (0.8-4.8); Lymphocytes % 18.5 %; Mean Corpuscular HGB Conc 32.1 g/dL (30-55); Mean Corpuscular Hemoglobin 32.2 pg (27-33); Mean Corpuscular Volume 100.2 fl (82-101); Mean Platelet Volume 9.9 fL (7.4-10.4); Monocytes # 0.6 10^3/uL (0.2-0.9); Monocytes % 9.6 %; Neutrophils # 4.18 10^3/uL (1.8-7.7); Neutrophils % 68.8 %; Nucleated Red Blood Cells % 0 %; Platelet Count 313 10^3/cmm (157-399); Red Blood Count 4.54 10^6/uL (3.85-5.65); Red Cell Distribution Width 14.1 % (12.1-15.1); White Blood Count 6.07 10^3/uL (3.29-11.43)
[2024-03-05 16:01] LABS: Lactic Sepsis W/Reflex 1.4 mmol/L (0.5-2.2)
[2024-03-05 16:05] LABS: Troponin(5th) Baseline 25 ng/L (0-15)
[2024-03-05 16:12] LABS: Alanine Aminotransferase 33 U/L (0-41); Albumin Level 3.9 g/dL (3.5-5.2); Alkaline Phosphatase 93 U/L (40-130); Anion Gap 15.1 (5-19); Aspartate Amino Transferase 30 U/L (0-40); Blood Urea Nitrogen 7 mg/dL (8-23); Calcium 8.8 mg/dL (8.5-10.5); Carbon Dioxide 27 mmol/L (22-29); Chloride 101 mmol/L (98-107); Creatinine Clr Calc Pharmacy 141.8768; Globulin 2.4 g/dL (1.3-4.6); Glomerular Filtration Rate 113.9 mL/min (90-130); Glucose 98 mg/dL (65-115); Magnesium 1.9 mg/dL (1.7-2.3); Osmolality Calculated 286 mOsm/kg (285-295); Potassium 4.1 mmol/L (3.5-5.1); Sodium 139 mmol/L (136-145); Thyroid Stimulating Hormone 1.88 uIU/mL (0.27-4.20); Total Bilirubin 0.3 mg/dL (0.15-1.2); Total Protein 6.3 g/dL (6.6-8.7)
--- NOTE | 2024-03-05 17:02 | PC.NURSE ---
pt refused additional blood work, states he is going to leave as soon as his ride gets here.
--- NOTE | 2024-03-05 17:10 | PC.NURSE ---
talked with pt thatq we have a room ready for him to be seen, refusing to be seen
== END 2024-03-05 17:19 | disposition left against medical advice (07) ==
PROVIDERS: Emergency Medicine; Emergency Provider Family Medicine; PCP Physician Assistant
DX: Z53.21 Procedure and treatment not carried out due to patient leaving prior to being seen by health care provider (principal)
CPT/HCPCS: 36415; 71045; 80053; 83605; 83735; 84443; 84484; 85025; 86140; 87040; 93005; 99285

== ENCOUNTER → 2024-04-09 11:05 | Outpatient (BNVA) | payer MEDICAID, SELFPAY ==
[2020-04-13 10:55] VITALS: BP 156/100; BMI 27.5
== END ==
PROVIDERS: PCP Physician Assistant; Visit Provider Internal Medicine Cardiovascular Disease
DX: E78.5 Hyperlipidemia, unspecified (principal); I25.10 Atherosclerotic heart disease of native coronary artery without angina pectoris; Z95.5 Presence of coronary angioplasty implant and graft; I48.91 Unspecified atrial fibrillation; Z91.199 Patient's noncompliance with other medical treatment and regimen due to unspecified reason; Z72.0 Tobacco use
CPT/HCPCS: 99213

== ENCOUNTER → 2025-06-02 13:23 | Outpatient (BNVA) | payer MEDICAID, SELFPAY ==
[2020-04-13 10:55] VITALS: BP 156/100; BMI 27.5
== END ==
PROVIDERS: PCP Physician Assistant; Visit Provider Orthopaedic Surgery
DX: M48.02 Spinal stenosis, cervical region (principal); Z98.1 Arthrodesis status
CPT/HCPCS: 72050; 99213

== ENCOUNTER 2025-06-10 10:07 | Outpatient (CLI) | payer MEDICAID, SELFPAY ==
[2020-04-13 10:55] VITALS: BP 156/100; BMI 27.5
--- NOTE | 2025-06-10 10:30 | CT_ITS ---
WS: [id number] CT CERVICAL SPINE TECHNIQUE: Noncontrast CT of the cervical spine with coronal and sagittal reformatted images. CLINICAL INFORMATION: neck pain COMPARISON: CT cervical 02/08/2022 DLP: 230.[address] scans at [facility] use at least one of these dose optimization techniques: automated exposure control; mA and/or kV adjustment per patient size (includes targeted exams where dose is matched to clinical indication); or iterative reconstruction. FINDINGS: Straightening of the normal cervical lordosis. Prior postoperative changes ACDF C5-C7 partial corpectomy and interbody strut graft. Hardware appears intact. Alignment is unchanged since 2021. C2-C3: Normal. C3-C4: Minimal disc bulging. Tiny central protrusion. Mild facet arthropathy. Spinal canal and foramen are patent. C4-C5: Tiny central protrusion. Mild LEFT bony foraminal narrowing. Mild facet arthropathy with uncovertebral joint hypertrophy. C5-C6: LEFT eccentric endplate ridging with uncovertebral joint hypertrophy. Moderate LEFT bony foraminal narrowing. Mild central canal stenosis. Moderate facet arthropathy. C6-C7: Posterior endplate ridging. Moderate to severe LEFT bony foraminal narrowing. Mild central canal stenosis. C7-T1: Mild LEFT bony foraminal narrowing. Spinal canal and foramen are patent. Visualized posterior nasopharynx: Normal. Prevertebral soft tissues: Normal. CT/CT cervical spin wo con* [id number] IMPRESSION: 1. Prior postoperative changes ACDF C5-C7 partial corpectomy and interbody s trut graft. Hardware appears intact. Alignment is unchanged since 2021. 2. Moderate to severe bony foraminal narrowing LEFT C5-C6 and LEFT C6-7 simil ar to previous. 3. Mild central canal stenosis C3-C4, C4-C5, C5-C6 ,and C6-C7 similar to the p rior study
== END 2025-06-10 10:08 | disposition home or self-care (01) ==
LOC: RAD 10:08
PROVIDERS: PCP Physician Assistant; Visit Provider Orthopaedic Surgery
DX: M48.02 Spinal stenosis, cervical region (principal); M50.31 Other cervical disc degeneration, high cervical region; M47.812 Spondylosis without myelopathy or radiculopathy, cervical region; M50.222 Other cervical disc displacement at C5-C6 level; M50.223 Other cervical disc displacement at C6-C7 level; Z98.1 Arthrodesis status
CPT/HCPCS: 72125

== ENCOUNTER → 2025-06-23 14:19 | Outpatient (BNVA) | payer MEDICAID, SELFPAY ==
[2020-04-13 10:55] VITALS: BP 156/100; BMI 27.5
== END ==
PROVIDERS: PCP Physician Assistant; Visit Provider Orthopaedic Surgery
DX: M48.02 Spinal stenosis, cervical region (principal); Z09 Encounter for follow-up examination after completed treatment for conditions other than malignant neoplasm; Z98.1 Arthrodesis status; M47.812 Spondylosis without myelopathy or radiculopathy, cervical region; M50.222 Other cervical disc displacement at C5-C6 level; M50.223 Other cervical disc displacement at C6-C7 level
CPT/HCPCS: 99213